=== PATIENT | female | born 1940 | race Caucasian/White ===

== ENCOUNTER → 2017-01-29 | Outpatient (CLI) | payer BC ==
[~2017-01-29] MED LIST: ASPI81TA28 PO; AZPOPS OPR; CALCTAB7 PO; CARV12.52 PO; CARV6.25 PO; CLON0.5T3 PO; ESCI5TAB PO; FAMO1TAB47 PO; HYZ/10015 PO; LEVO25TA5 PO; MULT-506 PO; PRAV20TA PO; TRVOPS OPB; WARF3TAB6 PO
--- NOTE | 2017-01-29 16:41 | MAMMOGRAPHY REPORT ---
BILATERAL DIGITAL SCREENING MAMMOGRAM WITH CAD: 01/29/2017 CLINICAL HISTORY: Routine screening. TECHNIQUE: Bilateral CC and MLO views were obtained. Current study was also evaluated with a Compute r Aided Detection (CAD) system. COMPARISON: Comparison is made to exams dated: 01/18/2016 mammogram, 01/14/2015 mammogram, 01/13/2014 m ammogram, 01/07/2013 mammogram, 01/07/2012 mammogram, and 01/03/2011 mammogram - [facility] enter. BREAST COMPOSITION: There are scattered areas of fibroglandular density in both breasts. FINDINGS: There is an incompletely visualized 3 mm nodular asymmetry in the far posterior, lateral l eft breast, only seen on the CC view. Although this could represent normal overlapping tissue, addit ional spot compression tomosynthesis, exaggerated lateral CC view and possibly ultrasound are recomme nded. There are stable grouped microcalcifications in the upper inner quadrant of the left breast. Minimal vascular calcification bilaterally. No other suspicious mass, architectural distortion or cluster o f microcalcifications is seen. IMPRESSION: ACR BI-RADS CATEGORY 0: INCOMPLETE EVALUATION: NEED ADDITIONAL IMAGING EVALUATION The 3 mm nodular asymmetry in the lateral and posterior left breast needs additional evaluation. The patient will be called to schedule an appointment. Approximately 10% of breast cancers are not detected with mammography. A negative mammographic report should not delay biopsy if a clinically suggestive mass is present. Carie Galvez M.D. ay/:01/29/2017 14:43:12 Leather Cleaner: April GRIMM(R)(M), [facility] letter sent: Addl Imaging 0 BI-RADS Code: ACR BI-RADS Category 0: Incomplete Evaluation: Need Additional Imaging Evaluation
== END | disposition home or self-care (01) ==
LOC: C.MAMM 13:29
PROVIDERS: ATTEND Family Medicine
DX: Z12.31 Encounter for screening mammogram for malignant neoplasm of breast (principal); R92.8 Other abnormal and inconclusive findings on diagnostic imaging of breast

== ENCOUNTER → 2017-02-04 | Outpatient (CLI) | payer BC ==
--- NOTE | 2017-02-04 15:52 | MAMMOGRAPHY REPORT ---
UNILATERAL LEFT DIGITAL DIAGNOSTIC MAMMOGRAM TOMOSYNTHESIS: 02/04/2017 CLINICAL HISTORY: 77 year old woman called back from screening mammography for a 3 mm nodular asymmet ry in the far posterior, lateral left breast, only seen on the CC view. TECHNIQUE: Spot compression 2-D and tomosynthesis left CC views were obtained COMPARISON: Comparison is made to exams dated: 01/29/2017 mammogram, 01/18/2016 mammogram, 01/14/2015 ma mmogram, 01/13/2014 mammogram, 01/07/2013 mammogram, and 01/07/2012 mammogram - [facility] nter. BREAST COMPOSITION: There are scattered areas of fibroglandular density in the left breast. FINDINGS: There is effacement of the 3 mm nodular asymmetry along the far posterior and lateral left breast on the CC projections. With more exaggerated lateral positioning on the second spot compressi on view, there is a tubular blood vessel coursing through this area, suggesting the asymmetry could o f represented the blood vessel seen en face. Currently, there is no evidence of a suspicious mass, a rchitectural distortion or cluster of microcalcifications is seen. Recommend return to annual screen ing mammography schedule. IMPRESSION: ACR BI-RADS CATEGORY 2: BENIGN There is effacement of the 3 mm nodular asymmetry in the far posterior, lateral left breast. There i s no mammographic evidence of malignancy. Return to annual mammogram screening schedule is recommende d. The patient has been verbally notified of the results. Approximately 10% of breast cancers are not detected with mammography. A negative mammographic report should not delay biopsy if a clinically suggestive mass is present. Carie Galvez M.D. ay/:02/04/2017 12:29:29 Motor Carrier Inspector: April GRIMM(Monty)(M), [facility] letter sent: Normal 1/2 BI-RADS Code: ACR BI-RADS Category 2: Benign
== END | disposition home or self-care (01) ==
LOC: C.MAMM 09:17
PROVIDERS: ATTEND Family Medicine
DX: N64.89 Other specified disorders of breast (principal)

== ENCOUNTER 2017-02-13 10:07 | Emergency (ER) | payer BC ==
[~2017-02-13] VITALS: Ht 160 cm; Wt 81.2 kg
[~2017-02-13 10:07] MED LIST changes: -CARV12.52 PO; -HYZ/10015 PO; -LEVO25TA5 PO
[2017-02-13 10:11] VITALS: TEMP 36.7; Ht 160 cm; Wt 81.2 kg
--- NOTE | 2017-02-13 10:53 | DIAGNOSTIC IMAGING REPORT ---
HEAD WITHOUT CONTRAST (CT) CT DOSE: 690.05 mGycm HISTORY: Mental status change. Trauma. eval for bleed TECHNIQUE: Multiaxial CT images of the head were performed without the use of intravenous contrast. A dose lowering technique was utilized adhering to the principles of ALARA. Comparison: 08/21/2013 Findings: The paranasal sinuses and mastoid air cells are clear. The calvarium and skull base are intact. The ventricles and sulci are within normal limits. There is no mass, hematoma, midline shift, or acute infarct. Moderate chronic small vessel change of aging. Extracranial left prefrontal soft tissue edema. Impression: No acute intracranial abnormality. Age-related change. Extracranial left prefrontal soft tissue edematous change The above report was generated using voice recognition software. It may contain grammatical, syntax or spelling errors. Electronically signed by: Efren Cuevas M.D. 02/13/2017 10:52 AM Dictated Date/Time: 02/13/2017 10:50 AM
--- NOTE | 2017-02-13 10:59 | DIAGNOSTIC IMAGING REPORT ---
CT SCAN OF THE FACIAL BONES WITHOUT IV CONTRAST CLINICAL HISTORY: Fall with left facial injury. COMPARISON STUDY: CT of the brain dated 02/13/2017. TECHNIQUE: High-resolution CT scan of the facial bones is performed. Images are reviewed in the axial, sagittal, and coronal planes. IV contrast was not administered for this examination. A dose lowering technique was utilized adhering to the principles of ALARA. CT DOSE: 551.90 mGycm FINDINGS: The skeletal structures are osteopenic. There is no evidence of facial bone fracture. The bony orbits are intact and the orbital contents are within normal limits noting bilateral ocular lens implants. The zygomatic arches, nasal bones, and pterygoid plates are preserved. The maxilla and mandible are intact. Arthritic change is seen at the temporomandibular joints. There are no layering blood products within the paranasal sinuses. The sinuses and mastoids are clear. The visualized calvarium and upper cervical spine are maintained. Mild cervical spondylosis is noted. Partially imaged brain parenchyma is within normal limits. There is a left frontal scalp hematoma. IMPRESSION: 1. There is no evidence of facial bone fracture. 2. Left frontal scalp hematoma. Electronically signed by: Rick Akhtar M.D. 02/13/2017 10:58 AM Dictated Date/Time: 02/13/2017 10:55 AM
[2017-02-13] MEDS ORDERED: LEVO25TA5 PO (11:04)
[2017-02-13] MEDS ORDERED: CARV12.52 PO (11:04)
[2017-02-13] MEDS ORDERED: HYZ/10015 PO (11:04)
[2017-02-13] MEDS ORDERED: WARF3TAB6 PO (11:07)
--- NOTE | 2017-02-13 11:07 | DIAGNOSTIC IMAGING REPORT ---
LEFT SHOULDER MIN 2 VIEWS ROUTINE CLINICAL HISTORY: eval for fx trauma COMPARISON: None. DISCUSSION: The bones and joint spaces appear intact. There is no evidence of fracture, dislocation or bony disease. There is no evidence for soft tissue swelling. IMPRESSION: Negative study. The above report was generated using voice recognition software. It may contain grammatical, syntax or spelling errors. Electronically signed by: Efren Cuevas M.D. 02/13/2017 11:05 AM Dictated Date/Time: 02/13/2017 11:05 AM
--- NOTE | 2017-02-13 11:08 | DIAGNOSTIC IMAGING REPORT ---
LEFT KNEE 1 OR 2 VIEWS ROUTINE CLINICAL HISTORY: eval for fx trauma. Pain. COMPARISON: None. DISCUSSION: The bones and joint spaces appear intact. There is no evidence of fracture, dislocation or bony disease. There is no evidence for soft tissue swelling. IMPRESSION: Negative study. The above report was generated using voice recognition software. It may contain grammatical, syntax or spelling errors. Electronically signed by: Efren Cuevas M.D. 02/13/2017 11:06 AM Dictated Date/Time: 02/13/2017 11:06 AM
[2017-02-13] MEDS ORDERED: ACETAMINOPHEN 500 MG TAB PO STA (11:12)
[2017-02-13] MEDS ORDERED: LABETALOL HCL IV 5 MG/ML 20ML IV STA (12:53)
[2017-02-13 13:25] LABS: BASO % 0.1 %; BASO ABS # 0.01 K/uL (0-0.2); COMPLETE YES; EOS % 0.4 %; HEMATOCRIT 38.3 % (37-47); IG% 0.1 %; LYMPH % 18.5 %; LYMPH ABS # 1.27 K/uL (1.2-3.4); MEAN CELL VOLUME 86.3 fL (80-100); MEAN CORPUSCULAR HEMOGLOBIN 27.9 pg (25-34); MEAN CORPUSCULAR HGB CONC 32.4 g/dl (32-36); MEAN PLATELET VOLUME 9.1 fL (7.4-10.4); NEUT % 73.9 %; PLATELET COUNT 299 K/uL (130-400); RED BLOOD COUNT 4.44 M/uL (4.2-5.4); WHITE BLOOD COUNT 6.85 K/uL (4.8-10.8)
[2017-02-13 13:56] LABS: BUN/CREATININE RATIO 17.9 (10-20); CALCIUM 8.8 mg/dl (8.5-10.1); CREATININE 0.7 mg/dl (0.60-1.20)
[2017-02-13 14:28] VITALS: BP 156/71; PULSE 58; O2SAT 95
--- NOTE | 2017-02-13 15:08 | EMERGENCY ROOM VISIT NOTE ---
History Report prepared by Raj: Karie Vargas Under the Supervision of: Dr. Odin Santoyo M.D. First contact with patient: 10:15 Chief Complaint: HEAD INJURY (MINOR) Stated Complaint: FALL History of Present Illness The patient is a 77 year old female who presents to the Emergency Room with complaints of a head injury from a fall occurring just prior to arrival. The patient states she was walking into a store when she fell on the concrete and hit her head. She denies any symptoms prior to falling. According to , the patient tripped on the curb. The patient notes that she did not lose consciousness when she hit her head. The patient notes a left sided headache. She also notes left knee and shoulder pain but she is able to ambulate without difficulty. The patient is on Coumadin for two PEs and her INR was a 3 today. The patient has a history of hypertension and took her medications. Source of History: patient Onset: just prior to arrival Position: head (left sided) Quality: ache Timing: constant Associated Symptoms: No LOC, No chest pain, No SOB, No weakness, No numbness Note: She notes left knee and shoulder pain. Review of Systems See HPI for pertinent positives & negatives. A total of 10 systems reviewed and were otherwise negative. Past Medical & Surgical Medical Problems: (1) Arthritis (2) Atrial fibrillation (3) Depression (4) Esophageal reflux (5) Glaucoma (6) Goiter (7) HTN (hypertension) (8) Hyperlipidemia (9) IBS (irritable bowel syndrome) (10) Migraine (11) Mitral valve regurgitation (12) Myalgia (13) Osteoporosis Surgical Problems: (1) H/O knee surgery (2) Previous back surgery Family History Diabetes mellitus FH: cancer FH: dementia FH: heart disease Social History Smoking Status: Never Smoker Alcohol Use: occasionally Marital Status: Housing Status: lives with significant other Occupation Status: retired Current/Historical Medications Scheduled Aspirin (Aspirin Ec), 81 MG PO QAM Calcium Carbonate-Vitamin D W/ (Caltrate 600 Plus), 1 TAB PO BID Carvedilol (Coreg), 1 TAB PO BID Hctz/Losartan (Hyzaar 25MG/100MG), 1 TAB PO DAILY Levothyroxine Sodium (Levothyroxine Sodium), 1 TAB PO DAILY Multivitamin (Multivitamin), 1 TAB PO QAM Pravastatin (Pravachol ), 20 MG PO QPM Warfarin Sod (Jantoven), 3 MG PO DAILY Scheduled PRN Clonazepam (Klonopin), 0.5 MG PO TID PRN for Anxiety/Insomnia Allergies Coded Allergies: Atorvastatin (Verified Allergy, Intermediate, "legs don't want to move.", 10/19/15) Physical Exam Vital Signs Date Time Temp Pulse Resp B/P (MAP) Pulse Ox O2 Delivery O2 Flow Rate FiO2 02/13/17 14:28 58 156/71 95 02/13/17 14:16 156/71 02/13/17 14:12 55 14 99 02/13/17 14:01 166/75 02/13/17 13:57 59 13 100 02/13/17 13:46 176/73 02/13/17 13:42 56 16 100 02/13/17 13:37 58 18 100 02/13/17 13:31 162/72 02/13/17 13:29 56 02/13/17 13:23 164/68 02/13/17 13:09 61 179/70 98 02/13/17 13:00 192/112 02/13/17 12:22 163/99 02/13/17 11:37 71 183/111 94 Room Air 02/13/17 11:09 76 20 214/116 93 Room Air 02/13/17 10:24 18 97 02/13/17 10:11 36.7 63 20 181/102 97 Room Air Physical Exam Constitutional: Vital signs reviewed. Eyes: Pupils are equal round reactive to light. Conjunctiva are noninjected. ENT: Pharynx is clear without erythema or exudate. Mucous membranes are moist. Neck supple without meningeal signs. Respiratory: Clear to auscultation bilaterally. Breath sounds are equal bilaterally. Cardiovascular: Regular rate and rhythm. No rubs or gallops. GI: Soft, nondistended and nontender. Bowel sounds are present. Musculoskeletal: No peripheral edema. No hip tenderness. There is tenderness. Left posterior shoulder and left knee with bruising. No deformity to either joint. Integumentary: No cyanosis. Neurologic: The patient is awake and alert. Cranial nerves II-XII are intact. Motor is 5 out of 5 all extremities. Sensation is intact to light touch all extremities. Normal speech. No pronator drift. Psychiatric: Normal affect. Medical Decision & Procedures ER Provider Diagnostic Interpretation: Radiology results as stated below per my review and the radiologist's interpretation: HEAD WITHOUT CONTRAST (CT) Findings: The paranasal sinuses and mastoid air cells are clear. The calvarium and skull base are intact. The ventricles and sulci are within normal limits. There is no mass, hematoma, midline shift, or acute infarct. Moderate chronic small vessel change of aging. Extracranial left prefrontal soft tissue edema. Impression: No acute intracranial abnormality. Age-related change. Extracranial left prefrontal soft tissue edematous change The above report was generated using voice recognition software. It may contain grammatical, syntax or spelling errors. Electronically signed by: Efren Cuevas M.D. LEFT KNEE 1 OR 2 VIEWS ROUTINE DISCUSSION: The bones and joint spaces appear intact. There is no evidence of fracture, dislocation or bony disease. There is no evidence for soft tissue swelling. IMPRESSION: Negative study. The above report was generated using voice recognition software. It may contain grammatical, syntax or spelling errors. Electronically signed by: Efren Cuevas M.D. CT SCAN OF THE FACIAL BONES WITHOUT IV CONTRAST FINDINGS: The skeletal structures are osteopenic. There is no evidence of facial bone fracture. The bony orbits are intact and the orbital contents are within normal limits noting bilateral ocular lens implants. The zygomatic arches, nasal bones, and pterygoid plates are preserved. The maxilla and mandible are intact. Arthritic change is seen at the temporomandibular joints. There are no layering blood products within the paranasal sinuses. The sinuses and mastoids are clear. The visualized calvarium and upper cervical spine are maintained. Mild cervical spondylosis is noted. Partially imaged brain parenchyma is within normal limits. There is a left frontal scalp hematoma. IMPRESSION: 1. There is no evidence of facial bone fracture. 2. Left frontal scalp hematoma. Electronically signed by: Rick Akhtar M.D. LEFT SHOULDER MIN 2 VIEWS ROUTINE DISCUSSION: The bones and joint spaces appear intact. There is no evidence of fracture, dislocation or bony disease. There is no evidence for soft tissue swelling. IMPRESSION: Negative study. The above report was generated using voice recognition software. It may contain grammatical, syntax or spelling errors. Electronically signed by: Efren Cuevas M.D. Laboratory Results 02/13/17 13:04 Red Blood Count 4.44, Mean Corpuscular Volume 86.3, Mean Corpuscular Hemoglobin 27.9, Mean Corpuscular Hemoglobin Concent 32.4, Mean Platelet Volume 9.1, Neutrophils (%) (Auto) 73.9, Lymphocytes (%) (Auto) 18.5, Monocytes (%) (Auto) 7.0, Eosinophils (%) (Auto) 0.4, Basophils (%) (Auto) 0.1, Neutrophils # (Auto) 5.05, Lymphocytes # (Auto) 1.27, Monocytes # (Auto) 0.48, Eosinophils # (Auto) 0.03, Basophils # (Auto) 0.01 02/13/17 13:04 Test 02/13/17 13:04 White Blood Count 6.85 K/uL (4.8-10.8) Red Blood Count 4.44 M/uL (4.2-5.4) Hemoglobin 12.4 g/dL (12.0-16.0) Hematocrit 38.3 % (37-47) Mean Corpuscular Volume 86.3 fL (80-100) Mean Corpuscular Hemoglobin 27.9 pg (25-34) Mean Corpuscular Hemoglobin Concent 32.4 g/dl (32-36) Platelet Count 299 K/uL (130-400) Mean Platelet Volume 9.1 fL (7.4-10.4) Neutrophils (%) (Auto) 73.9 % Lymphocytes (%) (Auto) 18.5 % Monocytes (%) (Auto) 7.0 % Eosinophils (%) (Auto) 0.4 % Basophils (%) (Auto) 0.1 % Neutrophils # (Auto) 5.05 K/uL (1.4-6.5) Lymphocytes # (Auto) 1.27 K/uL (1.2-3.4) Monocytes # (Auto) 0.48 K/uL (0.11-0.59) Eosinophils # (Auto) 0.03 K/uL (0-0.5) Basophils # (Auto) 0.01 K/uL (0-0.2) RDW Standard Deviation 44.6 fL (36.4-46.3) RDW Coefficient of Variation 14.1 % (11.5-14.5) Immature Granulocyte % (Auto) 0.1 % Immature Granulocyte # (Auto) 0.01 K/uL (0.00-0.02) Anion Gap 6.0 mmol/L (3-11) Est Creatinine Clear Calc Drug Dose 69.0 ml/min Estimated GFR () 97.5 Estimated GFR (Non- 84.2 BUN/Creatinine Ratio 17.9 (10-20) Calcium Level 8.8 mg/dl (8.5-10.1) Laboratory results as reviewed by me. Medications Administered Medications (Trade) Dose Ordered Sig/Sheri Route Start Time Stop Time Status Last Admin Dose Admin Acetaminophen (Tylenol Tab) 1,000 mg NOW STAT PO 02/13/17 11:12 02/13/17 11:13 DC 02/13/17 11:19 1,000 MG Labetalol HCl (Normodyne IV) 10 mg NOW STAT IV 02/13/17 12:53 02/13/17 12:55 DC 02/13/17 13:14 10 MG ECG Indication: other (high blood pressure) Rate (beats per minute): 70 Rhythm: normal sinus Findings: RBBB, no ectopy Comparison ECG Date: 05/04/16 Change: no significant change ED Course 1018: The patient was evaluated in room B12B. A complete history and physical exam was performed. 1109: The patient is still significantly hypertensive but she says the lump on her heard is hurting her. I discussed her test results with her. 1112: Tylenol Tab 1000 mg PO. 1201: The patient's headache is improving and her blood pressure has come down. I discussed her Coumadin dosing with her. 1220: Her blood pressure is now 163/99. The patient's says they have a hard time controlling her blood pressure at home. The patient notes that she tends to worry about her blood pressure which drives it higher. 1253: Normodyne IV 10 mg IV. 1255: The patient's blood pressure is now 204/100. She feels overall better and her headache is improving. 1412: The patient's blood pressure is now 166/75. She has a mild headache but denies any nausea. 1420: Upon reevaluation, the patient appeared to have improvement of her symptoms. I discussed tonight's findings with the patient. She verbalized agreement of the treatment plan. The patient was discharged home. Medical Decision This is a 77-year-old female who presents with injuries after a mechanical fall. Differential diagnosis includes contusion, concussion, intracranial hemorrhage, skull fracture, long bone fracture. I did perform a limited focused review of portions of the patient's old chart on the electronic medical record. The patient has had no recent pertinent visits to this hospital. I did evaluate the patient as noted above. The patient presents with injuries after a mechanical fall. She is hypertensive but states she took her medications. She is on Coumadin and states her INR was 3 today. I did order a CT of the head and facial bones. I did review the images myself as well as the radiology report as described above. There is no evidence of acute fracture or intracranial process. I did order and personally review the patient's x-rays as described above. There is no evidence of acute fracture dislocation to the knee or shoulder. I did reassess the patient. She complains of a headache and was given Tylenol. Her blood pressure remained elevated. We did observe her for some time and her blood pressure remained elevated despite her headache improving. IV access was established. The patient was placed on a continuous threat monitoring analyst. I did order and review the patient's blood work as noted in the electronic medical record. 12-lead EKG was obtained and per my interpretation no acute ischemic changes are noted. I did treat the patient with labetalol 10 mg IV. On reassessment the patient's blood pressure is improved. She has a mild headache but otherwise denies any other symptoms. I did review her Coumadin dosing with her. She was given head injury precautions and discharged home in good condition. Head Trauma GCS Score: 15 Medication Reconcilliation Current Medication List: was personally reviewed by me Blood Pressure Screening Patient's blood pressure: Elevated blood pressure Impression Primary Impression: Acute head injury Additional Impressions: Anticoagulated Contusion of left shoulder Contusion of left knee Poorly-controlled hypertension Scribe Attestation The scribe's documentation has been prepared under my direct and personally reviewed by me in its entirety. I confirm that the note above accurately reflects all work, treatment, procedures, and medical decision making performed by me. Departure Information Dispostion Home / Self-Care Referrals Marcell Landry D.O. (PCP) Forms HOME CARE DOCUMENTATION FORM, IMPORTANT VISIT INFORMATION Patient Instructions ED Head Injury Closed, ED Hypertension Conf Out Of Control, My [facility] Additional Instructions You have been examined and treated today on an emergency basis only. This is not a substitute for, or an effort to provide, complete comprehensive medical care. It is impossible to recognize and treat all injuries or illnesses in a single emergency department visit. It is therefore important that you follow up closely with your physician. Call as soon as possible for an appointment. Return for worsening symptoms or if you develop fever, vomiting, numbness or weakness on one side of your body, confusion, chest pain, difficulty walking or talking, or any other concerning symptoms. Problem Qualifiers Primary Impression: Acute head injury Encounter type: initial encounter Qualified Codes: S09.90XA - Unspecified injury of head, initial encounter Additional Impressions: Contusion of left shoulder Encounter type: initial encounter Qualified Codes: S40.012A - Contusion of left shoulder, initial encounter Contusion of left knee Encounter type: initial encounter Qualified Codes: S80.02XA - Contusion of left knee, initial encounter
== END 2017-02-13 14:31 | disposition home or self-care (01) ==
LOC: C.EDB 10:08
DX: S09.90XA Unspecified injury of head, initial encounter (principal); S40.012A Contusion of left shoulder, initial encounter; S80.02XA Contusion of left knee, initial encounter; W22.8XXA Striking against or struck by other objects, initial encounter; I48.91 Unspecified atrial fibrillation; I10 Essential (primary) hypertension; E78.5 Hyperlipidemia, unspecified; F32.9 Major depressive disorder, single episode, unspecified; I34.0 Nonrheumatic mitral (valve) insufficiency; M81.0 Age-related osteoporosis without current pathological fracture; K58.9 Irritable bowel syndrome, unspecified; M19.90 Unspecified osteoarthritis, unspecified site; E04.9 Nontoxic goiter, unspecified; Z98.890 Other specified postprocedural states; Z79.82 Long term (current) use of aspirin; Z79.01 Long term (current) use of anticoagulants; Z79.899 Other long term (current) drug therapy; Z88.8 Allergy status to other drugs, medicaments and biological substances; Z83.3 Family history of diabetes mellitus; Z80.9 Family history of malignant neoplasm, unspecified; Z82.49 Family history of ischemic heart disease and other diseases of the circulatory system

== ENCOUNTER → 2017-08-13 | Outpatient (CLI) | payer BC ==
[~2017-08-13] MED LIST changes: -AZPOPS OPR; +CARV12.52 PO; -CARV6.25 PO; -ESCI5TAB PO; -FAMO1TAB47 PO; +HYZ/10015 PO; +LEVO25TA5 PO; -TRVOPS OPB
--- NOTE | 2017-08-13 08:45 | DIAGNOSTIC IMAGING REPORT ---
HEAD WITHOUT CONTRAST (CT) CLINICAL HISTORY: 77 years-old Female with POST CONCUSSION SYNDROME. TECHNIQUE: Multiple axial CT images of the head were obtained without contrast. A dose lowering technique was utilized adhering to the principles of ALARA. CT DOSE: 638.56 mGycm COMPARISON: CT head 02/13/2017. FINDINGS: No acute intracranial hemorrhage, midline shift, intracranial mass, hydrocephalus, territorial ischemia or abnormal extra-axial collection. Mild atrophy. Moderate patchy multifocal areas of decreased attenuation throughout the periventricular and subcortical white matter suggest chronic microvascular ischemic changes. Vascular calcifications are seen at the level of the skull base. Senescent calcifications of the lentiform nuclei. The calvarium is intact. The mastoid air cells, and middle ear cavities are clear. Mild mucosal thickening of the ethmoid air cells. Soft tissues and orbits are unremarkable. IMPRESSION: No acute intracranial abnormality. The above report was generated using voice recognition software. It may contain grammatical, syntax or spelling errors. Electronically signed by: Robert Lowery M.D. 08/13/2017 8:44 AM Dictated Date/Time: 08/13/2017 8:40 AM
== END | disposition home or self-care (01) ==
LOC: C.CTS 08:18
PROVIDERS: ATTEND Nurse Practitioner Adult Health
DX: F07.81 Postconcussional syndrome (principal); R51 Headache

== ENCOUNTER 2017-08-16 09:49 | Emergency (ER) | payer BC ==
[~2017-08-16] VITALS: Ht 157.5 cm; Wt 80.5 kg
[2017-08-16 09:59] VITALS: TEMP 36.7; Ht 157.5 cm; Wt 80.5 kg
[2017-08-16] MEDS ORDERED: SODIUM CHLORIDE 0.9% 1000ML 1,000 ML IV STA (10:13)
[2017-08-16 10:42] VITALS: O2SAT 95
--- NOTE | 2017-08-16 10:44 | EMERGENCY ROOM VISIT NOTE ---
History Report prepared by Raj: Zayda Vargas Under the Supervision of: Dr. Odin Santoyo M.D. First contact with patient: 10:10 Chief Complaint: DIZZY Stated Complaint: DIZZY Nursing Triage Summary: On 08/14 pt was started on HCTZ, has been intermittently dizzy since. Had a presyncopal event on the , and keeps feeling presyncopal. Has not had LOC. History of Present Illness The patient is a 77 year old female who presents to the Emergency Room with complaints of a near syncopal episode beginning just prior to arrival. She reports she was sitting when the episode took place. She denies any LOC. The patient states she has been feeling weak and dizzy for the past couple weeks. The patient had a fall in January where she hit her head. She reports she has been having intermittent headaches since her fall. She denies being admitted to the hospital after her fall. Per , the patient did not have any bleeding in her brain on the CT from her fall in January. The patient notes she has a repeat head CT on 08/13 which was unremarkable for her ongoing headaches. The patient saw her silverware etcher on Saturday and had her Losartan was doubled. She was also started HCTZ on 08/14. 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 She reports she had a scope on her knee which she believes was the cause of her blood clots. She denies CP, SOB, palpitations, urinary symptoms. Source of History: patient Onset: just prior to arrival Position: other (generalized) Quality: other (near syncopal) Timing: other (episode) Associated Symptoms: + fatigue, + weakness, No LOC, No urinary symptoms Review of Systems See HPI for pertinent positives and negatives. A total of ten systems were reviewed and were otherwise negative. Past Medical & Surgical Medical Problems: (1) Arthritis (2) Atrial fibrillation (3) Depression (4) Esophageal reflux (5) Glaucoma (6) Goiter (7) HTN (hypertension) (8) Hyperlipidemia (9) IBS (irritable bowel syndrome) (10) Migraine (11) Mitral valve regurgitation (12) Myalgia (13) Osteoporosis Surgical Problems: (1) H/O knee surgery (2) Previous back surgery Family History Diabetes mellitus FH: cancer FH: dementia FH: heart disease Social History Smoking Status: Never Smoker Alcohol Use: occasionally Marital Status: Housing Status: lives with significant other Occupation Status: retired Current/Historical Medications Scheduled Aspirin (Aspirin Ec), 81 MG PO QAM Calcium Carbonate-Vitamin D W/ (Caltrate 600 Plus), 1 TAB PO BID Carvedilol (Coreg), 1 TAB PO BID Hctz/Losartan (Hyzaar 25MG/100MG), 1 TAB PO DAILY Multivitamin (Multivitamin), 1 TAB PO QAM Pravastatin (Pravachol ), 20 MG PO QPM Warfarin Sod (Jantoven), 3 MG PO DAILY Scheduled PRN Clonazepam (Klonopin), 0.5 MG PO TID PRN for Anxiety/Insomnia Allergies Coded Allergies: Atorvastatin (Verified Allergy, Intermediate, "legs don't want to move.", 08/16/17) Physical Exam Vital Signs Date Time Temp Pulse Resp B/P (MAP) Pulse Ox O2 Delivery O2 Flow Rate FiO2 08/16/17 13:18 67 18 172/98 95 08/16/17 12:37 69 18 170/82 94 Room Air 08/16/17 11:25 75 18 181/98 92 Room Air 08/16/17 11:02 63 08/16/17 10:42 95 Room Air 08/16/17 10:42 72 18 161/92 94 Room Air 68 170/91 70 162/90 08/16/17 09:59 36.7 59 18 147/83 95 Room Air Physical Exam GENERAL: Awake, fatigued-appearing, in no distress HENT: Normocephalic, atraumatic. Oropharynx unremarkable. Dry mucus membrane. EYES: Normal conjunctiva. Sclera non-icteric. NECK: Supple. No nuchal rigidity. FROM. No JVD. RESPIRATORY: Clear to auscultation. CARDIAC: Regular rate, normal rhythm. Extremities warm and well perfused. Pulses equal. ABDOMEN: Soft, non-distended. No tenderness to palpation. No rebound or guarding. No masses. RECTAL: Deferred. MUSCULOSKELETAL: Chest examination reveals no tenderness. The back is symmetrical on inspection without obvious abnormality. There is no CVA tenderness to palpation. No joint edema. LOWER EXTREMITIES: Calves are equal size bilaterally and non-tender. No edema. No discoloration. NEURO: Normal sensorium. No sensory or motor deficits noted. normal cerebellar function with [id number]. SKIN: No rash or jaundice noted. Medical Decision & Procedures ER Provider Diagnostic Interpretation: Radiology results as stated below per my review and radiologist interpretation: CHEST ONE VIEW PORTABLE FINDINGS: Cardiac silhouette is mildly enlarged, unchanged. Atherosclerosis of the aorta. Mild right hemidiaphragmatic elevation. Subsegmental left basilar opacities. No pneumothorax or pleural effusion. Degenerative changes are seen within the shoulders and spine. Calcification of the left neck suggest carotid calcifications. IMPRESSION: 1. Cardiomegaly without overt pulmonary edema. 2. Subsegmental left basilar opacities favor atelectasis. 3. Unchanged mild right hemidiaphragmatic elevation. The above report was generated using voice recognition software. It may contain grammatical, syntax or spelling errors. Electronically signed by: Robert Lowery M.D. Laboratory Results 08/16/17 10:30 Red Blood Count 4.74, Mean Corpuscular Volume 84.6, Mean Corpuscular Hemoglobin 27.2, Mean Corpuscular Hemoglobin Concent 32.2, Mean Platelet Volume 8.8, Neutrophils (%) (Auto) 66.7, Lymphocytes (%) (Auto) 22.1, Monocytes (%) (Auto) 10.2, Eosinophils (%) (Auto) 0.6, Basophils (%) (Auto) 0.1, Neutrophils # (Auto ) 5.28, Lymphocytes # (Auto) 1.75, Monocytes # (Auto) 0.81, Eosinophils # (Auto ) 0.05, Basophils # (Auto) 0.01 08/16/17 10:30 Test 08/16/17 10:30 08/16/17 10:48 White Blood Count 7.92 K/uL (4.8-10.8) Red Blood Count 4.74 M/uL (4.2-5.4) Hemoglobin 12.9 g/dL (12.0-16.0) Hematocrit 40.1 % (37-47) Mean Corpuscular Volume 84.6 fL (80-100) Mean Corpuscular Hemoglobin 27.2 pg (25-34) Mean Corpuscular Hemoglobin Concent 32.2 g/dl (32-36) Platelet Count 328 K/uL (130-400) Mean Platelet Volume 8.8 fL (7.4-10.4) Neutrophils (%) (Auto) 66.7 % Lymphocytes (%) (Auto) 22.1 % Monocytes (%) (Auto) 10.2 % Eosinophils (%) (Auto) 0.6 % Basophils (%) (Auto) 0.1 % Neutrophils # (Auto) 5.28 K/uL (1.4-6.5) Lymphocytes # (Auto) 1.75 K/uL (1.2-3.4) Monocytes # (Auto) 0.81 K/uL (0.11-0.59) Eosinophils # (Auto) 0.05 K/uL (0-0.5) Basophils # (Auto) 0.01 K/uL (0-0.2) RDW Standard Deviation 43.5 fL (36.4-46.3) RDW Coefficient of Variation 14.0 % (11.5-14.5) Immature Granulocyte % (Auto) 0.3 % Immature Granulocyte # (Auto) 0.02 K/uL (0.00-0.02) Prothrombin Time 22.4 SECONDS (9.0-12.0) Prothromb Time International Ratio 2.2 (0.9-1.1) Anion Gap 4.0 mmol/L (3-11) Est Creatinine Clear Calc Drug Dose 48.0 ml/min Estimated GFR () 64.9 Estimated GFR (Non- 56.0 BUN/Creatinine Ratio 15.2 (10-20) Calcium Level 9.0 mg/dl (8.5-10.1) Magnesium Level 1.9 mg/dl (1.8-2.4) Total Bilirubin 0.4 mg/dl (0.2-1) Direct Bilirubin < 0.1 mg/dl (0-0.2) Aspartate Amino Transf (AST/SGOT) 21 U/L (15-37) Alanine Aminotransferase (ALT/SGPT) 21 U/L (12-78) Alkaline Phosphatase 72 U/L (45-117) Total Protein 7.3 gm/dl (6.4-8.2) Albumin 3.5 gm/dl (3.4-5.0) Lipase 201 U/L (73-393) Urine Color YELLOW Urine Appearance CLOUDY (CLEAR) Urine pH 5.5 (4.5-7.5) Urine Specific [place] 1.013 (1.000-1.030) Urine Protein NEG (NEG) Urine Glucose (UA) NEG (NEG) Urine Ketones NEG (NEG) Urine Occult Blood NEG (NEG) Urine Nitrite NEG (NEG) Urine Bilirubin NEG (NEG) Urine Urobilinogen NEG (NEG) Urine Leukocyte Esterase TRACE (NEG) Urine WBC (Auto) 1-5 /hpf (0-5) Urine RBC (Auto) 0-4 /hpf (0-4) Urine Hyaline Casts (Auto) 1-5 /lpf (0-5) Urine Epithelial Cells (Auto) >30 /lpf (0-5) Urine Bacteria (Auto) NEG (NEG) Laboratory results reviewed by me Medications Administered Medications (Trade) Dose Ordered Sig/Sheri Route Start Time Stop Time Status Last Admin Dose Admin Sodium Chloride 1,000 ml @ 999 mls/hr Q1H1M STAT IV 08/16/17 10:13 08/16/17 11:13 DC 08/16/17 10:50 999 MLS/HR ECG Per My Interpretation Indication: weakness Rate (beats per minute): 65 Rhythm: sinus rhythm Findings: PVC (occasional), RBBB, no acute ischemic change, other (normal axis) Comparison ECG Date: 02/13/17 Change: no significant change ED Course 1023: The patient was evaluated in room A2. A complete history and physical exam was performed. 1312: I reevaluated the patient. Discussed results and discharge instructions: She verbalized understanding and agreement. The patient is ready for discharge. Medical Decision I reviewed the patient's past medical history, medications, and the nursing notes as described above. Differential diagnosis: Etiologies such as metabolic, infection, hypo/hyperglycemia, electrolyte abnormalities, cardiac sources, intracerebral event, toxicologic, neurologic, as well as others were entertained. 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 Symptoms occur in the setting of having her hydrochlorothiazide increased although the patient reports having intermittent lightheadedness even before this change. The patient did have a negative head CT which was done for headaches, outpatient on 08/13 that was negative. On exam the patient is fatigued appearing but in no acute distress, afebrile stable vital signs. She is neuro intact including finger to nose. EKG demonstrates right bundle branch block similar to prior without evidence of acute ischemia. Labs otherwise unremarkable including wbc wnl. Patient feels improved after IV fluid hydration. She will follow-up with her primary doctor and silverware etcher as scheduled. Instructed to return for any worsening symptoms. Findings and plan for follow-up reviewed with patient. Patient agreeable and d/c'd per discharge instructions. Medication Reconcilliation Current Medication List: was personally reviewed by me Blood Pressure Screening Patient's blood pressure: Elevated blood pressure Blood pressure disposition: Elevated BP felt to be situational Impression Primary Impression: Near syncope Additional Impression: Dehydration Scribe Attestation The scribe's documentation has been prepared under my direction and personally reviewed by me in its entirety. I confirm that the note above accurately reflects all work, treatment, procedures, and medical decision making performed by me. Departure Information Dispostion Home / Self-Care Referrals Marcell Landry D.O. (PCP) Forms HOME CARE DOCUMENTATION FORM, IMPORTANT VISIT INFORMATION Patient Instructions ED Dehydration, ED Near Syncope Unkn, My [facility] Additional Instructions Please follow up with your primary care physician and silverware etcher next week as scheduled for re-evaluation. The cause of your symptoms is likely due to mild dehydration. Otherwise, your exam, EKG, chest xray, and lab results did not show signs of an emergent condition at this time. Continue your current medications as prescribed. Drink plenty of fluids to ensure hydration. Return to the emergency department for worsening symptoms as described in the accompanying instructions. Problem Qualifiers
[2017-08-16 10:48] LABS: BASO % 0.1 %; BASO ABS # 0.01 K/uL (0-0.2); EOS % 0.6 %; EOS ABS # 0.05 K/uL (0-0.5); HEMATOCRIT 40.1 % (37-47); HEMOGLOBIN 12.9 g/dL (12.0-16.0); IG# 0.02 K/uL (0.00-0.02); LYMPH % 22.1 %; LYMPH ABS # 1.75 K/uL (1.2-3.4); MEAN CELL VOLUME 84.6 fL (80-100); MEAN CORPUSCULAR HEMOGLOBIN 27.2 pg (25-34); MEAN CORPUSCULAR HGB CONC 32.2 g/dl (32-36); MEAN PLATELET VOLUME 8.8 fL (7.4-10.4); MONO % 10.2 %; MONO ABS # 0.81 K/uL (0.11-0.59); NEUT % 66.7 %; NEUT ABS # 5.28 K/uL (1.4-6.5); PLATELET COUNT 328 K/uL (130-400); RED CELL DISTRIBUTION WIDTH SD 43.5 fL (36.4-46.3); WHITE BLOOD COUNT 7.92 K/uL (4.8-10.8)
--- NOTE | 2017-08-16 10:50 | DIAGNOSTIC IMAGING REPORT ---
CHEST ONE VIEW PORTABLE HISTORY: 77 years-old Female CHEST PAIN acute atypical chest pain COMPARISON: Chest radiograph 09/02/2014 TECHNIQUE: Portable AP view of the chest FINDINGS: Cardiac silhouette is mildly enlarged, unchanged. Atherosclerosis of the aorta. Mild right hemidiaphragmatic elevation. Subsegmental left basilar opacities. No pneumothorax or pleural effusion. Degenerative changes are seen within the shoulders and spine. Calcification of the left neck suggest carotid calcifications. IMPRESSION: 1. Cardiomegaly without overt pulmonary edema. 2. Subsegmental left basilar opacities favor atelectasis. 3. Unchanged mild right hemidiaphragmatic elevation. The above report was generated using voice recognition software. It may contain grammatical, syntax or spelling errors. Electronically signed by: Robert Lowery M.D. 08/16/2017 10:49 AM Dictated Date/Time: 08/16/2017 10:48 AM
[2017-08-16 10:55] LABS: INR 2.2 (0.9-1.1)
[2017-08-16 10:58] LABS: ALBUMIN 3.5 gm/dl (3.4-5.0); ALT/SGPT 21 U/L (12-78); BLOOD UREA NITROGEN 15 mg/dl (7-18); CARBON DIOXIDE 30 mmol/L (21-32); CREATININE 0.98 mg/dl (0.60-1.20); GLUCOSE 89 mg/dl (70-99); LIPASE 201 U/L (73-393); POTASSIUM 3.6 mmol/L (3.5-5.1); SODIUM 133 mmol/L (136-145)
[2017-08-16 11:01] LABS: ALKALINE PHOSPHATASE 72 U/L (45-117); AST/SGOT 21 U/L (15-37); TOTAL PROTEIN 7.3 gm/dl (6.4-8.2)
[2017-08-16 13:18] VITALS: BP 172/98; PULSE 67; O2SAT 95
== END 2017-08-16 13:19 | disposition home or self-care (01) ==
LOC: C.EDB 09:50 → C.EDA 13:19
DX: R55 Syncope and collapse (principal); E86.0 Dehydration; R94.31 Abnormal electrocardiogram [ECG] [EKG]; I45.10 Unspecified right bundle-branch block; I48.91 Unspecified atrial fibrillation; I10 Essential (primary) hypertension; E78.5 Hyperlipidemia, unspecified; Z79.01 Long term (current) use of anticoagulants; Z79.82 Long term (current) use of aspirin; Z86.711 Personal history of pulmonary embolism; Z88.8 Allergy status to other drugs, medicaments and biological substances; Z83.3 Family history of diabetes mellitus; Z82.49 Family history of ischemic heart disease and other diseases of the circulatory system; Z81.8 Family history of other mental and behavioral disorders

== ENCOUNTER 2017-08-31 17:42 | Inpatient (IN) | payer BC, OTHER ==
[~2017-08-31] VITALS: Ht 157.5 cm; Wt 79.7 kg
[~2017-08-31 17:42] MED LIST changes: -LEVO25TA5 PO
[2017-08-31] MEDS ORDERED: DILTIAZEM HCL 5 MG/ML 5 ML VIAL IV STA (18:12)
--- NOTE | 2017-08-31 18:14 | EMERGENCY ROOM VISIT NOTE ---
History Report prepared by Raj: Bennie Saavedra Under the Supervision of: Dr. Iraj Galicia M.D. First contact with patient: 18:05 Chief Complaint: HYPERTENSION Stated Complaint: HIGH BLOOD PRESSURE History of Present Illness The patient is a 77 year old female with a history of hypertension who presents to the Emergency Room with complaints of worsening hypertension over the past few days. She states that she has had problems with a high blood pressure in the past, and had been on a water pill, Losartan, and Carvedilol. The patient had her Losartan raised from 50 to [address] Ames and was put on HCTZ, but was then taken off of her water pill and HCTZ 4 days ago because she was having problems with dizziness. She adds that she is on Coumadin for blood clots, and she notes that when she was in here for the clots, she was thought to be in atrial fibrillation. The patient denies any chest pain or abdominal pain. Source of History: patient, spouse/significant other Onset: Past few days Position: other (global) Symptom Intensity: 156 initially here systolic Quality: other (hypertension) Timing: worsening Associated Symptoms: No chest pain, No abdominal pain Review of Systems See HPI for pertinent positives & negatives. A total of 10 systems reviewed and were otherwise negative. Past Medical & Surgical Medical Problems: (1) Arthritis (2) Atrial fibrillation (3) Atrial fibrillation with rapid ventricular response (4) Depression (5) Esophageal reflux (6) Glaucoma (7) Goiter (8) HTN (hypertension) (9) HTN (hypertension) (10) Hyperlipidemia (11) IBS (irritable bowel syndrome) (12) Migraine (13) Mitral valve regurgitation (14) Myalgia (15) Osteoporosis Surgical Problems: (1) H/O knee surgery (2) Previous back surgery Family History Diabetes mellitus FH: cancer FH: dementia FH: heart disease Social History Smoking Status: Never Smoker Alcohol Use: occasionally Marital Status: Housing Status: lives with significant other Occupation Status: retired Current/Historical Medications Scheduled Aspirin (Aspirin Ec), 81 MG PO QAM Brinzolamide Oph (Azopt Oph), 1 DROPS OPR BID Carvedilol (Coreg), 12.5 MG PO BID Famotidine (Pepcid), 20 MG PO BID Hydrochlorothiazide (Hctz), 25 MG PO DAILY Levothyroxine Sodium (Levothyroxine Sodium), 25 MCG PO DAILY Multivitamin (Multivitamin), 1 TAB PO QAM Pravastatin (Pravachol ), 20 MG PO QPM Travoprost (Travatan Z), 1 DROPS OPR HS Warfarin Sodium (Coumadin), 6 MG PO WK Warfarin Sodium (Coumadin), 4.5 MG PO [id number] Scheduled PRN Acetaminophen (Tylenol), 325 MG PO Q6H PRN for Pain Clonazepam (Klonopin), 0.5 MG PO TID PRN for Anxiety Allergies Coded Allergies: Atorvastatin (Verified Allergy, Intermediate, "legs don't want to move.", 08/16/17) Physical Exam Vital Signs Date Time Temp Pulse Resp B/P (MAP) Pulse Ox O2 Delivery O2 Flow Rate FiO2 08/31/17 22:20 89 08/31/17 21:41 95 18 153/100 96 08/31/17 21:31 94 18 176/90 96 08/31/17 21:15 106 18 192/65 96 08/31/17 19:59 82 18 153/86 93 08/31/17 19:21 76 19 115/65 94 Room Air 08/31/17 19:15 86 19 109/62 95 Room Air 08/31/17 19:09 117 18 142/109 96 Room Air 08/31/17 18:32 95 Room Air 08/31/17 18:32 95 Room Air 08/31/17 18:09 138 08/31/17 18:07 138 22 169/111 97 Room Air 08/31/17 17:51 36.5 112 16 156/94 97 Room Air Physical Exam GENERAL: Awake, alert, well-appearing, in no acute distress HENT: Normocephalic, atraumatic. Oropharynx unremarkable. EYES: Normal conjunctiva. Sclera non-icteric. NECK: Supple. No nuchal rigidity. FROM. No JVD. RESPIRATORY: Clear to auscultation. CARDIAC: Regular rate, normal rhythm. Extremities warm and well perfused. Pulses equal. ABDOMEN: Soft, non-distended. No tenderness to palpation. No rebound or guarding. No masses. RECTAL: Deferred. MUSCULOSKELETAL: Chest examination reveals no tenderness. The back is symmetrical on inspection without obvious abnormality. There is no CVA tenderness to palpation. No joint edema. LOWER EXTREMITIES: Calves are equal size bilaterally and non-tender. No edema. No discoloration. NEURO: Normal sensorium. No sensory or motor deficits noted. SKIN: No rash or jaundice noted. Medical Decision & Procedures ER Provider Diagnostic Interpretation: X-ray results as stated below per interpretation by me and the radiologist: CHEST ONE VIEW PORTABLE CLINICAL HISTORY: 77 years-old Female presenting with CHEST PAIN. TECHNIQUE: Portable upright AP view of the chest was obtained. COMPARISON: 08/16/2017. FINDINGS: Atherosclerosis of aortic arch. Cardiac silhouette enlarged. Mild pulmonary vascular prominence. No focal opacity. No large effusion or pneumothorax. Osseous structures normal. Upper abdomen normal. IMPRESSION: 1. Cardiomegaly with possible mild volume overload. No other convincing evidence of acute cardiopulmonary disease. Electronically signed by: Isidro Duarte M.D. 08/31/2017 6:56 PM Dictated Date/Time: 08/31/2017 6:55 PM Laboratory Results 08/31/17 18:20 Red Blood Count 4.41, Mean Corpuscular Volume 83.2, Mean Corpuscular Hemoglobin 28.3, Mean Corpuscular Hemoglobin Concent 34.1, Mean Platelet Volume 8.6, Neutrophils (%) (Auto) 55.4, Lymphocytes (%) (Auto) 34.6, Monocytes (%) (Auto) 8.2, Eosinophils (%) (Auto) 1.2, Basophils (%) (Auto) 0.3, Neutrophils # (Auto) 4.24, Lymphocytes # (Auto) 2.64, Monocytes # (Auto) 0.63, Eosinophils # (Auto) 0.09, Basophils # (Auto) 0.02 08/31/17 18:20 Test 08/31/17 18:20 08/31/17 22:28 White Blood Count 7.64 K/uL (4.8-10.8) Red Blood Count 4.41 M/uL (4.2-5.4) Hemoglobin 12.5 g/dL (12.0-16.0) Hematocrit 36.7 % (37-47) Mean Corpuscular Volume 83.2 fL (80-100) Mean Corpuscular Hemoglobin 28.3 pg (25-34) Mean Corpuscular Hemoglobin Concent 34.1 g/dl (32-36) Platelet Count 336 K/uL (130-400) Mean Platelet Volume 8.6 fL (7.4-10.4) Neutrophils (%) (Auto) 55.4 % Lymphocytes (%) (Auto) 34.6 % Monocytes (%) (Auto) 8.2 % Eosinophils (%) (Auto) 1.2 % Basophils (%) (Auto) 0.3 % Neutrophils # (Auto) 4.24 K/uL (1.4-6.5) Lymphocytes # (Auto) 2.64 K/uL (1.2-3.4) Monocytes # (Auto) 0.63 K/uL (0.11-0.59) Eosinophils # (Auto) 0.09 K/uL (0-0.5) Basophils # (Auto) 0.02 K/uL (0-0.2) RDW Standard Deviation 41.4 fL (36.4-46.3) RDW Coefficient of Variation 13.6 % (11.5-14.5) Immature Granulocyte % (Auto) 0.3 % Immature Granulocyte # (Auto) 0.02 K/uL (0.00-0.02) Prothrombin Time 30.8 SECONDS (9.0-12.0) Prothromb Time International Ratio 3.0 (0.9-1.1) Anion Gap 5.0 mmol/L (3-11) Est Creatinine Clear Calc Drug Dose 49.5 ml/min Estimated GFR () 66.6 Estimated GFR (Non- 57.4 BUN/Creatinine Ratio 12.0 (10-20) Calcium Level 8.7 mg/dl (8.5-10.1) Total Bilirubin 0.3 mg/dl (0.2-1) Direct Bilirubin < 0.1 mg/dl (0-0.2) Aspartate Amino Transf (AST/SGOT) 18 U/L (15-37) Alanine Aminotransferase (ALT/SGPT) 21 U/L (12-78) Alkaline Phosphatase 68 U/L (45-117) Total Creatine Kinase 93 U/L (26-192) Creatine Kinase MB 1.7 ng/ml (0.5-3.6) Creatine Kinase MB Ratio 1.8 (0-3.0) Total Protein 7.0 gm/dl (6.4-8.2) Albumin 3.2 gm/dl (3.4-5.0) Lipase 541 U/L (73-393) Labs reviewed by ED physician. Medications Administered Medications (Trade) Dose Ordered Sig/Sheri Route Start Time Stop Time Status Last Admin Dose Admin Diltiazem HCl (Cardizem Inj) 20 mg NOW STAT IV 08/31/17 18:12 08/31/17 18:16 DC 08/31/17 19:08 20 MG Potassium Chloride (Sachi Ciel Elix) 40 meq NOW STAT PO 08/31/17 19:12 08/31/17 19:13 DC 08/31/17 19:44 40 MEQ Diltiazem HCl 125 mg/Dextrose 125 ml @ 0 mls/hr Q0M PRN IV 08/31/17 20:45 08/31/17 23:59 08/31/17 21:14 5 MLS/HR ECG Per My Interpretation Indication: other (hypertension) Rate (beats per minute): 129 Rhythm: atrial fibrillation (with RVR) Findings: PVC, RBBB, no acute ischemic change, no ectopy Comparison ECG Date: new onset afib compared to normal sinus rhythm 08/16/17 ED Course 1805: Past medical records reviewed. The patient was evaluated in room C2B. A complete history and physical examination was performed. 1811: Cardizem Inj 20 mg IV. 1911: Sachi Ciel Elix 40 meq PO. 1955: Upon reexamination the patient is resting comfortably. I discussed results and treatment plan with the patient. She verbalizes agreement and understanding. The patient is ready for discharge. 2029: Upon reexamination the patient is resting. I discussed results and treatment plan with the patient. She verbalizes agreement and understanding. The patient will now be evaluated for further management. 2031: I discussed the patient's case with Dr. Corado, John paper pattern folder, he has agreed to evaluate the patient for further management and care. 2037: I discussed the patient with Dr. Nani Lopez cardiology - he said to just put her a Cardizem drip, and he will see her in the morning. Medical Decision Differential diagnosis: Etiologies such as benign hypertension, hypertensive emergency, cardiovascular pathology, pheochromocytoma, electrolyte abnormality, renal disease, endorgan damage, as well as others were entertained. This is a 77-year-old female who presents emergency department complaining of A. fib with RVR. The patient recently had 2 of her blood pressure medications stopped and I believe this contributed to her current symptoms. She was given Cardizem in the emergency department with improvement in her symptoms. The patient is already on Coumadin for DVT. The rest of her laboratory work is noncontributory. At this point I felt that the patient could be safely discharged home if we restarted her blood pressure medication however that both the patient and her are insisting on being admitted. For this reason I did discuss the case with both cardiology as well as the hospitalist. We will start the patient on a Cardizem drip. Medication Reconcilliation Current Medication List: was personally reviewed by me Blood Pressure Screening Patient's blood pressure: Elevated blood pressure Referred to hospitalist. Consults Time Called: 2029 Consulting Physician: John Villa paper pattern folder Returned Call: 2031 I discussed the patient's case with John Villa paper pattern folder, he has agreed to evaluate the patient for further management and care. Additional Consults: Time Called: 2034 Consulted Physician: Dr. Nani Lopez cardiology Returned Call: 2037 Additional Comments: I discussed the patient with Dr. Nani Lopez cardiology - he said to just put her a Cardizem drip, and he will see her in the morning. Impression Primary Impression: Atrial fibrillation Scribe Attestation The scribe's documentation has been prepared under my direction and personally reviewed by me in its entirety. I confirm that the note above accurately reflects all work, treatment, procedures, and medical decision making performed by me. Departure Information Dispostion Being Evaluated By Hospitalist Prescriptions Hydrochlorothiazide (HCTZ) 25 Mg Tab 25 MG PO DAILY for 7 Days, #7 TAB Prov: Iraj Galicia MD 08/31/17 Referrals Marcell Landry, D.Byron (PCP) Patient Instructions Atrial Fibrillation Dc Additional Instructions Follow up with Dr Ames's office this week Restart HCTZ 25 mg daily You have been examined and treated today on an emergency basis only. This is not a substitute for, or an effort to provide, complete comprehensive medical care. It is impossible to recognize and treat all injuries or illnesses in a single emergency department visit. It is therefore important that you follow up closely with Dr Landry. Call as soon as possible for an appointment. Thank you for your time and consideration. I look forward to speaking with you again soon. Please don't hesitate to call us if you have any questions. Problem Qualifiers Primary Impression: Atrial fibrillation Atrial fibrillation type: chronic Qualified Codes: I48.2 - Chronic atrial fibrillation
[2017-08-31 18:40] LABS: BASO % 0.3 %; BASO ABS # 0.02 K/uL (0-0.2); EOS % 1.2 %; EOS ABS # 0.09 K/uL (0-0.5); HEMATOCRIT 36.7 % (37-47); HEMOGLOBIN 12.5 g/dL (12.0-16.0); IG# 0.02 K/uL (0.00-0.02); LYMPH % 34.6 %; LYMPH ABS # 2.64 K/uL (1.2-3.4); MEAN CELL VOLUME 83.2 fL (80-100); MEAN CORPUSCULAR HEMOGLOBIN 28.3 pg (25-34); MEAN CORPUSCULAR HGB CONC 34.1 g/dl (32-36); MEAN PLATELET VOLUME 8.6 fL (7.4-10.4); MONO % 8.2 %; MONO ABS # 0.63 K/uL (0.11-0.59); NEUT % 55.4 %; NEUT ABS # 4.24 K/uL (1.4-6.5); PLATELET COUNT 336 K/uL (130-400); RED CELL DISTRIBUTION WIDTH CV 13.6 % (11.5-14.5); RED CELL DISTRIBUTION WIDTH SD 41.4 fL (36.4-46.3); WHITE BLOOD COUNT 7.64 K/uL (4.8-10.8)
[2017-08-31] MEDS ORDERED: BRIN1SUS OPR (18:52)
[2017-08-31] MEDS ORDERED: BRIN1SUS OP (18:52)
[2017-08-31] MEDS ORDERED: CARV12.52 PO (18:53)
[2017-08-31] MEDS ORDERED: CLON0.5T3 PO (18:54)
[2017-08-31] MEDS ORDERED: FAMO20TA11 PO (18:56)
--- NOTE | 2017-08-31 18:57 | DIAGNOSTIC IMAGING REPORT ---
CHEST ONE VIEW PORTABLE CLINICAL HISTORY: 77 years-old Female presenting with CHEST PAIN. TECHNIQUE: Portable upright AP view of the chest was obtained. COMPARISON: 08/16/2017. FINDINGS: Atherosclerosis of aortic arch. Cardiac silhouette enlarged. Mild pulmonary vascular prominence. No focal opacity. No large effusion or pneumothorax. Osseous structures normal. Upper abdomen normal. IMPRESSION: 1. Cardiomegaly with possible mild volume overload. No other convincing evidence of acute cardiopulmonary disease. Electronically signed by: Isidro Duarte M.D. 08/31/2017 6:56 PM Dictated Date/Time: 08/31/2017 6:55 PM
[2017-08-31] MEDS ORDERED: LEVO25TA5 PO (18:58)
[2017-08-31] MEDS ORDERED: TRAV0.00 OPR (19:00)
[2017-08-31 19:01] LABS: ALBUMIN 3.2 gm/dl (3.4-5.0); ALT/SGPT 21 U/L (12-78); AST/SGOT 18 U/L (15-37); BLOOD UREA NITROGEN 12 mg/dl (7-18); CALCIUM 8.7 mg/dl (8.5-10.1); CARBON DIOXIDE 28 mmol/L (21-32); CREATININE 0.96 mg/dl (0.60-1.20); GLUCOSE 84 mg/dl (70-99); LIPASE 541 U/L (73-393); POTASSIUM 3.5 mmol/L (3.5-5.1); SODIUM 130 mmol/L (136-145)
[2017-08-31] MEDS ORDERED: WARF3TAB PO ×2 (19:03→19:05)
[2017-08-31 19:06] LABS: ALKALINE PHOSPHATASE 68 U/L (45-117); CKMB 1.7 ng/ml (0.5-3.6)
[2017-08-31] MEDS ORDERED: ACET-1311 PO (19:09)
[2017-08-31] MEDS ORDERED: POTASSIUM CHLORIDE 20 MEQ/15 ML UDC PO STA (19:12)
[2017-08-31] MEDS ORDERED: HYDR25TA4 PO (19:54)
[2017-08-31] MEDS ORDERED: DILTIAZEM BOLUS / DRIP IV STA (20:42)
[2017-08-31] MEDS ORDERED: DILTIAZEM HCL INJ 125 MG in DEXTROSE 5% 100ML IV PRN (20:45)
[2017-08-31] MEDS ORDERED: ONDANSETRON INJ 2 MG/ML 2 ML VIAL IV PRN (22:00)
[2017-08-31] MEDS ORDERED: CARVEDILOL 12.5 MG TAB PO STA (22:14)
[2017-08-31] MEDS ORDERED: WARFARIN SOD 3 MG TAB PO SCH (22:15)
[2017-08-31] MEDS ORDERED: ACETAMINOPHEN 325 MG TAB PO PRN (22:15)
--- NOTE | 2017-08-31 23:45 | HISTORY & PHYSICAL EXAMINATION ---
DATE OF ADMISSION: 08/31/2017 PRIMARY CARE PHYSICIAN: Dr. Landry. CHIEF COMPLAINT: Dizziness and lightheadedness for the last 2 days. HISTORY OF PRESENT COMPLAINT: She is a 77-year-old female with significant past medical history of difficult to control blood pressure, hypothyroidism, depression, history of Graves' disease, hyperlipidemia, GERD and history of paroxysmal supraventricular tachycardia. Apparently had been on 3 different medications for blood pressure control. Her blood pressure is running low and last week she was seen by Dr. Ames, the gas appliance servicer, who took off hydrochlorothiazide and losartan. For the last 2 or 3 days, she has been complaining of increasing blood pressure and also today she has been feeling dizzy and lightheadedness. From that point, she came to the Emergency Room for further evaluation. In the ER, she was noted to have a heart rate of 138 that was irregularly irregular and she had shortness of breath. From that point, she was started on intravenous Cardizem drip and advised for admission. She denies to any chest pain, any palpitation, any shortness of breath. She does not have any abdominal pain, nausea or vomiting. She denies to any problem with urine and/or bowel habit. She does not have any swelling of the legs. Denies to any headache, any blurred vision, numbness or tingling in the extremities and no weakness involving any side. PAST MEDICAL HISTORY: Significant for hypertension, difficult to control, irritable bowel syndrome, history of Graves' disease, now hypothyroidism, mitral valve disease, hyperlipidemia, GERD, PSVT and also history of migraine. PAST SURGICAL HISTORY: Significant for hysterectomy, lumbar spine surgery, cataract surgery. FAMILY HISTORY: Sister has hypothyroidism and thyroid cancer. Her son has thyroid cancer at the age of 46. SOCIAL HISTORY: She is . She lives with her . She uses alcohol occasionally. She does not smoke. She does not use any drugs. She has been ambulant. ALLERGIES: TO ATORVASTATIN. MEDICATIONS: She has been on Tylenol 325 mg q. 6 hourly p.r.n., aspirin 81 mg daily, Azopt ophthalmic solution 1 drop b.i.d., Coreg 12.5 mg b.i.d., Klonopin 0.5 mg t.i.d., famotidine 20 mg daily, levothyroxine sodium 25 mcg daily, multivitamin 1 tablet daily, pravastatin 20 mg daily, Travatan 0.004% one drop OPR at bedtime, warfarin as directed 4.5 and 6 mg. PHYSICAL EXAMINATION: GENERAL: On examination in the Emergency Room, she was not in any acute distress. VITAL SIGNS: Temperature 36.5, pulse is 117 and irregularly irregular, blood pressure 142/109, saturation 96% on room air. HEENT: Unremarkable. NECK: Supple, no JVD, no bruit. CHEST: Clear to auscultate bilaterally. HEART: S1, S2 irregular with a 2/6 systolic murmur over precordium. ABDOMEN: Soft, benign, nontender, no organomegaly. Bowel sounds present. EXTREMITIES: Negative for any edema. MUSCULOSKELETAL: No acute arthritis in any joint. CENTRAL NERVOUS SYSTEM: She is alert, awake, oriented x3, no focal sensory and/or motor deficit appreciated. LABORATORY DATA: Noted today white count was 7.64, H&H 12.5/36.7, platelet was 336. Sodium 130, potassium 3.5, chloride 97, CO2 of 28, BUN 12, creatinine 0.96. LFTs unremarkable. Troponin less than 0.015. Lipase was 541. INR was 3.0. Chest x-ray, cardiomegaly with possible mild volume overload. No other convincing evidence of acute cardiopulmonary process. EKG not in the chart but was also told that she has rapid AFib. IMPRESSION AND PLAN: 1. Atrial fibrillation with rapid ventricular response. The patient complained of dizziness and lightheadedness. No chest pain or palpitation. Admitted to telemetry unit. She was started on intravenous Cardizem. Cardiology was consulted. We will continue Cardizem for now. Continue with Coreg. Echocardiogram and serial cardiac enzymes to rule out any possibility of myocardial infarction. 2. Hypertension. Blood pressure seems to be controlled at this time. Further medications as per gas appliance servicer. 3. Hypothyroidism with history of Graves' disease. Continue replacement. 4. Hyperlipidemia. Continue with pravastatin. 5. Paroxysmal supraventricular tachycardia, now in atrial fibrillation. Continue with Cardizem drip and further medication as per gas appliance servicer. 6. Gastrointestinal prophylaxis with proton pump inhibitor and/or famotidine. 7. Deep venous thrombosis prophylaxis, has been on Coumadin. 8. Code status: She will be full code. In my clinical assessment, the beneficiary meets criteria as per CMS for 2-midnight stay in the hospital. BRANDI
[2017-08-31 23:50] VITALS: BP 130/86; PULSE 97; TEMP 36.5; O2SAT 95; Ht 157.5 cm; Wt 79.7 kg
[2017-09-01] VITALS (8 sets, daily range): BP systolic 90–145; BP diastolic 61–95; PULSE 65–101; TEMP 36.6–37; O2SAT 94–97
[2017-09-01] MEDS ORDERED: DILTIAZEM BOLUS / DRIP IV STA (00:56)
[2017-09-01] MEDS ORDERED: DILTIAZEM HCL INJ 125 MG in DEXTROSE 5% 100ML IV PRN (01:15)
[2017-09-01] MEDS: CLONAZEPAM 0.5 MG TAB PO PRN ×2 (01:40→20:56)
[2017-09-01 04:14] LABS: HEMATOCRIT 38.5 % (37-47); MEAN CORPUSCULAR HGB CONC 33.8 g/dl (32-36); MEAN PLATELET VOLUME 8.6 fL (7.4-10.4); PLATELET COUNT 319 K/uL (130-400); RED CELL DISTRIBUTION WIDTH CV 13.8 % (11.5-14.5); RED CELL DISTRIBUTION WIDTH SD 41.4 fL (36.4-46.3); WHITE BLOOD COUNT 8.22 K/uL (4.8-10.8)
[2017-09-01 04:37] LABS: BLOOD UREA NITROGEN 12 mg/dl (7-18); CALCIUM 8.8 mg/dl (8.5-10.1); CARBON DIOXIDE 25 mmol/L (21-32); GLUCOSE 102 mg/dl (70-99); POTASSIUM 4.2 mmol/L (3.5-5.1); SODIUM 136 mmol/L (136-145)
[2017-09-01] MEDS: LEVOTHYROXINE 25 MCG TAB PO SCH (06:05)
[2017-09-01] MEDS: MULTIVITAMIN TAB PO SCH (08:00)
[2017-09-01] MEDS: ASPIRIN 81 MG ECTAB PO SCH (08:00)
[2017-09-01] MEDS: FAMOTIDINE 20 MG TAB PO SCH ×2 (08:01→20:56)
[2017-09-01] MEDS: BRINZOLAMIDE (AZOPT) OPS 10 ML BTL OPR SCH ×2 (08:02→20:59)
--- NOTE | 2017-09-01 08:55 | ECHOCARDIOGRAM REPORT ---
*NOTICE TO RECEIVING [employer] This information is strictly Confidential and protected under [place] law. [place] law prohibits you from making any further disclosure of this information unless further disclosure is expressly permitted by the written consent of the person to whom it pertains or is authorized by law. A general authorization for the release of medical or other information is not sufficient for this purpose. Hospital accepts no responsibility if the information is made available to any other person, INCLUDING THE PATIENT. Interpretation Summary * Name: SHARIF QUACH Study Date: 09/01/2017 07:10 AM BP: 121/76 mmHg * Patient Location: C.2T\S\S230\S\1 HR: 97 * : 1940 (M/d/yyyy) Gender: Female Height: 62 in * Age: 77 yrs Ethnicity: [place] Weight: 180 lb * Ordering Physician: Edie Corado * Referring Physician: Self, Referred * Performed By: Phan Kenny RDCS * * Reason For Study: A-fib * BSA: 1.8 m2 * -- Conclusions -- * The left ventricle is normal in size. * Left ventricular systolic function is normal. * Ejection Fraction = 55-60%. * The right ventricular systolic function is normal. * The left atrium is moderately dilated. * The right atrium is moderately dilated. * There is moderate mitral regurgitation. * There is mild to moderate tricuspid regurgitation. * Mild pulmonary hypertension with the estimated pulmonary artery pressure of 40 mmHg. Procedure Details * A complete two-dimensional transthoracic echocardiogram was performed (2D, M-mode, Doppler and color flow Doppler). * The study was technically adequate. Left Ventricle * The left ventricle is normal in size. * There is normal left ventricular wall thickness. * Left ventricular systolic function is normal. * Ejection Fraction = 55-60%. Right Ventricle * The right ventricle is normal size. * The right ventricular systolic function is normal. Atria * The left atrium is moderately dilated. * The right atrium is moderately dilated. * The interatrial septum is intact with no evidence for an atrial septal defect. Mitral Valve * There is mild to moderate mitral annular calcification. * There is moderate mitral regurgitation. Tricuspid Valve * The tricuspid valve anatomy is normal. * There is mild to moderate tricuspid regurgitation. Aortic Valve * The aortic valve is tricuspid. The leaflet thickness if normal. There is no aortic stenosis, and no significant insufficiency. * The aortic valve opens well. * There is no significant aortic regurgitation. Pulmonic Valve * The pulmonic valve is not well seen, but is grossly normal. * There is no significant pulmonary regurgitation. Great Vessels * The aortic root and proximal ascending aorta are normal sized. * Mild pulmonary hypertension with the estimated pulmonary artery pressure of 40 mmHg. MMode 2D Measurements and Calculations IVSd 0.97 cm IVSs 1.6 cm LVIDd 5.3 cm LVIDs 3.0 cm LVPWd 0.93 cm LVPWs 1.6 cm IVS/LVPW 1.0 FS 43.2 % EDV(Teich) 133.6 ml ESV(Teich) 34.9 ml EF(Teich) 73.9 % EDV(cubed) 146.3 ml ESV(cubed) 26.9 ml EF(cubed) 81.6 % % IVS thick 66.2 % % LVPW thick 69.9 % LV mass(C)d 185.3 grams LV mass(C)dI 101.4 grams/m\S\2 LV mass(C)s 175.1 grams LV mass(C)sI 95.8 grams/m\S\2 SV(Teich) 98.7 ml SI(Teich) 54.0 ml/m\S\2 SV(cubed) 119.5 ml SI(cubed) 65.4 ml/m\S\2 EPSS 0.88 cm Ao root diam 2.8 cm Ao root area 6.1 cm\S\2 ACS 1.7 cm LA dimension 4.8 cm asc Aorta Diam 3.0 cm LA/Ao 1.7 LVOT diam 1.9 cm LVOT area 2.7 cm\S\2 LVAd ap4 15.9 cm\S\2 LVLd ap4 5.7 cm EDV(MOD-sp4) 36.8 ml EDV(sp4-el) 38.1 ml LVAs ap4 10.5 cm\S\2 LVLs ap4 5.4 cm ESV(MOD-sp4) 17.9 ml ESV(sp4-el) 17.5 ml EF(MOD-sp4) 51.3 % EF(sp4-el) 54.0 % LVAd ap2 19.2 cm\S\2 LVLd ap2 6.2 cm EDV(MOD-sp2) 49.1 ml EDV(sp2-el) 50.8 ml LVAs ap2 11.7 cm\S\2 LVLs ap2 5.3 cm ESV(MOD-sp2) 21.9 ml ESV(sp2-el) 22.1 ml EF(MOD-sp2) 55.4 % EF(sp2-el) 56.5 % LVLd %diff 4.5 % EDV(MOD-bp) 45.0 ml LVLs %diff -2.01 % ESV(MOD-bp) 19.5 ml EF(MOD-bp) 56.6 % SV(MOD-sp4) 18.9 ml SI(MOD-sp4) 10.3 ml/m\S\2 SV(MOD-sp2) 27.2 ml SI(MOD-sp2) 14.9 ml/m\S\2 SV(MOD-bp) 25.5 ml SI(MOD-bp) 13.9 ml/m\S\2 SV(sp4-el) 20.6 ml SI(sp4-el) 11.3 ml/m\S\2 SV(sp2-el) 28.7 ml SI(sp2-el) 15.7 ml/m\S\2 Doppler Measurements and Calculations MV E max dimitrios 116.5 cm/sec MV dec time 0.13 sec Ao V2 max 128.3 cm/sec Ao max PG 6.6 mmHg Ao max PG (full) 3.9 mmHg DANDRE(V,A) 1.7 cm\S\2 DANDRE(V,D) 1.7 cm\S\2 LV V1 max PG 2.7 mmHg LV V1 max 82.5 cm/sec PA V2 max 89.3 cm/sec PA max PG 3.2 mmHg TR max dimitrios 288.9 cm/sec
[2017-09-01] MEDS ORDERED: CARVEDILOL 12.5 MG TAB PO SCH (09:00)
--- NOTE | 2017-09-01 12:04 | Cardiology Consultation ---
Cardiology Consultation Date of Service Sep 01, 2017. Cardiology Consultation Indication: Consultation for hypertension and atrial fibrillation History: This is a 77-year-old female who is usually followed by Dr. Ames with a history of hypertension and previous pulmonary emboli for which she is on chronic long-term anticoagulation. Recently she has been having labile blood pressures. There have been adjustments made to her medications as an outpatient and most recently she had a losartan and hydrochlorothiazide stopped by Dr. Ames due to dizziness and low blood pressures. The patient was admitted with lightheadedness and dizziness. After admission she was noted to be in atrial fibrillation with RVR. Diltiazem drip was started to control her heart rates. She currently is in atrial fibrillation with a controlled heart rate. She denies chest pain or shortness of breath. Recently she has had some dizziness as an outpatient. That prompted changes in her blood pressure medications. She has no history of prior atrial arrhythmias. Allergies: Atorvastatin Current Inpatient Medications Medications (Trade) Dose Ordered Sig/Sheri Route Start Time Stop Time Status Last Admin Dose Admin Ondansetron HCl (Zofran Inj) 4 mg Q6H PRN IV 08/31/17 22:00 09/30/17 21:59 Acetaminophen (Tylenol Tab) 325 mg Q6H PRN PO 08/31/17 22:15 09/30/17 22:14 09/01/17 04:22 325 MG Aspirin (Ecotrin Tab) 81 mg QAM PO 09/01/17 09:00 10/01/17 08:59 09/01/17 08:00 81 MG Brinzolamide (Azopt) 1 drops BID OPR 09/01/17 09:00 10/01/17 08:59 09/01/17 08:02 1 DROPS Carvedilol (Coreg Tab) 12.5 mg BID PO 09/01/17 09:00 10/01/17 08:59 09/01/17 08:01 12.5 MG Clonazepam (Klonopin Tab) 0.5 mg TID PRN PO 08/31/17 22:15 09/30/17 22:14 09/01/17 01:40 0.5 MG Famotidine (Pepcid Tab) 20 mg BID PO 09/01/17 09:00 10/01/17 08:59 09/01/17 08:01 20 MG Levothyroxine Sodium (Synthroid Tab) 25 mcg DAILYBB PO 09/01/17 06:00 10/01/17 06:59 09/01/17 06:05 25 MCG Multivitamins (Multivitamin Tab) 1 tab QAM PO 09/01/17 09:00 10/01/17 08:59 09/01/17 08:00 1 TAB Pravastatin Sodium (Pravachol Tab) 20 mg QPM PO 09/01/17 21:00 10/01/17 20:59 Travoprost (Travatan Z) 1 drops HS OPR 09/01/17 21:00 10/01/17 20:59 Warfarin Sodium (Coumadin Tab) 6 mg Mo@1600 PO 09/02/17 16:00 10/02/17 15:59 Warfarin Sodium (Coumadin Tab) 4.5 mg SuTuWeThFrSa@1600 PO 09/01/17 16:00 10/01/17 15:59 Sotalol HCl (Betapace Tab) 80 mg NOW ONCE PO 09/01/17 12:15 09/01/17 12:16 UNV Sotalol HCl (Betapace Tab) 80 mg BID PO 09/01/17 21:00 10/01/17 20:59 UNV Past medical history: As outlined above the patient has a history of hypertension. She has no prior history of coronary artery disease or atrial arrhythmias. No prior history of diabetes, kidney disease or strokes. Social history: Patient is a non-smoker. She lives with her . Family medical history: Noncontributory General: The patient denies weight change, night sweats, fever, chills. Head: The patient denies headache and prior head trauma. Cardiovascular: The patient denies chest pain or chest discomfort, dyspnea on exertion, palpitations, PND, orthopnea, edema, spontaneous shortness of breath, syncope and near syncope. Pulmonary: The patient denies cough, wheeze, pleurisy, hemoptysis, sputum, and excessive snoring. Gastrointestinal: The patient denies nausea, vomiting, diarrhea, constipation, bloating, hematemesis, hematochezia, and abdominal pain. Skin: The patient denies diaphoresis and rash. Musculoskeletal: The patient denies joint pain, joint swelling, myalgia, back pain, neck pain and prior injuries. Neurological: The patient denies prior stroke and seizures Vital Signs Past 12 Hours Date Time Temp Pulse Resp B/P (MAP) Pulse Ox O2 Delivery O2 Flow Rate FiO2 09/01/17 09:45 90/61 (71) 09/01/17 08:10 36.6 86 18 115/74 (88) 94 Room Air 09/01/17 08:10 Room Air 09/01/17 04:00 Room Air 09/01/17 04:00 36.6 69 18 121/76 (91) 95 Room Air 09/01/17 01:44 88 111/62 (78) 08/31/17 23:59 Room Air General Appearance: Alert and Oriented x3. NAD. Head: Normocephalic Atraumatic. Eyes: PERRLA, EOMI, conjunctiva and sclera clear Neck: Supple. No carotid bruits noted. No JVD. No HJD. Respiratory: Breath sounds clear to auscultation bilaterally. No w/r/r. Cardiovascular: irreg rate and rhythm. S1 and S2 noted. No murmurs, rubs, gallops. PMI non displace. Abdomen: Normal bowel sounds, soft nontender. no abdominal bruits. Extremities: No edema, no clubbing or cyanosis. distal pulses 2/4 bilaterally. Neuro: No focal deficits. Psychiatric: Normal affect. Last 24 Hours Test 08/31/17 18:20 08/31/17 22:28 09/01/17 03:58 09/01/17 10:09 White Blood Count 7.64 K/uL 8.22 K/uL Red Blood Count 4.41 M/uL 4.64 M/uL Hemoglobin 12.5 g/dL 13.0 g/dL Hematocrit 36.7 % 38.5 % Mean Corpuscular Volume 83.2 fL 83.0 fL Mean Corpuscular Hemoglobin 28.3 pg 28.0 pg Mean Corpuscular Hemoglobin Concent 34.1 g/dl 33.8 g/dl Platelet Count 336 K/uL 319 K/uL Mean Platelet Volume 8.6 fL 8.6 fL Neutrophils (%) (Auto) 55.4 % Lymphocytes (%) (Auto) 34.6 % Monocytes (%) (Auto) 8.2 % Eosinophils (%) (Auto) 1.2 % Basophils (%) (Auto) 0.3 % Neutrophils # (Auto) 4.24 K/uL Lymphocytes # (Auto) 2.64 K/uL Monocytes # (Auto) 0.63 K/uL Eosinophils # (Auto) 0.09 K/uL Basophils # (Auto) 0.02 K/uL RDW Standard Deviation 41.4 fL 41.4 fL RDW Coefficient of Variation 13.6 % 13.8 % Immature Granulocyte % (Auto) 0.3 % Immature Granulocyte # (Auto) 0.02 K/uL Prothrombin Time 30.8 SECONDS Prothromb Time International Ratio 3.0 Sodium Level 130 mmol/L 136 mmol/L Potassium Level 3.5 mmol/L 4.2 mmol/L Chloride Level 97 mmol/L 106 mmol/L Carbon Dioxide Level 28 mmol/L 25 mmol/L Anion Gap 5.0 mmol/L 5.0 mmol/L Blood Urea Nitrogen 12 mg/dl 12 mg/dl Creatinine 0.96 mg/dl 0.80 mg/dl Est Creatinine Clear Calc Drug Dose 49.5 ml/min 58.7 ml/min Estimated GFR () 66.6 83.0 Estimated GFR (Non- 57.4 71.6 BUN/Creatinine Ratio 12.0 14.8 Random Glucose 84 mg/dl 102 mg/dl Calcium Level 8.7 mg/dl 8.8 mg/dl Total Bilirubin 0.3 mg/dl Direct Bilirubin < 0.1 mg/dl Aspartate Amino Transf (AST/SGOT) 18 U/L Alanine Aminotransferase (ALT/SGPT) 21 U/L Alkaline Phosphatase 68 U/L Total Creatine Kinase 93 U/L Creatine Kinase MB 1.7 ng/ml Creatine Kinase MB Ratio 1.8 Troponin I < 0.015 ng/ml < 0.015 ng/ml < 0.015 ng/ml < 0.015 ng/ml Total Protein 7.0 gm/dl Albumin 3.2 gm/dl Lipase 541 U/L Magnesium Level 2.1 mg/dl Thyroid Stimulating Hormone (TSH) 2.090 uIu/ml Impression: 1. Atrial fibrillation with RVR 2. Hypertension 3. History of pulmonary emboli on long-term anticoagulation Recommendations: The patient is therapeutic on her Coumadin. I believe we can start her on antiarrhythmic medication. I will start sotalol 80 mg twice daily and hopefully she will convert spontaneously on her own. If not then we may have to proceed with cardioversion. I will lower her Coreg dose with the start of the sotalol while watching her blood pressure. She should have an echocardiogram during this admission.
[2017-09-01] MEDS ORDERED: SOTALOL HCL 80 MG TAB PO ONE (12:15)
[2017-09-01 16:32] LABS: INR 2.8 (0.9-1.1)
[2017-09-01] MEDS: WARFARIN TAB 2 MG, WARFARIN TAB 2.5 MG PO SCH ×2 (16:41)
[2017-09-01] MEDS ORDERED: NURSING VERBAL MED ORDER ONE ×2 (19:45→23:00)
[2017-09-01] MEDS ORDERED: ALUMINUM/MAGNESIUM SUSP 30 ML UDC PO PRN (19:45)
[2017-09-01] MEDS: SOTALOL HCL 80 MG TAB PO SCH (20:57)
[2017-09-01] MEDS: CARVEDILOL 6.25 MG TAB PO SCH (20:57)
[2017-09-01] MEDS: PRAVASTATIN SOD 20 MG TAB PO SCH (20:59)
--- NOTE | 2017-09-01 21:53 | Progress Note ---
Medicine Progress Note Date & Time of Visit: Sep 01, 2017 at 08:01. Subjective Presents with dizziness 2 days, found to be in A. fib with RVR. Presented to the ER because she noticed her blood pressure was off and that her pulse was in the 130s. She felt that she was perspiring which was abnormal for her as she is normally cold but otherwise denied any chest pain trouble breathing or other issues. Objective Last 8 Hrs Date Time Temp Pulse Resp B/P (MAP) Pulse Ox O2 Delivery O2 Flow Rate FiO2 09/01/17 04:00 Room Air 09/01/17 04:00 36.6 69 18 121/76 (91) 95 Room Air 09/01/17 01:44 88 111/62 (78) Physical Exam: GEN: WNWD, in no acute distress, alert and appropriate HEENT: NC/AT, PERRL, normal sclerae, no carotid bruits. CARDIO: irrreg rate, S1/2 heard without m/g/r LUNGS: CTA bilaterally, no crackles, rales or wheezes, good diaphragmatic excursion ABD: soft, non-tender, non-distended, no rebound or guarding EXTREMITY: RP and DP palpable 2+ bilat, no LE swelling or edema, extremities are warm and well-perfused NEURO: CN 2-12 grossly intact, no gross focal deficits. MUSC: 5/5 strength throughout, no focal deficits SKIN: warm and dry Laboratory Results: 09/01/17 03:58 09/01/17 03:58 Test 08/31/17 18:20 09/01/17 03:58 09/01/17 10:09 09/02/17 05:27 Immature Granulocyte % (Auto) 0.3 % White Blood Count 7.64 K/uL (4.8-10.8) Red Blood Count 4.41 M/uL (4.2-5.4) 4.64 M/uL (4.2-5.4) Hemoglobin 12.5 g/dL (12.0-16.0) Hematocrit 36.7 % (37-47) Mean Corpuscular Volume 83.2 fL (80-100) 83.0 fL (80-100) Mean Corpuscular Hemoglobin 28.3 pg (25-34) 28.0 pg (25-34) Mean Corpuscular Hemoglobin Concent 34.1 g/dl (32-36) 33.8 g/dl (32-36) Platelet Count 336 K/uL (130-400) Mean Platelet Volume 8.6 fL (7.4-10.4) 8.6 fL (7.4-10.4) Neutrophils (%) (Auto) 55.4 % Lymphocytes (%) (Auto) 34.6 % Monocytes (%) (Auto) 8.2 % Eosinophils (%) (Auto) 1.2 % Basophils (%) (Auto) 0.3 % Neutrophils # (Auto) 4.24 K/uL (1.4-6.5) Lymphocytes # (Auto) 2.64 K/uL (1.2-3.4) Monocytes # (Auto) 0.63 K/uL (0.11-0.59) Eosinophils # (Auto) 0.09 K/uL (0-0.5) Basophils # (Auto) 0.02 K/uL (0-0.2) Immature Granulocyte # (Auto) 0.02 K/uL (0.00-0.02) Total Bilirubin 0.3 mg/dl (0.2-1) Direct Bilirubin < 0.1 mg/dl (0-0.2) Aspartate Amino Transf (AST/SGOT) 18 U/L (15-37) Alanine Aminotransferase (ALT/SGPT) 21 U/L (12-78) Alkaline Phosphatase 68 U/L (45-117) Total Creatine Kinase 93 U/L (26-192) Creatine Kinase MB 1.7 ng/ml (0.5-3.6) Creatine Kinase MB Ratio 1.8 (0-3.0) Total Protein 7.0 gm/dl (6.4-8.2) Albumin 3.2 gm/dl (3.4-5.0) Lipase 541 U/L (73-393) RDW Standard Deviation 41.4 fL (36.4-46.3) RDW Coefficient of Variation 13.8 % (11.5-14.5) Anion Gap 5.0 mmol/L (3-11) Est Creatinine Clear Calc Drug Dose 58.7 ml/min Estimated GFR () 83.0 Estimated GFR (Non- 71.6 BUN/Creatinine Ratio 14.8 (10-20) Calcium Level 8.8 mg/dl (8.5-10.1) Magnesium Level 2.1 mg/dl (1.8-2.4) Thyroid Stimulating Hormone (TSH) 2.090 uIu/ml (0.300-4.500) Troponin I < 0.015 ng/ml (0-0.045) Prothrombin Time 30.1 SECONDS (9.0-12.0) Prothromb Time International Ratio 2.9 (0.9-1.1) Last 24 Hours Test 08/31/17 18:20 08/31/17 22:28 09/01/17 03:58 White Blood Count 7.64 K/uL 8.22 K/uL Red Blood Count 4.41 M/uL 4.64 M/uL Hemoglobin 12.5 g/dL 13.0 g/dL Hematocrit 36.7 % 38.5 % Mean Corpuscular Volume 83.2 fL 83.0 fL Mean Corpuscular Hemoglobin 28.3 pg 28.0 pg Mean Corpuscular Hemoglobin Concent 34.1 g/dl 33.8 g/dl Platelet Count 336 K/uL 319 K/uL Mean Platelet Volume 8.6 fL 8.6 fL Neutrophils (%) (Auto) 55.4 % Lymphocytes (%) (Auto) 34.6 % Monocytes (%) (Auto) 8.2 % Eosinophils (%) (Auto) 1.2 % Basophils (%) (Auto) 0.3 % Neutrophils # (Auto) 4.24 K/uL Lymphocytes # (Auto) 2.64 K/uL Monocytes # (Auto) 0.63 K/uL Eosinophils # (Auto) 0.09 K/uL Basophils # (Auto) 0.02 K/uL RDW Standard Deviation 41.4 fL 41.4 fL RDW Coefficient of Variation 13.6 % 13.8 % Immature Granulocyte % (Auto) 0.3 % Immature Granulocyte # (Auto) 0.02 K/uL Prothrombin Time 30.8 SECONDS Prothromb Time International Ratio 3.0 Sodium Level 130 mmol/L 136 mmol/L Potassium Level 3.5 mmol/L 4.2 mmol/L Chloride Level 97 mmol/L 106 mmol/L Carbon Dioxide Level 28 mmol/L 25 mmol/L Anion Gap 5.0 mmol/L 5.0 mmol/L Blood Urea Nitrogen 12 mg/dl 12 mg/dl Creatinine 0.96 mg/dl 0.80 mg/dl Est Creatinine Clear Calc Drug Dose 49.5 ml/min 58.7 ml/min Estimated GFR () 66.6 83.0 Estimated GFR (Non- 57.4 71.6 BUN/Creatinine Ratio 12.0 14.8 Random Glucose 84 mg/dl 102 mg/dl Calcium Level 8.7 mg/dl 8.8 mg/dl Total Bilirubin 0.3 mg/dl Direct Bilirubin < 0.1 mg/dl Aspartate Amino Transf (AST/SGOT) 18 U/L Alanine Aminotransferase (ALT/SGPT) 21 U/L Alkaline Phosphatase 68 U/L Total Creatine Kinase 93 U/L Creatine Kinase MB 1.7 ng/ml Creatine Kinase MB Ratio 1.8 Troponin I < 0.015 ng/ml < 0.015 ng/ml < 0.015 ng/ml Total Protein 7.0 gm/dl Albumin 3.2 gm/dl Lipase 541 U/L Magnesium Level 2.1 mg/dl Assessment & Plan Presents with dizziness 2 days, found to be in A. fib with RVR. Presented to the ER because she noticed her blood pressure was off and that her pulse was in the 130s. She felt that she was perspiring which was abnormal for her as she is normally cold but otherwise denied any chest pain trouble breathing or other issues. 1. Atrial fibrillation with RVR-cardiology was consulted and recommend sotalol loading. Diltiazem drip overnight. Echo pending, serial cardiac enzymes have been negative. Coreg is being decreased appropriately for heart rate response. Will follow cardiology recommendations of note patient is re: anticoagulated on Coumadin. 2. Hypertension blood pressure appears to be controlled at this time- medication changes per cardiology 3. Hypothyroidism-TSH pending, continue Synthroid DVT prophylaxis-Coumadin Full code Disposition-continue telemetry monitoring Karen West DO [facility] Hospitalist Consultants: Emilie Current Inpatient Medications: Current Inpatient Medications Medications (Trade) Dose Ordered Sig/Sheri Route Start Time Stop Time Status Last Admin Dose Admin Ondansetron HCl (Zofran Inj) 4 mg Q6H PRN IV 08/31/17 22:00 09/30/17 21:59 Acetaminophen (Tylenol Tab) 325 mg Q6H PRN PO 08/31/17 22:15 09/30/17 22:14 09/01/17 04:22 325 MG Aspirin (Ecotrin Tab) 81 mg QAM PO 09/01/17 09:00 10/01/17 08:59 Brinzolamide (Azopt) 1 drops BID OPR 09/01/17 09:00 10/01/17 08:59 Carvedilol (Coreg Tab) 12.5 mg BID PO 09/01/17 09:00 10/01/17 08:59 Clonazepam (Klonopin Tab) 0.5 mg TID PRN PO 08/31/17 22:15 09/30/17 22:14 09/01/17 01:40 0.5 MG Famotidine (Pepcid Tab) 20 mg BID PO 09/01/17 09:00 10/01/17 08:59 Levothyroxine Sodium (Synthroid Tab) 25 mcg DAILYBB PO 09/01/17 06:00 10/01/17 06:59 09/01/17 06:05 25 MCG Multivitamins (Multivitamin Tab) 1 tab QAM PO 09/01/17 09:00 10/01/17 08:59 Pravastatin Sodium (Pravachol Tab) 20 mg QPM PO 09/01/17 21:00 10/01/17 20:59 Travoprost (Travatan Z) 1 drops HS OPR 09/01/17 21:00 10/01/17 20:59 Warfarin Sodium (Coumadin Tab) 6 mg Mo@1600 PO 09/02/17 16:00 10/02/17 15:59 Warfarin Sodium (Coumadin Tab) 4.5 mg SuTuWeThFrSa@1600 PO 09/01/17 16:00 10/01/17 15:59 Diltiazem HCl 125 mg/Dextrose 125 ml @ 0 mls/hr Q0M PRN IV 09/01/17 01:15 10/01/17 01:14
[2017-09-01] MEDS: TRAVOPROST Z 0.004% OPH SOLN 2.5 ML BTL OPR SCH (23:33)
[2017-09-02] VITALS (8 sets, daily range): BP systolic 110–152; BP diastolic 64–97; PULSE 67–112; TEMP 36.5–37.3; O2SAT 94–97
[2017-09-02] MEDS: LEVOTHYROXINE 25 MCG TAB PO SCH (05:32)
[2017-09-02 06:13] LABS: INR 2.9 (0.9-1.1)
[2017-09-02] MEDS: MULTIVITAMIN TAB PO SCH (07:53)
[2017-09-02] MEDS: FAMOTIDINE 20 MG TAB PO SCH ×2 (07:53→19:40)
[2017-09-02] MEDS: SOTALOL HCL 80 MG TAB PO SCH ×2 (07:53→19:40)
[2017-09-02] MEDS: CARVEDILOL 6.25 MG TAB PO SCH ×2 (07:54→19:42)
[2017-09-02] MEDS: ASPIRIN 81 MG ECTAB PO SCH (07:54)
[2017-09-02] MEDS: BRINZOLAMIDE (AZOPT) OPS 10 ML BTL OPR SCH ×2 (07:54→16:54)
--- NOTE | 2017-09-02 13:21 | Cardiology Follow-Up ---
Subjective Subjective Date of Service: Sep 02, 2017. Pt evaluation today including: conversation w/ patient, conversation w/ family , physical exam, chart review, lab review, review of studies, review of inpatient medication list Additional Details: The patient had an uneventful night. She is tolerating the sotalol. I have reviewed her telemetry and she remains in atrial fibrillation with heart rates in the low 100s range. She is asymptomatic in regard to the arrhythmia. She has no new complaints today. Problem List Medical Problems: (1) Acute head injury Status: Acute (2) Anticoagulated Status: Acute (3) Contusion of left knee Status: Acute (4) Contusion of left shoulder Status: Acute (5) Dehydration Status: Acute (6) Near syncope Status: Acute (7) Poorly-controlled hypertension Status: Acute Objective Vital Signs Last Vital Signs Documentation Date Time Temp Pulse Resp B/P (MAP) Pulse Ox O2 Delivery O2 Flow Rate FiO2 09/02/17 12:00 Room Air 09/02/17 11:00 37.0 67 18 120/76 (91) 94 Physical Exam: General Appearance: WD/WN, no apparent distress ENT: normal ENT inspection, hearing grossly normal, pharynx normal Respiratory/Chest: chest non-tender, lungs clear, normal breath sounds, no respiratory distress, no accessory muscle use Cardiovascular: regular rate, rhythm, no edema, no JVD, no murmur, + gallop/S4 Abdomen: normal bowel sounds, non tender, soft, no organomegaly, no pulsatile mass Extremities: normal inspection, no pedal edema, no calf tenderness Neurologic/Psychiatric: service consultant II-XII nml as tested, no motor/sensory deficits, alert, normal mood/affect, oriented x 3 Skin: normal color, warm/dry, no rash Lymphatic: no adenopathy Assessment and Plan Impression: 1. Persistent atrial fibrillation 2. Essential hypertension 3. 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 I have explained the risk benefit and intent to the procedure to the patient and she is willing to proceed. We will continue with the sotalol at its current dosage. Her blood pressure is controlled despite decreasing the dosage of carvedilol.
[2017-09-02] MEDS ORDERED: WARFARIN SOD 6 MG TAB PO SCH (16:00)
[2017-09-02] MEDS: PRAVASTATIN SOD 20 MG TAB PO SCH (19:41)
[2017-09-02] MEDS: TRAVOPROST Z 0.004% OPH SOLN 2.5 ML BTL OPR SCH (21:22)
[2017-09-02] MEDS: CLONAZEPAM 0.5 MG TAB PO PRN (21:22)
--- NOTE | 2017-09-02 21:41 | Progress Note ---
Medicine Progress Note Date & Time of Visit: Sep 02, 2017 at 15:35. Subjective Overnight she denies any dizziness. She remains in A. fib on telemetry with no acute events and heart rate around 100. She was started on sotalol and is doing. Per cardiology plan for DC cardioversion in a.m. Objective Last 8 Hrs Date Time Temp Pulse Resp B/P (MAP) Pulse Ox O2 Delivery O2 Flow Rate FiO2 09/02/17 15:01 36.6 96 18 152/97 (115) 95 Room Air 09/02/17 12:00 Room Air 09/02/17 11:00 37.0 67 18 120/76 (91) 94 Room Air 09/02/17 08:00 Room Air 09/02/17 08:00 36.8 111 18 139/73 (95) 97 Room Air Physical Exam: GEN: WNWD, in no acute distress, alert and appropriate HEENT: NC/AT, normal sclerae CARDIO: irrreg rate, S1/2 heard without m/g/r LUNGS: CTA bilaterally, no crackles, rales or wheezes, good diaphragmatic excursion ABD: soft, non-tender, non-distended, no rebound or guarding EXTREMITY: RP and DP palpable 2+ bilat, no LE swelling or edema, extremities are warm and well-perfused NEURO: CN 2-12 grossly intact, no gross focal deficits. MUSC: 5/5 strength throughout, no focal deficits SKIN: warm and dry Laboratory Results: 09/01/17 03:58 09/01/17 03:58 Test 08/31/17 18:20 09/01/17 03:58 09/01/17 10:09 09/02/17 05:27 Immature Granulocyte % (Auto) 0.3 % White Blood Count 7.64 K/uL (4.8-10.8) Red Blood Count 4.41 M/uL (4.2-5.4) 4.64 M/uL (4.2-5.4) Hemoglobin 12.5 g/dL (12.0-16.0) Hematocrit 36.7 % (37-47) Mean Corpuscular Volume 83.2 fL (80-100) 83.0 fL (80-100) Mean Corpuscular Hemoglobin 28.3 pg (25-34) 28.0 pg (25-34) Mean Corpuscular Hemoglobin Concent 34.1 g/dl (32-36) 33.8 g/dl (32-36) Platelet Count 336 K/uL (130-400) Mean Platelet Volume 8.6 fL (7.4-10.4) 8.6 fL (7.4-10.4) Neutrophils (%) (Auto) 55.4 % Lymphocytes (%) (Auto) 34.6 % Monocytes (%) (Auto) 8.2 % Eosinophils (%) (Auto) 1.2 % Basophils (%) (Auto) 0.3 % Neutrophils # (Auto) 4.24 K/uL (1.4-6.5) Lymphocytes # (Auto) 2.64 K/uL (1.2-3.4) Monocytes # (Auto) 0.63 K/uL (0.11-0.59) Eosinophils # (Auto) 0.09 K/uL (0-0.5) Basophils # (Auto) 0.02 K/uL (0-0.2) Immature Granulocyte # (Auto) 0.02 K/uL (0.00-0.02) Total Bilirubin 0.3 mg/dl (0.2-1) Direct Bilirubin < 0.1 mg/dl (0-0.2) Aspartate Amino Transf (AST/SGOT) 18 U/L (15-37) Alanine Aminotransferase (ALT/SGPT) 21 U/L (12-78) Alkaline Phosphatase 68 U/L (45-117) Total Creatine Kinase 93 U/L (26-192) Creatine Kinase MB 1.7 ng/ml (0.5-3.6) Creatine Kinase MB Ratio 1.8 (0-3.0) Total Protein 7.0 gm/dl (6.4-8.2) Albumin 3.2 gm/dl (3.4-5.0) Lipase 541 U/L (73-393) RDW Standard Deviation 41.4 fL (36.4-46.3) RDW Coefficient of Variation 13.8 % (11.5-14.5) Anion Gap 5.0 mmol/L (3-11) Est Creatinine Clear Calc Drug Dose 58.7 ml/min Estimated GFR () 83.0 Estimated GFR (Non- 71.6 BUN/Creatinine Ratio 14.8 (10-20) Calcium Level 8.8 mg/dl (8.5-10.1) Magnesium Level 2.1 mg/dl (1.8-2.4) Thyroid Stimulating Hormone (TSH) 2.090 uIu/ml (0.300-4.500) Troponin I < 0.015 ng/ml (0-0.045) Prothrombin Time 30.1 SECONDS (9.0-12.0) Prothromb Time International Ratio 2.9 (0.9-1.1) Last 24 Hours Test 09/01/17 16:02 09/02/17 05:27 Prothrombin Time 28.8 SECONDS 30.1 SECONDS Prothromb Time International Ratio 2.8 2.9 Assessment & Plan Presents with dizziness 2 days, found to be in A. fib with RVR. Presented to the ER because she noticed her blood pressure was off and that her pulse was in the 130s. She felt that she was perspiring which was abnormal for her as she is normally cold but otherwise denied any chest pain trouble breathing or other issues. Overnight she denies any dizziness. She remains in A. fib on telemetry with no acute events and heart rate around 100. She was started on sotalol and is doing. Per cardiology plan for DC cardioversion in a.m. 1. Atrial fibrillation with RVR-cardiology was consulted and recommend sotalol loading with DC cardioversion attempt in the morning. Serial cardiac enzymes were negative . Echo revealed EF 55%. Coreg is being decreased appropriately for heart rate response. Will follow cardiology recommendations. Of note patient is anticoagulated on Coumadin for history of blood clots. 2. Hypertension blood pressure appears to be controlled at this time 3. Hypothyroidism-TSH within normal limits, continue Synthroid DVT prophylaxis-Coumadin Full code Disposition-continue telemetry monitoring. DC cardioversion in a.m. with possible discharge in the afternoon pending cardiology recommendations. DO Yg [facility] Hospital[facility] Consultants: Emilie Current Inpatient Medications: Current Inpatient Medications Medications (Trade) Dose Ordered Sig/Sheri Route Start Time Stop Time Status Last Admin Dose Admin Ondansetron HCl (Zofran Inj) 4 mg Q6H PRN IV 08/31/17 22:00 09/30/17 21:59 Acetaminophen (Tylenol Tab) 325 mg Q6H PRN PO 08/31/17 22:15 09/30/17 22:14 09/01/17 04:22 325 MG Aspirin (Ecotrin Tab) 81 mg QAM PO 09/01/17 09:00 10/01/17 08:59 09/02/17 07:54 81 MG Clonazepam (Klonopin Tab) 0.5 mg TID PRN PO 08/31/17 22:15 09/30/17 22:14 09/01/17 20:56 0.5 MG Famotidine (Pepcid Tab) 20 mg BID PO 09/01/17 09:00 10/01/17 08:59 09/02/17 07:53 20 MG Levothyroxine Sodium (Synthroid Tab) 25 mcg DAILYBB PO 09/01/17 06:00 10/01/17 06:59 09/02/17 05:32 25 MCG Multivitamins (Multivitamin Tab) 1 tab QAM PO 09/01/17 09:00 10/01/17 08:59 09/02/17 07:53 1 TAB Pravastatin Sodium (Pravachol Tab) 20 mg QPM PO 09/01/17 21:00 10/01/17 20:59 09/01/17 20:59 20 MG Travoprost (Travatan Z) 1 drops HS OPR 09/01/17 21:00 10/01/17 20:59 09/01/17 23:33 1 DROPS Warfarin Sodium (Coumadin Tab) 6 mg Mo@1600 PO 09/02/17 16:00 10/02/17 15:59 Warfarin Sodium (Coumadin Tab) 4.5 mg SuTuWeThFrSa@1600 PO 09/01/17 16:00 10/01/17 15:59 09/01/17 16:41 4.5 MG Sotalol HCl (Betapace Tab) 80 mg BID PO 09/01/17 21:00 10/01/17 20:59 09/02/17 07:53 80 MG Carvedilol (Coreg Tab) 6.25 mg BID PO 09/01/17 21:00 10/01/17 08:59 09/02/17 07:54 6.25 MG Al Hydroxide/Mg Hydroxide (Maalox Susp) 30 ml Q6H PRN PO 09/01/17 19:45 10/01/17 19:44 09/01/17 20:15 30 ML Brinzolamide (Azopt) 1 drops BID@0900,1700 OPR 09/02/17 09:00 10/02/17 08:59 09/02/17 07:54 1 DROPS Sodium Chloride 1,000 ml @ 75 mls/hr [id number] IV 09/02/17 23:55 09/03/17 23:59
[2017-09-02] MEDS ORDERED: SODIUM CHLORIDE 0.9% 1000ML 1,000 ML IV SCH (23:55)
[2017-09-03] VITALS (11 sets, daily range): BP systolic 108–164; BP diastolic 44–110; PULSE 44–111; TEMP 36.4–36.8; O2SAT 94–99
[2017-09-03] MEDS: LEVOTHYROXINE 25 MCG TAB PO SCH (05:25)
[2017-09-03 06:20] LABS: INR 3.3 (0.9-1.1)
[2017-09-03 06:31] LABS: CALCIUM 8.7 mg/dl (8.5-10.1); CREATININE 0.8 mg/dl (0.60-1.20); POTASSIUM 3.9 mmol/L (3.5-5.1)
[2017-09-03] MEDS ORDERED: LIDOCAINE HCL 2% 2 ML VIAL (20MG/ML) ONE (07:22)
[2017-09-03] MEDS ORDERED: PROPOFOL IV EMULSION 10 MG/ML 20 ML VIAL IV ONE (07:22)
--- NOTE | 2017-09-03 07:55 | Anesthesiology Progress Note ---
Anesthesia Post Op Note Date & Time Sep 03, 2017 at 07:55 Vital Signs Pain Intensity: 0 Vital Signs Past 12 Hours Date Time Temp Pulse Resp B/P (MAP) Pulse Ox O2 Delivery O2 Flow Rate FiO2 09/03/17 07:42 70 16 104/53 (70) 95 Room Air 09/03/17 07:40 72 16 110/57 99 Nasal Cannula 6 09/03/17 07:36 71 16 133/44 99 Nasal Cannula 6 09/03/17 07:33 44 16 164/83 99 Nasal Cannula 6 09/03/17 07:00 36.8 77 18 124/84 (97) 94 Room Air 09/03/17 04:00 Room Air 09/03/17 03:32 36.7 111 17 145/106 (119) 96 Room Air 159/110 (126) 09/02/17 23:59 Room Air 09/02/17 22:50 36.5 104 18 131/88 (102) 96 Room Air 09/02/17 20:00 Room Air Notes Mental Status: alert / awake / arousable, participated in evaluation Pt Amnestic to Procedure: Yes Nausea / Vomiting: adequately controlled Pain: adequately controlled Airway Patency, RR, SpO2: stable & adequate BP & HR: stable & adequate Hydration State: stable & adequate Anesthetic Complications: no major complications apparent
--- NOTE | 2017-09-03 08:01 | CARDIOVERSION ---
DATE OF OPERATION: 09/03/2017 PROCEDURE SUMMARY: Patient was brought to the holding area of the labor relations supervisor. After informed consent was obtained, the patient received sedation given by anesthesia. She received 200 joules of synchronized energy converting her to a normal sinus rhythm. Patient then was returned to her room in stable condition. I attest to the content of the Intraoperative Record and any orders documented therein. Any exceptions are noted below. BRANDI
[2017-09-03] MEDS: FAMOTIDINE 20 MG TAB PO SCH ×2 (09:05→20:12)
[2017-09-03] MEDS: CARVEDILOL 6.25 MG TAB PO SCH ×2 (09:05→20:12)
[2017-09-03] MEDS: ASPIRIN 81 MG ECTAB PO SCH (09:05)
[2017-09-03] MEDS: MULTIVITAMIN TAB PO SCH (09:05)
[2017-09-03] MEDS: SOTALOL HCL 80 MG TAB PO SCH ×2 (09:05→20:12)
[2017-09-03] MEDS: BRINZOLAMIDE (AZOPT) OPS 10 ML BTL OPR SCH ×2 (09:07→15:47)
[2017-09-03] MEDS: WARFARIN TAB 2 MG, WARFARIN TAB 2.5 MG PO SCH ×2 (15:45)
--- NOTE | 2017-09-03 17:59 | Progress Note ---
Internal Med Progress Note Date of Service: Sep 03, 2017. Provider Documentation: SUBJECTIVE: s/p cardioversion today afebrile feeling better after cardioversion denies chest pain or sob no nausea resting comfortably says ambulating ok in room OBJECTIVE: Vital Signs-as noted below Exam: General-alert and oriented. Not in distress ENT-normal hearing. Neck-No neck masses Lungs-CTA b/l no wheezing or crackles Heart-S1 and S2 heard regular rate and rhythm no murmurs Abdomen-soft Bowels sounds present non tender no distension Extremities-no edema no erythema Neuro-alert and oriented moves extremities Lab data as noted below. ASSESSMENT & PLAN: Presents with dizziness 2 days, found to be in A. fib with RVR. 1. Atrial fibrillation with RVR-Loaded with sotalol. on coreg. s/p successful cardioversion today.On Coumadin. Inr 3.3 today. 2. Hypertension on coreg 6.25mg bid. will monitor. 3. Hypothyroidism-On Synthroid DVT prophylaxis-Coumadin Full code Disposition-possible d/c in am Vital Signs: Date Time Temp Pulse Resp B/P (MAP) Pulse Ox O2 Delivery O2 Flow Rate FiO2 09/03/17 16:00 Room Air 09/03/17 15:15 36.8 54 20 130/74 (92) 94 Room Air 09/03/17 12:00 Room Air 09/03/17 11:30 36.4 61 18 118/63 (81) 96 Room Air 09/03/17 08:00 Room Air 09/03/17 08:00 67 16 110/64 (79) 95 Room Air 09/03/17 07:55 68 16 100/52 (68) 95 Room Air 09/03/17 07:50 72 16 106/50 (68) 95 Room Air 09/03/17 07:45 71 16 100/58 (72) 95 Room Air 09/03/17 07:42 70 16 104/53 (70) 95 Room Air 09/03/17 07:40 72 16 110/57 99 Nasal Cannula 6 09/03/17 07:36 71 16 133/44 99 Nasal Cannula 6 09/03/17 07:33 44 16 164/83 99 Nasal Cannula 6 09/03/17 07:00 36.8 77 18 124/84 (97) 94 Room Air 09/03/17 04:00 Room Air 09/03/17 03:32 36.7 111 17 145/106 (119) 96 Room Air 159/110 (126) 09/02/17 23:59 Room Air 09/02/17 22:50 36.5 104 18 131/88 (102) 96 Room Air 09/02/17 20:00 Room Air 09/02/17 19:32 36.7 107 18 142/64 (90) 94 Room Air Lab Results: Results Past 24 Hours Test 09/03/17 05:32 Range/Units Prothrombin Time 33.5 9.0-12.0 SECONDS Prothromb Time International Ratio 3.3 0.9-1.1 Sodium Level 139 136-145 mmol/L Potassium Level 3.9 3.5-5.1 mmol/L Chloride Level 108 98-107 mmol/L Carbon Dioxide Level 25 21-32 mmol/L Anion Gap 6.0 3-11 mmol/L Blood Urea Nitrogen 12 7-18 mg/dl Creatinine 0.80 0.60-1.20 mg/dl Est Creatinine Clear Calc Drug Dose 58.6 ml/min Estimated GFR () 83.0 Estimated GFR (Non- 71.6 BUN/Creatinine Ratio 15.4 10-20 Random Glucose 102 70-99 mg/dl Calcium Level 8.7 8.5-10.1 mg/dl
[2017-09-03] MEDS: TRAVOPROST Z 0.004% OPH SOLN 2.5 ML BTL OPR SCH (20:11)
[2017-09-03] MEDS: PRAVASTATIN SOD 20 MG TAB PO SCH (20:12)
[2017-09-03] MEDS: CLONAZEPAM 0.5 MG TAB PO PRN (21:14)
[2017-09-04 04:19] VITALS: BP 105/58; PULSE 60; TEMP 36.4; O2SAT 96
[2017-09-04] MEDS: LEVOTHYROXINE 25 MCG TAB PO SCH (05:42)
[2017-09-04 06:12] LABS: INR 4.5 (0.9-1.1)
[2017-09-04 07:27] VITALS: BP 142/72; PULSE 65; TEMP 36.7; O2SAT 94
[2017-09-04] MEDS: SOTALOL HCL 80 MG TAB PO SCH (08:45)
[2017-09-04] MEDS: MULTIVITAMIN TAB PO SCH (08:45)
[2017-09-04] MEDS: BRINZOLAMIDE (AZOPT) OPS 10 ML BTL OPR SCH (08:45)
[2017-09-04] MEDS: ASPIRIN 81 MG ECTAB PO SCH (08:46)
[2017-09-04] MEDS: CARVEDILOL 6.25 MG TAB PO SCH (08:46)
[2017-09-04] MEDS: FAMOTIDINE 20 MG TAB PO SCH (08:46)
--- NOTE | 2017-09-04 11:03 | Cardiology Follow-Up ---
Subjective Subjective Date of Service: Sep 04, 2017. Pt evaluation today including: conversation w/ patient, conversation w/ family , physical exam, chart review, lab review, review of studies, conversation w/ beauty sales consultant, review of inpatient medication list Additional Details: The patient had an uneventful night. She is maintaining sinus rhythm. She is anxious to return home. Problem List Medical Problems: (1) Acute head injury Status: Acute (2) Anticoagulated Status: Acute (3) Contusion of left knee Status: Acute (4) Contusion of left shoulder Status: Acute (5) Dehydration Status: Acute (6) Near syncope Status: Acute (7) Poorly-controlled hypertension Status: Acute Objective Vital Signs Last Vital Signs Documentation Date Time Temp Pulse Resp B/P (MAP) Pulse Ox O2 Delivery O2 Flow Rate FiO2 09/04/17 08:00 Room Air 09/04/17 07:27 36.7 65 18 142/72 (95) 94 09/03/17 07:40 6 Physical Exam: General Appearance: WD/WN, no apparent distress ENT: normal ENT inspection, hearing grossly normal, pharynx normal Respiratory/Chest: chest non-tender, lungs clear, normal breath sounds, no respiratory distress, no accessory muscle use Cardiovascular: regular rate, rhythm, no edema, no JVD, no murmur, + gallop/S4 Abdomen: normal bowel sounds, non tender, soft, no organomegaly, no pulsatile mass Extremities: normal inspection, no pedal edema, no calf tenderness Neurologic/Psychiatric: cutter inspector II-XII nml as tested, no motor/sensory deficits, alert, normal mood/affect, oriented x 3 Skin: normal color, warm/dry, no rash Lymphatic: no adenopathy Assessment and Plan Impression: 1. Paroxysmal atrial fibrillation 2. Essential hypertension 3. History of pulmonary emboli on long-term anticoagulation Recommendations: The patient is anxious to return home. She can be discharged home on her current medications. I do note that her INR is 4.5 today and she should hold her Coumadin 2 days and notify the coag clinic. I will arrange for follow-up through our office in 2-3 weeks. Medications: Current Inpatient Medications Medications (Trade) Dose Ordered Sig/Sheri Route Start Time Stop Time Status Last Admin Dose Admin Ondansetron HCl (Zofran Inj) 4 mg Q6H PRN IV 08/31/17 22:00 09/30/17 21:59 Acetaminophen (Tylenol Tab) 325 mg Q6H PRN PO 08/31/17 22:15 09/30/17 22:14 09/01/17 04:22 325 MG Aspirin (Ecotrin Tab) 81 mg QAM PO 09/01/17 09:00 10/01/17 08:59 09/04/17 08:46 81 MG Clonazepam (Klonopin Tab) 0.5 mg TID PRN PO 08/31/17 22:15 09/30/17 22:14 09/03/17 21:14 0.5 MG Famotidine (Pepcid Tab) 20 mg BID PO 09/01/17 09:00 10/01/17 08:59 09/04/17 08:46 20 MG Levothyroxine Sodium (Synthroid Tab) 25 mcg DAILYBB PO 09/01/17 06:00 10/01/17 06:59 09/04/17 05:42 25 MCG Multivitamins (Multivitamin Tab) 1 tab QAM PO 09/01/17 09:00 10/01/17 08:59 09/04/17 08:45 1 TAB Pravastatin Sodium (Pravachol Tab) 20 mg QPM PO 09/01/17 21:00 10/01/17 20:59 09/03/17 20:12 20 MG Travoprost (Travatan Z) 1 drops HS OPR 09/01/17 21:00 10/01/17 20:59 09/03/17 20:11 1 DROPS Warfarin Sodium (Coumadin Tab) 6 mg Mo@1600 PO 09/02/17 16:00 10/02/17 15:59 Future Hold 09/02/17 16:54 6 MG Warfarin Sodium (Coumadin Tab) 4.5 mg SuTuWeThFrSa@1600 PO 09/01/17 16:00 10/01/17 15:59 Future Hold 09/03/17 15:45 4.5 MG Sotalol HCl (Betapace Tab) 80 mg BID PO 09/01/17 21:00 10/01/17 20:59 09/04/17 08:45 80 MG Carvedilol (Coreg Tab) 6.25 mg BID PO 09/01/17 21:00 10/01/17 08:59 09/04/17 08:46 6.25 MG Al Hydroxide/Mg Hydroxide (Maalox Susp) 30 ml Q6H PRN PO 09/01/17 19:45 10/01/17 19:44 09/01/17 20:15 30 ML Brinzolamide (Azopt) 1 drops BID@0900,1700 OPR 09/02/17 09:00 10/02/17 08:59 09/04/17 08:45 1 DROPS Lab Results: Last 24 Hours Test 09/04/17 05:31 Prothrombin Time 46.2 SECONDS Prothromb Time International Ratio 4.5
--- NOTE | 2017-09-04 11:03 | Anesthesiology Progress Note ---
Anesthesia Post Op Note Date & Time Sep 04, 2017 at 11:02 Vital Signs Pain Intensity: 0.0 Vital Signs Past 12 Hours Date Time Temp Pulse Resp B/P (MAP) Pulse Ox O2 Delivery O2 Flow Rate FiO2 09/04/17 08:00 Room Air 09/04/17 07:27 36.7 65 18 142/72 (95) 94 Room Air 09/04/17 04:19 36.4 60 17 105/58 (74) 96 Room Air 09/04/17 04:00 Room Air 09/03/17 23:59 Room Air 09/03/17 23:11 36.7 59 18 108/67 (81) 96 Room Air Notes Mental Status: alert / awake / arousable, participated in evaluation Pt Amnestic to Procedure: Yes Nausea / Vomiting: adequately controlled Pain: adequately controlled Airway Patency, RR, SpO2: stable & adequate BP & HR: stable & adequate Hydration State: stable & adequate Anesthetic Complications: no major complications apparent
[2017-09-04 11:04] VITALS: BP 125/73; PULSE 55; TEMP 36.3; O2SAT 95
[2017-09-04] MEDS ORDERED: BTP80 PO ×3 (12:48→13:05)
[2017-09-04] MEDS ORDERED: CRG625 PO ×3 (12:48→13:05)
--- NOTE | 2017-09-04 12:51 | Discharge Instructions ---
Discharge Instructions Date of Service Sep 04, 2017. Admission Reason for Admission: A-Fib W/ Rvr, Htn Discharge Discharge Diagnosis / Problem: rapid afib Discharge Goals Goal(s): Decrease discomfort, Improve function Activity Recommendations Activity Limitations: resume your previous activity . Instructions / Follow-Up Instructions / Follow-Up FOLLOWUP WITH FAMILY DOCTOR Marcell Corral ON August AT 1PM. FOLLOWUP WITH CARDIOLOGY SCHEDULED. TO HOLD COUMADIN TODAY AND TOMORROW AND CHECK LAB: PT/INR ON SaturdayAugust AND FOLLOW RESULTS WITH COUMADIN CLINIC. RESTARTING OF COUMADIN AND DOSE OF COUMADIN PER COUMADIN CLINIC.WILL NOTIFY COUMADIN CLINIC. Current Hospital Diet Patient's current hospital diet: AHA Diet (Heart Healthy) Discharge Diet Recommended Diet: AHA Diet (Heart Healthy) Pending Studies Studies pending at discharge: no Medical Emergencies . Who to Call and When: Medical Emergencies: If at any time you feel your situation is an emergency, please call 911 immediately. . Non-Emergent Contact Non-Emergency issues call your: Primary Care Provider, Local Area Network Administrator . . "Provider Documentation" section prepared by Tony Reyes. .
[2017-09-04 13:28] VITALS: BP 125/73; PULSE 55; TEMP 36.3; O2SAT 95
--- NOTE | 2017-09-04 18:25 | Progress Note ---
Internal Med Progress Note Date of Service: Sep 04, 2017. Provider Documentation: SUBJECTIVE: s/p cardioversion yesterday afebrile ambulating ok no chest pain or sob no nausea ok for discharge OBJECTIVE: Vital Signs-as noted below Exam: General-alert and oriented. Not in distress ENT-normal hearing. Neck-No neck masses Lungs-CTA b/l no wheezing or crackles Heart-S1 and S2 heard regular rate and rhythm no murmurs Abdomen-soft Bowels sounds present non tender no distension Extremities-no edema no erythema Neuro-alert and oriented moves extremities Lab data as noted below. ASSESSMENT & PLAN: Presents with dizziness 2 days, found to be in A. fib with RVR. 1. Atrial fibrillation with RVR-Loaded with sotalol. on coreg. s/p successful cardioversion today.On Coumadin. Inr 4.5.today.advice to hold Coumadin today and tomorrow and resume as per Coumadin clinic. Coumadin clinic notified d/amtilda on sotalol 80mg bid and Coreg 6.25mg bid. followup with cardiology 2. Hypertension on coreg 6.25mg bid. will monitor. 3. Hypothyroidism-On Synthroid discharged home Vital Signs: Date Time Temp Pulse Resp B/P (MAP) Pulse Ox O2 Delivery O2 Flow Rate FiO2 09/04/17 13:28 36.3 55 18 95 Room Air 09/04/17 12:00 Room Air 09/04/17 11:04 36.3 55 18 125/73 (90) 95 Room Air 09/04/17 08:00 Room Air 09/04/17 07:27 36.7 65 18 142/72 (95) 94 Room Air 09/04/17 04:19 36.4 60 17 105/58 (74) 96 Room Air 09/04/17 04:00 Room Air 09/03/17 23:59 Room Air 09/03/17 23:11 36.7 59 18 108/67 (81) 96 Room Air 09/03/17 20:11 63 09/03/17 19:52 Room Air 09/03/17 19:45 36.7 59 18 117/73 (88) 94 Room Air Lab Results: Results Past 24 Hours Test 09/04/17 05:31 Range/Units Prothrombin Time 46.2 9.0-12.0 SECONDS Prothromb Time International Ratio 4.5 0.9-1.1
--- NOTE | 2017-09-04 18:33 | Discharge Summary ---
Discharge Summary Date of Service Sep 04, 2017. Discharge Summary Admission Date: Aug 31, 2017 at 22:06 Discharge Date: Sep 04, 2017 Discharge Disposition: Home Principal Diagnosis: RAPID A FIB S/P CARDIOVERSION Secondary Diagnoses/Problems: blood pressure, hypothyroidism, depression, history of Graves' disease, hyperlipidemia, GERD and history of paroxysmal supraventricular tachycardia. Procedures: CXR: 1. Cardiomegaly with possible mild volume overload. No other convincing evidence of acute cardiopulmonary disease. ECHO: The left ventricle is normal in size. * Left ventricular systolic function is normal. * Ejection Fraction = 55-60%. * The right ventricular systolic function is normal. * The left atrium is moderately dilated. * The right atrium is moderately dilated. * There is moderate mitral regurgitation. * There is mild to moderate tricuspid regurgitation. * Mild pulmonary hypertension with the estimated pulmonary artery pressure of 40 mmHg. S/P CARDIOVERSION Consultations: BradyNani Medication Reconciliation New Medications: Carvedilol (Carvedilol) 6.25 Mg Tab 6.25 MG PO BID, #60 TAB 1 Refill Sotalol HCl (Sotalol HCl) 80 Mg Tab 80 MG PO BID, #60 TAB 1 Refill Continued Medications: Acetaminophen (Tylenol) 325 Mg Tab 325 MG PO Q6H PRN for Pain, TAB Aspirin (Aspirin Ec) 81 Mg Tab 81 MG PO QAM Brinzolamide Oph (Azopt Oph) 1 % Judy 1 DROPS OPR BID Clonazepam (Klonopin) 0.5 Mg Tab 0.5 MG PO TID PRN for Anxiety Famotidine (Pepcid) 20 Mg Tab 20 MG PO BID, TAB Hydrochlorothiazide (Hctz) 25 Mg Tab 25 MG PO DAILY for 7 Days, #7 TAB Levothyroxine Sodium (Levothyroxine Sodium) 25 Mcg Tab 25 MCG PO DAILY, TAB Multivitamin (Multivitamin) Tab 1 TAB PO QAM Pravastatin (Pravachol ) 20 Mg Tab 20 MG PO QPM, TAB Travoprost (Travatan Z) 0.004 % Reid 1 DROPS OPR HS Discontinued Medications: Carvedilol (Coreg) 12.5 Mg Tab 12.5 MG PO BID Warfarin Sodium (Coumadin) 3 Mg Tab 6 MG PO WK TAKE 2 THREE MG TABS EVERY SATURDAY. Warfarin Sodium (Coumadin) 3 Mg Tab 4.5 MG PO 6XWK, TAB TAKE 1 & 1/2 THREE MG TABS EVERY SATURDAY/SATURDAY/SATURDAY/SATURDAY/SATURDAY/SATURDAY. Admission Information HPI (per Admitting provider): : She is a 77-year-old female with significant past medical history of difficult to control blood pressure, hypothyroidism, depression, history of Graves' disease, hyperlipidemia, GERD and history of paroxysmal supraventricular tachycardia. Apparently had been on 3 different medications for blood pressure control. Her blood pressure is running low and last week she was seen by Dr. Ames, the roller turner, who took off hydrochlorothiazide and losartan. For the last 2 or 3 days, she has been complaining of increasing blood pressure and also today she has been feeling dizzy and lightheadedness. From that point, she came to the Emergency Room for further evaluation. In the ER, she was noted to have a heart rate of 138 that was irregularly irregular and she had shortness of breath. From that point, she was started on intravenous Cardizem drip and advised for admission. She denies to any chest pain, any palpitation, any shortness of breath. She does not have any abdominal pain, nausea or vomiting. She denies to any problem with urine and/or bowel habit. She does not have any swelling of the legs. Denies to any headache, any blurred vision, numbness or tingling in the extremities and no weakness involving any side Physical Exam (per Admitting): GENERAL: On examination in the Emergency Room, she was not in any acute distress. VITAL SIGNS: Temperature 36.5, pulse is 117 and irregularly irregular, blood pressure 142/109, saturation 96% on room air. HEENT: Unremarkable. NECK: Supple, no JVD, no bruit. CHEST: Clear to auscultate bilaterally. HEART: S1, S2 irregular with a 2/6 systolic murmur over precordium. ABDOMEN: Soft, benign, nontender, no organomegaly. Bowel sounds present. EXTREMITIES: Negative for any edema. MUSCULOSKELETAL: No acute arthritis in any joint. CENTRAL NERVOUS SYSTEM: She is alert, awake, oriented x3, no focal sensory and/or motor deficit appreciated. Hospital Course Presents with dizziness 2 days, found to be in A. fib with RVR. 1. Atrial fibrillation with RVR-Loaded with sotalol. on coreg. s/p successful cardioversion today.On Coumadin. Inr 4.5.today.advice to hold Coumadin today and tomorrow and resume as per Coumadin clinic. Coumadin clinic notified d/matilda on sotalol 80mg bid and Coreg 6.25mg bid. followup with cardiology 2. Hypertension on coreg 6.25mg bid. will monitor. 3. Hypothyroidism-On Synthroid discharged home Total time spent on discharge = 35MINUTES This includes examination of the patient, discharge planning, medication reconciliation, and communication with other providers. Discharge Instructions Discharge Instructions Date of Service Sep 04, 2017. Admission Reason for Admission: A-Fib W/ Rvr, Htn Discharge Discharge Diagnosis / Problem: rapid afib Discharge Goals Goal(s): Decrease discomfort, Improve function Activity Recommendations Activity Limitations: resume your previous activity . Instructions / Follow-Up Instructions / Follow-Up FOLLOWUP WITH FAMILY DOCTOR Marcell Corral ON August AT 1PM. FOLLOWUP WITH CARDIOLOGY SCHEDULED. TO HOLD COUMADIN TODAY AND TOMORROW AND CHECK LAB: PT/INR ON SaturdayAugust AND FOLLOW RESULTS WITH COUMADIN CLINIC. RESTARTING OF COUMADIN AND DOSE OF COUMADIN PER COUMADIN CLINIC.WILL NOTIFY COUMADIN CLINIC. Current Hospital Diet Patient's current hospital diet: AHA Diet (Heart Healthy) Discharge Diet Recommended Diet: AHA Diet (Heart Healthy) Pending Studies Studies pending at discharge: no Medical Emergencies . Who to Call and When: Medical Emergencies: If at any time you feel your situation is an emergency, please call 911 immediately. . Non-Emergent Contact Non-Emergency issues call your: Primary Care Provider, Surgical Services Assistant . .
== END 2017-09-04 15:20 | disposition home or self-care (01) | DRG 310 ==
LOC: C.EDB 17:44 → C.2T 22:06 → ENRESERV 22:16
PROVIDERS: ADMIT Internal Medicine; ATTEND Internal Medicine
DX: I48.91 Unspecified atrial fibrillation (principal); F32.9 Major depressive disorder, single episode, unspecified; K21.9 Gastro-esophageal reflux disease without esophagitis; H40.9 Unspecified glaucoma; I10 Essential (primary) hypertension; E78.5 Hyperlipidemia, unspecified; K58.9 Irritable bowel syndrome, unspecified; I34.0 Nonrheumatic mitral (valve) insufficiency; E03.9 Hypothyroidism, unspecified; M81.0 Age-related osteoporosis without current pathological fracture; I47.1 Supraventricular tachycardia; E05.00 Thyrotoxicosis with diffuse goiter without thyrotoxic crisis or storm; Z86.711 Personal history of pulmonary embolism; Z79.82 Long term (current) use of aspirin; Z79.01 Long term (current) use of anticoagulants; Z91.09 Other allergy status, other than to drugs and biological substances; Z80.8 Family history of malignant neoplasm of other organs or systems; Z83.3 Family history of diabetes mellitus

== ENCOUNTER 2017-09-14 08:46 | Inpatient (IN) | payer BC, OTHER ==
[~2017-09-14] VITALS: Ht 157.5 cm; Wt 80.1 kg
[~2017-09-14 08:46] MED LIST changes: +ACET-1311 PO; +BRIN1SUS OPR; +BTP80 PO; -CALCTAB7 PO; -CARV12.52 PO; +CRG625 PO; +FAMO20TA11 PO; -HYZ/10015 PO; +LEVO25TA5 PO; +TRAV0.00 OPR; -WARF3TAB6 PO
[2017-09-14] MEDS ORDERED: ONDANSETRON INJ 2 MG/ML 2 ML VIAL IV STA (09:21)
[2017-09-14] MEDS ORDERED: ALUMINUM/MAGNESIUM SUSP 30 ML UDC PO STA (09:21)
[2017-09-14] MEDS ORDERED: LIDOCAINE HCL 2% VISC SOLN 20 ML UDC PO STA (09:21)
[2017-09-14] MEDS ORDERED: SODIUM CHLORIDE 0.9% 1000ML 1,000 ML IV STA ×2 (09:21→10:50)
[2017-09-14] MEDS ORDERED: PANTOprazole INJ 40 MG in SYRINGE 0 ML IV ONE (09:30)
[2017-09-14 09:55] LABS: BASO % 0.1 %; BASO ABS # 0.01 K/uL (0-0.2); HEMOGLOBIN 13.3 g/dL (12.0-16.0); IG# 0.02 K/uL (0.00-0.02); LYMPH % 8.2 %; LYMPH ABS # 0.72 K/uL (1.2-3.4); MEAN CELL VOLUME 79.7 fL (80-100); MEAN CORPUSCULAR HEMOGLOBIN 27.9 pg (25-34); MEAN PLATELET VOLUME 8.4 fL (7.4-10.4); MONO % 5.7 %; NEUT % 85.8 %; NEUT ABS # 7.53 K/uL (1.4-6.5); PLATELET COUNT 298 K/uL (130-400); RED CELL DISTRIBUTION WIDTH CV 12.8 % (11.5-14.5); RED CELL DISTRIBUTION WIDTH SD 37.1 fL (36.4-46.3); WHITE BLOOD COUNT 8.78 K/uL (4.8-10.8)
[2017-09-14 10:14] LABS: INR 2.8 (0.9-1.1)
[2017-09-14 10:16] LABS: ALBUMIN 3.7 gm/dl (3.4-5.0); ALT/SGPT 20 U/L (12-78); AST/SGOT 18 U/L (15-37); BLOOD UREA NITROGEN 9 mg/dl (7-18); CALCIUM 8.9 mg/dl (8.5-10.1); CARBON DIOXIDE 29 mmol/L (21-32); CREATININE 0.77 mg/dl (0.60-1.20); GLUCOSE 121 mg/dl (70-99); LIPASE 165 U/L (73-393); POTASSIUM 2.7 mmol/L (3.5-5.1); SODIUM 122 mmol/L (136-145)
[2017-09-14 10:19] LABS: ALKALINE PHOSPHATASE 66 U/L (45-117); TOTAL PROTEIN 7.3 gm/dl (6.4-8.2)
[2017-09-14] MEDS ORDERED: BTP80 PO (10:23)
[2017-09-14] MEDS ORDERED: POTASSIUM CHLORIDE 10 MEQ TABCR PO STA ×3 (10:35→18:00)
[2017-09-14] MEDS ORDERED: MECLIZINE HCL 25 MG TAB PO STA (10:50)
[2017-09-14 10:54] LABS: PTT PATIENT 51.8 SECONDS (21.0-31.0)
[2017-09-14] MEDS ORDERED: MAGNESIUM HYDROXIDE SUSP 30 ML UDC PO PRN (11:30)
[2017-09-14] MEDS ORDERED: POLYETHYLENE (MIRALAX) 17 GM PACK PO PRN (11:30)
[2017-09-14] MEDS ORDERED: ALUMINUM/MAGNESIUM/SIMETH (MAALOX MAX) 30 ML UDC PO PRN (11:30)
[2017-09-14] MEDS ORDERED: ONDANSETRON INJ 2 MG/ML 2 ML VIAL IV PRN (11:30)
[2017-09-14] MEDS ORDERED: NITROGLYCERIN 0.4 MG SL PER TAB CHARGE SL PRN (11:30)
[2017-09-14 11:42] VITALS: O2SAT 96; Ht 157.5 cm; Wt 80.1 kg
[2017-09-14] MEDS ORDERED: CLONAZEPAM 0.5 MG TAB PO PRN (11:45)
[2017-09-14] MEDS ORDERED: ACETAMINOPHEN 325 MG TAB PO PRN (11:45)
--- NOTE | 2017-09-14 11:58 | EMERGENCY ROOM VISIT NOTE ---
History First contact with patient: :07 Chief Complaint: VOMITING Stated Complaint: THROWING UP Nursing Triage Summary: patient states she was discharged from the hospital on the with newly dx afib. states, "since her discharge she hasn't been right since, weak, nausea and vomiting since last week." patient woke up in the middle of the night vomiting. states crawled back to the bedroom. Patient remembers vomiting but does not remember how she got to the floor. patient c/o occipital pain. History of Present Illness The patient is a 77 year old female who presents to the Emergency Room via EMS with complaints of nausea and vomiting since being discharged from the hospital on September 04. The patient states that this has been getting progressively worse since the time of discharge. She is trying to stay hydrated with small sips of water she denies any associated abdominal pain.. The patient denies any fever. The patient states that she has always had issues with her stomach but this is more persistent and severe. Patient denies any change in bowel habits. The patient tried some [id number] antinausea medicine without any relief. The patient saw her PCP Dr. Le on Saturday the for hospital follow- up. She told him of her symptoms at that time but he thought it might be due to the fact that she was not taking her Lexapro when she was in the hospital. She has restarted the Lexapro. The only thing new is that she was started on sotalol for her recently diagnosed A. fib. She also was diagnosed with a UTI on Saturday and was placed on Macrobid. She states UTI symptoms are getting better. The patient also saw her still cleaner, Dr. Cardoza on Saturday and he cut the dose of the sotalol in half. She states it has not changed her symptoms. The patient states that today that she was sitting in the bathroom dry heaving this morning when her walked in. The patient later in the ER visit stated that she was dizzy. Review of Systems 10 system review was performed and was negative unless stated otherwise history of present illness. Past Medical/Surgical History Medical Problems: (1) Arthritis (2) Atrial fibrillation (3) Atrial fibrillation with rapid ventricular response (4) Depression (5) Esophageal reflux (6) Glaucoma (7) Goiter (8) HTN (hypertension) (9) HTN (hypertension) (10) Hyperlipidemia (11) IBS (irritable bowel syndrome) (12) Migraine (13) Mitral valve regurgitation (14) Myalgia (15) Nausea & vomiting (16) Osteoporosis Surgical Problems: (1) H/O knee surgery (2) Previous back surgery Family History Diabetes mellitus FH: cancer FH: dementia FH: heart disease Social History Smoking Status: Never Smoker Alcohol Use: occasionally Marital Status: Housing Status: lives with significant other Occupation Status: retired Current/Historical Medications Scheduled Aspirin (Aspirin Ec), 81 MG PO QAM Brinzolamide Oph (Azopt Oph), 1 DROPS OPR BID Carvedilol (Carvedilol), 6.25 MG PO BID Famotidine (Pepcid), 20 MG PO BID Levothyroxine Sodium (Levothyroxine Sodium), 25 MCG PO DAILY Multivitamin (Multivitamin), 1 TAB PO QAM Pravastatin (Pravachol ), 20 MG PO QPM Sotalol HCl (Sotalol HCl), 40 MG PO BID Travoprost (Travatan Z), 1 DROPS OPR HS Scheduled PRN Acetaminophen (Tylenol), 325 MG PO Q6H PRN for Pain Clonazepam (Klonopin), 0.5 MG PO TID PRN for Anxiety Physical Exam Vital Signs Date Time Temp Pulse Resp B/P (MAP) Pulse Ox O2 Delivery O2 Flow Rate FiO2 09/14/17 10:50 77 18 156/78 96 Room Air 09/14/17 09:11 70 09/14/17 08:53 36.8 55 18 131/75 94 Room Air Physical Exam GENERAL: 77-year-old female appears in no acute distress. MENTAL Status: Alert and oriented 3. MOUTH: Mucosa is slightly dry. NECK: Supple, no lymphadenopathy noted. No carotid bruits noted. LUNGS: Clear auscultation without wheezes rales or rhonchi. CARDIAC: Irregular irregular rhythm without murmur. Pulses is full and equal throughout. BACK: No CVA tenderness noted. ABDOMEN: Positive bowel sounds all 4 quadrants. Soft, nontender to palpation without organomegaly or masses. EXTREMITIES: No cyanosis or edema noted. Medical Decision & Procedures Laboratory Results 09/14/17 09:35 Red Blood Count 4.77, Mean Corpuscular Volume 79.7, Mean Corpuscular Hemoglobin 27.9, Mean Corpuscular Hemoglobin Concent 35.0, Mean Platelet Volume 8.4, Neutrophils (%) (Auto) 85.8, Lymphocytes (%) (Auto) 8.2, Monocytes (%) (Auto) 5.7, Eosinophils (%) (Auto) 0.0, Basophils (%) (Auto) 0.1, Neutrophils # (Auto) 7.53, Lymphocytes # (Auto) 0.72, Monocytes # (Auto) 0.50, Eosinophils # (Auto) 0.00, Basophils # (Auto) 0.01 09/14/17 09:35 Test 09/14/17 09:35 09/14/17 09:45 White Blood Count 8.78 K/uL (4.8-10.8) Red Blood Count 4.77 M/uL (4.2-5.4) Hemoglobin 13.3 g/dL (12.0-16.0) Hematocrit 38.0 % (37-47) Mean Corpuscular Volume 79.7 fL (80-100) Mean Corpuscular Hemoglobin 27.9 pg (25-34) Mean Corpuscular Hemoglobin Concent 35.0 g/dl (32-36) Platelet Count 298 K/uL (130-400) Mean Platelet Volume 8.4 fL (7.4-10.4) Neutrophils (%) (Auto) 85.8 % Lymphocytes (%) (Auto) 8.2 % Monocytes (%) (Auto) 5.7 % Eosinophils (%) (Auto) 0.0 % Basophils (%) (Auto) 0.1 % Neutrophils # (Auto) 7.53 K/uL (1.4-6.5) Lymphocytes # (Auto) 0.72 K/uL (1.2-3.4) Monocytes # (Auto) 0.50 K/uL (0.11-0.59) Eosinophils # (Auto) 0.00 K/uL (0-0.5) Basophils # (Auto) 0.01 K/uL (0-0.2) RDW Standard Deviation 37.1 fL (36.4-46.3) RDW Coefficient of Variation 12.8 % (11.5-14.5) Immature Granulocyte % (Auto) 0.2 % Immature Granulocyte # (Auto) 0.02 K/uL (0.00-0.02) Prothrombin Time 29.1 SECONDS (9.0-12.0) Prothromb Time International Ratio 2.8 (0.9-1.1) Activated Partial Thromboplast Time 51.8 SECONDS (21.0-31.0) Partial Thromboplastin Ratio 2.0 Anion Gap 9.0 mmol/L (3-11) Estimated GFR () 86.9 Estimated GFR (Non- 75.0 BUN/Creatinine Ratio 11.7 (10-20) Calcium Level 8.9 mg/dl (8.5-10.1) Total Bilirubin 0.7 mg/dl (0.2-1) Direct Bilirubin 0.2 mg/dl (0-0.2) Aspartate Amino Transf (AST/SGOT) 18 U/L (15-37) Alanine Aminotransferase (ALT/SGPT) 20 U/L (12-78) Alkaline Phosphatase 66 U/L (45-117) Total Protein 7.3 gm/dl (6.4-8.2) Albumin 3.7 gm/dl (3.4-5.0) Lipase 165 U/L (73-393) Urine Color YELLOW Urine Appearance TURBID (CLEAR) Urine pH 8.5 (4.5-7.5) Urine Specific [place] 1.013 (1.000-1.030) Urine Protein NEG (NEG) Urine Glucose (UA) NEG (NEG) Urine Ketones NEG (NEG) Urine Occult Blood TRACE (NEG) Urine Nitrite NEG (NEG) Urine Bilirubin NEG (NEG) Urine Urobilinogen NEG (NEG) Urine Leukocyte Esterase NEG (NEG) Urine WBC (Auto) 1-5 /hpf (0-5) Urine RBC (Auto) 5-10 /hpf (0-4) Urine Hyaline Casts (Auto) 1-5 /lpf (0-5) Urine Epithelial Cells (Auto) 20-30 /lpf (0-5) Urine Bacteria (Auto) NEG (NEG) Medications Administered Medications (Trade) Dose Ordered Sig/Sheri Route Start Time Stop Time Status Last Admin Dose Admin Sodium Chloride 1,000 ml @ 999 mls/hr Q1H1M STAT IV 09/14/17 09:21 09/14/17 10:21 DC 09/14/17 09:45 999 MLS/HR Pantoprazole Sodium 40 mg/ Syringe 10 ml @ 5 mls/min NOW ONCE IV 09/14/17 09:30 09/14/17 09:31 DC 09/14/17 09:50 5 MLS/MIN Ondansetron HCl (Zofran Inj) 4 mg NOW STAT IV 09/14/17 09:21 09/14/17 09:24 DC 09/14/17 09:44 4 MG Lidocaine HCl (Viscous Lidocaine 2% Soln) 10 ml NOW STAT PO 09/14/17 09:21 09/14/17 09:24 DC 09/14/17 09:45 10 ML Al Hydroxide/Mg Hydroxide (Maalox Susp) 30 ml NOW STAT PO 09/14/17 09:21 09/14/17 09:24 DC 09/14/17 09:45 30 ML Potassium Chloride (Klor-Con M10) 20 meq NOW STAT PO 09/14/17 10:35 09/14/17 10:37 DC 09/14/17 10:41 20 MEQ Meclizine HCl (Antivert Tab) 25 mg NOW STAT PO 09/14/17 10:50 09/14/17 10:51 DC 09/14/17 10:50 25 MG Sodium Chloride 1,000 ml @ 999 mls/hr Q1H1M STAT IV 09/14/17 10:50 09/14/17 11:50 DC 09/14/17 10:50 999 MLS/HR ED Course The patient was evaluated. IV access was obtained. The patient was given 1 L normal saline wide open. She was given Protonix 40 mg IV push, Zofran 4 mg IV and a GI cocktail orally. CBC and differential, renal profile, LFTs and lipase levels, urinalysis was ordered. Labs are reviewed. Her white count was normal. The patient's potassium was 2.7. She was given 20 mEq of K-Dur p.o. . The patient's urinalysis revealed trace of blood but no bacteria. Culture is pending. The patient this time stated that she was feeling dizzy. The patient was given Antivert 25 mg p.o.. The patient's EMR was reviewed. The patient when she was hospitalized last week her potassium and sodium were normal. I discussed the case with Dr. Mendoza who agreed with treatment plan. The hospitalist was consulted for admission. The patient was informed of all findings and with treatment plan and was in agreement. Medical Decision The decision was made to admit the patient since her potassium and sodium dropped significantly since September 04 when she was discharged from the hospital. The patient has been dry heaving since being discharged from the hospital. The patient did not have any abdominal pain therefore I do not feel imaging was necessary. She was hydrated with fluids and given oral potassium. [place] Drug Monitoring Program Search Results: patient reviewed within database Medication Reconcilliation Current Medication List: was personally reviewed by me Blood Pressure Screening Patient's blood pressure: Elevated blood pressure Impression Primary Impression: Hypokalemia Additional Impressions: Vomiting Dizziness Departure Information Dispostion Being Evaluated By Hospitalist Condition GOOD Referrals Marcell Landry, D.O. (PCP) Patient Instructions My [facility] Problem Qualifiers
[2017-09-14 12:24] VITALS: O2SAT 94
[2017-09-14] MEDS ORDERED: LORAZEPAM 0.5 MG TAB PO PRN (12:30)
[2017-09-14] MEDS ORDERED: PROMETHAZINE HCL INJ 12.5 MG in SODIUM CHLORIDE 0.9% 50ML 50 ML IV PRN (12:30)
--- NOTE | 2017-09-14 12:33 | History and Physical ---
History & Physical Date & Time of Service: Sep 14, 2017 at 12:33 Chief Complaint: Throwing Up Primary Care Physician: Marcell Landry D.OJohn History of Present Illness Source: patient, family () This is a 77-year-old female with medical history of paroxysmal A. fib, hypertension, depression Was recently discharged from [facility] past meant for paroxysmal A. fib Patient was started on sotalol, status post cardioversion on Coumadin INR therapeutic After discharge from hospital, patient mentioned she never felt better She started to have nausea, dizziness spell poor appetite occasional vomiting Symptoms were not present during her hospital stay No report of diarrhea/no fever/no abdominal pain Patient was seen by her family physician Dr. Le-on post hospital visit Patient was on low-dose Lexapro 5 mg daily for depression Which was kept on hold during her admission to [facility] for arrhythmia Was not resumed after discharge Patient mentions of having poor energy, poor appetite withdrawn, nausea Possible secondary to SSRI withdrawal symptoms(although on low-dose Lexapro symptoms are less prominent) She was asked to resume Lexapro Had visit with cardiology Dr. Cardoza Found to be stable from cardiac standpoint Due to her GI issues sotalol was reduced to 40 mg twice daily Patient mentions she did not had any improvement of her GI symptoms of nausea, poor appetite, This morning as she went to bathroom felt dizzy and lightheaded and syncopized Her was present Patient was brought to [facility] ER Found to be hyponatremic, hypokalemic INR therapeutic, EKG rate controlled A. fib with multiple PVCs During my interview patient denies of any palpitation, mention of feeling dizzy when standing up no symptoms while lying down No nausea, no vomiting no abdominal pain Appetite remains poor Past Medical/Surgical History Medical Problems: (1) Acute head injury (2) Anticoagulated (3) Arthritis (4) Atrial fibrillation (5) Atrial fibrillation with rapid ventricular response (6) Calf pain (7) Contusion of left knee (8) Contusion of left shoulder (9) Dehydration (10) Depression (11) Esophageal reflux (12) Glaucoma (13) Goiter (14) Headache (15) HTN (hypertension) (16) HTN (hypertension) (17) Hyperlipidemia (18) IBS (irritable bowel syndrome) (19) Migraine (20) Mitral valve regurgitation (21) Myalgia (22) Nausea & vomiting (23) Near syncope (24) Osteoporosis (25) Poorly-controlled hypertension (26) Pulmonary embolism (27) Pulmonary embolism, bilateral Surgical Problems: (1) H/O knee surgery (2) Previous back surgery Family History Diabetes mellitus FH: cancer FH: dementia FH: heart disease Social History Smoking Status: Never Smoker Marital Status: Occupational Status: retired Multi-Drug Resistant Organisms History of MDRO: No Allergies Coded Allergies: Atorvastatin (Verified Allergy, Intermediate, "legs don't want to move.", 09/14/17) Home Medications Scheduled Aspirin (Aspirin Ec), 81 MG PO QAM Brinzolamide Oph (Azopt Oph), 1 DROPS OPR BID Carvedilol (Carvedilol), 6.25 MG PO BID Famotidine (Pepcid), 20 MG PO BID Levothyroxine Sodium (Levothyroxine Sodium), 25 MCG PO DAILY Multivitamin (Multivitamin), 1 TAB PO QAM Pravastatin (Pravachol ), 20 MG PO QPM Sotalol HCl (Sotalol HCl), 40 MG PO BID Travoprost (Travatan Z), 1 DROPS OPR HS Scheduled PRN Acetaminophen (Tylenol), 325 MG PO Q6H PRN for Pain Clonazepam (Klonopin), 0.5 MG PO TID PRN for Anxiety Review of Systems Constitutional: + weakness, + fatigue Respiratory: No cough, No sputum, No wheezing, No shortness of breath, No dyspnea on exertion, No dyspnea at rest, No hemoptysis, No problem reported Cardiovascular: No chest pain, No orthopnea, No PND, No edema, No claudication , No palpitations, No problem reported Abdomen: + nausea, + vomiting, + problem reported (Poor appetite) Genitourinary - Female: + urinary frequency, + urinary urgency Neurologic: + weakness, + balance problems Psychiatric: + depression symptoms Physical Exam Vital Signs Date Time Temp Pulse Resp B/P (MAP) Pulse Ox O2 Delivery O2 Flow Rate FiO2 09/14/17 12:24 36.8 74 15 160/76 94 09/14/17 12:08 160/76 09/14/17 12:01 160/76 09/14/17 11:46 74 15 94 09/14/17 11:42 96 Room Air 09/14/17 11:31 151/78 09/14/17 11:16 68 20 93 09/14/17 11:03 156/78 09/14/17 10:50 77 18 156/78 96 Room Air 09/14/17 10:46 65 18 09/14/17 10:16 76 15 09/14/17 09:46 63 19 09/14/17 09:16 65 15 09/14/17 09:11 70 09/14/17 09:08 180/98 09/14/17 08:53 36.8 55 18 131/75 94 Room Air General Appearance: WD/WN Head: normocephalic, atraumatic Eyes: normal inspection, PERRL, EOMI, sclerae normal ENT: normal ENT inspection Neck: supple, no adenopathy, thyroid normal, no JVD Respiratory/Chest: chest non-tender, lungs clear, normal breath sounds, no respiratory distress, no accessory muscle use Cardiovascular: regular rate, rhythm, no JVD, no murmur Abdomen/GI: normal bowel sounds, non tender, soft Extremities/Musculoskelatal: normal inspection, no calf tenderness, normal capillary refill, no pedal edema Neurologic/Psych: no motor/sensory deficits, alert, oriented x 3, + pertinent finding (Flat affect) Diagnostics Laboratory Results Results Past 24 Hours Test 09/14/17 09:35 09/14/17 09:45 Range/Units White Blood Count 8.78 4.8-10.8 K/uL Red Blood Count 4.77 4.2-5.4 M/uL Hemoglobin 13.3 12.0-16.0 g/dL Hematocrit 38.0 37-47 % Mean Corpuscular Volume 79.7 80-100 fL Mean Corpuscular Hemoglobin 27.9 25-34 pg Mean Corpuscular Hemoglobin Concent 35.0 32-36 g/dl Platelet Count 298 130-400 K/uL Mean Platelet Volume 8.4 7.4-10.4 fL Neutrophils (%) (Auto) 85.8 % Lymphocytes (%) (Auto) 8.2 % Monocytes (%) (Auto) 5.7 % Eosinophils (%) (Auto) 0.0 % Basophils (%) (Auto) 0.1 % Neutrophils # (Auto) 7.53 1.4-6.5 K/uL Lymphocytes # (Auto) 0.72 1.2-3.4 K/uL Monocytes # (Auto) 0.50 0.11-0.59 K/uL Eosinophils # (Auto) 0.00 0-0.5 K/uL Basophils # (Auto) 0.01 0-0.2 K/uL RDW Standard Deviation 37.1 36.4-46.3 fL RDW Coefficient of Variation 12.8 11.5-14.5 % Immature Granulocyte % (Auto) 0.2 % Immature Granulocyte # (Auto) 0.02 0.00-0.02 K/uL Prothrombin Time 29.1 9.0-12.0 SECONDS Prothromb Time International Ratio 2.8 0.9-1.1 Activated Partial Thromboplast Time 51.8 21.0-31.0 SECONDS Partial Thromboplastin Ratio 2.0 Sodium Level 122 136-145 mmol/L Potassium Level 2.7 3.5-5.1 mmol/L Chloride Level 84 98-107 mmol/L Carbon Dioxide Level 29 21-32 mmol/L Anion Gap 9.0 3-11 mmol/L Blood Urea Nitrogen 9 7-18 mg/dl Creatinine 0.77 0.60-1.20 mg/dl Estimated GFR () 86.9 Estimated GFR (Non- 75.0 BUN/Creatinine Ratio 11.7 10-20 Random Glucose 121 70-99 mg/dl Calcium Level 8.9 8.5-10.1 mg/dl Total Bilirubin 0.7 0.2-1 mg/dl Direct Bilirubin 0.2 0-0.2 mg/dl Aspartate Amino Transf (AST/SGOT) 18 15-37 U/L Alanine Aminotransferase (ALT/SGPT) 20 12-78 U/L Alkaline Phosphatase 66 45-117 U/L Total Protein 7.3 6.4-8.2 gm/dl Albumin 3.7 3.4-5.0 gm/dl Lipase 165 73-393 U/L Urine Color YELLOW Urine Appearance TURBID CLEAR Urine pH 8.5 4.5-7.5 Urine Specific [place] 1.013 1.000-1.030 Urine Protein NEG NEG Urine Glucose (UA) NEG NEG Urine Ketones NEG NEG Urine Occult Blood TRACE NEG Urine Nitrite NEG NEG Urine Bilirubin NEG NEG Urine Urobilinogen NEG NEG Urine Leukocyte Esterase NEG NEG Urine WBC (Auto) 1-5 0-5 /hpf Urine RBC (Auto) 5-10 0-4 /hpf Urine Hyaline Casts (Auto) 1-5 0-5 /lpf Urine Epithelial Cells (Auto) 20-30 0-5 /lpf Urine Bacteria (Auto) NEG NEG Impression Assessment and Plan GI SYMPTOMS NAUSEA VOMITING Not sure of the cause Abdomen exam benign No evidence of any infection Possible secondary to/depression?/SSRI withdrawal?/Recent urinary tract infection Lexapro 5 mg p.o. resumed Order for IV fluids Empiric IV Rocephin Check urine culture DEHYDRATION/HYPOTENSION Due to poor p.o. intake Ordered for IV fluids Check orthostatic vital HYPONATREMIA HYPOKALEMIA Due to GI loss IV fluids with normal saline plus potassium supplement Ordered p.o. potassium Monitor electrolytes HISTORY OF PAROXYSMAL A. FIB Rate controlled Shows multiple PVCs, PACs in monitor Possible secondary to electrolytes abnormality Continue to correct potassium and magnesium Repeat labs in the a.m. Continue on sotalol/beta-cullen On Coumadin for chronic anticoagulation Recent UTI Started on Macrobid by family physician started on 09/09/17 Only could take 1 day of antibiotic secondary to nausea vomiting Ordered for IV Rocephin Repeat urine culture DEPRESSION Patient reports of poor appetite, poor sleep, poor energy, anhedonia Lexapro 5 mg p.o. daily resumed No suicidal ideation/no delusion / If continued to have depressive symptoms will consider psychiatry eval Full code DVT prophylaxis: On Coumadin INR therapeutic Disposition: Expected to be discharged home when medically stable Medicine follow-up with Dr. Marcell Le Cardiology follow-up with Dr. Cardoza Level of Care Telemetry Advanced Directives Existing Living Will: Yes Existing Power of Auto Electrical Technician: No Resuscitation Status FULL NO CARDIOVERSION VTE Prophylaxis Risk Level: Moderate Given or contraindicated: Warfarin (Coumadin)
[2017-09-14 12:51] VITALS: BP_SYST 161; BP_SYST 165; BP_DIAS 77; PULSE 74; TEMP 36.9; O2SAT 91
[2017-09-14] MEDS: NSS + 20MEQ KCL 1000ML 1,000 ML IV SCH (13:05)
[2017-09-14 14:58] VITALS: BP 131/72; PULSE 58; TEMP 36.7; O2SAT 92
[2017-09-14] MEDS ORDERED: CARVEDILOL 6.25 MG TAB PO ONE (15:30)
[2017-09-14] MEDS ORDERED: SOTALOL HCL 80 MG TAB PO ONE (15:30)
[2017-09-14] MEDS ORDERED: FAMOTIDINE 20 MG TAB PO ONE (15:30)
[2017-09-14] MEDS ORDERED: ASPIRIN 81 MG ECTAB PO ONE (15:30)
--- NOTE | 2017-09-14 15:40 | EMERGENCY ROOM VISIT NOTE ---
ED Visit Note First contact with patient: 09:07 I have personally seen and evaluated the patient with the PA. I agree with the diagnosis and management decisions and have been personally involved in the case. Please see Prachi Cuevas PA-C's notes for further details of the history, physical and visit.
[2017-09-14] MEDS ORDERED: MAGNESIUM OXIDE 400 MG TAB PO ONE (15:45)
[2017-09-14 15:55] LABS: CALCIUM 8.1 mg/dl (8.5-10.1); CREATININE 0.78 mg/dl (0.60-1.20)
[2017-09-14 15:56] LABS: POTASSIUM 3.3 mmol/L (3.5-5.1)
[2017-09-14] MEDS ORDERED: WARFARIN SOD 2.5 MG TAB PO SCH ×2 (16:00→18:30)
[2017-09-14] MEDS ORDERED: CEFTRIAXONE SOD INJ 1 GM in DEXTROSE 5% ADD-VANTAGE 50ML 50 ML IV SCH (16:00)
[2017-09-14] MEDS: ACETAMINOPHEN 325 MG TAB PO PRN (16:27)
[2017-09-14] MEDS ORDERED: NURSING VERBAL MED ORDER ONE ×2 (16:45→18:00)
[2017-09-14] MEDS: BRINZOLAMIDE (AZOPT) OPS 10 ML BTL OPR SCH (17:00)
[2017-09-14 18:20] VITALS: BP 90/54; PULSE 66; TEMP 36.5; O2SAT 94
--- NOTE | 2017-09-14 19:57 | DIAGNOSTIC IMAGING REPORT ---
CT SCAN OF THE BRAIN WITHOUT IV CONTRAST CLINICAL HISTORY: Fall. Anticoagulated patient. COMPARISON STUDY: CT of the brain dated 08/13/2017. TECHNIQUE: Unenhanced axial CT scan of the brain is performed from the vertex to the skull base. A dose lowering technique was utilized adhering to the principles of ALARA. CT DOSE: 623.48 mGy.cm FINDINGS: Brain parenchyma: There are age-related involutional changes noting moderate patchy subcortical and periventricular microangiopathic change. There is no hemorrhage, mass effect, or evidence of acute territorial ischemia by CT criteria. Carvalho-white matter is preserved. No extra-axial fluid collection is seen. Ventricles, sulci, cisterns: Prominent secondary to involutional change. Intracranial vasculature: There is atherosclerotic calcification of the cavernous carotid arteries. Calvarium: The skeletal structures are osteopenic. No depressed calvarial fracture is seen. Sinuses and mastoids: The visualized paranasal sinuses are clear. The mastoid air cells are well pneumatized. Orbits: The bony orbits are grossly intact. IMPRESSION: There is no hemorrhage, mass effect, or evidence of acute territorial ischemia by CT criteria. Electronically signed by: Rick Akhtar M.D. 09/14/2017 7:56 PM Dictated Date/Time: 09/14/2017 7:54 PM
[2017-09-14] MEDS: SOTALOL HCL 80 MG TAB PO SCH (21:00)
[2017-09-14] MEDS: CARVEDILOL 6.25 MG TAB PO SCH (21:00)
[2017-09-14] MEDS ORDERED: BRINZOLAMIDE (AZOPT) OPS 10 ML BTL OPR SCH (21:00)
[2017-09-14] MEDS: TRAVOPROST Z 0.004% OPH SOLN 2.5 ML BTL OPR SCH (21:34)
[2017-09-14] MEDS: MAGNESIUM OXIDE 400 MG TAB PO SCH (21:35)
[2017-09-14] MEDS: ESCITALOPRAM OXALATE 10 MG TAB PO SCH (21:35)
[2017-09-14] MEDS: FAMOTIDINE 20 MG TAB PO SCH (21:36)
[2017-09-14] MEDS: PRAVASTATIN SOD 20 MG TAB PO SCH (21:36)
[2017-09-14 23:33] VITALS: BP 115/66; PULSE 47; TEMP 36.9; O2SAT 92
[2017-09-15] MEDS: NSS + 20MEQ KCL 1000ML 1,000 ML IV SCH ×2 (02:30→15:12)
[2017-09-15 04:46] VITALS: BP 113/72; PULSE 70; TEMP 36.4; O2SAT 93
[2017-09-15] MEDS: LEVOTHYROXINE 25 MCG TAB PO SCH (06:22)
[2017-09-15 07:13] VITALS: BP 139/74; PULSE 85; TEMP 36.9; O2SAT 92
[2017-09-15 07:28] LABS: INR 3.4 (0.9-1.1)
[2017-09-15] MEDS: BRINZOLAMIDE (AZOPT) OPS 10 ML BTL OPR SCH ×2 (07:54→16:46)
[2017-09-15] MEDS: SOTALOL HCL 80 MG TAB PO SCH ×2 (07:54→20:34)
[2017-09-15] MEDS: CARVEDILOL 6.25 MG TAB PO SCH ×2 (07:54→20:35)
[2017-09-15] MEDS: ASPIRIN 81 MG ECTAB PO SCH (07:55)
[2017-09-15] MEDS: MAGNESIUM OXIDE 400 MG TAB PO SCH ×2 (07:55→20:36)
[2017-09-15] MEDS: MULTIVITAMIN TAB PO SCH (07:55)
[2017-09-15] MEDS: POTASSIUM CHLORIDE 10 MEQ TABCR PO SCH (07:55)
[2017-09-15] MEDS: PANTOprazole SOD 40 MG TAB PO SCH (07:55)
[2017-09-15] MEDS: FAMOTIDINE 20 MG TAB PO SCH ×2 (07:55→20:37)
[2017-09-15 08:03] LABS: CALCIUM 8.1 mg/dl (8.5-10.1); CREATININE 0.7 mg/dl (0.60-1.20)
[2017-09-15 15:36] VITALS: BP 159/85; PULSE 56; TEMP 36.5; O2SAT 93
[2017-09-15] MEDS: MECLIZINE HCL 25 MG TAB PO PRN (16:46)
[2017-09-15 19:05] VITALS: BP 151/67; PULSE 48; TEMP 36.8; O2SAT 94
[2017-09-15 20:30] VITALS: PULSE 61
[2017-09-15] MEDS: TRAVOPROST Z 0.004% OPH SOLN 2.5 ML BTL OPR SCH (20:32)
[2017-09-15] MEDS: ESCITALOPRAM OXALATE 10 MG TAB PO SCH (20:33)
[2017-09-15] MEDS: PRAVASTATIN SOD 20 MG TAB PO SCH (20:38)
[2017-09-15 22:07] VITALS: BP 129/74; PULSE 64; TEMP 37; O2SAT 92
[2017-09-16] VITALS (7 sets, daily range): BP systolic 137–165; BP diastolic 72–84; PULSE 54–81; TEMP 36.9–37.1; O2SAT 93–96
[2017-09-16] MEDS: LEVOTHYROXINE 25 MCG TAB PO SCH (06:16)
[2017-09-16 06:39] LABS: INR 2.6 (0.9-1.1)
[2017-09-16 06:58] LABS: CREATININE 0.66 mg/dl (0.60-1.20); POTASSIUM 4.5 mmol/L (3.5-5.1)
[2017-09-16] MEDS: ASPIRIN 81 MG ECTAB PO SCH (07:42)
[2017-09-16] MEDS: BRINZOLAMIDE (AZOPT) OPS 10 ML BTL OPR SCH ×2 (07:42→17:31)
[2017-09-16] MEDS: FAMOTIDINE 20 MG TAB PO SCH ×2 (07:42→20:49)
[2017-09-16] MEDS: POTASSIUM CHLORIDE 10 MEQ TABCR PO SCH (07:42)
[2017-09-16] MEDS: MAGNESIUM OXIDE 400 MG TAB PO SCH ×2 (07:42→20:50)
[2017-09-16] MEDS: SOTALOL HCL 80 MG TAB PO SCH ×2 (07:42→20:47)
[2017-09-16] MEDS: CARVEDILOL 6.25 MG TAB PO SCH ×2 (07:42→20:47)
[2017-09-16] MEDS: PANTOprazole SOD 40 MG TAB PO SCH (07:42)
[2017-09-16] MEDS: MULTIVITAMIN TAB PO SCH (07:42)
[2017-09-16] MEDS: MECLIZINE HCL 25 MG TAB PO PRN (07:42)
--- NOTE | 2017-09-16 12:26 | Progress Note ---
Internal Med Progress Note Date of Service: Sep 16, 2017. Provider Documentation: LATE ENTRY : PT SEEN ON 09/15/17 AT 12 PM SUBJECTIVE: no complain of nausea /vomiting tolerating diet well no SOB or chest heaviness, no palpitation monitor shows sinus with rate controlled HR in 60-70's continues to have dizzy spell while standing up and change of position no syncope OBJECTIVE: Vital Signs-as noted below Exam: General-no sign of distress, Eyes-sclera non icteric ENT-dry oral mucosa Neck-no JVD , neck suppler, no thyromegaly Lungs-clear to auscultate , no wheeze or rales Heart-regular S1/S2 Abdomen-soft, non tender , active bowel sound Extremities-no rash or deformity , no lower ext edema Neuro-AAOx 3 no focal neurological deficit /Flat affect Lab data as noted below. ASSESSMENT & PLAN: GI SYMPTOMS NAUSEA VOMITING symptom has resolved No evidence of any infection Possible secondary to/depression?/SSRI withdrawal?/Recent urinary tract infection-treated with ABx Lexapro 5 mg p.o. resumed urine culture no growth , normal white count IV Rocephin D/matilda DIZZY SPELL ; has been ongoing for past several weak worse with change of position CT head negative for acute change symptom persists after IV hydration possible BPPV ? PRN meclizine ordered for Julieta test DEHYDRATION/HYPOTENSION resolved with IV hydration HYPONATREMIA HYPOKALEMIA Due to GI loss corrected HISTORY OF PAROXYSMAL A. FIB Rate controlled multiple PVCs, PACs in monitor-resolves after K/Mg level normalized Possible secondary to electrolytes abnormality Continue on sotalol/beta-cullen On Coumadin for chronic anticoagulation-on hold today for elevated INR Recent UTI Started on Macrobid by family physician started on 09/09/17 Ordered for IV Rocephin Repeat urine culture-no growth IV Abx D.matilda DEPRESSION mentions has been dealing with grief for last 5 yrs after loss of her only grandchild in a car accident - was started on Lexapro 5 mg daily by cardiology was in inadvertently discontinued in her recent hospital admission with Afib Patient reports of poor appetite, poor sleep, poor energy, anhedonia some of the symptoms can be explained with underlying depression was Lexapro 5 mg p.o. daily( inadequate for therapeutic effect ) /dose increased to 10 mg daily No suicidal ideation/no delusion / Pt reports that some days she will just sit on chair , does not have the motivation to move or do her house hold chores again there are good days when she is capable of doing her normal activities never had Psychiatry followup Psych eval requested to adjust antidepressive meds Full code DVT prophylaxis: INR elevated Coumadin on hold Disposition: Expected to be discharged home when medically stable Medicine follow-up with Dr. Marcell Le Cardiology follow-up with Dr. Cardoza Vital Signs: Date Time Temp Pulse Resp B/P (MAP) Pulse Ox O2 Delivery O2 Flow Rate FiO2 09/16/17 12:15 Room Air 09/16/17 11:10 36.9 66 18 165/79 (107) 93 Room Air 09/16/17 07:45 Room Air 09/16/17 07:38 81 09/16/17 06:55 37.0 54 18 161/72 (101) 94 Room Air 09/16/17 04:31 36.9 70 18 137/79 (98) 95 Room Air 09/16/17 04:00 Room Air 09/16/17 00:00 Room Air 09/16/17 00:00 Room Air 09/15/17 22:07 37.0 64 18 129/74 (92) 92 Room Air 09/15/17 20:30 61 09/15/17 20:00 Room Air 09/15/17 19:05 36.8 48 18 151/67 (95) 94 Room Air 09/15/17 16:00 Room Air 09/15/17 15:36 36.5 56 17 159/85 (109) 93 Room Air Lab Results: Results Past 24 Hours Test 09/16/17 06:02 Range/Units Prothrombin Time 27.1 9.0-12.0 SECONDS Prothromb Time International Ratio 2.6 0.9-1.1 Sodium Level 139 136-145 mmol/L Potassium Level 4.5 3.5-5.1 mmol/L Chloride Level 109 98-107 mmol/L Carbon Dioxide Level 25 21-32 mmol/L Anion Gap 5.0 3-11 mmol/L Blood Urea Nitrogen 7 7-18 mg/dl Creatinine 0.66 0.60-1.20 mg/dl Est Creatinine Clear Calc Drug Dose 70.3 ml/min Estimated GFR () 99.5 Estimated GFR (Non- 85.8 BUN/Creatinine Ratio 10.0 10-20 Random Glucose 92 70-99 mg/dl Calcium Level 8.0 8.5-10.1 mg/dl Magnesium Level 1.9 1.8-2.4 mg/dl
--- NOTE | 2017-09-16 12:28 | Psychiatric Consultation ---
Consultation Date of Consultation Sep 16, 2017. Identifying Data 77-year-old female with a history of depression and hypertension with a recent hospitalization for A. fib, during which she was cardioverted and started on sotalol, who is now admitted with nausea, vomiting, and dizziness. Psychiatry is consulted for recommendations regarding her antidepressant. Chief Complaint "I'm fine ". History of Present Illness According to records, the patient was admitted to the hospitalist service 2017 -09/04/2017 for A. fib. Although she was prescribed escitalopram 5 mg as an outpatient, it was not listed in her admission medication list and was apparently not continued during her hospitalization, and was not on her discharge medication list. While she was here, she was seen by cardiology, had cardioversion, and was started on sotalol. She was continued on her home dose of warfarin for history of PE, and total medications for hypothyroidism and hypertension. She followed up with her PCP, Dr. Landry, and reported nausea , occasional vomiting, dizziness, decreased appetite and energy. There was a question of whether this was due to discontinuation syndrome from cessation of escitalopram. She was also diagnosed with a UTI, and started on Macrobid on . She was instructed to resume the 5 mg daily dose, but symptoms continued and she presented to the emergency room and was admitted. Per the admission note, she also followed up with cardiology, and sotalol dose was decreased due to GI symptoms, but she continued to have nausea. On the day of admission, 09/14/2017, she went to the bathroom, felt dizzy, and had a syncopal episode. In the ER, she was hyponatremic and hypokalemic, and QTC was 517. Her S-Citalopram dose was increased to 10 mg daily, if there was concern that her poor appetite and decreased energy could be due to depression. On my assessment, the patient states that she has had 1 episode of depression, approximately 5 years ago after the of her granddaughter in a car accident. She was started on escitalopram at that time, and has been on it until her hospitalization earlier this month, when it was apparently discontinued erroneously. For a time she was taking 5 mg twice daily, but decreased the dose to 5 mg once daily about 6 months ago on her own as she felt she was taking too many medications. She denies ever being in psychiatric treatment, and believes that her rn hospital, Dr. Ames, prescribes her escitalopram. She states that mood has been "fine," and although her thought she was a little more down after her last hospitalization, she thinks that she was experiencing low energy due to her ongoing physical symptoms. She denies problems with sleep, concentration, anhedonia, suicidal thoughts, and irritability. She does endorse decreased appetite and energy, which she attributes to ongoing nausea, vomiting, and dizziness. She admits to feeling sad when she thinks about her granddaughter's , but denies any persistent periods of low mood. She denies significant anxiety, psychosis and bryan. Past Psychiatric History Current OP Treatment: no current treatment Prior OP Treatment: therapist (Did not feel it was helpful, so quit and started going to monthly grief support groups) Prior Psych Hospitalizations: none Suicide Attempts: No Past Medication Trials None. Additional Notes The patient denies any mental health history prior to developing depressive symptoms in the context of her granddaughter's approximately 5 years ago. Past Medical/Surgical History (1) Pulmonary embolism, bilateral (2) HTN (hypertension) (3) Atrial fibrillation with rapid ventricular response (4) Hyperlipidemia (5) Glaucoma (6) Migraine (7) IBS (irritable bowel syndrome) (8) Osteoporosis (9) Mitral valve regurgitation (10) Esophageal reflux (11) Headache PCP is Dr. Marcell Landry Client Technical Specialist is Dr. Ames Allergies Allergies: Coded Allergies: Atorvastatin (Verified Allergy, Intermediate, "legs don't want to move.", 09/14/17) Home Medications Scheduled Aspirin (Aspirin Ec), 81 MG PO QAM Brinzolamide Oph (Azopt Oph), 1 DROPS OPR BID Carvedilol (Carvedilol), 6.25 MG PO BID Famotidine (Pepcid), 20 MG PO BID Levothyroxine Sodium (Levothyroxine Sodium), 25 MCG PO DAILY Multivitamin (Multivitamin), 1 TAB PO QAM Pravastatin (Pravachol ), 20 MG PO QPM Sotalol HCl (Sotalol HCl), 40 MG PO BID Travoprost (Travatan Z), 1 DROPS OPR HS Scheduled PRN Acetaminophen (Tylenol), 325 MG PO Q6H PRN for Pain Clonazepam (Klonopin), 0.5 MG PO TID PRN for Anxiety Family History Diabetes mellitus FH: cancer FH: dementia FH: heart disease History of Suicide: No History of Substance Abuse: No Psychiatric History: No Alcohol Use Alcohol Use In Past 12 Months: No Smoking Use Smoking Status: Never Smoker Substance History Denies. Personal History Lives in: [place] ([place]) Childhood: Born in [place]. She has 7 siblings; all are still living. Moved to [place] with her in 1959. 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 Relationship History: Children: 3 sons Spiritual Affiliation: Attends [employer] Psychological Trauma History: Denies Hx Traumatic Event Review of Systems 10 systems reviewed; positive for nausea, dizziness, weakness, lethargy, urinary frequency and urgency, and decreased appetite. Examination Vital Signs Vital Signs Past 12 Hours Date Time Temp Pulse Resp B/P (MAP) Pulse Ox O2 Delivery O2 Flow Rate FiO2 09/16/17 11:10 36.9 66 18 165/79 (107) 93 Room Air 09/16/17 07:45 Room Air 09/16/17 07:38 81 09/16/17 06:55 37.0 54 18 161/72 (101) 94 Room Air 09/16/17 04:31 36.9 70 18 137/79 (98) 95 Room Air 09/16/17 04:00 Room Air Laboratory Results Last 24 Hours Test 09/16/17 06:02 Prothrombin Time 27.1 SECONDS Prothromb Time International Ratio 2.6 Sodium Level 139 mmol/L Potassium Level 4.5 mmol/L Chloride Level 109 mmol/L Carbon Dioxide Level 25 mmol/L Anion Gap 5.0 mmol/L Blood Urea Nitrogen 7 mg/dl Creatinine 0.66 mg/dl Est Creatinine Clear Calc Drug Dose 70.3 ml/min Estimated GFR () 99.5 Estimated GFR (Non- 85.8 BUN/Creatinine Ratio 10.0 Random Glucose 92 mg/dl Calcium Level 8.0 mg/dl Magnesium Level 1.9 mg/dl Mental Examination During interview pt is: alert and oriented, cooperative Appearance: appropriately dressed, appropriately groomed Eye contact is: good Motor behavior is: no abnormal motor movements Speech: normal in rate, rhythm & volume Affect: mood congruent, euthymic Mood is: other ("Fine") Thought process: goal directed, linear, logical Thought content: reality based without delusions Suicidal thought are: denied Homicidal thoughts are: denied Hallucinations: denies auditory, denies visual Cognition: attention grossly intact, language grossly intact Intelligence estimated to be: average Insight: fair Judgement: fair Impression / Recommendations Impression 77-year-old female with a history of multiple medical problems and depression who is admitted with nausea, vomiting, and dizziness after a medical admission earlier this month for atrial fibrillation. Psychiatry is consulted regarding her antidepressant medication. Risk Factors Assessment : Yes /single/: No Higher / Fall in social status: No Health problems: Yes Mental Health Diagnoses: Yes Substance use disorders: No Previous attempt: No Family history of suicide: No Previous psychiatric stay: No Hopelessness: No Smoker: No Protective Factors Assessment Denominational beliefs: Yes : Yes Responsible for young children: No Employed: No Stable relationships: Yes Supportive family: Yes Good rapport with provider: Yes Absence of risk factors above: Yes (No depressive or anxiety symptoms, no SI or HI.) Recommendations (1) Depression -The patient states that there was an error and her escitalopram was not addressed during her hospitalization earlier this month, and upon follow-up with her PCP she was instructed to resume it. The dose was then increased on admission to the hospital. I am concerned about use of this medication given the risk of prolonged QTC and arrhythmia, given her multiple risk factors including heart disease, advanced age, and electrolyte abnormalities. Additionally, her report is that she has had only one episode of depression about 5 years ago, and she denies current depressive symptoms, so an SSRI is not necessarily indicated at this time. She would like to minimize the number of medication she is on, and due to the risks of this antidepressant, recommend tapering her off of it. I think it is unlikely that her GI symptoms are due to a discontinuation syndrome, as the time course does not fit, but we can do a rapid taper to try to mitigate and the discontinuation. I have decreased her dose to 5 mg daily for the next 2 days, and it will then be discontinued. She is agreeable to proceeding without an antidepressant, and to contact her PCP if mood is worsening. -Patient reports taking clonazepam 0.5 mg most nights, but denies significant anxiety symptoms. Would recommend this medication be tapered off, due to her age and increased risk of confusion, cognitive impairment, falls, and drug drug interactions -I will ask the liaison nurse to return and get a release for her PCP, Dr. Clark, so that her records can be shared for coordination of care. -Thank you for the consult, please call with any additional questions.
--- NOTE | 2017-09-16 19:15 | Progress Note ---
Internal Med Progress Note Date of Service: Sep 16, 2017. Provider Documentation: SUBJECTIVE: Dizzy spell was improved after Julieta maneuver now feels symptom is coming back , feels dizzy with sitting up and turning head no nausea tolerating diet well , appetite has improved OBJECTIVE: Vital Signs-as noted below Exam: General-no sign of distress, Eyes-sclera non icteric ENT-dry oral mucosa Neck-no JVD , neck suppler, no thyromegaly Lungs-clear to auscultate , no wheeze or rales Heart-regular S1/S2 Abdomen-soft, non tender , active bowel sound Extremities-no rash or deformity , no lower ext edema Neuro-AAOx 3 no focal neurological deficit /Flat affect Lab data as noted below. ASSESSMENT & PLAN: GI SYMPTOMS NAUSEA VOMITING symptom has resolved No evidence of any infection Possible secondary to/depression?/SSRI withdrawal?/Recent urinary tract infection-treated with ABx DIZZY SPELL/DUE TO BPPV has been ongoing for past several weak worse with change of position CT head negative for acute change had Physical therapy today with per PT had vertical nystagmus with Monik Torres pike , symptom transiently improved after Julieta repeat Julieta tomorrow ordered for PRN Meclizine will benefit with home vs out pt PT for Julieta DEHYDRATION/HYPOTENSION resolved with IV hydration tolerating diet well HYPONATREMIA HYPOKALEMIA Due to GI loss corrected HISTORY OF PAROXYSMAL A. FIB Rate controlled multiple PVCs, PACs in monitor-resolves after K/Mg level normalized Possible secondary to electrolytes abnormality Continue on sotalol/beta-cullen On Coumadin for chronic anticoagulation- Recent UTI Started on Macrobid by family physician started on 09/09/17 Ordered for IV Rocephin Repeat urine culture-no growth IV Abx D.matilda DEPRESSION mentions has been dealing with grief for last 5 yrs after loss of her only grandchild in a car accident - was started on Lexapro 5 mg daily by cardiology Psych eval requested to adjust antidepressive meds -appreciate input GI symptom unlikely due to discontinuation of SSRI pt does not want to be a lot of medication /already frustrated with no of meds she has to take for her cardiac issues Given pt's underlying Arrhythmia SSRI /Lexapro is best to avoid for risk for Qtc prolongation Psych recommends to weak of Lexapro -decreased dose to 5 mg daily x 2 days and then D/c recommend to D/c PRN Klonopin for high fall risk ( pt mentions she has not been requiring that recently ) out pt follow up with Psychiatry Full code DVT prophylaxis: on Coumadin Disposition: Expected to be discharged home tomorrow Medicine follow-up with Dr. Marcell Le Cardiology follow-up with Dr. Cardoza Vital Signs: Date Time Temp Pulse Resp B/P (MAP) Pulse Ox O2 Delivery O2 Flow Rate FiO2 09/16/17 16:00 Room Air 09/16/17 15:37 37.1 60 18 157/84 (108) 95 Room Air 09/16/17 12:15 Room Air 09/16/17 11:10 36.9 66 18 165/79 (107) 93 Room Air 09/16/17 07:45 Room Air 09/16/17 07:38 81 09/16/17 06:55 37.0 54 18 161/72 (101) 94 Room Air 09/16/17 04:31 36.9 70 18 137/79 (98) 95 Room Air 09/16/17 04:00 Room Air 09/16/17 00:00 Room Air 09/16/17 00:00 Room Air 09/15/17 22:07 37.0 64 18 129/74 (92) 92 Room Air 09/15/17 20:30 61 09/15/17 20:00 Room Air Lab Results: Results Past 24 Hours Test 09/16/17 06:02 Range/Units Prothrombin Time 27.1 9.0-12.0 SECONDS Prothromb Time International Ratio 2.6 0.9-1.1 Sodium Level 139 136-145 mmol/L Potassium Level 4.5 3.5-5.1 mmol/L Chloride Level 109 98-107 mmol/L Carbon Dioxide Level 25 21-32 mmol/L Anion Gap 5.0 3-11 mmol/L Blood Urea Nitrogen 7 7-18 mg/dl Creatinine 0.66 0.60-1.20 mg/dl Est Creatinine Clear Calc Drug Dose 70.3 ml/min Estimated GFR () 99.5 Estimated GFR (Non- 85.8 BUN/Creatinine Ratio 10.0 10-20 Random Glucose 92 70-99 mg/dl Calcium Level 8.0 8.5-10.1 mg/dl Magnesium Level 1.9 1.8-2.4 mg/dl
[2017-09-16] MEDS ORDERED: WARFARIN SOD 2.5 MG TAB PO ONE (19:30)
[2017-09-16] MEDS ORDERED: ANT25 PO (19:44)
[2017-09-16] MEDS ORDERED: MGNO400 PO (19:44)
[2017-09-16] MEDS ORDERED: POTA10CA28 PO (19:44)
[2017-09-16] MEDS ORDERED: CMD25 PO (19:45)
--- NOTE | 2017-09-16 19:47 | Discharge Instructions ---
Discharge Instructions Date of Service Sep 16, 2017. Admission Reason for Admission: Atrial Fibrillation, Nausea And Vomiting Discharge Discharge Diagnosis / Problem: DIZZY SPELL /BENIGN POSITIONAL VERTIGO /NASUEA/ VOMITING -RESOLVED/AFIB Discharge Goals Goal(s): Increase independence, Improve disease control, Diagnostic testing, Therapeutic intervention Activity Recommendations Activity Limitations: as noted below ( TOLERATED ) . Instructions / Follow-Up Instructions / Follow-Up HOSPITAL FOLLOW UP : 09/19/2017 3:10 PM Marcell Flynn, [facility] YOU ARE DISCHARGED WITH POTASSIUM AND MAGNESIUM TABLET LAB WORK : BASIC METABOLIC PANEL AND MAGNESIUM LEVEL ON 09/19/17 NEED TO HAVE FOLLOW UP WITH ENT ( EAR NOSE THROAT ) SPECIALIST FOR ONGOING DIZZY SPELL PLEASE HAVE REFERRAL FROM DR FLYNN DO NOT TAKE LEXAPRO FOLLOW UP WITH PSYCHIATRY OUT PATIENT , OFFICE WILL CALL WITH APPOINTMENT DO NOT TAKE KLONOPIN ANY MORE -PLEASE DISCARD THE REMAINING MEDICATION /DO NOT MIX WITH ATIVAN ATIVAN/LORAZEPAM 0.5 MG NEEDED FOR SLEEP AT NIGHT USE MINIMUM POSSIBLE -RISK OF DEVELOPING DEPENDENCY PLEASE TRY TO UTILIZE ./TRANSITION TO OVER THE COUNTER SLEEP AIDS-MELANOTAN/ TYLENOL PM etc - DO NOT DRIVE AFTER TAKING ATIVAN + DO NOT TAKE ALCOHOL BEVERAGE OR OTHER NARCOTIC PAIN MEDICATIONS WITH ATIVAN OUT PATIENT PHYSICAL THERAPY FOR -BENIGN POSITIONAL VERTIGO /JOSE RAMON MANEUVER PLEASE GET REFERRAL FROM DR FLYNN OFFICE Current Hospital Diet Patient's current hospital diet: AHA Diet (Heart Healthy) Discharge Diet Recommended Diet: AHA Diet (Heart Healthy) Pending Studies Studies pending at discharge: no Medical Emergencies . Who to Call and When: Medical Emergencies: If at any time you feel your situation is an emergency, please call 911 immediately. . Non-Emergent Contact Non-Emergency issues call your: Primary Care Provider . . "Provider Documentation" section prepared by Margaret Lui. .
[2017-09-16] MEDS: TRAVOPROST Z 0.004% OPH SOLN 2.5 ML BTL OPR SCH ×2 (20:47→21:27)
[2017-09-16] MEDS: PRAVASTATIN SOD 20 MG TAB PO SCH (20:48)
[2017-09-16] MEDS ORDERED: ESCITALOPRAM OXALATE 10 MG TAB PO SCH (21:00)
[2017-09-16] MEDS: ACETAMINOPHEN 325 MG TAB PO PRN (21:31)
[2017-09-17] MEDS: LEVOTHYROXINE 25 MCG TAB PO SCH (06:21)
[2017-09-17 06:55] LABS: INR 1.9 (0.9-1.1)
[2017-09-17 07:19] LABS: CALCIUM 8.4 mg/dl (8.5-10.1); CREATININE 0.74 mg/dl (0.60-1.20); POTASSIUM 4.1 mmol/L (3.5-5.1)
[2017-09-17 07:23] VITALS: BP 161/69; PULSE 58; TEMP 36.6; O2SAT 96
[2017-09-17] MEDS: PANTOprazole SOD 40 MG TAB PO SCH (07:43)
[2017-09-17] MEDS: FAMOTIDINE 20 MG TAB PO SCH (07:43)
[2017-09-17] MEDS: MULTIVITAMIN TAB PO SCH (07:44)
[2017-09-17] MEDS: SOTALOL HCL 80 MG TAB PO SCH (07:44)
[2017-09-17] MEDS: MAGNESIUM OXIDE 400 MG TAB PO SCH (07:44)
[2017-09-17] MEDS: POTASSIUM CHLORIDE 10 MEQ TABCR PO SCH (07:45)
[2017-09-17] MEDS: ASPIRIN 81 MG ECTAB PO SCH (07:45)
[2017-09-17] MEDS: MECLIZINE HCL 25 MG TAB PO PRN (07:47)
[2017-09-17] MEDS: CARVEDILOL 6.25 MG TAB PO SCH (07:47)
[2017-09-17] MEDS: BRINZOLAMIDE (AZOPT) OPS 10 ML BTL OPR SCH (07:48)
[2017-09-17] MEDS ORDERED: LORA-741 PO (13:43)
[2017-09-17 14:30] VITALS: BP 161/69; PULSE 58; TEMP 36.6; O2SAT 96
--- NOTE | 2017-09-17 14:36 | Discharge Summary ---
Discharge Summary Date of Service Sep 17, 2017. Discharge Summary Admission Date: Sep 14, 2017 at 11:34 Discharge Date: Sep 17, 2017 Discharge Disposition: Home Admission Information HPI (per Admitting provider): This is a 77-year-old female with medical history of paroxysmal A. fib, hypertension, depression Was recently discharged from [facility] past meant for paroxysmal A. fib Patient was started on sotalol, status post cardioversion on Coumadin INR therapeutic After discharge from hospital, patient mentioned she never felt better She started to have nausea, dizziness spell poor appetite occasional vomiting Symptoms were not present during her hospital stay No report of diarrhea/no fever/no abdominal pain Patient was seen by her family physician Dr. Le-on post hospital visit Patient was on low-dose Lexapro 5 mg daily for depression Which was kept on hold during her admission to [facility] for arrhythmia Was not resumed after discharge Patient mentions of having poor energy, poor appetite withdrawn, nausea Possible secondary to SSRI withdrawal symptoms(although on low-dose Lexapro symptoms are less prominent) She was asked to resume Lexapro Had visit with cardiology Dr. Cardoza Found to be stable from cardiac standpoint Due to her GI issues sotalol was reduced to 40 mg twice daily Patient mentions she did not had any improvement of her GI symptoms of nausea, poor appetite, This morning as she went to bathroom felt dizzy and lightheaded and syncopized Her was present Patient was brought to [facility] ER Found to be hyponatremic, hypokalemic INR therapeutic, EKG rate controlled A. fib with multiple PVCs During my interview patient denies of any palpitation, mention of feeling dizzy when standing up no symptoms while lying down No nausea, no vomiting no abdominal pain Appetite remains poor Physical Exam (per Admitting): General Appearance: WD/WN Head: normocephalic, atraumatic Eyes: normal inspection, PERRL, EOMI, sclerae normal ENT: normal ENT inspection Neck: supple, no adenopathy, thyroid normal, no JVD Respiratory/Chest: chest non-tender, lungs clear, normal breath sounds, no respiratory distress, no accessory muscle use Cardiovascular: regular rate, rhythm, no JVD, no murmur Abdomen/GI: normal bowel sounds, non tender, soft Extremities/Musculoskelatal: normal inspection, no calf tenderness, normal capillary refill, no pedal edema Neurologic/Psych: no motor/sensory deficits, alert, oriented x 3, + pertinent finding (Flat affect) Hospital Course GI SYMPTOMS NAUSEA VOMITING symptom has resolved No evidence of any infection Possible secondary to/depression?/SSRI withdrawal?/Recent urinary tract infection-treated with ABx DIZZY SPELL/DUE TO BPPV has been ongoing for past several weak worse with change of position CT head negative for acute change had Physical therapy today with per PT had vertical nystagmus with Magnolia Torres pike , symptom transiently improved after Julieta repeat Julieta tomorrow ordered for PRN Meclizine will benefit with home vs out pt PT for Julieta DEHYDRATION/HYPOTENSION resolved with IV hydration tolerating diet well HYPONATREMIA HYPOKALEMIA Due to GI loss corrected HISTORY OF PAROXYSMAL A. FIB Rate controlled multiple PVCs, PACs in monitor-resolves after K/Mg level normalized Possible secondary to electrolytes abnormality Continue on sotalol/beta-cullen On Coumadin for chronic anticoagulation- Recent UTI Started on Macrobid by family physician started on 09/09/17 Ordered for IV Rocephin Repeat urine culture-no growth IV Abx D.matilda DEPRESSION mentions has been dealing with grief for last 5 yrs after loss of her only grandchild in a car accident - was started on Lexapro 5 mg daily by cardiology Psych eval requested to adjust antidepressive meds -appreciate input GI symptom unlikely due to discontinuation of SSRI pt does not want to be a lot of medication /already frustrated with no of meds she has to take for her cardiac issues Given pt's underlying Arrhythmia SSRI /Lexapro is best to avoid for risk for Qtc prolongation Psych recommends to weak of Lexapro -decreased dose to 5 mg daily x 2 days and then D/c recommend to D/c PRN Klonopin for high fall risk ( pt mentions she has not been requiring that recently ) out pt follow up with Psychiatry Full code DVT prophylaxis: on Coumadin Disposition: Expected to be discharged home tomorrow Medicine follow-up with Dr. Marcell Le Cardiology follow-up with Dr. Cardoza Total time spent on discharge = 40 MINS This includes examination of the patient, discharge planning, medication reconciliation, and communication with other providers.
== END 2017-09-17 15:05 | disposition home or self-care (01) | DRG 392 ==
LOC: C.EDB 08:48 → C.MED 11:34 → ENRESERV 12:03 → C.MS4W 09-16 21:18
PROVIDERS: ADMIT Hospitalist; ATTEND Internal Medicine
DX: R11.2 Nausea with vomiting, unspecified (principal); E87.1 Hypo-osmolality and hyponatremia; F32.9 Major depressive disorder, single episode, unspecified; T43.205A Adverse effect of unspecified antidepressants, initial encounter; K21.9 Gastro-esophageal reflux disease without esophagitis; I10 Essential (primary) hypertension; M81.0 Age-related osteoporosis without current pathological fracture; E87.6 Hypokalemia; I48.0 Paroxysmal atrial fibrillation; E86.0 Dehydration; I95.9 Hypotension, unspecified; H81.10 Benign paroxysmal vertigo, unspecified ear; Z79.82 Long term (current) use of aspirin; Z86.711 Personal history of pulmonary embolism; Z83.3 Family history of diabetes mellitus; Z80.9 Family history of malignant neoplasm, unspecified; Z82.49 Family history of ischemic heart disease and other diseases of the circulatory system

== ENCOUNTER 2019-05-12 09:22 | Inpatient (IN) ==
--- NOTE | 2019-05-12 09:49 | XRay Report ---
SINGLE VIEW CHEST CLINICAL HISTORY: Atypical chest pain. FINDINGS: An AP, portable, upright chest radiograph is compared to study dated 08/31/2017. The examinat ion is degraded by portable technique and patient rotation. The heart is enlarged noting atherosclero tic calcification of the thoracic aorta. The pulmonary vasculature is noncongested. There is elevatio n of the right hemidiaphragm and bibasilar atelectasis. The lungs and pleural spaces are otherwise cl ear. No pneumothorax is seen. The skeletal structures are osteopenic. The bony thorax is grossly inta ct. IMPRESSION: Cardiomegaly with no active disease in the chest. Electronically signed by: Rick Akhtar M.D. 05/12/2019 9:47 AM
[2019-05-12 09:51] LABS: Basophils # (auto) 0.02 K/uL (0-0.2); Basophils % (auto) 0.2 %; Eosinophils # (auto) 0.06 K/uL (0-0.5); Eosinophils % (auto) 0.7 %; Hematocrit (blood only) 38.1 % (37-47); Hemoglobin 12.2 g/dL (12.0-16.0); Immature Granulocytes # (auto) 0.02 K/uL (0.00-0.02); Immature Granulocytes % (auto) 0.2 %; Lymphocytes # (auto) 1.61 K/uL (1.2-3.4); Lymphocytes % (auto) 17.6 %; Mean Corpuscular Hemoglobin 28.4 pg (25-34); Mean Corpuscular Volume 88.8 fL (80-100); Mean Platelet Volume 8.6 fL (7.4-10.4); Monocytes # (auto) 0.55 K/uL (0.11-0.59); Neutrophils # (auto) 6.91 K/uL (1.4-6.5); Neutrophils % (auto) 75.3 %; Platelet Count 376 K/uL (130-400); RDW Coefficient of Variation 14.3 % (11.5-14.5); RDW Standard Deviation 46.4 fL (36.4-46.3); Red Blood Count 4.29 M/uL (4.2-5.4); White Blood Count 9.17 K/uL (4.8-10.8)
[2019-05-12 10:06] LABS: Alanine Aminotransferase 21 U/L (12-78); Albumin Level 3.7 gm/dl (3.4-5.0); Aspartate Aminotransferase 14 U/L (15-37); BUN Creatinine Ratio 13.6 (10-20); Blood Urea Nitrogen 18 mg/dl (7-18); Calcium 9.3 mg/dl (8.5-10.1); Carbon Dioxide 25 mmol/L (21-32); Chloride 109 mmol/L (98-107); Creatinine Clr Calc Pharmacy 34.4 ml/min; Est GFR (African American) 43.5; Est GFR (Non-African American) 37.5; Glucose 105 mg/dl (70-99); Lipase 182 U/L (73-393); Potassium 4.1 mmol/L (3.5-5.1); Sodium 141 mmol/L (136-145)
[2019-05-12 10:11] LABS: Albumin Globulin Ratio 0.9 (0.9-2); Alkaline Phosphatase 75 U/L (45-117); Bilirubin,Total 0.5 mg/dl (0.2-1); Globulin 4.2 gm/dl (2.5-4.0); Partial Thromboplastin Ratio 1.9; Prothrombin Time 36.3 Seconds (9.0-12.0); Total Protein 7.9 gm/dl (6.4-8.2); Troponin I < 0.015 ng/ml (0-0.045)
[2019-05-12 10:17] LABS: INR 3.9 (0.9-1.1)
[2019-05-12 10:18] LABS: Partial Thromboplastin Time 51.6 Seconds (21.0-31.0)
--- NOTE | 2019-05-12 10:52 | Cardiology Consultation ---
Date of Consultation May 12, 2019 Assessment & Plan (1) Paroxysmal atrial fibrillation: (2) Symptomatic bradycardia: (3) HTN (hypertension): I had a long discussion with Sachi today, as well as her son, Joe. Complicating issues today is that her , Jonathan, is currently undergoing elective cataract surgery at the [facility]. At this time, I think the most prudent course would be to proceed with ongoing management in the hospital. We are going to plan to admit her with [facility], optimize anticoagulation, and will tentatively plan to have permanent pacemaker placed and then will likely keep her in the hospital for adjustment of sotalol. I anticipate pacemaker implantation tomorrow to allow for optimization of her INR today. Her cardioversion which had previously been scheduled for tomorrow is going to be canceled. I have notified the cardiology scheduling department at [facility]. I spoke to the ED physician Dr Wilson. Case discussed with Dr Moss of EP who will assess pt at [facility]. I discussed case with Dr Luna who is also product inspection supervisor for our group at [facility]. History of Present Illness History of Present Illness Chief Complaint: Fatigue, lightheadedness, dizziness History of Present Illness: Sachi Hua is a 79 year old year old female who initially presented to the cardiology clinic at [facility] in close cardiology follow-up having recently been seen by the undersigned a week ago on 05/05/2019. At that time she had presented as an acute visit for complaints of recent exertional shortness of breath, dizziness, and generalized weakness and was found to have reverted to atrial fibrillation with slow ventricular response in the range of 48 beats per minute on EKG. Blood pressure was stable. Her carvedilol dose was decreased from 6.25 milligrams twice daily to 3.125 milligrams twice daily. She notes today that in the last week she has felt "awful" with ongoing dizziness, and lightheadedness with minimal activity. She states that when she is sitting still she feels well, but her symptoms return with any of that activity. EKG performed on arrival to the clinic today reveals ongoing atrial fibrillation with slow ventricular response, 41 beats per minute, with inferior repolarization changes, not significantly different compared to her previous baseline. She has a long-standing history of labile hypertension. In Sep, 2018 she underwent a Omazeo air sampling and monitoring that revealed a predominant rhythm of sinus rhythm in the mid 60 beat per minute range. No recurrence of atrial fibrillation or atrial flutter was noted at that time. A transthoracic echocardiogram performed at around that time revealed moderate mitral regurgitation, moderate tricuspid regurgitation, and moderate pulmonary hypertension. This was felt to be related to diastolic dysfunction. 20 milligram of furosemide was added and her symptoms had partially improved at th at time in terms of exertional shortness of breath and generalized weakness. She had also had a nuclear stress test performed on 11/11/2018 with no evidence of inducible ischemia, and normal LV EF. Allergies Allergy/AdvReac Type Severity Reaction Status Date / Time atorvastatin Allergy Intermediate "legs Verified 05/12/19 10:24 don't want to move." Home Medications Home Medications Medication Instructions Recorded Confirmed Type aspirin 81 mg PO QAM 05/11/19 05/12/19 History brinzolamide [Azopt] 1 drp OPHTHALMIC (EYE) BID 05/11/19 05/12/19 History calcium carbonate-vitamin D3 1 tab PO UD 05/11/19 05/12/19 History [Calcium 500 + D] carvedilol 3.125 mg PO BID 05/11/19 05/12/19 History escitalopram oxalate 5 mg PO DAILY 05/11/19 05/12/19 History furosemide 20 mg PO QAM 05/11/19 05/12/19 History levothyroxine 50 mcg PO QAM 05/11/19 05/12/19 History losartan 50 mg PO BID 05/11/19 05/12/19 History multivitamin 1 cap PO QAM 05/11/19 05/12/19 History pravastatin 20 mg PO QPM 05/11/19 05/12/19 History sotalol 40 mg PO BID 05/11/19 05/12/19 History spironolactone 25 mg PO QAM 05/11/19 05/12/19 History travoprost [Travatan Z] 1 drp OPHTHALMIC (EYE) PM 05/11/19 05/12/19 History warfarin 3 mg PO UD 05/11/19 05/12/19 History Patient History Medical History Arthritis (Chronic) Atrial fibrillation with rapid ventricular response FOLLOW WITH DR ARMIJO Depression (Chronic) OCAS Esophageal reflux (Chronic) Glaucoma (Chronic) Goiter (Chronic) THYROID GOITER AND WATCING History of cardioversion HTN (hypertension) (Chronic) Hyperlipidemia (Chronic) Hypothyroidism IBS (irritable bowel syndrome) (Chronic) Migraine (Chronic) OCAS MIGRAINES Mitral valve regurgitation (Chronic) FOLLOW WITH DR. ARMIJO Osteoporosis (Chronic) Pulmonary embolism (Acute) DX 2015 TAKES WARFARIN Surgical History Hx of arthroscopic knee surgery RIGHT Hx of laminectomy LUMBAR Family History Other Family history non-contributory Social History Preferred Language: Swedish Communication Ability: Effective Distiller Required: No Beliefs That Will Affect Care: None Current Living Situation: Spouse Feels Safe at Home: Yes Smoking Status: Never smoker Second Hand Exposure: No ; Hx Alcohol Use: No Hx Substance Use: No Review of Systems Review of Systems: All systems reviewed & are unremarkable except as noted in HPI & below Cardiovascular: + dyspnea on exertion and + lightheadedness; no chest pain, no chest pain at rest, no radiating jaw, neck or arm pain, no dyspnea at rest, no syncope, no edema and no calf pain Physical Exam Physical Exam: Temp Pulse Resp BP Pulse Ox 36.6 C 49 L 19 167/63 H 95 05/12/19 09:25 05/12/19 10:00 05/12/19 10:00 05/12/19 10:00 05/12/19 10:00 General: no acute distress and stated age Eyes: conjunctiva are pink and non-injected, sclera clear Neck: normal jugular venous pulse, no hepatojugular reflux Chest: normal shape and normal respiratory effort Lungs: clear to auscultation and percussion Cardiac Exam: - irregular rhythm, bradycardic, 1/6 systolic murmur Abdomen: abdomen soft, non-tender, no abnormal masses and no hepatosplenomegaly Musculoskeletal: no gait disturbance, no weakness Extremities: no edema and no cyanosis Neuro: grossly normal exam Psych: appropriate affect and insight. Results & Data Vital Signs (Past 12 Hours) Vital Signs Temp Pulse Resp BP Pulse Ox 05/12/19 10:00 49 L 19 167/63 H 95 05/12/19 09:58 43 L 16 157/68 H 96 05/12/19 09:37 95 05/12/19 09:35 40 L 18 174/63 H 96 05/12/19 09:25 36.6 C 40 L 20 193/77 H 97 Laboratory Results Cardiac Enzymes 05/12/19 Range/Units 09:40 AST 14 L (15-37) U/L Troponin I < 0.015 (0-0.045) ng/ml Coagulation INR 3.9 05/12/19 Range/Units 09:40 PT 36.3 H (9.0-12.0) Seconds APTT 51.6 H* (21.0-31.0) Seconds CBC 05/12/19 Range/Units 09:40 WBC 9.17 (4.8-10.8) K/uL RBC 4.29 (4.2-5.4) M/uL Hgb 12.2 (12.0-16.0) g/dL Hct 38.1 (37-47) % Plt Count 376 (130-400) K/uL Neut # (Auto) 6.91 H (1.4-6.5) K/uL Lymph # (Auto) 1.61 (1.2-3.4) K/uL [place] # (Auto) 0.55 (0.11-0.59) K/uL Eos # (Auto) 0.06 (0-0.5) K/uL Baso # (Auto) 0.02 (0-0.2) K/uL Comprehensive Metabolic Panel 05/12/19 Range/Units 09:40 Sodium 141 (136-145) mmol/L Potassium 4.1 (3.5-5.1) mmol/L Chloride 109 H (98-107) mmol/L Carbon Dioxide 25 (21-32) mmol/L BUN 18 (7-18) mg/dl Creatinine 1.35 H (0.6-1.2) mg/dl Glucose 105 H (70-99) mg/dl Calcium 9.3 (8.5-10.1) mg/dl AST 14 L (15-37) U/L ALT 21 (12-78) U/L Alkaline Phosphatase 75 (45-117) U/L Total Protein 7.9 (6.4-8.2) gm/dl Albumin 3.7 (3.4-5.0) gm/dl Intake and Output 05/11/19 05/12/19 05/12/19 22:59 06:59 14:59 Other: Weight 83.3 kg Patient Weight 05/13/19 06:59 Weight 83.3 kg Diagnostic Findings Summary of nuclear stress performed 11/11/18: Gated SPECT imaging reveals normal myocardial thickening and wall motion. The left ventricular ejection fraction was calculated to be >65%. Lexiscan nuclear cardiac stress test negative for ischemia. Summary of ttecho performed 11/11/18: Study was performed with the patient in sinus rhythm with frequent ventricular ectopy and occasional supraventricular ectopy. The left ventricular cavity size is normal. The LV wall thickness is normal. The left ventricular wall motion is normal. Calculated LV ejection Fraction = 57% (bi-plane method of discs). The left atrium is severely enlarged (>48 ml/m^2,). Moderate mitral regurgitation is present. Moderate tricuspid regurgitation is present. Normal IVC size and collapsability with inspiration indicates a normal right atrial pressure of 3 mmHg. The estimated pulmonary artery systolic pressure is 50-55mm Hg. EKG performed today 05/12/2019 at [facility] reveals atrial fibrillation with slow ventricular response at 41 beats per minute, right bundle branch block, T-wave abnormality.
[2019-05-12] MEDS ORDERED: PHYTONADIONE 2.5 MG in SODIUM CHLORIDE 0.9% 50 ML IV ONE (12:15)
--- NOTE | 2019-05-12 12:27 | Cardiology Consultation ---
Date of Consultation May 12, 2019 Assessment & Plan (1) Paroxysmal atrial fibrillation: (2) Symptomatic bradycardia: (3) HTN (hypertension): ok to continue ARB and spironolactone History of Present Illness Reason for Consultation: Tachybrady syndrome Requesting Physician: Dr. [facility] History of Present Illness Pt has been having increased fatigue and SOB due to AF with slow ventricular response. She has been seen in our office today and was recommended to go to ED due to the symptomatic AF bradycardia The increased fatigue is associated with AGUIRRE, duration progressively worsening over the past month, nothing makes it better exertion makes it worse Pt denies any chest pains. Allergies Allergy/AdvReac Type Severity Reaction Status Date / Time atorvastatin Allergy Intermediate "legs Verified 05/12/19 10:24 don't want to move." Home Medications Home Medications Medication Instructions Recorded Confirmed Type aspirin 81 mg PO QAM 05/11/19 05/12/19 History brinzolamide [Azopt] 1 drp OPHTHALMIC (EYE) BID 05/11/19 05/12/19 History calcium carbonate-vitamin D3 1 tab PO UD 05/11/19 05/12/19 History [Calcium 500 + D] carvedilol 3.125 mg PO BID 05/11/19 05/12/19 History escitalopram oxalate 5 mg PO DAILY 05/11/19 05/12/19 History furosemide 20 mg PO QAM 05/11/19 05/12/19 History levothyroxine 50 mcg PO QAM 05/11/19 05/12/19 History losartan 50 mg PO BID 05/11/19 05/12/19 History multivitamin 1 cap PO QAM 05/11/19 05/12/19 History pravastatin 20 mg PO QPM 05/11/19 05/12/19 History sotalol 40 mg PO BID 05/11/19 05/12/19 History spironolactone 25 mg PO QAM 05/11/19 05/12/19 History travoprost [Travatan Z] 1 drp OPHTHALMIC (EYE) PM 05/11/19 05/12/19 History warfarin 3 mg PO UD 05/11/19 05/12/19 History Patient History Medical History Arthritis (Chronic) Atrial fibrillation with rapid ventricular response FOLLOW WITH DR ARMIJO Depression (Chronic) OCAS Esophageal reflux (Chronic) Glaucoma (Chronic) Goiter (Chronic) THYROID GOITER AND WATCING History of cardioversion HTN (hypertension) (Chronic) Hyperlipidemia (Chronic) Hypothyroidism IBS (irritable bowel syndrome) (Chronic) Migraine (Chronic) OCAS MIGRAINES Mitral valve regurgitation (Chronic) FOLLOW WITH DR. ARMIJO Osteoporosis (Chronic) Pulmonary embolism (Acute) DX 2015 TAKES WARFARIN Surgical History Hx of arthroscopic knee surgery RIGHT Hx of laminectomy LUMBAR Family History Other Family history non-contributory Social History Preferred Language: Jordanian Communication Ability: Effective Gasoline Finisher Required: No Beliefs That Will Affect Care: None Current Living Situation: Spouse Feels Safe at Home: Yes Smoking Status: Never smoker Second Hand Exposure: No ; Hx Alcohol Use: No Hx Substance Use: No Review of Systems Review of Systems: All systems reviewed & are unremarkable except as noted in HPI & below also has intermittent diarrhea and constipation Cardiovascular: + dyspnea on exertion and + lightheadedness; no chest pain, no chest pain at rest, no radiating jaw, neck or arm pain, no dyspnea at rest, no syncope, no edema and no calf pain Physical Exam Physical Exam: Vital signs reviewed Gen: aaox3, NAD Head: NC/AT Eyes: EOMI Neck: Supple No JVD Card: Irregular irregular S1/S2, bradycardic, No murmur Pulm: CTA b/l no w/r/r Abd: soft nt/nd Skin: no LE edema b/l, skin intact Neuro: no focal deficits Psych: normal thought content Results & Data Vital Signs (Past 12 Hours) Vital Signs ECG: AF with slow ventricular response Telemetry AF 40s Temp Pulse Resp BP Pulse Ox 05/12/19 11:00 42 L 13 168/73 H 97 05/12/19 10:30 37 L 16 161/66 H 96 05/12/19 10:00 49 L 19 167/63 H 95 05/12/19 09:58 43 L 16 157/68 H 96 05/12/19 09:37 95 05/12/19 09:35 40 L 18 174/63 H 96 05/12/19 09:25 36.6 C 40 L 20 193/77 H 97 Abnormal Lab Results 05/12/19 05/12/19 05/12/19 09:40 09:40 09:40 WBC 9.17 RBC 4.29 Hgb 12.2 Hct 38.1 MCV 88.8 MCH 28.4 MCHC 32.0 RDW Std Deviation 46.4 H RDW Coeff of Yadira 14.3 Plt Count 376 MPV 8.6 Immature Gran % (Auto) 0.2 Neut % (Auto) 75.3 Lymph % (Auto) 17.6 [place] % (Auto) 6.0 Eos % (Auto) 0.7 Baso % (Auto) 0.2 Immature Gran # (Auto) 0.02 Neut # (Auto) 6.91 H Lymph # (Auto) 1.61 [place] # (Auto) 0.55 Eos # (Auto) 0.06 Baso # (Auto) 0.02 PT 36.3 H INR 3.9 H APTT 51.6 H* PTT Ratio 1.9 Sodium 141 Potassium 4.1 Chloride 109 H Carbon Dioxide 25 Anion Gap 6.0 BUN 18 Creatinine 1.35 H Est Cr Clr Drug Dosing 34.4 Est GFR ( Amer) 43.5 Est GFR (Non-Af Amer) 37.5 BUN/Creatinine Ratio 13.6 Glucose 105 H Calcium 9.3 Total Bilirubin 0.5 AST 14 L ALT 21 Alkaline Phosphatase 75 Troponin I < 0.015 Total Protein 7.9 Albumin 3.7 Globulin 4.2 H Albumin/Globulin Ratio 0.9 Lipase 182 TSH 05/12/19 09:40 WBC RBC Hgb Hct MCV MCH MCHC RDW Std Deviation RDW Coeff of Yadira Plt Count MPV Immature Gran % (Auto) Neut % (Auto) Lymph % (Auto) [place] % (Auto) Eos % (Auto) Baso % (Auto) Immature Gran # (Auto) Neut # (Auto) Lymph # (Auto) [place] # (Auto) Eos # (Auto) Baso # (Auto) PT INR APTT PTT Ratio Sodium Potassium Chloride Carbon Dioxide Anion Gap BUN Creatinine Est Cr Clr Drug Dosing Est GFR ( Amer) Est GFR (Non-Af Amer) BUN/Creatinine Ratio Glucose Calcium Total Bilirubin AST ALT Alkaline Phosphatase Troponin I Total Protein Albumin Globulin Albumin/Globulin Ratio Lipase TSH 2.290
--- NOTE | 2019-05-12 12:33 | Emergency Department Note ---
Entered by Benito Stuart acting as a scribe for History of Present Illness General Chief complaint: Shortness of Breath/Dyspnea Stated complaint: SOB, DIZZY, WEAK Time Seen by Provider: 05/12/19 09:30 Source: patient History of Present Illness Provider complaint: Cardiac assessment Onset (ago): hour(s) (Today ) Location: chest Severity: similar to prior episodes Pain Consistency: + intermittent Maximum Pain Intensity: 0 Associated symptoms: + nausea/vomiting (No vomiting), + shortness of breath and + other (Dizzy) The patient is a 79 year old female who presents to the Emergency Room after being sent by Dr. Ames for a cardiac assessment. The patient states she has been intermittently in Afib for the past week and is supposed to have a pacemaker placed. The patient has a history of Afib and states this feels similar. The patient is complaining of dizziness and shortness of breath that is worse when she is up moving around. The patient also endorses some nausea but denies any vomiting. The patient denies any chest pain as well as any other pains at this time. Home Medications Home Medications Medication Instructions Recorded Confirmed Type aspirin 81 mg PO QAM 05/11/19 05/12/19 History brinzolamide [Azopt] 1 drp OPHTHALMIC (EYE) BID 05/11/19 05/12/19 History calcium carbonate-vitamin D3 1 tab PO UD 05/11/19 05/12/19 History [Calcium 500 + D] carvedilol 3.125 mg PO BID 05/11/19 05/12/19 History escitalopram oxalate 5 mg PO DAILY 05/11/19 05/12/19 History furosemide 20 mg PO QAM 05/11/19 05/12/19 History losartan 50 mg PO BID 05/11/19 05/12/19 History multivitamin 1 cap PO QAM 05/11/19 05/12/19 History pravastatin 20 mg PO QPM 05/11/19 05/12/19 History sotalol 40 mg PO BID 05/11/19 05/12/19 History spironolactone 25 mg PO QAM 05/11/19 05/12/19 History travoprost [Travatan Z] 1 drp OPHTHALMIC (EYE) PM 05/11/19 05/12/19 History warfarin 3 mg PO UD 05/11/19 05/12/19 History famotidine 20 mg PO BID 05/12/19 05/12/19 History levothyroxine 25 mcg PO DAILY 05/12/19 05/12/19 History lorazepam 0.5 mg PO HS PRN 05/12/19 05/12/19 History Allergies Allergy/AdvReac Type Severity Reaction Status Date / Time atorvastatin Allergy Intermediate "legs Verified 05/12/19 10:24 don't want to move." Past Med/Surg History Medical History Arthritis (Chronic) Atrial fibrillation with rapid ventricular response FOLLOW WITH DR ARMIJO Depression (Chronic) OCAS Esophageal reflux (Chronic) Glaucoma (Chronic) Goiter (Chronic) THYROID GOITER AND WATCING History of cardioversion HTN (hypertension) (Chronic) Hyperlipidemia (Chronic) Hypothyroidism IBS (irritable bowel syndrome) (Chronic) Migraine (Chronic) OCAS MIGRAINES Mitral valve regurgitation (Chronic) FOLLOW WITH DR. ARMIJO Osteoporosis (Chronic) Pulmonary embolism (Acute) DX 2015 TAKES WARFARIN Surgical History Hx of arthroscopic knee surgery RIGHT Hx of laminectomy LUMBAR Family History Other Family history non-contributory Social History Preferred Language: Chilean Communication Ability: Effective Spray Worker Required: No Beliefs That Will Affect Care: None Current Living Situation: Spouse Other Information That Helps Us Care for You: No Feels Safe at Home: Yes Safety Concerns: Feels Safe At This Time Smoking Status: Never smoker Second Hand Exposure: No ; Hx Alcohol Use: No Hx Substance Use: No Review of Systems See HPI for pertinent positives & negatives. and A total of 10 systems reviewed and were otherwise negative Physical Exam Vital Signs Vital Signs - 24 hr 05/12/19 09:25 05/12/19 09:35 05/12/19 09:37 Temperature 36.6 C Temperature Source Oral Pulse Rate 40 L 40 L Pulse Rate from SpO2 Sensor 40 L Respiratory Rate 20 18 Blood Pressure 193/77 H 174/63 H Blood Pressure Mean 115 100 Pulse Oximetry 97 96 95 Oxygen Delivery Method Room Air Room Air Room Air Oxygen Flow Rate Sepsis Recent Fever Within 48 Hours No Sepsis Action Taken by Nursing No Action Required 05/12/19 09:38 05/12/19 09:58 05/12/19 10:00 Temperature Temperature Source Pulse Rate 43 L 49 L Pulse Rate from SpO2 Sensor 41 L 41 L Respiratory Rate 16 19 Blood Pressure 157/68 H 167/63 H Blood Pressure Mean 99 89 Pulse Oximetry 96 95 Oxygen Delivery Method Room Air Room Air Room Air Oxygen Flow Rate 95 Sepsis Recent Fever Within 48 Hours Sepsis Action Taken by Nursing 05/12/19 10:30 05/12/19 11:00 05/12/19 11:31 Temperature Temperature Source Pulse Rate 37 L 42 L 40 L Pulse Rate from SpO2 Sensor 38 L 40 L 40 L Respiratory Rate 16 13 16 Blood Pressure 161/66 H 168/73 H 167/60 H Blood Pressure Mean 77 112 88 Pulse Oximetry 96 97 95 Oxygen Delivery Method Oxygen Flow Rate Sepsis Recent Fever Within 48 Hours Sepsis Action Taken by Nursing 05/12/19 12:00 Temperature Temperature Source Pulse Rate 40 L Pulse Rate from SpO2 Sensor 42 L Respiratory Rate 16 Blood Pressure 168/73 H Blood Pressure Mean 114 Pulse Oximetry 94 Oxygen Delivery Method Oxygen Flow Rate Sepsis Recent Fever Within 48 Hours Sepsis Action Taken by Nursing CONSTITUTIONAL/VITAL SIGNS: Reviewed / noted above. GENERAL: Non-toxic in appearance. INTEGUMENTARY: Warm, dry, and [place]. HEAD: Normocephalic. EYES: without scleral icterus or trauma. ENT/OROPHARYNX: clear and moist. LYMPHADENOPATHY/NECK: Is supple without lymphadenopathy or meningismus. RESPIRATORY: Lungs clear and equal. CARDIOVASCULAR: Bradycardic rate and regular rhythm. GI/ABDOMEN: Soft and nontender. No organomegaly or pulsatile mass. No rebound or guarding. Normal bowel sounds. EXTREMITIES: Warm and well perfused. BACK: No CVA tenderness. NEUROLOGICAL: Intact without focal deficits. PSYCHIATRIC: normal affect. MUSCULOSKELETAL: Normally developed with good muscle tone. Course Course 954: Past medical records reviewed. The patient was evaluated in room B10, and a complete history and physical examination were performed. 1138: I discussed the patient's case with Ophelia [facility]ANCY who is working under Dr. Brett Lopez Hospitalist. They agreed to accept the patient for further evaluation. Consultations Consultation #1: I discussed the patient's case with Ophelia Kendra Macias PAC who is working under Dr. Brett Lopez Hospitalist. They agreed to accept the patient for further evaluation. Time: 11:38 Administered Medications Phytonadione 2.5 mg/ Sodium (Chloride) 50.25 mls @ 100.5 mls/hr IV ONE ONE Stop: 05/12/19 12:44 Last Admin: 05/12/19 12:23 Dose: 100.5 mls/hr Documented by: [id number] Medical Decision Making Differential Diagnosis Differential diagnoses includes but is not limited to pneumonia, bronchitis, CO PD/Asthma exacerbation, pneumothorax, pulmonary embolism, congestive heart failure, acute coronary syndrome, amongst others. Medical Records Attestation: I reviewed the patient's medical records. Home Medications Current Medication List: was personally reviewed by me Laboratory Data Attestation: I reviewed the patient's lab results. Result diagrams: 05/12/19 09:40 05/12/19 09:40 Lab Results 05/12/19 05/12/19 05/12/19 Range/Units 09:40 09:40 09:40 WBC 9.17 (4.8-10.8) K/uL RBC 4.29 (4.2-5.4) M/uL Hgb 12.2 (12.0-16.0) g/dL Hct 38.1 (37-47) % MCV 88.8 (80-100) fL MCH 28.4 (25-34) pg MCHC 32.0 (32-36) g/dL RDW Std Deviation 46.4 H (36.4-46.3) fL RDW Coeff of Yadira 14.3 (11.5-14.5) % Plt Count 376 (130-400) K/uL MPV 8.6 (7.4-10.4) fL Immature Gran % (Auto) 0.2 % Neut % (Auto) 75.3 % Lymph % (Auto) 17.6 % Beadle % (Auto) 6.0 % Eos % (Auto) 0.7 % Baso % (Auto) 0.2 % Immature Gran # (Auto) 0.02 (0.00-0.02) K/uL Neut # (Auto) 6.91 H (1.4-6.5) K/uL Lymph # (Auto) 1.61 (1.2-3.4) K/uL Beadle # (Auto) 0.55 (0.11-0.59) K/uL Eos # (Auto) 0.06 (0-0.5) K/uL Baso # (Auto) 0.02 (0-0.2) K/uL PT 36.3 H (9.0-12.0) Seconds INR 3.9 H (0.9-1.1) APTT 51.6 H* (21.0-31.0) Seconds PTT Ratio 1.9 Sodium 141 (136-145) mmol/L Potassium 4.1 (3.5-5.1) mmol/L Chloride 109 H (98-107) mmol/L Carbon Dioxide 25 (21-32) mmol/L Anion Gap 6.0 (3-11) BUN 18 (7-18) mg/dl Creatinine 1.35 H (0.6-1.2) mg/dl Est Cr Clr Drug Dosing 34.4 ml/min Est GFR ( Amer) 43.5 Est GFR (Non-Af Amer) 37.5 BUN/Creatinine Ratio 13.6 (10-20) Glucose 105 H (70-99) mg/dl Calcium 9.3 (8.5-10.1) mg/dl Total Bilirubin 0.5 (0.2-1) mg/dl AST 14 L (15-37) U/L ALT 21 (12-78) U/L Alkaline Phosphatase 75 (45-117) U/L Troponin I < 0.015 (0-0.045) ng/ml Total Protein 7.9 (6.4-8.2) gm/dl Albumin 3.7 (3.4-5.0) gm/dl Globulin 4.2 H (2.5-4.0) gm/dl Albumin/Globulin Ratio 0.9 (0.9-2) Lipase 182 (73-393) U/L TSH (0.300-4.500) uIu/ml 05/12/19 Range/Units 09:40 WBC (4.8-10.8) K/uL RBC (4.2-5.4) M/uL Hgb (12.0-16.0) g/dL Hct (37-47) % MCV (80-100) fL MCH (25-34) pg MCHC (32-36) g/dL RDW Std Deviation (36.4-46.3) fL RDW Coeff of Yadira (11.5-14.5) % Plt Count (130-400) K/uL MPV (7.4-10.4) fL Immature Gran % (Auto) % Neut % (Auto) % Lymph % (Auto) % Beadle % (Auto) % Eos % (Auto) % Baso % (Auto) % Immature Gran # (Auto) (0.00-0.02) K/uL Neut # (Auto) (1.4-6.5) K/uL Lymph # (Auto) (1.2-3.4) K/uL Beadle # (Auto) (0.11-0.59) K/uL Eos # (Auto) (0-0.5) K/uL Baso # (Auto) (0-0.2) K/uL PT (9.0-12.0) Seconds INR (0.9-1.1) APTT (21.0-31.0) Seconds PTT Ratio Sodium (136-145) mmol/L Potassium (3.5-5.1) mmol/L Chloride (98-107) mmol/L Carbon Dioxide (21-32) mmol/L Anion Gap (3-11) BUN (7-18) mg/dl Creatinine (0.6-1.2) mg/dl Est Cr Clr Drug Dosing ml/min Est GFR ( Amer) Est GFR (Non-Af Amer) BUN/Creatinine Ratio (10-20) Glucose (70-99) mg/dl Calcium (8.5-10.1) mg/dl Total Bilirubin (0.2-1) mg/dl AST (15-37) U/L ALT (12-78) U/L Alkaline Phosphatase (45-117) U/L Troponin I (0-0.045) ng/ml Total Protein (6.4-8.2) gm/dl Albumin (3.4-5.0) gm/dl Globulin (2.5-4.0) gm/dl Albumin/Globulin Ratio (0.9-2) Lipase (73-393) U/L TSH 2.290 (0.300-4.500) uIu/ml Imaging Data Radiologist's Impression: Radiology results as stated below per my review and the radiologist's interpretation: SINGLE VIEW CHEST CLINICAL HISTORY: Atypical chest pain. FINDINGS: An AP, portable, upright chest radiograph is compared to study dated 08/31/2017. The examination is degraded by portable technique and patient rotation. The heart is enlarged noting atherosclerotic calcification of the thoracic aorta. The pulmonary vasculature is noncongested. There is elevation of the right hemidiaphragm and bibasilar atelectasis. The lungs and pleural spaces are otherwise clear. No pneumothorax is seen. The skeletal structures are osteopenic. The bony thorax is grossly intact. IMPRESSION: Cardiomegaly with no active disease in the chest. Electronically signed by: Rick Akhtar M.D. 05/12/2019 9:47 AM ECG Data Attestation: I personally reviewed and interpreted this ECG as follows: Indication: + SOB/dyspnea Rate (beats per minute): 38 Rhythm: + atrial flutter ECG Intervals/blocks: + Normal QT-c ECG ST segments: no ST elevation ECG Findings: no PACs and no PVCs Blood Pressure Blood Pressure Findings: Elevated blood pressure Blood Pressure Disposition: further management by hospitalist MDM Narrative This is a 79-year-old female who presents the ED with a chief complaint of sick sinus syndrome/tachybradycardia syndrome. The patient was sent by Dr. Barrett. He states that he has been seeing the patient in the office and saw her today. She was bradycardic today in the office and he feels that he requires the patient to have a pacemaker. She is anticoagulated. Her INR is 3.9 today. CBC and chemistry panel was unremarkable. Troponin was negative. TSH was normal. Chest x-ray was negative for acute disease. The patient was seen by the hospitalist service for further inpatient evaluation and preparation for pacemaker. Impression & Plan Sick sinus syndrome, Hari-tachy syndrome Discharge Plan Visit Data Chief Complaint: Shortness of Breath/Dyspnea Stated Complaint: SOB, DIZZY, WEAK ED Provider: Iraj Wilson Discharge Problem: Sick sinus syndrome, Hari-tachy syndrome Patient Disposition: Being Evaluated by Hospitalist Forms Stand Alone Forms: My [facility] [employer] Prescriptions Prescriptions: No Action levothyroxine 25 mcg tablet 25 mcg PO DAILY RF: 0 famotidine 20 mg Tablet 20 mg PO BID RF: 0 lorazepam 0.5 mg Tablet 0.5 mg PO HS PRN (Reason: Insomnia) RF: 0 losartan 50 mg Tablet 50 mg PO BID RF: 0 sotalol 80 mg Tablet 40 mg PO BID RF: 0 Azopt 1 % Drops,Suspension 1 drp OPHTHALMIC (EYE) BID RF: 0 Travatan Z 0.004 % Drops 1 drp OPHTHALMIC (EYE) PM RF: 0 aspirin 81 mg Tablet,Delayed Release (Dr/Ec) 81 mg PO QAM RF: 0 spironolactone 25 mg Tablet 25 mg PO QAM RF: 0 carvedilol 3.125 mg Tablet 3.125 mg PO BID RF: 0 warfarin 3 mg Tablet 3 mg PO UD RF: 0 pravastatin 20 mg Tablet 20 mg PO QPM RF: 0 furosemide 20 mg Tablet 20 mg PO QAM RF: 0 multivitamin Capsule 1 cap PO QAM RF: 0 escitalopram oxalate 5 mg Tablet 5 mg PO DAILY RF: 0 calcium carbonate-vitamin D3 [Calcium 500 + D] 500 mg(1,250mg) -200 unit Tablet 1 tab PO DAILY RF: 0 Referrals Referrals: Marcell Landry, DO [Primary Care Provider] - The scribe's documentation has been prepared under my direction and personally reviewed by me in its entirety. I confirm that the note above accurately reflects all work, treatment, procedures, and medical decision making performed by me.
--- NOTE | 2019-05-12 12:39 | History & Physical Report ---
Date of Service May 12, 2019 Assessment & Plan (1) Paroxysmal atrial fibrillation: (2) Symptomatic bradycardia: (3) Hari-tachy syndrome: Pt is 79 y/o F with PMH labile HTN, paroxysmal atrial fibrillation on Coumadin, H/O DVT, PE in 2014, PSVT, borderline tachybrady syndrome, diastolic dysfunction, moderate mitral regurgitation, RBBB, CKD III, GERD, dyslipidemia, depression, H/O Graves disease and postablative hypothyroidism presented to ER from cardiology office for dizziness and bradycardia. 05/05/2019 seen in cardiology clinic by Dr. Ames for dizziness, exertional shortness of breath, weakness. She was found to be back in A. fib with a rate of 48. Carvedilol was decreased from 6.25 mg BID to 3.125 mg BID and sotalol was continued. F/U today with continued dizziness with minimal activity. Was found to be still in atrial fibrillation with heart rate of 41. Previously had planned cardioversion however now with bradycardia decision was made to hold on cardioversion. HR high 30's-40s in ER. No C/O CP. No dizziness/SOB at rest. INR: 3.9 -Hold Coumadin -Hold carvedilol -Continue sotalol -NPO midnight -Consult cardiology -Dr Ames had recommended holding carvedilol -Consult cardiology electrophysiology. Dr Moss saw pt and tentative plan pacemaker placement tomorrow if INR acceptable range. Recommended Vitamin K 2.5mg IV now (4) HTN (hypertension): BP 193/77, 159/86 in ER. Did not have morning medications -Dose today's medications -Continue losartan -Hold tomorrow lasix, spironolactone as probable procedure (5) Diastolic dysfunction: Appears euvolemic -Hold tomorrow lasix, spironolactone as probable procedure (6) Graves disease: (7) Post-surgical hypothyroidism: post ablative hypothyroidism TSH: 2.2 -Continue levothyroxine (8) CKD (chronic kidney disease), stage III: Cr: 1.3. Baseline ~1.2 -Monitor renal functions -Avoid nephrotoxic agents (9) Hyperlipidemia: -Continue pravastatin (10) Depression: -Continue escitalopram (11) Esophageal reflux: -Continue H2 cullen DVT Prophylaxis -Currently supratherapeutic INR at 3.9. SCD's when INR below 2 Full Code as per discussion with pt Follows with Dr Marcell Landry for routine care Pt was seen and care coordinated with Dr West. See addendum History of Present Illness Chief Complaint: Bradycardia, exertional dizziness Primary Care Provider: Marcell Landry, Pt is 79 y/o F with PMH labile HTN, paroxysmal atrial fibrillation on Coumadin, H/O DVT, PE in 2015, PSVT, borderline tachybrady syndrome, diastolic dysfunction, moderate mitral regurgitation, RBBB, CKD III, GERD, dyslipidemia, depression, H/O Graves disease and postablative hypothyroidism presented to ER from cardiology office for dizziness and bradycardia. 05/05/2019 seen in cardiology clinic by Dr. Ames for dizziness, exertional shortness of breath, weakness. She was found to be back in A. fib with a rate of 48. Her carvedilol was decreased from 6.25 mg twice daily to 3.125 mg twice daily and sotalol was continued. Patient had follow-up today with continued dizziness with minimal activity. Was found to be still in atrial fibrillation with heart rate of 41. Previously had planned cardioversion however now with bradycardia decision was made to hold on cardioversion. Tentative plan pacemaker placement tomorrow. Currently at rest pt denies any symptoms. Reports dizziness with walking and exertional SOB and fatigue. Denies CP. States one week ago at symptom onset she had some palpitation sensation but denies any palpitations since. Denies fever/chills, diaphoresis, N/V/D/C, MORLEY, syncope, vision changes, neck pain, orthopnea, cough, sore throat, choking, otalgia, rhinorrhea, abdominal pain, paresthesias, extremity edema, rashes, urinary symptoms. History echo 10/2018: EF: 57%, moderate mitral regurgitation, moderate tricuspid regurgitation, abnormal diastolic function Allergies Allergy/AdvReac Type Severity Reaction Status Date / Time atorvastatin Allergy Intermediate "legs Verified 05/12/19 10:24 don't want to move." Home Medications Home Medications Medication Instructions Recorded Confirmed Type aspirin 81 mg PO QAM 05/11/19 05/12/19 History brinzolamide [Azopt] 1 drp OPHTHALMIC (EYE) BID 05/11/19 05/12/19 History calcium carbonate-vitamin D3 1 tab PO DAILY 05/11/19 05/12/19 History [Calcium 500 + D] carvedilol 3.125 mg PO BID 05/11/19 05/12/19 History escitalopram oxalate 5 mg PO DAILY 05/11/19 05/12/19 History furosemide 20 mg PO QAM 05/11/19 05/12/19 History losartan 50 mg PO BID 05/11/19 05/12/19 History multivitamin 1 cap PO QAM 05/11/19 05/12/19 History pravastatin 20 mg PO QPM 05/11/19 05/12/19 History sotalol 40 mg PO BID 05/11/19 05/12/19 History spironolactone 25 mg PO QAM 05/11/19 05/12/19 History travoprost [Travatan Z] 1 drp OPHTHALMIC (EYE) PM 05/11/19 05/12/19 History warfarin 3 mg PO UD 05/11/19 05/12/19 History famotidine 20 mg PO BID 05/12/19 05/12/19 History levothyroxine 25 mcg PO DAILY 05/12/19 05/12/19 History lorazepam 0.5 mg PO HS PRN 05/12/19 05/12/19 History Past Med/Surg History Medical History (Updated 05/12/19 @ 12:42 by Ophelia Gardner PA-C) Arthritis (Chronic) Atrial fibrillation with rapid ventricular response FOLLOW WITH DR ARMIJO CKD (chronic kidney disease), stage III Depression (Chronic) OCAS Diastolic dysfunction Esophageal reflux (Chronic) Glaucoma (Chronic) Goiter (Chronic) THYROID GOITER AND WATCING Graves disease History of cardioversion HTN (hypertension) (Chronic) Hyperlipidemia (Chronic) Hypothyroidism IBS (irritable bowel syndrome) (Chronic) Migraine (Chronic) OCAS MIGRAINES Mitral valve regurgitation (Chronic) FOLLOW WITH DR. ARMIJO Osteoporosis (Chronic) Post-surgical hypothyroidism Pulmonary embolism (Acute) DX 2015 TAKES WARFARIN Surgical History Hx of arthroscopic knee surgery RIGHT Hx of laminectomy LUMBAR Family History (Updated 05/12/19 @ 12:43 by Ophelia Gardner PA-C) Father Coronary heart disease Brother Diabetes Sister Thyroid cancer Social History Preferred Language: Libyan Communication Ability: Effective Preload Supervisor Required: No Beliefs That Will Affect Care: None Current Living Situation: Spouse Other Information That Helps Us Care for You: No Feels Safe at Home: Yes Safety Concerns: Feels Safe At This Time Smoking Status: Never smoker Second Hand Exposure: No ; Hx Alcohol Use: No Hx Substance Use: No Review of Systems Review of Systems: All systems reviewed & are unremarkable except as noted in HPI & below Physical Exam Physical Exam: General: no distress, WDWN Head: normocephalic, atraumatic Eyes: PERRL, EOM's intact, conjunctiva non-injected, anicteric ENT: normal inspection external ears, nose, mucous membranes moist Neck: supple, trachea midline Lungs: clear, no respiratory distress, no wheezing/rhonchi/rales CV: bradycardia, rate 40, systolic murmur, no pretibial edema Abd: normal BS, soft, non-tender Ext: no cyanosis, no calf tenderness Neuro: A&O x 3, no focal deficits noted, normal affect Skin: warm, dry Results & Data Vital Signs (Past 12 Hours) Vital Signs Temp Pulse Resp BP Pulse Ox 05/12/19 12:30 49 L 19 176/64 H 96 05/12/19 12:00 40 L 16 168/73 H 94 05/12/19 11:31 40 L 16 167/60 H 95 05/12/19 11:00 42 L 13 168/73 H 97 05/12/19 10:30 37 L 16 161/66 H 96 05/12/19 10:00 49 L 19 167/63 H 95 05/12/19 09:58 43 L 16 157/68 H 96 05/12/19 09:37 95 05/12/19 09:35 40 L 18 174/63 H 96 05/12/19 09:25 36.6 C 40 L 20 193/77 H 97 Laboratory Results Short CBC 05/12/19 Range/Units 09:40 WBC 9.17 (4.8-10.8) K/uL Hgb 12.2 (12.0-16.0) g/dL Hct 38.1 (37-47) % Plt Count 376 (130-400) K/uL BMP 05/12/19 09:40 Sodium 141 Potassium 4.1 Chloride 109 H Carbon Dioxide 25 BUN 18 Creatinine 1.35 H Glucose 105 H Calcium 9.3 Cardiac Enzymes 05/12/19 Range/Units 09:40 Troponin I < 0.015 (0-0.045) ng/ml Liver Function 05/12/19 Range/Units 09:40 Total Bilirubin 0.5 (0.2-1) mg/dl AST 14 L (15-37) U/L ALT 21 (12-78) U/L Alkaline Phosphatase 75 (45-117) U/L Albumin 3.7 (3.4-5.0) gm/dl Diagnostic Findings CXR: IMPRESSION: Cardiomegaly with no active disease in the chest. ECG Rate (beats per minute): 38 Rhythm: atrial fibrillation Code Status & VTE Plan VTE Prophylaxis Plan VTE Prophylaxis will be ordered: Yes Supervising Physician Co-Signing Physician Notes I have seen and examined the patient and have discussed the case with the provider above. I agree with the assessment and plan as stated with the following exceptions. 79 yo F with a history of paroxysmal atrial fibrillation presents with shortness of breath x 2 weeks. She was found to be bradycardic despite recent attempts to lower her beta cullen as an outpatient. As a result her care plan was shifted from a planned DCCV to consideration of a pacemaker, and she was therefore admitted to the hospital. Cardiology and EP have been involved in her case, and she received 2.5mg vitamin K for her elevated INR with the planned procedure tomorrow. Physical reveals a WNWD woman in no acute distress who was mentating normally. Lungs were clear to auscultation bilaterally, heart exam revealed a bradycardic sinus rhythm with S1 and 2 heard and no evidence of murmurs. She appears euvolemic. Ther is no evidence of peripheral edema, skin is warm and dry and abdomen is benign. Appreciate Cardiology's close involvement in her case and support continuation of the care plan as stated above and in the cardiology notes. DO Brett
[2019-05-12] MEDS ORDERED: SPIRONOLACTONE 25 MG TAB PO ONE (12:57)
[2019-05-12] MEDS ORDERED: FUROSEMIDE 20 MG TAB PO ONE (12:59)
[2019-05-12] MEDS: LOSARTAN POTASSIUM 50 MG TAB PO SCH (13:17)
[2019-05-12] MEDS ORDERED: ACETAMINOPHEN 325 MG TAB PO PRN (15:00)
[2019-05-12] MEDS: ESCITALOPRAM OXALATE 10 MG TAB PO SCH (16:46)
[2019-05-12] MEDS ORDERED: LOPERAMIDE HCL 2 MG CAP PO PRN (17:33)
--- NOTE | 2019-05-12 19:38 | Communication Note ---
Date of Service: May 12, 2019 Made aware by RN of uncontrolled blood pressure. SBP 140-190s since admission this a.m. Patient asymptomatic as per RN. Cardiac rate 40 to 50s AP Hypertensive urgency ARF Add Norvasc to her regimen. Hold ARB for now until kidney function at baseline. Will relay to AM provider.
[2019-05-12] MEDS ORDERED: AMLODIPINE BESYLATE 5 MG TAB PO SCH (19:40)
[2019-05-12] MEDS: PROMETHAZINE HCL 12.5 MG in SODIUM CHLORIDE 0.9% 50 ML IV PRN (20:00)
[2019-05-12] MEDS: BRINZOLAMIDE (AZOPT) OPS 10 ML BTL OP SCH (21:19)
[2019-05-12] MEDS: FAMOTIDINE 20 MG TAB PO SCH (21:22)
[2019-05-12] MEDS: PRAVASTATIN SOD 20 MG TAB PO SCH (21:24)
[2019-05-12] MEDS: TRAVOPROST Z 0.004% OPH SOLN 2.5 ML BTL OP SCH (21:26)
[2019-05-12] MEDS: SOTALOL HCL 80 MG TAB PO SCH (22:07)
[2019-05-13] MEDS: LEVOTHYROXINE SODIUM 25 MCG TABLET PO SCH (05:34)
[2019-05-13 06:18] LABS: Hematocrit (blood only) 36.6 % (37-47); Hemoglobin 12.1 g/dL (12.0-16.0); Mean Corpuscular Hemoglobin 28.3 pg (25-34); Mean Corpuscular Hgb Conc 33.1 g/dL (32-36); Mean Corpuscular Volume 85.7 fL (80-100); Mean Platelet Volume 8.9 fL (7.4-10.4); Platelet Count 325 K/uL (130-400); RDW Coefficient of Variation 14.1 % (11.5-14.5); RDW Standard Deviation 43.7 fL (36.4-46.3); Red Blood Count 4.27 M/uL (4.2-5.4); White Blood Count 7.96 K/uL (4.8-10.8)
[2019-05-13 06:28] LABS: INR 1.3 (0.9-1.1); Prothrombin Time 13.5 Seconds (9.0-12.0)
[2019-05-13 06:51] LABS: BUN Creatinine Ratio 15.2 (10-20); Calcium 8.9 mg/dl (8.5-10.1); Creatinine Clr Calc Pharmacy 45.1 ml/min; Est GFR (Non-African American) 52.6; Potassium 3.9 mmol/L (3.5-5.1)
[2019-05-13] MEDS: SOTALOL HCL 80 MG TAB PO SCH ×2 (09:00→21:26)
[2019-05-13] MEDS: BRINZOLAMIDE (AZOPT) OPS 10 ML BTL OP SCH ×2 (09:12→19:35)
[2019-05-13] MEDS: PROMETHAZINE HCL 12.5 MG in SODIUM CHLORIDE 0.9% 50 ML IV PRN (09:37)
--- NOTE | 2019-05-13 10:21 | History & Physical Bridge Note ---
Date of Service May 13, 2019 History & Physical Bridge Note I have examined the patient, reviewed the History & Physical and in the interval since the performance of the History & Physical I have noted the following changes of clinical significance: no changes noted; Pt's INR good at 1.3 ok to proceed with ppm today
--- NOTE | 2019-05-13 10:22 | Pre Anesthesia Assessment ---
Date of Service May 13, 2019 Pre Sedation Assessment Vital Signs Temp Pulse Pulse Pulse Resp BP BP 05/13/19 10:15 41 L 17 168/63 H 05/13/19 08:00 36.6 C 44 L 20 163/66 H 05/13/19 03:33 36.8 C 42 L 18 152/82 H 05/12/19 23:51 36.8 C 45 L 18 130/55 L 05/12/19 19:38 36.8 C 41 L 18 167/76 H 05/12/19 16:08 37.1 C 50 L 18 171/65 H 05/12/19 15:00 56 L 05/12/19 14:00 48 L 14 160/69 H 05/12/19 13:30 43 L 16 143/69 H 05/12/19 13:18 46 L 19 165/62 H 05/12/19 12:30 49 L 19 176/64 H 05/12/19 12:00 40 L 16 168/73 H 05/12/19 11:31 40 L 16 167/60 H 05/12/19 11:00 42 L 13 168/73 H 05/12/19 10:30 37 L 16 161/66 H Pulse Ox Pulse Ox 05/13/19 10:15 95 05/13/19 08:00 93 05/13/19 03:33 95 05/12/19 23:51 92 05/12/19 19:38 95 05/12/19 16:08 93 05/12/19 15:00 96 05/12/19 14:00 96 05/12/19 13:30 95 05/12/19 13:18 95 05/12/19 12:30 96 05/12/19 12:00 94 05/12/19 11:31 95 05/12/19 11:00 97 05/12/19 10:30 96 Cardiovascular + bradycardic and + irregularly irregular Respiratory normal respiratory effort, lungs clear to auscultation Pre-Sedation Airway Assessment Smoking Status: Never smoker Hx Sleep Apnea: No Hx Difficult Intubation: No Short, Thick Neck: No Thyromental Distance: < 3.5 Finger Breadths Oral Cavity: + WNL Mallampati Class: III ASA: ASA3 NPO Status Date of Last Intake of Fluids: 05/12/19 Date of Last Intake of Solid Food: 05/12/19 Procedure Planning Contraindications for Sedation: none Current Medications Reviewed: Yes Notes The planned sedation has been discussed with the patient. Informed Consent was obtained. I have identified the patient, determined the appropriateness of sedation and have assessed the patient immediately prior to the procedure. All medicine(s) and interventions are by my order.
--- NOTE | 2019-05-13 12:35 | Post Anesthesia Assessment ---
Date of Service May 13, 2019 Post Sedation Assessment Vital Signs Temp Pulse Pulse Pulse Resp BP BP 05/13/19 10:15 41 L 17 168/63 H 05/13/19 08:00 36.6 C 44 L 20 163/66 H 05/13/19 03:33 36.8 C 42 L 18 152/82 H 05/12/19 23:51 36.8 C 45 L 18 130/55 L 05/12/19 19:38 36.8 C 41 L 18 167/76 H 05/12/19 16:08 37.1 C 50 L 18 171/65 H 05/12/19 15:00 56 L 05/12/19 14:00 48 L 14 160/69 H 05/12/19 13:30 43 L 16 143/69 H 05/12/19 13:18 46 L 19 165/62 H Pulse Ox Pulse Ox 05/13/19 10:15 95 05/13/19 08:00 93 05/13/19 03:33 95 05/12/19 23:51 92 05/12/19 19:38 95 05/12/19 16:08 93 05/12/19 15:00 96 05/12/19 14:00 96 05/12/19 13:30 95 05/12/19 13:18 95 Recovery Score Activity: Moves 4 extremities Respiration: Deep Breath/Cough Circulation: +/-20% PreAnes Value Consciousness: Fully Awake Oxygen Saturation: > 92% On Room Air Discharge Sedation Level of Care: Fast Track Phase II Post Sedation Plan On clinical assessment, the patient appears to have tolerated the sedation without complications. Patient is recovering as anticipated. Patient will continue to be monitored by nursing and may be discharged when sedation discharge criteria are met per below protocol. Upon Completions of procedure up to 15 minutes continue every 5 minute vital signs and the P.A.R. score; then discharge to a Phase I or Fast Track to Phase II per the following guidelines: * Discharge Patient to appropriate Phase II area if PAR is 8 or greater or return to pre- procedure baseline. The post - procedure orders will be as directed. * If PAR score is less than 8 or not return to pre-procedure baseline then patient will follow Phase I monitoring till PAR is reached for Phase II. The Phase I may be done in procedure room or may call to secure a Phase I area. * If naloxone or flumazenil are used for reversal, hold in Phase I for continued monitoring from when last reversal dose was given for a minimum of 60 minutes or longer pending the nurse and/or physician discretion of patient condition before discharge to Phase II. Please call the Sedation Physician to re-evaluate and complete post-note for discharge to Phase II area. Do NOT discharge from procedure sedation or Phase 1 until post- sedation evaluation note is complete by procedure /sedation MD Sedation Discharge Instructions to be given to the patient at discharge to home.
--- NOTE | 2019-05-13 12:36 | Operative Report ---
Post Operative Report Pre & Post Diagnosis TBS Operation Date: 05/13/19 06:42 <No data on this case meets the specified criteria> I identified the patient and participated in the time-out.: Yes Procedure Operation Date: 05/13/19 06:42 Actual Procedures p Pacer with A/V Leads (Dual) - DO jak Damon Cineradiography w/Routine Exam - DO jak Damon Venogram Extremity Unilateral - Maye Moss DO Surgeon Maye Moss, Oleomargarine Maker none Estimated Blood Loss 20 Findings Consistent with Post-Op Diagnosis Specimens none Description of Procedure see official report I attest to the content of the Intraoperative Record and any orders documented therein. Any exceptions are noted below.
[2019-05-13] MEDS ORDERED: ACETAMINOPHEN 325 MG TAB PO PRN (12:48)
[2019-05-13] MEDS ORDERED: LORazepam 0.5 MG TAB PO PRN (12:49)
[2019-05-13] MEDS: MULTIVITAMIN TAB PO SCH (13:18)
[2019-05-13] MEDS: FAMOTIDINE 20 MG TAB PO SCH ×2 (13:18→21:27)
[2019-05-13] MEDS: ESCITALOPRAM OXALATE 10 MG TAB PO SCH (13:18)
[2019-05-13] MEDS: SPIRONOLACTONE 25 MG TAB PO SCH (13:19)
[2019-05-13] MEDS: ASPIRIN 81 MG ECTAB PO SCH (13:19)
[2019-05-13] MEDS: CALCIUM 600MG + VIT D 400 IU TAB PO SCH (13:20)
--- NOTE | 2019-05-13 13:31 | Operative Report ---
DATE OF OPERATION: 05/13/2019 PREOPERATIVE DIAGNOSIS: Tachybrady syndrome. POSTOPERATIVE DIAGNOSIS: Tachybrady syndrome. PROCEDURE: Dual chamber rate responsive permanent pacemaker under fluoroscopic guidance along with peripheral venogram. SURGEON: Maye Moss DO ASSISTANTS: None. ANESTHESIA: Monitored conscious sedation administered under my supervision by aLyla Bhat. Start time 10:55, end time 12:24. Total of 4 mg Versed, 125 mcg fentanyl. INTRAVENOUS FLUIDS: 50 mL. ANTIBIOTICS: Two grams of Ancef. CONTRAST: 10 mL. BLOOD LOSS: 20 mL. URINE OUTPUT: Not applicable. SPECIMENS: None. FINDINGS: See below. DRAINS: None. INDICATIONS: This is a 79-year-old female with past medical history of paroxysmal atrial fibrillation on a low dose sotalol limited due to her bradycardia, CHADS2-VASc score of 4, hypertension, hyperlipidemia, hypothyroidism, irritable bowel syndrome, mitral regurgitation, history of a PE on Coumadin, depression, GERD, glaucoma and osteoarthritis. She has been having worsening evidence of tachybrady syndrome and was recommended a pacemaker. CONSENT: Consent was obtained prior to the patient going into the electrophysiology lab. The patient was informed of the risks, benefits and alternative procedure. Risks include but not limited to sudden cardiac , cardiac arrhythmia, cerebrovascular accident, myocardial infarction, injury to the blood vessels, chamber of the heart, lung, bleeding, and infection. The patient understood these risks and agreed to the procedure as planned. Informed consent was obtained. DESCRIPTION OF THE PROCEDURE: The patient was brought into electrophysiology lab in a fasting state. She was connected to continuous taker off drying kiln. A timeout was performed to ensure patient identity and procedure correctly. The patient received prophylactic antibiotics prior to incision. She was prepped and draped over the left infraclavicular space in normal surgical standard fashion. Monitored conscious sedation was given throughout the procedure for patient's comfort level. [place] precautions were maintained throughout the procedure. A 20 mL 1% lidocaine and bupivacaine mixture were given in the left deltopectoral groove. Incision was made in left deltopectoral groove. Blunt dissection performed down to identify the cephalic vein. Cephalic vein was identified and isolated using 0 silk ties. It was nicked with an 11 blade and a guidewire was inserted without any resistance. An 8-Italian sheath was inserted over the guidewire without any resistance. Dilator was removed and a second guidewire was inserted over the 8-Italian sheath to allow for retained venous access. Then, an 8-Italian sheath was inserted over the guidewire without any resistance. Guidewire and dilator were removed. Then, the right ventricular lead was advanced into right ventricle and positioned in the low right ventricular mid septum. There is adequate pacing and sensing thresholds and no diaphragmatic stimulation with high output pacing. The sheath was peeled away and lead was fixated to pectoralis muscle using 0 silk suture. A second 8-Italian sheath was inserted over the retained guidewire; however, it was not going with nice resistance, so ended up using a hydrophilic sheath and that was inserted over the retained guidewire through the cephalic access without any problems. The dilator and guidewire were removed. The right atrial lead was then advanced into right atrium and positioned interatrial appendage. I did need to reposition it a few times as it was kept dislodging and ultimately got it using a preformed J curve. There was adequate sensing of the fib waves and no diaphragmatic stimulation with high output pacing when we ruptured a few beats as patient was in AFib, so we could not accurately test, but I did notice that the right ventricular lead was pushed in more and I did not like how it looked, so I slit the 8-Italian sheath over the right atrial lead and sutured down the right atrial lead to the pectoralis muscle. Then, I removed the suture sleeves from the right ventricular lead. I was unable to backtrack the screw and this was able to pull it back, but I was unable to reposition it. So then we set up to do a peripheral venogram using 10 mL of IV contrast diluted in 10 mL of saline followed by 20 mL flush to identify the axillary vein. Venous axillary access was obtained with a needle stick without any problems. A guidewire was inserted. I ended up needing a long hydrophilic sheath, though because of the way her clavicle pushed on the vein. The lead kept getting stuck. Then, the right ventricular lead was removed from the cephalic site and placed through the axillary site and positioned into the mid right ventricular septum when there was adequate pacing and sensing thresholds and no diaphragmatic stimulation with high output pacing. The sheath was split away and the lead was fixated to pectoralis muscle using 0 silk suture. I did put a pursestring around the cephalic site using a 2-[address] needle to stop some backbleeding. I then made a pacemaker pocket over the pectoralis muscle within the pectoralis fascia using blunt dissection. Pocket was flushed with copious amounts of bacitracin saline wash and inspected for hemostasis. The pulse generator was then attached to leads, making sure that the pins were in appropriate position, passed set screw and set screws were all tightened. Pulse generator was then placed in the pocket, making sure that the leads were lying flat beneath the device. A stay stitch using 0 silk suture was used to secure the device to pectoralis muscle. The incision was closed in 4 layered fashion using 2-0 Vicryl interrupted suture followed by a second layer of 2-0 Vicryl interrupted suture followed by a 3-0 Vicryl interrupted suture followed by a 4-0 Monocryl running stitch Dermabond and Gray and micropore dressing. EQUIPMENT: 1. Pulse generator is a [employer] Alejandrina XT DR KAYLI Colby [id number], serial number [id number]. 2. Right atrial lead Medtronic 5076-52 cm, serial number [id number]. 3. Right ventricular lead, Medtronic 5076-58 cm, serial number [id number]. INTRAOPERATIVE TESTIN. Right atrial lead: Fib waves 1 millivolt, impedance 475 ohms. 2. Right ventricular lead: R-wave 5.4 millivolts, impedance 836 ohms, threshold 0.4 volts at 0.4 milliseconds. FINAL MEASUREMENTS THROUGH THE DEVICE: 1. Right atrial lead fib waves 1.1 millivolts, impedance 532 ohms, no threshold testing as patient is in AFib. 2. Right ventricular lead: R-wave 2.8 millivolts, impedance 779 ohms, threshold 0.5 volts at 0.4 milliseconds. FINAL PARAMETERS: MVP-R 60/130, right atrial amplitude 3.5 volts, pulse width 0.4 milliseconds, sensitivity 0.15 millivolts. Right ventricular amplitude 3.5 volts, pulse width 0.4 milliseconds, sensitivity 1.2 millivolts. IMPRESSION: Successful implantation of a dual chamber rate responsive permanent pacemaker secondary to tachybrady syndrome along with peripheral venogram under fluoroscopic guidance. PLAN: Monitor patient, 12-lead ECG and chest x-ray. She is not allowed to lift left elbow or left shoulder for 1 month. She cannot lift more than 10 pounds with the left arm for 2 weeks. She can shower in 1 week. She is to leave the dressing on and keep that dry until May 20 and she can remove the dressing and shower, let water run over the incision, do not scrub it. She will have a device and wound check next week in our [facility]. We will increase her sotalol to 80 mg b.i.d., restarted back on her Coumadin and restarted back on her carvedilol as well. EKG also in the morning and most likely will need to be here for another day or 2 because of the increase in sotalol to monitor the QTC. I attest to the content of the Intraoperative Record and any orders documented therein. Any exceptions are noted below. MTDD
--- NOTE | 2019-05-13 13:36 | Hospitalist Progress Note ---
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 Coreg and coumadin restarted by cardiology. Pt doing well, sling in place. Pt not in pain. Defer to cardiology to titrate rate and rhythm agents according to their plan. (2) Paroxysmal atrial fibrillation: Restarted Coreg and coumadin s/p pacer placement today. Cont sotalol. (3) Symptomatic bradycardia: resolved with pacer placement. HR in the 60s. (4) HTN (hypertension): At goal, cont current medications but will stop the norvasc as she is more at goal now and to avoid polypharmacy. (5) Diastolic dysfunction: euvolemic, chronic, stable. Cont daily Lasix (6) Post-surgical hypothyroidism: at goal, cont home Synthroid. (7) CKD (chronic kidney disease), stage III: At baseline, cont to monitor. Avoid nephrotoxic substances as able. (8) Hyperlipidemia: statin per home regimen. (9) Depression: -Continue escitalopram per home regimen. (10) DVT prophylaxis: Coumadin-INR 1.3 this am. Cont SCDs post procedure. warfarin has been restarted. Trend daily INR Full Code Dispo-plan for home when medically stable. PT/OT to assess. Karen West DO [facility] Hospitalist Subjective feeling well post PM placement no nausea-tolerating PO denies pain Review of Systems Review of Systems: All systems reviewed & are unremarkable except as noted in HPI & below Physical Exam Physical Exam: CONSTITUTIONAL: WNWD, vitals as above, generally well- appearing EYES: normal conjunctivae, no scleral icterus ENT: MMM RESPIRATORY: clear to auscultation bilaterally, no crackles, rales or wheezes, normal respiratory effort CARDIOVASCULAR: regular rate and rhythm, S1 and 2 heard without murmurs, gallops or rubs, no JVD, no peripheral edema GASTROINTESTINAL: soft, nontender, ondistended MUSCULOSKELETAL: strength 5/5 throughout, head is normocephalic and atraumatic SKIN: warm and dry NEUROLOGIC: CN 2-12 grossly intact, no sensory deficit, normal cognition, normal speech, no tremor, no gross focal deficits. PSYCHIATRIC: alert cooperative and oriented to person, place and time. Results & Data Vital Signs (Past 12 Hours) Vital Signs Temp Pulse Pulse Resp BP BP Pulse Ox 05/13/19 13:31 36.7 C 59 L 18 151/76 H 94 05/13/19 13:16 36.8 C 59 L 18 159/74 H 94 05/13/19 12:53 58 L 17 160/74 H 94 05/13/19 12:40 64 16 180/79 H 95 05/13/19 10:15 41 L 17 168/63 H 95 05/13/19 08:00 36.6 C 44 L 20 163/66 H 93 05/13/19 03:33 36.8 C 42 L 18 152/82 H 95 Laboratory Results Short CBC 05/13/19 Range/Units 05:52 WBC 7.96 (4.8-10.8) K/uL Hgb 12.1 (12.0-16.0) g/dL Hct 36.6 L (37-47) % Plt Count 325 (130-400) K/uL BMP 05/13/19 05:52 Sodium 140 Potassium 3.9 Chloride 111 H Carbon Dioxide 22 BUN 15 Creatinine 1.02 Glucose 91 Calcium 8.9 Medications Administered Current Inpatient Medications Acetaminophen (Tylenol) 650 mg PO Q4H PRN PRN Reason: Pain or Fever Stop: 06/11/19 14:59 Acetaminophen (Tylenol) 650 mg PO Q4H PRN PRN Reason: Pain Stop: 06/12/19 12:47 Amlodipine Besylate (Norvasc) 2.5 mg PO HS [facility] Stop: 06/11/19 19:39 Last Admin: 05/12/19 21:19 Dose: 2.5 mg Documented by: Aspirin (Ecotrin Ectab) 81 mg PO QAM ANGELA Stop: 06/12/19 08:59 Last Admin: 05/13/19 13:19 Dose: 81 mg Documented by: Brinzolamide (Azopt) 1 drops OP BID [facility] Stop: 06/11/19 20:59 Last Admin: 05/13/19 09:12 Dose: 1 drops Documented by: Carvedilol (Coreg) 3.125 mg PO BID [facility] Stop: 06/12/19 20:59 Escitalopram Oxalate (Lexapro Tab) 5 mg PO DAILY [facility] Stop: 06/11/19 14:59 Last Admin: 05/13/19 13:18 Dose: 5 mg Documented by: Famotidine (Pepcid) 20 mg PO BID [facility] Stop: 06/11/19 20:59 Last Admin: 05/13/19 13:18 Dose: 20 mg Documented by: Furosemide (Lasix) 20 mg PO QAM [facility] Stop: 06/13/19 08:59 Promethazine HCl 12.5 mg/ (Sodium Chloride) 50.5 mls @ 202 mls/hr IV Q6H PRN PRN Reason: Nausea And Vomiting Stop: 06/11/19 19:33 Last Infusion: 05/13/19 13:27 Dose: Infused Documented by: Levothyroxine Sodium (Synthroid) 25 mcg PO DAILYBB [facility] Stop: 06/12/19 06:29 Last Admin: 05/13/19 05:34 Dose: 25 mcg Documented by: Loperamide HCl (Imodium) 2 mg PO Q8H PRN PRN Reason: Diarrhea Last Admin: 05/12/19 18:36 Dose: 2 mg Documented by: Lorazepam (Ativan) 0.5 mg PO HS PRN PRN Reason: Insomnia Stop: 06/12/19 12:48 Losartan Potassium (Cozaar) 50 mg PO BID [facility] Stop: 06/11/19 12:44 Last Admin: 05/12/19 13:17 Dose: 50 mg Documented by: [facility]ivitamins ([facility]itamin Tab) [facility] [place] Stop: 06/12/19 08:59 Last Admin: 05/13/19 13:18 Dose: 1 tab Documented by: Multivitamins/Minerals (Caltrate Plus) 1 tab PO DAILY [facility] Stop: 06/12/19 08:59 Last Admin: 05/13/19 13:20 Dose: 1 tab Documented by: Pravastatin Sodium (Pravachol) 20 mg PO QPM [facility] Stop: 06/11/19 20:59 Last Admin: 05/12/19 21:24 Dose: 20 mg Documented by: Sotalol HCl (Betapace) 80 mg PO BID [facility] Stop: 06/12/19 20:59 Spironolactone (Aldactone) 25 mg PO QAM [facility] Stop: 06/12/19 08:59 Last Admin: 05/13/19 13:19 Dose: 25 mg Documented by: Warfarin Sodium (Coumadin) 3 mg PO DAILY@1600 [facility] Stop: 06/12/19 15:59 Warfarin Sodium (Coumadin) 1 mg PO MoWeFr@1600 [facility] Stop: 06/12/19 15:59 Warfarin Sodium (Coumadin) 0.5 mg PO MoWeFr@1600 [facility] Stop: 06/12/19 15:59
[2019-05-13] MEDS: LOSARTAN POTASSIUM 50 MG TAB PO SCH ×2 (14:01→21:28)
[2019-05-13] MEDS: WARFARIN SOD 3 MG TAB PO SCH (15:37)
[2019-05-13] MEDS ORDERED: WARFARIN SOD 1 MG TAB PO SCH (16:00)
[2019-05-13] MEDS ORDERED: WARFARIN SOD 0.5 MG TAB PO SCH (16:00)
[2019-05-13] MEDS: TRAVOPROST Z 0.004% OPH SOLN 2.5 ML BTL OP SCH (21:25)
[2019-05-13] MEDS: carvediloL 3.125 MG TAB PO SCH (21:27)
[2019-05-13] MEDS: PRAVASTATIN SOD 20 MG TAB PO SCH (21:27)
[2019-05-14] MEDS: LEVOTHYROXINE SODIUM 25 MCG TABLET PO SCH (05:50)
[2019-05-14 06:40] LABS: Hemoglobin 12.2 g/dL (12.0-16.0); Mean Corpuscular Hemoglobin 28.4 pg (25-34); Mean Corpuscular Volume 86.2 fL (80-100); Mean Platelet Volume 8.9 fL (7.4-10.4); Platelet Count 285 K/uL (130-400); RDW Standard Deviation 43.4 fL (36.4-46.3); Red Blood Count 4.29 M/uL (4.2-5.4); White Blood Count 12.44 K/uL (4.8-10.8)
--- NOTE | 2019-05-14 06:42 | XRay Report ---
XR chest 2V PA/lateral HISTORY: 79 years-old Female post implant status post placement of a left subclavian pacer COMPARISON: Chest radiograph 05/12/2019 TECHNIQUE: PA and lateral views of the chest FINDINGS: Cardiac silhouette is mildly enlarged, unchanged. Calcified plaque of the thoracic aortic arch. Limit ed lateral view secondary to left upper extremity positioning. Blunting of the left costophrenic angl e suggests trace left pleural effusion. Linear left basilar opacities suggest probable atelectasis. M ild right hemidiaphragmatic elevation is unchanged. No pneumothorax or overt pulmonary edema. Left buckner bclavian pacer is noted. Leads overlie the expected locations of the right atrium and right ventricle . Degenerative changes of the shoulders and spine. IMPRESSION: Status post placement of a left subclavian pacer/AICD. No postprocedural pneumothorax. ACT 112: Negative or not required by law. The above report was generated using voice recognition software. It may contain grammatical, syntax o r spelling errors. Electronically signed by: Robert Lowery M.D. 05/14/2019 6:40 AM
[2019-05-14 06:49] LABS: INR 1.3 (0.9-1.1)
[2019-05-14 07:20] LABS: BUN Creatinine Ratio 17.5 (10-20); Calcium 8.6 mg/dl (8.5-10.1); Creatinine Clr Calc Pharmacy 44.1 ml/min; Est GFR (Non-African American) 55.3; Potassium 3.9 mmol/L (3.5-5.1)
[2019-05-14] MEDS: MULTIVITAMIN TAB PO SCH (07:48)
[2019-05-14] MEDS: LOSARTAN POTASSIUM 50 MG TAB PO SCH (07:48)
[2019-05-14] MEDS: SOTALOL HCL 80 MG TAB PO SCH ×2 (07:49→19:50)
[2019-05-14] MEDS: CALCIUM 600MG + VIT D 400 IU TAB PO SCH (07:49)
[2019-05-14] MEDS: ESCITALOPRAM OXALATE 10 MG TAB PO SCH (07:49)
[2019-05-14] MEDS: SPIRONOLACTONE 25 MG TAB PO SCH (07:50)
[2019-05-14] MEDS: BRINZOLAMIDE (AZOPT) OPS 10 ML BTL OP SCH ×2 (07:50→19:49)
[2019-05-14] MEDS: carvediloL 3.125 MG TAB PO SCH (07:50)
[2019-05-14] MEDS: ASPIRIN 81 MG ECTAB PO SCH (07:50)
--- NOTE | 2019-05-14 08:09 | Cardiology Progress Note ---
Date of Service May 14, 2019 Assessment & Plan (1) Paroxysmal atrial fibrillation: continue sotalol 80mg BID to get her second dose today; if QTc remains stable could potential discharge after 4 doses-of note the computer is miss calculating the QTc due to the fib/flutter waves-I calculated the QTc to be 440ms continue coumadin plan on DCCV as an outpatient in 1 month Present on Admission?: Yes (2) Symptomatic bradycardia: s/p ppm POD 1 Present on Admission?: Yes (3) HTN (hypertension): ok to continue ARB and spironolactone Present on Admission?: Yes (4) Tachy-ray syndrome: s/p ppm POD 1 Present on Admission?: Yes Subjective pt feeling better after ppm Some discomfort at the incision site tolerating the higher dose of sotalol Review of Systems Review of Systems: All systems reviewed & are unremarkable except as noted in HPI & below Physical Exam Physical Exam: aaox3, NAD NC/AT, EOMI Supple No JVD irregular/irregular S1/S2, No murmur CTA b/l no w/r/r soft nt/nd no LE edema b/l skin intact no focal deficits left pectoral incision intact, no hematoma mild ecchymosis, dressing in placee ENMT: Mallampati Class: III Respiratory: normal respiratory effort, lungs clear to auscultation Cardiovascular: Rate/Rhythm: + irregularly irregular Results & Data Vital Signs (Past 12 Hours) Vital Signs Temp Pulse Resp BP Pulse Ox 05/14/19 07:46 37.6 C H 60 18 131/75 94 05/14/19 04:00 37.2 C 60 18 130/61 93 05/13/19 23:55 37.4 C 60 18 135/75 94 Laboratory Results Abnormal Lab Results 05/14/19 05/14/19 05/14/19 05:55 05:55 05:55 WBC 12.44 H RBC 4.29 Hgb 12.2 Hct 37.0 MCV 86.2 MCH 28.4 MCHC 33.0 RDW Std Deviation 43.4 RDW Coeff of Yadira 14.0 Plt Count 285 MPV 8.9 PT 13.0 H INR 1.3 H Sodium 137 Potassium 3.9 Chloride 108 H Carbon Dioxide 24 Anion Gap 5.0 BUN 17 Creatinine 0.98 Est Cr Clr Drug Dosing 44.1 Est GFR ( Amer) 64.0 Est GFR (Non-Af Amer) 55.3 BUN/Creatinine Ratio 17.5 Glucose 100 H Calcium 8.6 Medications reviewed Diagnostic Findings CXR: No PTX, leads in place Pacemaker Interrogation Today: normal function; stable lead testing since implant EC05/14/2019:AF 60bpm v pacing with QTc 440ms (the computer is not accurately reading it due to the Atrial fib/flutter waves 05/13/2019:AF with [employer] 60bpm QTc 440ms (again the computer is miss calculating the QTc due to the AF/flutter waves) Medications Administered Current Inpatient Medications Acetaminophen (Tylenol) 650 mg PO Q4H PRN PRN Reason: Pain or Fever Stop: 06/11/19 14:59 Acetaminophen (Tylenol) 650 mg PO Q4H PRN PRN Reason: Pain Stop: 06/12/19 12:47 Aspirin (Ecotrin Ectab) 81 mg PO QAM [facility] Stop: 06/12/19 08:59 Last Admin: 05/14/19 07:50 Dose: 81 mg Documented by: Brinzolamide (Azopt) 1 drops OP BID [facility] Stop: 06/11/19 20:59 Last Admin: 05/14/19 07:50 Dose: 1 drops Documented by: Carvedilol (Coreg) 3.125 mg PO BID [facility] Stop: 06/12/19 20:59 Last Admin: 05/14/19 07:50 Dose: 3.125 mg Documented by: Escitalopram Oxalate (Lexapro Tab) 5 mg PO DAILY [facility] Stop: 06/11/19 14:59 Last Admin: 05/14/19 07:49 Dose: 5 mg Documented by: Famotidine (Pepcid) 20 mg PO BID [facility] Stop: 06/11/19 20:59 Last Admin: 05/13/19 21:27 Dose: 20 mg Documented by: Furosemide (Lasix) 20 mg PO QAM [facility] Stop: 06/13/19 08:59 Last Admin: 05/14/19 07:50 Dose: 20 mg Documented by: Promethazine HCl 12.5 mg/ (Sodium Chloride) 50.5 mls @ 202 mls/hr IV Q6H PRN PRN Reason: Nausea And Vomiting Stop: 06/11/19 19:33 Last Infusion: 05/13/19 13:27 Dose: Infused Documented by: Levothyroxine Sodium (Synthroid) 25 mcg PO DAILYBB [facility] Stop: 06/12/19 06:29 Last Admin: 05/14/19 05:50 Dose: 25 mcg Documented by: Loperamide HCl (Imodium) 2 mg PO Q8H PRN PRN Reason: Diarrhea Last Admin: 05/12/19 18:36 Dose: 2 mg Documented by: Lorazepam (Ativan) 0.5 mg PO HS PRN PRN Reason: Insomnia Stop: 06/12/19 12:48 Losartan Potassium (Cozaar) 50 mg PO BID [facility] Stop: 06/11/19 12:44 Last Admin: 05/14/19 07:48 Dose: 50 mg Documented by: Multivitamins (Multivitamin Tab) 1 tab [facility] Stop: 06/12/19 08:59 Last Admin: 05/14/19 07:48 Dose: 1 tab Documented by: Multivitamins/Minerals (Caltrate Plus) 1 tab PO DAILY [facility] Stop: 06/12/19 08:59 Last Admin: 05/14/19 07:49 Dose: 1 tab Documented by: Pravastatin Sodium (Pravachol) 20 mg PO QPM [facility] Stop: 06/11/19 20:59 Last Admin: 05/13/19 21:27 Dose: 20 mg Documented by: Sotalol HCl (Betapace) 80 mg PO BID [facility] Stop: 06/12/19 20:59 Last Admin: 05/14/19 07:49 Dose: 80 mg Documented by: Spironolactone (Aldactone) 25 mg PO QAM [facility] Stop: 06/12/19 08:59 Last Admin: 05/14/19 07:50 Dose: 25 mg Documented by: Warfarin Sodium (Coumadin) 3 mg PO DAILY@1600 [facility] Stop: 06/12/19 15:59 Last Admin: 05/13/19 15:37 Dose: 3 mg Documented by: Warfarin Sodium (Coumadin) 1 mg PO MoWeFr@1600 [facility] Stop: 06/12/19 15:59 Last Admin: 05/13/19 15:37 Dose: 1 mg Documented by: Warfarin Sodium (Coumadin) 0.5 mg PO MoWeFr@1600 [facility] Stop: 06/12/19 15:59 Last Admin: 05/13/19 15:36 Dose: 0.5 mg Documented by:
[2019-05-14] MEDS ORDERED: FUROSEMIDE 20 MG TAB PO SCH (09:00)
[2019-05-14] MEDS ORDERED: MECLIZINE HCL 25 MG TAB PO STA (09:01)
--- NOTE | 2019-05-14 09:26 | Hospitalist Progress Note ---
Date of Service May 14, 2019 Assessment & Plan (1) Dizziness: Meclizine PRN. PT/OT evaluation. 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 Coreg and coumadin restarted by cardiology yesterday. Pt doing well aside from some increased dizziness this morning, sling in place. Pt not in pain. Defer to cardiology to titrate rate and rhythm agents according to their plan. Meclizine given, will cont to monitor. (3) Paroxysmal atrial fibrillation: Restarted Coreg and coumadin s/p pacer placement 05/13. Cont sotalol. (4) HTN (hypertension): At goal, cont current medications. (5) Diastolic dysfunction: euvolemic, chronic, stable. Cont daily Lasix (6) Post-surgical hypothyroidism: at goal, cont home Synthroid. (7) CKD (chronic kidney disease), stage III: At baseline, cont to monitor. Avoid nephrotoxic substances as able. (8) Hyperlipidemia: statin per home regimen. (9) Depression: -Continue escitalopram per home regimen. (10) DVT prophylaxis: Coumadin-INR 1.3 this am. Cont SCDs post procedure. warfarin has been restarted. Trend daily INR Full Code Dispo-plan for home when medically stable. PT/OT to assess. Karen West DO [facility] Hospitalist Subjective dizzy with walking and changing position this morning. she was actually sitting up for breakfast and after just a few minutes, felt like she was going to be sick if she didn't lay down this is worse that her typical dizziness for which she takes meclizine at home. she wasn't able to eat much breakfast denies pain aflutter on tele review. HR 60s. Review of Systems Review of Systems: All systems reviewed & are unremarkable except as noted in HPI & below Physical Exam Physical Exam: CONSTITUTIONAL: WNWD, vitals as above, generally well- appearing EYES: normal conjunctivae, no scleral icterus ENT: MMM RESPIRATORY: clear to auscultation bilaterally, no crackles, rales or wheezes, normal respiratory effort CARDIOVASCULAR: regular rate and rhythm, S1 and 2 heard without murmurs, gallops or rubs, no JVD, no peripheral edema GASTROINTESTINAL: soft, nontender, nondistended MUSCULOSKELETAL: strength 5/5 throughout, head is normocephalic and atraumatic SKIN: warm and dry NEUROLOGIC: CN 2-12 grossly intact, no sensory deficit, normal cognition, normal speech, no tremor, no gross focal deficits. PSYCHIATRIC: alert cooperative and oriented to person, place and time. Results & Data Vital Signs (Past 12 Hours) Vital Signs Temp Pulse Resp BP Pulse Ox 05/14/19 07:46 37.6 C H 60 18 131/75 94 05/14/19 04:00 37.2 C 60 18 130/61 93 05/13/19 23:55 37.4 C 60 18 135/75 94 Laboratory Results Short CBC 05/14/19 Range/Units 05:55 WBC 12.44 H (4.8-10.8) K/uL Hgb 12.2 (12.0-16.0) g/dL Hct 37.0 (37-47) % Plt Count 285 (130-400) K/uL BMP 05/14/19 05:55 Sodium 137 Potassium 3.9 Chloride 108 H Carbon Dioxide 24 BUN 17 Creatinine 0.98 Glucose 100 H Calcium 8.6 Diagnostic Findings XR chest 2V PA/lateral FINDINGS: Cardiac silhouette is mildly enlarged, unchanged. Calcified plaque of the thoracic aortic arch. Limited lateral view secondary to left upper extremity positioning. Blunting of the left costophrenic angle suggests trace left pleural effusion. Linear left basilar opacities suggest probable atelectasis. Mild right hemidiaphragmatic elevation is unchanged. No pneumothorax or overt pulmonary edema. Left subclavian pacer is noted. Leads overlie the expected locations of the right atrium and right ventricle. Degenerative changes of the shoulders and spine. IMPRESSION: Status post placement of a left subclavian pacer/AICD. No postprocedural pneumothorax. Medications Administered Current Inpatient Medications Acetaminophen (Tylenol) 650 mg PO Q4H PRN PRN Reason: Pain or Fever Stop: 06/11/19 14:59 Acetaminophen (Tylenol) 650 mg PO Q4H PRN PRN Reason: Pain Stop: 06/12/19 12:47 Aspirin (Ecotrin Ectab) 81 mg PO QAM [facility] Stop: 06/12/19 08:59 Last Admin: 05/14/19 07:50 Dose: 81 mg Documented by: Brinzolamide (Azopt) 1 drops OP BID [facility] Stop: 06/11/19 20:59 Last Admin: 05/14/19 07:50 Dose: 1 drops Documented by: Carvedilol (Coreg) 3.125 mg PO BID [facility] Stop: 06/12/19 20:59 Last Admin: 05/14/19 07:50 Dose: 3.125 mg Documented by: Escitalopram Oxalate (Lexapro Tab) 5 mg PO DAILY [facility] Stop: 06/11/19 14:59 Last Admin: 05/14/19 07:49 Dose: 5 mg Documented by: Famotidine (Pepcid) 20 mg PO BID [facility] Stop: 06/11/19 20:59 Last Admin: 05/13/19 21:27 Dose: 20 mg Documented by: Furosemide (Lasix) 20 mg PO QAM [facility] Stop: 06/13/19 08:59 Last Admin: 05/14/19 07:50 Dose: 20 mg Documented by: Promethazine HCl 12.5 mg/ (Sodium Chloride) 50.5 mls @ 202 mls/hr IV Q6H PRN PRN Reason: Nausea And Vomiting Stop: 06/11/19 19:33 Last Infusion: 05/13/19 13:27 Dose: Infused Documented by: Levothyroxine Sodium (Synthroid) 25 mcg PO DAILYBB [facility] Stop: 06/12/19 06:29 Last Admin: 05/14/19 05:50 Dose: 25 mcg Documented by: Loperamide HCl (Imodium) 2 mg PO Q8H PRN PRN Reason: Diarrhea Last Admin: 05/12/19 18:36 Dose: 2 mg Documented by: Lorazepam (Ativan) 0.5 mg PO HS PRN PRN Reason: Insomnia Stop: 06/12/19 12:48 Losartan Potassium (Cozaar) 50 mg PO BID [facility] Stop: 06/11/19 12:44 Last Admin: 05/14/19 07:48 Dose: 50 mg Documented by: Multivitamins (Multivitamin Tab) 1 tab PO QAM [facility] Stop: 06/12/19 08:59 Last Admin: 05/14/19 07:48 Dose: 1 tab Documented by: Multivitamins/Minerals (Caltrate Plus) 1 tab PO DAILY [facility] Stop: 06/12/19 08:59 Last Admin: 05/14/19 07:49 Dose: 1 tab Documented by: Pravastatin Sodium (Pravachol) 20 mg PO QPM [facility] Stop: 06/11/19 20:59 Last Admin: 05/13/19 21:27 Dose: 20 mg Documented by: Sotalol HCl (Betapace) 80 mg PO BID [facility] Stop: 06/12/19 20:59 Last Admin: 05/14/19 07:49 Dose: 80 mg Documented by: Spironolactone (Aldactone) 25 mg PO QAM [facility] Stop: 06/12/19 08:59 Last Admin: 05/14/19 07:50 Dose: 25 mg Documented by: Warfarin Sodium (Coumadin) 3 mg PO DAILY@1600 [facility] Stop: 06/12/19 15:59 Last Admin: 05/13/19 15:37 Dose: 3 mg Documented by: Warfarin Sodium (Coumadin) 1 mg PO MoWeFr@1600 [facility] Stop: 06/12/19 15:59 Last Admin: 05/13/19 15:37 Dose: 1 mg Documented by: Warfarin Sodium (Coumadin) 0.5 mg PO MoWeFr@1600 [facility] Stop: 06/12/19 15:59 Last Admin: 05/13/19 15:36 Dose: 0.5 mg Documented by:
[2019-05-14] MEDS: FAMOTIDINE 20 MG TAB PO SCH ×2 (11:28→19:50)
[2019-05-14] MEDS: WARFARIN SOD 3 MG TAB PO SCH (15:41)
[2019-05-14] MEDS ORDERED: SODIUM CHLORIDE 0.9% 1000ML 500 ML IV ONE (17:06)
--- NOTE | 2019-05-14 17:14 | Communication Note ---
Date of Service: May 14, 2019 After reading the PT assessment, there was more concern than just her baseline dizziness as the patient stated that her vision was "going black" the longer she was ambulating. She also had an episode when I was evaluating her earlier where she was sitting up in the chair and reported needing to get into bed in a supine position because she felt so poorly. She reported persistent dizziness, which she has had chronically and for which she has used meclizine successfully in the past. However, meclizine didn't take her dizziness away. She is describing more lightheadedness rather that vertigo at this time. Orthostatics were checked and were positive. Will give fluid challenge now and repeat orthostatics to see if this improves her symptoms. It is noted that she has changes ongoing with her cardiac medications, and of course, just received a pacemaker. Will discuss this with Cardiology in am if she is not improved. Brett, DO
[2019-05-14] MEDS: SODIUM CHLORIDE 0.9% 1000ML 1,000 ML IV SCH (17:57)
[2019-05-14] MEDS: TRAVOPROST Z 0.004% OPH SOLN 2.5 ML BTL OP SCH (19:49)
[2019-05-14] MEDS: PRAVASTATIN SOD 20 MG TAB PO SCH (19:51)
[2019-05-15] MEDS: SODIUM CHLORIDE 0.9% 1000ML 1,000 ML IV SCH (01:47)
[2019-05-15] MEDS: LEVOTHYROXINE SODIUM 25 MCG TABLET PO SCH (05:54)
[2019-05-15 06:50] LABS: INR 1.5 (0.9-1.1); Prothrombin Time 15.3 Seconds (9.0-12.0)
[2019-05-15] MEDS: BRINZOLAMIDE (AZOPT) OPS 10 ML BTL OP SCH (07:41)
[2019-05-15] MEDS: MULTIVITAMIN TAB PO SCH (07:41)
[2019-05-15] MEDS: ESCITALOPRAM OXALATE 10 MG TAB PO SCH (07:41)
[2019-05-15] MEDS: CALCIUM 600MG + VIT D 400 IU TAB PO SCH (07:41)
[2019-05-15] MEDS: FAMOTIDINE 20 MG TAB PO SCH (07:41)
[2019-05-15] MEDS: SPIRONOLACTONE 25 MG TAB PO SCH (07:41)
[2019-05-15] MEDS: ASPIRIN 81 MG ECTAB PO SCH (07:41)
[2019-05-15] MEDS: SOTALOL HCL 80 MG TAB PO SCH (07:41)
[2019-05-15] MEDS ORDERED: ENOXAPARIN INJ 40 MG/0.4 ML SYR SQ SCH (11:00)
--- NOTE | 2019-05-15 13:11 | Discharge Summary ---
Date of Service May 15, 2019 Admission HPI Per Admitting Provider Pt is 79 y/o F with PMH labile HTN, paroxysmal atrial fibrillation on Coumadin, H/O DVT, PE in 2015, PSVT, borderline tachybrady syndrome, diastolic dysfunction, moderate mitral regurgitation, RBBB, CKD III, GERD, dyslipidemia, depression, H/O Graves disease and postablative hypothyroidism presented to ER from cardiology office for dizziness and bradycardia. 05/05/2019 seen in cardiology clinic by Dr. Ames for dizziness, exertional shortness of breath, weakness. She was found to be back in A. fib with a rate of 48. Her carvedilol was decreased from 6.25 mg twice daily to 3.125 mg twice daily and sotalol was continued. Patient had follow-up today with continued dizziness with minimal activity. Was found to be still in atrial fibrillation with heart rate of 41. Previously had planned cardioversion however now with bradycardia decision was made to hold on cardioversion. Tentative plan pacemaker placement tomorrow. Currently at rest pt denies any symptoms. Reports dizziness with walking and exertional SOB and fatigue. Denies CP. States one week ago at symptom onset she had some palpitation sensation but denies any palpitations since. Denies fever/chills, diaphoresis, N/V/D/C, MORLEY, syncope, vision changes, neck pain, orthopnea, cough, sore throat, choking, otalgia, rhinorrhea, abdominal pain, paresthesias, extremity edema, rashes, urinary symptoms. History echo 10/2018: EF: 57%, moderate mitral regurgitation, moderate tricuspid regurgitation, abnormal diastolic function Admission Exam (Per Admitting) Constitutional WD/WN, vitals as above no acute distress Eyes PERRL, conjunctivae normal, anicteric sclerae ENMT external ear and nose normal, oropharynx normal Neck trachea midline, no thyromegaly Respiratory normal respiratory effort, lungs clear to auscultation Cardiovascular Rate/Rhythm: + bradycardic and + irregularly irregular Heart Sounds: + murmur (Grade 1/6 systolic murmur) Vessels: no JVD Gastrointestinal (Abdomen) normal bowel sounds, soft, nontender, no hepatosplenomegaly Musculoskeletal no cyanosis or clubbing, extremities motor strength 5/5 Discharge Data Consultations 05/12/19 11:52 Consult Cardiac Electrophysiology Routine 05/12/19 12:33 ED Decision to Admit Stat 05/12/19 15:00 Consult Cardiology Routine Consult Case Management - Discharge Planning Routine Procedures Performed Operation Date: 05/13/19 06:42 Actual Procedures p Pacer with A/V Leads (Dual) - DO jak Damon Cineradiography w/Routine Exam - DO jak Damon Venogram Extremity Unilateral - Maye Moss DO Hospital Course (1) Paroxysmal atrial fibrillation: Patient was admitted and underwent dual-chamber pacemaker insertion. Sotalol increased to 80 mg twice per day, carvedilol discontinued (2) Symptomatic bradycardia: s/p ppm POD 1 (3) HTN (hypertension): Blood pressures transiently low, losartan reduced to 50 mg/day, furosemide reduced to 20 mg 3 days/week, spironolactone reduced to 12.5 mg daily (4) Tachy-ray syndrome: Dual-chamber pacemaker insertion performed
--- NOTE | 2019-05-18 00:21 | Discharge Summary ---
Date of Service May 18, 2019 Admission HPI Per Admitting Provider Pt is 79 y/o F with PMH labile HTN, paroxysmal atrial fibrillation on Coumadin, H/O DVT, PE in 2015, PSVT, borderline tachybrady syndrome, diastolic dysfunction, moderate mitral regurgitation, RBBB, CKD III, GERD, dyslipidemia, depression, H/O Graves disease and postablative hypothyroidism presented to ER from cardiology office for dizziness and bradycardia. 05/05/2019 seen in cardiology clinic by Dr. Ames for dizziness, exertional shortness of breath, weakness. She was found to be back in A. fib with a rate of 48. Her carvedilol was decreased from 6.25 mg twice daily to 3.125 mg twice daily and sotalol was continued. Patient had follow-up today with continued dizziness with minimal activity. Was found to be still in atrial fibrillation with heart rate of 41. Previously had planned cardioversion however now with bradycardia decision was made to hold on cardioversion. Tentative plan pacemaker placement tomorrow. Currently at rest pt denies any symptoms. Reports dizziness with walking and exertional SOB and fatigue. Denies CP. States one week ago at symptom onset she had some palpitation sensation but denies any palpitations since. Denies fever/chills, diaphoresis, N/V/D/C, MORLEY, syncope, vision changes, neck pain, orthopnea, cough, sore throat, choking, otalgia, rhinorrhea, abdominal pain, paresthesias, extremity edema, rashes, urinary symptoms. History echo 10/2018: EF: 57%, moderate mitral regurgitation, moderate tricuspid regurgitation, abnormal diastolic function Principal Diagnosis symptomatic bradycardia Discharge Data Allergies Allergy/AdvReac Type Severity Reaction Status Date / Time atorvastatin Allergy Intermediate "legs Verified 05/12/19 10:24 don't want to move." Consultations 05/12/19 11:52 Consult Cardiac Electrophysiology Routine 05/12/19 12:33 ED Decision to Admit Stat 05/12/19 15:00 Consult Cardiology Routine Consult Case Management - Discharge Planning Routine Procedures Performed Operation Date: 05/13/19 06:42 Actual Procedures p Pacer with A/V Leads (Dual) - DO jak Damon Cineradiography w/Routine Exam - DO jak Damon Venogram Extremity Unilateral - Maye Moss DO Ordered Studies 05/13/19 06:43 CL Cath Imgs for PACS use only Routine Hospital Course (1) Paroxysmal atrial fibrillation: (2) Hari-tachy syndrome: (3) HTN (hypertension): (4) Symptomatic bradycardia: (5) Diastolic dysfunction: 1) Paroxysmal atrial fibrillation: Patient was admitted and underwent dual-chamber pacemaker insertion. Sotalol increased to 80 mg twice per day, carvedilol discontinued (2) Symptomatic bradycardia: s/p ppm POD 1 (3) HTN (hypertension): Blood pressures transiently low, losartan reduced to 50 mg/day, furosemide reduced to 20 mg 3 days/week, spironolactone reduced to 12.5 mg daily (4) Tachy-hari syndrome: Dual-chamber pacemaker insertion performed Total Time Total Time Spent Total Time Spent (In Minutes): 60 Total Time Includes: Examination of the Patient, Discharge Planning, Medication Reconciliation and Communication With Other Providers Discharge Plan Discharge Items Patient Disposition: Home - Self-Care Reason For Visit: BRADYCARDIA, AFIB Discharge Diagnosis: Tachybradycardia syndrome Paroxysmal atrial fibrillation Dual chamber permanent pacemaker insertion Condition on Discharge: Good Goals: Improved arrhythmia control Activity: As commented below Activity Comment: do not lift the left elbow over the left shoulder for 1 month Lifting: No more than 10 pounds Lifting Comment: do not lift more than 10 pounds with the left arm for 2 weeks Bathing: Keep incision dry Bathing Comment: keep dressing on & dry until 05/20; then can shower shower Sexual Activity: After two weeks Driving/Machine Use: Resume 1 day after discharge Non-emergency contact: [employer] Supervisor Call non-emergency contact if: you have any medication questions Follow-up/Referrals: Marcell Landry DO [Primary Care Provider] - Diet: Heart Healthy Add Attending Provider Instructions: Device and wound check in [facility] Cardiology next week Tuesday 05/22 at 1pm. Keep dressing on & dry until 05/20; then can shower-just let water run over the incision do not scrub it If you have any concerns at the incision area call Dr. Moss's office immediately Pending Studies at Discharge: No Stand-Alone Forms: My [email or web address], Smoking Cessation Medications and DC Order Prescriptions: New sotalol 80 mg Tablet 80 mg PO BID 30 Days Qty: 60 RF: 3 Continued levothyroxine 25 mcg tablet 25 mcg PO DAILY RF: 0 famotidine 20 mg Tablet 20 mg PO BID RF: 0 lorazepam 0.5 mg Tablet 0.5 mg PO HS PRN (Reason: Insomnia) RF: 0 Azopt 1 % Drops,Suspension 1 drp OPHTHALMIC (EYE) BID RF: 0 Travatan Z 0.004 % Drops 1 drp OPHTHALMIC (EYE) PM RF: 0 aspirin 81 mg Tablet,Delayed Release (Dr/Ec) 81 mg PO QAM RF: 0 warfarin 3 mg Tablet 3 mg PO UD RF: 0 pravastatin 20 mg Tablet 20 mg PO QPM RF: 0 multivitamin Capsule 1 cap PO QAM RF: 0 escitalopram oxalate 5 mg Tablet 5 mg PO DAILY RF: 0 calcium carbonate-vitamin D3 [Calcium 500 + D] 500 mg(1,250mg) -200 unit Tablet 1 tab PO DAILY RF: 0 Changed spironolactone 25 mg Tablet 12.5 mg PO QAM Qty: 0 RF: 0 furosemide 20 mg Tablet See Rx Instructions .ROUTE .COMPLEX Qty: 0 RF: 0 losartan 50 mg Tablet 50 mg PO DAILY Qty: 0 RF: 0 Discontinued sotalol 80 mg Tablet 40 mg PO BID RF: 0 carvedilol 3.125 mg Tablet 3.125 mg PO BID RF: 0 Discharge Orders: Discharge Order (Routine); Ordered 05/15/19 Ordered By: Adam Luna Admission Data Admit Date/Time: 05/12/19 12:06 Attending Provider: Karen West Admit Provider: Karen West Primary Care Provider: Marcell Landry Other Providers: Maye Moss ; Karen West ; Adam Luna Other Interventions: Discharge Summary Assessment (RN) Last Done: 05/15/19 15:03 DC Date/Time DO NOT enter until pt leaves facility: 05/15/19 15:50
== END 2019-05-15 15:50 | disposition home or self-care (01) | DRG 243 ==
LOC: ED 09:22 → 2S 12:06

== ENCOUNTER 2021-12-26 19:54 | Inpatient (IN) ==
--- NOTE | 2021-12-26 20:38 | XRay Report ---
SINGLE VIEW CHEST CLINICAL HISTORY: Dyspnea. FINDINGS: 2 AP, portable, upright chest radiographs are compared to study dated 05/12/2019. A 2-lead cardiac pacemaker is unchanged in position. The heart is enlarged noting atherosclerotic calcificatio n of the thoracic and. There is pulmonary vascular congestion and mild pulmonary edema. Suspect small pleural effusions with dependent consolidation. No pneumothorax is seen. The skeletal structures are osteopenic. The bony thorax is grossly intact. IMPRESSION: 1. Cardiomegaly and cardiac pacemaker with evidence of congestive failure and mild pulmonary edema. 2. Suspect small pleural with dependent consolidation. ACT 112: Negative or not required by law. Electronically signed by: Rick Akhtar M.D. 12/26/2021 8:37 PM
[2021-12-26 21:14] LABS: Alanine Aminotransferase 15 U/L (7-52); Albumin Globulin Ratio 1.4 (0.9-2); Albumin Level 4.3 gm/dl (3.4-5.0); Alkaline Phosphatase 73 U/L (34-104); Anion Gap 13 (3-11); Aspartate Aminotransferase 28 U/L (13-39); BUN Creatinine Ratio 17.7 (10-20); Bilirubin,Total 0.8 mg/dl (0.2-1.0); Blood Urea Nitrogen 17 mg/dl (6-23); Calcium 9.6 mg/dl (8.5-10.1); Carbon Dioxide 21 mmol/L (21-32); Chloride 97 mmol/L (98-107); Est GFR (African American) 64.7 ml/min; Est GFR (Non-African American) 55.9 ml/min; Globulin 3.1 gm/dl (2.5-4.0); Glucose 139 mg/dl (70-99(Fasting)); Magnesium 1.8 mg/dl (1.7-2.4); Potassium 4.6 mmol/L (3.5-5.1); Sodium 131 mmol/L (136-145); Total Protein 7.4 gm/dl (6.0-8.3)
[2021-12-26 21:15] LABS: Basophils # (auto) 0.03 K/uL (0-0.2); Basophils % (auto) 0.3 %; Hematocrit (blood only) 42.1 % (34.1-44.9); Hemoglobin 13.6 g/dl (12.0-16.0); Immature Granulocytes # (auto) 0.05 K/uL (0.00-0.02); Immature Granulocytes % (auto) 0.4 %; Lymphocytes % (auto) 10.3 %; Mean Corpuscular Hemoglobin 27.5 pg (25.0-34.0); Mean Corpuscular Hgb Conc 32.3 g/dL (32.0-36.0); Mean Corpuscular Volume 85.1 fL (80.0-100.0); Mean Platelet Volume 8.7 fL (9.4-12.3); Monocytes # (auto) 0.43 K/uL (0.24-0.82); Monocytes % (auto) 3.7 %; Neutrophils # (auto) 9.94 K/uL (1.4-6.5); Neutrophils % (auto) 85.3 %; Platelet Count 336 K/uL (130-400); RDW Coefficient of Variation 14.5 % (11.5-14.5); RDW Standard Deviation 44.6 fL (36.4-46.3); Red Blood Count 4.95 M/uL (3.93-5.22); White Blood Count 11.65 K/ul (4.8-10.8)
[2021-12-26] MEDS ORDERED: OPTIRAY 320 100ml IV ONE (22:06)
[2021-12-26] MEDS ORDERED: ONDANSETRON INJ 2 MG/ML 2 ML VIAL IV STA (22:43)
[2021-12-26] MEDS ORDERED: ALBUT/IPRATROP 3MG/0.5MG NEB 3 ML VIAL NEB STA ×2 (22:43→23:44)
[2021-12-26] MEDS ORDERED: PIPERACILLIN/TAZOBACTAM 4.5 GM/120 ML BAG IV ONE (22:44)
--- NOTE | 2021-12-26 23:13 | Emergency Department Note ---
History of Present Illness General Chief complaint: Illness Stated complaint: vomit, fall, cough Time Seen by Provider: 12/26/21 21:37 History of Present Illness Maximum Pain Intensity: 7 This 81-year-old on Coumadin presents to the ER complaining of fall with left chest and abdominal pain Location: Chest and abdomen Quality:discomfort Severity: Moderate Duration: today Timing: today Context: Patient was concerned and came in Modifying factors: better with rest; worse with activity Patient states he is also been short of breath the past few days and coughing. Patient denies fevers, vomiting, diarrhea, flulike illness. INR was supratherapeutic yesterday and she held her Coumadin yesterday. Home Medications Medication Instructions Recorded Confirmed Type aspirin 81 mg tablet,delayed 81 mg PO QAM 05/11/19 12/26/21 History release calcium carbonate 500 mg-vitamin 1 tab PO QDL 05/11/19 12/26/21 History D3 5 mcg (200 unit) tablet (Calcium 500 + D) escitalopram oxalate 5 mg tablet 5 mg PO QDL 05/11/19 12/26/21 History multivitamin 1 cap PO QAM 05/11/19 12/26/21 History pravastatin 20 mg tablet 20 mg PO QPM 05/11/19 12/26/21 History travoprost 0.004 % eye drops 1 drp ophthalmic (eye) PM 05/11/19 12/26/21 History (Travatan Z) warfarin 3 mg tablet See Rx Instructions .Route .COMPLEX 05/11/19 12/26/21 History famotidine 20 mg tablet 20 mg PO BID 05/12/19 12/26/21 History levothyroxine 25 mcg tablet 25 mcg PO DAILY 05/12/19 12/26/21 History lorazepam 0.5 mg tablet 0.5 mg PO HS PRN Insomnia 05/12/19 12/26/21 History sotalol 80 mg tablet 80 mg PO BID 30 days #60 tabs 05/15/19 12/26/21 Rx spironolactone 25 mg tablet 12.5 mg PO QAM #0 tabs 05/15/19 12/26/21 Rx furosemide 20 mg tablet 20 mg PO 3XWK 12/26/21 12/26/21 History losartan 25 mg tablet 25 mg PO DAILY 12/26/21 12/26/21 History Allergies Allergy/AdvReac Type Severity Reaction Status Date / Time atorvastatin AdvReac Intermediate "legs Verified 12/26/21 22:38 don't want to move." Past Med/Surg History Medical History (Updated 12/26/21 @ 23:12 by Leeanne Urias PA-C) Arthritis Atrial fibrillation with rapid ventricular response FOLLOW WITH DR ARMIJO CKD (chronic kidney disease), stage III Depression OCAS Diastolic dysfunction Dizziness Esophageal reflux Glaucoma Goiter THYROID GOITER AND WATCING Graves disease History of cardioversion HTN (hypertension) Hyperlipidemia Hypothyroidism IBS (irritable bowel syndrome) Migraine OCAS MIGRAINES Mitral valve regurgitation FOLLOW WITH DR. ARMIJO Osteoporosis Post-surgical hypothyroidism Pulmonary embolism DX 2015 TAKES WARFARIN Surgical History Hx of arthroscopic knee surgery RIGHT Hx of laminectomy LUMBAR Family History Father Coronary heart disease Brother Diabetes Sister Thyroid cancer Social History Smoking Status: Never smoker Second Hand Exposure: No; Hx Alcohol Use: No Hx Substance Use: No Preferred Language: Niuean Communication Ability: Effective Visual Impairment: No Limitations Hearing Ability: Normal Organ Recovery Coordinator Required: No Beliefs That Will Affect Care: None marital status: Current Living Situation: Spouse current occupational status: retired Feels Safe at Home: Yes Assistive Devices: Glasses Review of Systems A total of 10 systems reviewed and were otherwise negative Physical Exam Vital Signs Vital Signs - 24 hr 12/26/21 19:59 12/26/21 20:08 12/26/21 21:43 Temperature 36.6 C Temperature Source Temporal Artery Scan Pulse Rate 71 Pulse Rate [Finger] 74 Respiratory Rate 18 20 Respiratory Effort / Characteristics Non-Labored Spontaneous Respiratory Depth Normal Respiratory Pattern Blood Pressure 156/99 H Blood Pressure [Left Arm] 158/100 H Blood Pressure Mean 118 Blood Pressure Mean [Left Arm] 119 Pulse Oximetry 89 L 93 92 Oxygen Delivery Method Room Air Nasal Cannula Room Air Oxygen Flow Rate 3 Fraction of Inspired Oxygen Sepsis Recent Fever Within 48 Hours No Sepsis New/Unexplained Change in Mental Status No Sepsis Action Taken by Nursing No Action Required 12/26/21 22:47 12/27/21 00:39 Temperature Temperature Source Pulse Rate 69 Pulse Rate [Finger] 70 Respiratory Rate 26 H 26 H Respiratory Effort / Characteristics Spontaneous Labored Short of Breath Respiratory Depth Respiratory Pattern Tachypnea Blood Pressure Blood Pressure [Left Arm] 156/94 H Blood Pressure Mean Blood Pressure Mean [Left Arm] 114 Pulse Oximetry 90 95 Oxygen Delivery Method Nasal Cannula Oxygen Flow Rate 4 Fraction of Inspired Oxygen 50 Sepsis Recent Fever Within 48 Hours Sepsis New/Unexplained Change in Mental Status Sepsis Action Taken by Nursing PHYSICAL EXAM: VITALS: Vitals are noted on the nurse's note and reviewed by myself. Vital signs hypoxic on room air. GENERAL: Pleasant elderly female hypoxic on room air that improved on nasal cannula, in no acute distress, nondiaphoretic, well-developed well-nourished. SKIN: The skin was without obvious lacerations or abrasions. Capillary reflex less than 2 seconds. HEAD: Normocephalic atraumatic. EARS: External auditory canals clear, tympanic membranes pearly casarez without erythema or effusion bilaterally. No hemotympanums. No liu sign. No mastoid tenderness. EYES: Pupils equal round and reactive to light and accommodation. Conjunctivae without injection, sclerae without icterus. Extraocular movements intact. NOSE: Patent, turbinates without inflammation or discharge. No sinus tendern ess. No septal hematoma or bleeding. MOUTH: Mucous membranes moist. Pharynx without erythema or exudate. Uvula midline. Airway patent. Tongue does not deviate. NECK: Supple without nuchal rigidity. Cervical spine is nontender. Full range of motion of the neck without tenderness. No JVD. HEART: Regular rate and rhythm LUNGS: Mild diffuse end expiratory wheezes, bibasilar rales. No retractions or accessory muscle use. Left lateral chest wall tenderness. ABDOMEN: Positive bowel sounds x 4. Normal tympanic percussion. Soft, nontender, without masses or organomegaly. No guarding or rebound tenderness. MUSCULOSKELETAL: No tenderness of the thoracic or lumbar spine. Full range of motion without tenderness to palpation in all extremities. Strength 5/5 throughout. NEURO: Patient was alert and oriented to person place and time. Normal sensation to light and sharp touch. No focal neurological deficits. Course Administered Medications Discontinued Medications Albuterol (Albut/Ipratrop 3mg/0.5mg Neb 3 Ml Vial) 3 ml NEB NOW STA; Protocol Stop: 12/26/21 22:44 Last Admin: 12/26/21 22:55 Dose: 3 ml Documented By: ISH Albuterol (Albut/Ipratrop 3mg/0.5mg Neb 3 Ml Vial) 3 ml NEB NOW STA; Protocol Stop: 12/26/21 23:45 Last Admin: 12/26/21 23:53 Dose: 3 ml Documented By: ISH Furosemide (Furosemide 40 Mg/4 Ml Vial) 40 mg IV ONE ONE Stop: 12/27/21 00:28 Last Admin: 12/27/21 00:44 Dose: 40 mg Documented By: ISH Furosemide (Furosemide 40 Mg/4 Ml Vial) Confirm Administered Dose 40 mg IV .STK- MED ONE Stop: 12/27/21 00:37 Last Admin: 12/27/21 00:44 Dose: Not Given Documented By: ISH Piperacillin Sod/Tazobactam Sod (Zosyn) 4.5 gm in 120 mls @ 240 mls/hr IV NOW ONE Stop: 12/26/21 23:13 Last Infusion: 12/26/21 23:34 Dose: 0 mls/hr Documented By: Admin: 12/26/21 22:55 Dose: 240 mls/hr Documented By: ISH Ioversol (Optiray 320 100ml) 92 ml IV ONCE ONE Stop: 12/26/21 22:07 Last Admin: 12/26/21 22:06 Dose: 92 ml Documented By: NATHALIE Methylprednisolone (Methylprednisolone 125 Mg/2 Ml Vial) 125 mg IV NOW STA Stop: 12/26/21 23:45 Last Admin: 12/26/21 23:53 Dose: 125 mg Documented By: ISH Ondansetron HCl (Ondansetron Inj 2 Mg/Ml 2 Ml Vial) 4 mg IV NOW STA Stop: 12/26/21 22:44 Last Admin: 12/26/21 22:55 Dose: 4 mg Documented By: ISH Medical Decision Making Medical Records Attestation: I reviewed the patient's medical records. Home Medications Current Medication List: was personally reviewed by me Laboratory Data Attestation: I reviewed the patient's lab results. Result diagrams: 12/26/21 20:41 12/26/21 20:41 Lab Results 12/26/21 12/26/21 12/26/21 Range/Units 20:41 20:41 20:41 WBC 11.65 H (4.8-10.8) K/ul RBC 4.95 (3.93-5.22) M/uL Hgb 13.6 (12.0-16.0) g/dl Hct 42.1 (34.1-44.9) % MCV 85.1 (80.0-100.0) fL MCH 27.5 (25.0-34.0) pg MCHC 32.3 (32.0-36.0) g/dL RDW Std Deviation 44.6 (36.4-46.3) fL RDW Coeff of Yadira 14.5 (11.5-14.5) % Plt Count 336 (130-400) K/uL MPV 8.7 L (9.4-12.3) fL Immature Gran % (Auto) 0.4 % Neut % (Auto) 85.3 % Lymph % (Auto) 10.3 % Grainger % (Auto) 3.7 % Eos % (Auto) 0.0 % Baso % (Auto) 0.3 % Neut # (Auto) 9.94 H (1.4-6.5) K/uL Lymph # (Auto) 1.20 (1.2-3.4) K/uL Grainger # (Auto) 0.43 (0.24-0.82) K/uL Eos # (Auto) 0.00 (0-0.50) K/uL Baso # (Auto) 0.03 (0-0.2) K/uL Immature Gran # (Auto) 0.05 H (0.00-0.02) K/uL PT Cancelled INR Cancelled APTT Cancelled PTT Ratio Cancelled Sodium 131 L (136-145) mmol/L Potassium 4.6 (3.5-5.1) mmol/L Chloride 97 L (98-107) mmol/L Carbon Dioxide 21 (21-32) mmol/L Anion Gap 13 H (3-11) BUN 17 (6-23) mg/dl Creatinine 0.96 (0.6-1.2) mg/dl Est Cr Clr Drug Dosing Not Reportable Est GFR ( Amer) 64.7 ml/min Est GFR (Non-Af Amer) 55.9 ml/min BUN/Creatinine Ratio 17.7 (10-20) Glucose 139 H (70-99(Fasting)) mg/dl Calcium 9.6 (8.5-10.1) mg/dl Magnesium 1.8 (1.7-2.4) mg/dl Total Bilirubin 0.8 (0.2-1.0) mg/dl AST 28 (13-39) U/L ALT 15 (7-52) U/L Alkaline Phosphatase 73 (34-104) U/L B-Natriuretic Peptide (0-100) pg/ml Total Protein 7.4 (6.0-8.3) gm/dl Albumin 4.3 (3.4-5.0) gm/dl Globulin 3.1 (2.5-4.0) gm/dl Albumin/Globulin Ratio 1.4 (0.9-2) SARS-CoV-2, RNA, NAAT (NEGATIVE) 12/26/21 12/26/21 12/26/21 Range/Units 22:35 22:35 22:35 WBC (4.8-10.8) K/ul RBC (3.93-5.22) M/uL Hgb (12.0-16.0) g/dl Hct (34.1-44.9) % MCV (80.0-100.0) fL MCH (25.0-34.0) pg MCHC (32.0-36.0) g/dL RDW Std Deviation (36.4-46.3) fL RDW Coeff of Yadira (11.5-14.5) % Plt Count (130-400) K/uL MPV (9.4-12.3) fL Immature Gran % (Auto) % Neut % (Auto) % Lymph % (Auto) % Grainger % (Auto) % Eos % (Auto) % Baso % (Auto) % Neut # (Auto) (1.4-6.5) K/uL Lymph # (Auto) (1.2-3.4) K/uL Grainger # (Auto) (0.24-0.82) K/uL Eos # (Auto) (0-0.50) K/uL Baso # (Auto) (0-0.2) K/uL Immature Gran # (Auto) (0.00-0.02) K/uL PT 23.5 H INR 2.3 H APTT 47.6 H* PTT Ratio 1.7 Sodium (136-145) mmol/L Potassium (3.5-5.1) mmol/L Chloride (98-107) mmol/L Carbon Dioxide (21-32) mmol/L Anion Gap (3-11) BUN (6-23) mg/dl Creatinine (0.6-1.2) mg/dl Est Cr Clr Drug Dosing Est GFR ( Amer) ml/min Est GFR (Non-Af Amer) ml/min BUN/Creatinine Ratio (10-20) Glucose (70-99(Fasting)) mg/dl Calcium (8.5-10.1) mg/dl Magnesium (1.7-2.4) mg/dl Total Bilirubin (0.2-1.0) mg/dl AST (13-39) U/L ALT (7-52) U/L Alkaline Phosphatase (34-104) U/L B-Natriuretic Peptide 1421 H (0-100) pg/ml Total Protein (6.0-8.3) gm/dl Albumin (3.4-5.0) gm/dl Globulin (2.5-4.0) gm/dl Albumin/Globulin Ratio (0.9-2) SARS-CoV-2, RNA, NAAT NEGATIVE (NEGATIVE) Imaging Data Attestation: I personally reviewed and interpreted this imaging study as follows: Radiologist's Impression: Chest X-Ray 12/26/21 20:04 SINGLE VIEW CHEST CLINICAL HISTORY: Dyspnea. FINDINGS: 2 AP, portable, upright chest radiographs are compared to study dated 05/12/2019. A 2-lead cardiac pacemaker is unchanged in position. The heart is enlarged noting atherosclerotic calcification of the thoracic and. There is pulmonary vascular congestion and mild pulmonary edema. Suspect small pleural effusions with dependent consolidation. No pneumothorax is seen. The skeletal structures are osteopenic. The bony thorax is grossly intact. IMPRESSION: 1. Cardiomegaly and cardiac pacemaker with evidence of congestive failure and mild pulmonary edema. 2. Suspect small pleural with dependent consolidation. ACT 112: Negative or not required by law. Electronically signed by: Rick Akhtar M.D. 12/26/2021 8:37 PM MDM Narrative Prior records/ancillary studies reviewed and summarized above. Nursing notes reviewed. Additional history obtained from family. The patient's history was concerning for all chest pain shortness of breath. Differential diagnosis: Etiologies such as metabolic, infection, hypo/hyperglycemia, electrolyte abnormalities, cardiac sources, intracerebral event, toxicologic, neurologic, as well as others were entertained. Physical examination: As above. ER treatment provided: IV Lock An order was placed for continuous cardiac monitoring. The monitor shows a rate of 60-100 with a sinus rhythm. Nasal cannula, Zosyn, DuoNeb, patient was placed on BiPAP On reassessment the patient felt better. Diagnostics interpretation by me: ECG: Ordered for chest EKG: Paced rhythm with no acute ST-T wave changes, rate of 71. Impression paced rhythm interpreted by myself The labs revealed therapeutic INR, elevated BNP Imaging studies: Preliminary Findings Only See Final Report For Complete Findings CT ABDOMEN & PELVIS With Contrast: No evidence of acute intra-abdominal pathology. Findings concerning for long- standing colitis of the transverse, descending and sigmoid colon with loss of the normal haustral fold pattern and extensive creeping fat. Hepatic steatosis. The gallbladder is unremarkable. The common bile duct is normal. No evidence of pancreatitis. No evidence of hydronephrosis or urinary calculi. No evidence of appendicitis. Status post hysterectomy. Moderate disc degeneration at L2-3 and L5-S1. No comparisons. Radiologist: Christi Montoya MD Preliminary Findings Only See Final Report For Complete Findings CT CHEST With Contrast: Bronchitis with pneumonitis in the lower lobes and tiny right and small left pleural effusion. Cardiomegaly with reflux of contrast into the IVC and hepatic veins concerning for diminished cardiac output. There is a Isthmus thyroid nodule measuring approximately 27 x 15 mm. There is a acute/subacute superior endplate fracture deformity of the T4 vertebral body with 31% loss of vertebral body height. No comparisons. Radiologist: Christi Montoya MD Preliminary Findings Only See Final Report For Complete Findings CT C SPINE: No evidence of acute cervical spine pathology. Moderate disc degeneration at C4-5, C5-6 and C6-7. Mild calcified atherosclerotic disease of the carotid bifurcations. There is a large isthmus thyroid nodule measuring 30 x 27 x 18 mm. No comparisons. Radiologist: Christi Montoya MD Preliminary Findings Only See Final Report For Complete Findings CT HEAD: No evidence of acute intracranial pathology. Moderate nonspecific white matter changes. Bilateral lens replacements. Comparison made to prior head CT from September 14, 2017. Radiologist: Christi Montoya MD Consultation: A consultation was placed with the hospitalist. The case was discussed and diagnostics were reviewed. The patient was evaluated in the ER for further treatment. Exam and history seem consistent with follow-up with CHF and pneumonitis. Patient was hypoxic. She was placed nasal cannula. She was given antibiotics and nebulizer. Patient is agreeable treatment plan of admission. Medicine was consulted. By the evaluation outlined above emergent etiologies such as electrolyte abnormalities, intracerebral event, toxologic, neurologic, abnormalities blood glucose, metabolic, as well as others were deemed relatively unlikely. The pt informed about the findings as listed above. All questions were answered and pleased with the treatment. The chart was completed utilizing [employer] Speech voice recognition software. Grammatical errors, random word insertions, pronoun errors, and incomplete sentences are an occassional consequence of this system due to software limitations, ambient noise, and hardware issues. Any formal questions or concerns about the content, text, or information contained within the body of this dictation should be directly addressed to the physician logging assistant for clarification. Impression & Plan Pneumonitis, CHF (congestive heart failure), Fall Discharge Plan Visit Data Chief Complaint: Illness Stated Complaint: vomit, fall, cough ED Provider: Wilberto Henderson ED Midlevel Provider: Leeanne Urias Discharge Problem: Pneumonitis, CHF (congestive heart failure), Fall Patient Disposition: Admitted As Inpatient Condition: Fair Forms Stand Alone Forms: [employer] Prescriptions Prescriptions: No Action levothyroxine 25 mcg tablet 25 mcg PO DAILY famotidine 20 mg Tablet 20 mg PO BID lorazepam 0.5 mg Tablet 0.5 mg PO HS PRN (Reason: Insomnia) sotalol 80 mg Tablet 80 mg PO BID 30 Days Qty: 60 3RF spironolactone 25 mg Tablet 12.5 mg PO QAM Qty: 0 0RF travoprost [Travatan Z] 0.004 % Drops 1 drp OPHTHALMIC (EYE) PM aspirin 81 mg Tablet,Delayed Release (Dr/Ec) 81 mg PO QAM warfarin 3 mg Tablet See Rx Instructions .ROUTE .COMPLEX Rx Instructions: 3 mg orally; TAKES 1.5 MG ON MONDAYS ONLY, THEN 3 MG ALL OTHER DAYS. pravastatin 20 mg Tablet 20 mg PO QPM multivitamin Capsule 1 cap PO QAM escitalopram oxalate 5 mg Tablet 5 mg PO QDL calcium carbonate-vitamin D3 [Calcium 500 + D] 500 mg(1,250mg) -200 unit Tablet 1 tab PO QDL furosemide 20 mg tablet 20 mg PO [id number] Rx Instructions: TAKES MON, WED, & FRI. losartan 25 mg tablet 25 mg PO DAILY Referrals Referrals: Marcell Landry DO [Primary Care Provider] -
[2021-12-26 23:23] LABS: INR 2.3 (0.9-1.1); Partial Thromboplastin Ratio 1.7; Prothrombin Time 23.5 Seconds (9.0-12.0)
[2021-12-26] MEDS ORDERED: methylPREDNISolone 125 MG/2 ML VIAL IV STA (23:44)
[2021-12-26 23:46] LABS: Partial Thromboplastin Time 47.6 Seconds (21.0-31.0)
--- NOTE | 2021-12-26 23:46 | Emergency Department Note ---
ED Visit Note I have personally evaluated this patient examined her and reviewed the pertinent labs and data. I have discussed the case with Codi Urias, the physician assistant broker and agree with the plan. Please refer to the PA note. She has had shortness of breath we did extensive work-up. CAT scan suggest bronchitis/pneumonitis. She is received nebs and antibiotics. Exam she does sound somewhat junky and she does tend to desaturate and she coughs was given some more nebs. She may have a fluid overload component as well. She will need to be admitted for further treatment and evaluation. .
[2021-12-27] MEDS ORDERED: FUROSEMIDE 40 MG/4 ML VIAL IV ONE ×2 (00:27→00:36)
[2021-12-27] MEDS ORDERED: NITROGLYCERIN SL 0.4 MG/TAB TAB SL PRN (02:16)
[2021-12-27] MEDS ORDERED: ACETAMINOPHEN 325 MG TAB PO PRN (02:16)
[2021-12-27] MEDS ORDERED: POLYETHYLENE (MIRALAX) 17 GM PACK PO PRN (02:16)
[2021-12-27] MEDS ORDERED: LORazepam 0.5 MG TAB PO PRN (02:16)
[2021-12-27] MEDS ORDERED: DOXYCYCLINE HYCLATE 100 MG CAP PO STA (02:46)
--- NOTE | 2021-12-27 07:23 | CT Scan Report ---
CT SCAN OF THE CERVICAL SPINE CLINICAL HISTORY: Trauma. Fall. COMPARISON STUDY: No priors. TECHNIQUE: CT scan of the cervical spine is performed from the skull base to the upper thoracic spine . Images are reviewed in the axial, sagittal, and coronal planes. IV contrast was not administered fo r this examination. A dose lowering technique was utilized adhering to the principles of ALARA. FINDINGS: Skeletal structures: The skeletal structures are osteopenic. There is no evidence of fracture or subl uxation involving the cervical spine. Vertebral body height and alignment are maintained. There is st raightening of the cervical lordosis. Anterior osteophytes are seen throughout. The odontoid process and lateral masses are intact. The atlantoaxial articulation is preserved noting productive degenerat rajiv change. The spinous processes appear intact. There is [id number] multilevel cervical spondy losis. Uncovertebral and facet arthropathy contribute to neural foraminal narrowing at several levels . Intervertebral discs: There is moderate to severe disc space narrowing at C5-C6 and C6-C7. Mild disc space narrowing is seen at the remaining cervical levels. Central canal: Posterior disc osteophyte complexes are seen at all cervical levels between C3-C4 and C6-C7. This likely contributes to multilevel acquired compromise of the central canal. Soft tissues: The prevertebral and paraspinous soft tissues are within normal limits. There is athero sclerotic calcification of the carotid bulbs. Pacemaker leads are noted at the left thoracic inlet. T he thyroid gland is heterogeneous. Goiter extends into the superior mediastinum. Calvarium: The visualized calvarium at the skull base appears intact. Brain parenchyma: Partially visualized brain parenchyma at the skull base is within normal limits. Sinuses and mastoids: The visualized paranasal sinuses are clear. The mastoid air cells are well pneu matized. Lung apices: Clear as visualized. IMPRESSION: 1. There is no evidence of fracture or subluxation involving the cervical spine. 2. Osteopenia and spondylotic change as above. ACT 112: Negative or not required by law. Electronically signed by: Rick Akhtar M.D. 12/27/2021 7:21 AM
--- NOTE | 2021-12-27 07:25 | CT Scan Report ---
CT SCAN OF THE BRAIN WITHOUT IV CONTRAST CLINICAL HISTORY: Fall COMPARISON STUDY: CT of the brain dated 09/14/2017. TECHNIQUE: Unenhanced axial CT scan of the brain is performed from the vertex to the skull base. A do se lowering technique was utilized adhering to the principles of ALARA. FINDINGS: Brain parenchyma: There is age-related involutional change noting moderate subcortical and periventri cular microangiopathic disease. There is no hemorrhage, mass effect, or evidence of acute territorial ischemia by CT criteria. Carvalho-white matter differentiation is preserved. No extra-axial fluid collec tion is seen. Ventricles, sulci, cisterns: Prominent secondary to involutional change. Intracranial vasculature: There is atherosclerotic calcification of the cavernous carotid and vertebr al arteries. Calvarium: The skeletal structures are osteopenic. No depressed calvarial fracture is identified. Sinuses and mastoids: The visualized paranasal sinuses are clear. The mastoid air cells are well pneu matized. Orbits: The bony orbits are grossly intact. There are bilateral ocular lens implants. IMPRESSION: There is no hemorrhage, mass effect, or evidence of acute territorial ischemia by CT trish solomon. ACT 112: Negative or not required by law. Electronically signed by: Rick Akhtar M.D. 12/27/2021 7:24 AM
--- NOTE | 2021-12-27 07:33 | History and Physical Report ---
DATE OF ADMISSION: 12/27/2021. CHIEF COMPLAINT: Shortness of breath, fall. HISTORY OF PRESENT ILLNESS: An 81-year-old female with past medical history significant for hyperlipidemia, hypothyroidism, estrogen deficiency, multinodular goiter, history of paroxysmal atrial fibrillation, history of tachybrady syndrome, status post pacemaker, hypertension, history of mitral valve regurgitation, right bundle-branch block, history of paroxysmal supraventricular tachycardia, history of pulmonary embolism, history of heart failure, history of irritable bowel syndrome, GERD, stage III chronic kidney disease, myalgias, glaucoma, trigeminal neurology, polyneuropathy, history of Graves' disease, history of DVT, generalized anxiety disorder, major depression, who lives at home with her and son, presents with fall and also complains of shortness of breath and weakness. The patient states today she was feeling short of breath and also has a cough. Was feeling hot and weak. She was standing on a bench at her home to adjust the curtains when the bench broke down and she fell slowly, backwards and fell on the back. She did not hit her head . There was no loss of consciousness. With ongoing illness and the fall, she came to the ER and found to have CHF and possible pneumonia. She was somewhat tachypneic, rhonchi on exam. The patient denies any headache. No blurred visions, no earache. Has chronic runny nose. Has some sore throat, has some cough, with whitish phlegm. Denies any chest pain,, having dry heaves. No abdominal pain. Appetite is okay. No difficulty swallowing. Normal bowel and bladder movements. ALLERGIES: ATORVASTATIN. PAST MEDICAL HISTORY: As mentioned above. PAST SURGICAL HISTORY: Colonoscopy with biopsy, right knee arthroscopy, Pap screen, cataract surgery, lumbar disk excision, total abdominal hysterectomy with removal of tubes. MEDICATIONS: The patient is on aspirin 81 mg p.o. daily, calcium carbonate 1 tablet p.o. daily, Lexapro 5 mg p.o. daily, famotidine 20 mg p.o. b.i.d., Lasix 20 mg p.o. 3 times a week, levothyroxine 25 mcg p.o. daily, lorazepam 0.5 mg p.o. at bedtime p.r.n., losartan 25 mg p.o. daily, multivitamin 1 capsule p.o. daily, pravastatin 20 mg p.o. q.p.m., metoprolol 50 mg p.o. t.i.d., spironolactone 12.5 mg p.o. daily, travoprost one drop in eye p.r.n., Coumadin as directed. FAMILY HISTORY: Significant for sister has thyroid cancer; brother has diabetes, son has alcoholic hepatitis, brother has heart disorder, father of CAD at the age of 58, mother had dementia and at the age of 85. SOCIAL HISTORY: , no smoking, alcohol rare, no drug use. REVIEW OF SYSTEMS: As per HPI. Rest of the review of systems is negative. PHYSICAL EXAMINATION: GENERAL: The patient is of moderate build, not in acute distress. VITAL SIGNS: Temperature 36.6, pulse 69, respiratory rate 26, blood pressure 156/94, oxygen 95% on 4 liters. HEENT: Pupils equal, round and reactive to light. Oral mucosa moist. NECK: No JVD, no neck masses. CARDIOVASCULAR: S1 and S2 heard. Regular rate and rhythm. No murmur, no gallop. RESPIRATORY SYSTEM: Normal AP diameter. Mild tachypnea. Mild bilateral rhonchi and bibasilar crackles heard. ABDOMEN: Soft, bowel sounds present, nontender, no distention. CENTRAL NERVOUS SYSTEM: Cranial nerves II through XII grossly intact, nonfocal. EXTREMITIES: Mild pedal edema, no erythema seen. LABORATORY DATA: WBC 11.6, hemoglobin 13.6, hematocrit 42.1, platelets 336. PT 23.5, INR 2.3, APTT 47.6. Sodium 131, potassium 4.6, chloride 97, bicarbonate 21, BUN 17, creatinine 0.9, serum glucose 139, calcium 9.6, magnesium 1.8, total bilirubin 0.8, AST 28, ALT 15, alkaline phosphatase 73. BNP 1421. SARS-CoV-2 rapid test negative. IMAGING DATA: Chest x-ray, cardiomegaly and cardiac pacemaker with evidence of congestive failure and mild pulmonary edema, suspect small pleural with dependent consolidation. CT, preliminary report of the CT abdomen and pelvis with contrast, no evidence of acute intra-abdominal pathology. Finding consistent with longstanding colitis of the transverse, descending, and sigmoid colon. CT chest with contrast, bronchitis with pneumonitis of the lower lobes and tiny right and small left pleural effusion. CT cervical spine, no acute findings. CT head, no acute findings. EKG: Ventricular paced rhythm, poor quality at a rate of 71. ASSESSMENT AND PLAN: This is an 81-year-old female who presents with fall and also shortness of breath and cough and found to be having acute congestive heart failure and possible pneumonitis. 1. Shortness of breath, respiratory distress, possible [id number] diastolic congestive heart failure, valvular heart dysfunction, possible right heart failure and also possible pneumonitis on the CAT scan. Will follow the final report of the imaging studies. ER empirically gave steroids, nebs, and IV Zosyn. Will continue with IV Rocephin and p.o. doxycycline, IV Lasix 40 b.i.d. Xopenex prn Follow cardiac enzymes, echocardiogram. Daily weights, I's and O's. Consult cardiology in the a.m. for further recommendation. Monitor in the tele floor. Will place on BiPAP for now as the patient is having increasing short of breath and also given a dose of Lasix now. 2. Hypothyroidism: Continue Synthroid. Follow thyroid profile. 3. History of atrial fibrillation, history of tachybrady syndrome, status post pacemaker: Rate controlled on metoprolol. On Coumadin, INR therapeutic. Will follow the PT/INR. 4. Depression and generalized anxiety disorder: On Lexapro. 5. Hyperlipidemia: On statin. 6. Hypertension: On losartan, spironolactone, and diuretics. Will monitor the blood pressure. 7. Anxiety: On Ativan p.r.n. 8. History of pulmonary embolism and deep venous thrombosis: On Coumadin. Follow INR. 9. History of chronic kidney disease stage III: Presently with a creatinine of 0.9. Will follow the labs while on IV Lasix. 10. History of irritable bowel syndrome: Possible colitis on the CAT scan. Will follow the final report. 11. Deep venous thrombosis prophylaxis: On Coumadin. INR therapeutic. DISPOSITION: Closely monitor in tele floor. Level 1 full code. Expect to discharge home and follow up with family doctor. PT, OT prior to discharge. Social service to help with discharge planning. Job ID: [id number] MTDD
[2021-12-27 07:39] LABS: Basophils # (auto) 0.01 K/uL (0-0.2); Basophils % (auto) 0.1 %; Hematocrit (blood only) 44.9 % (34.1-44.9); Hemoglobin 14.7 g/dl (12.0-16.0); Immature Granulocytes # (auto) 0.06 K/uL (0.00-0.02); Immature Granulocytes % (auto) 0.6 %; Lymphocytes # (auto) 0.91 K/uL (1.2-3.4); Lymphocytes % (auto) 9.4 %; Mean Corpuscular Hemoglobin 27.3 pg (25.0-34.0); Mean Corpuscular Hgb Conc 32.7 g/dL (32.0-36.0); Mean Corpuscular Volume 83.3 fL (80.0-100.0); Mean Platelet Volume 8.8 fL (9.4-12.3); Neutrophils # (auto) 8.59 K/uL (1.4-6.5); Neutrophils % (auto) 88.9 %; Platelet Count 342 K/uL (130-400); RDW Coefficient of Variation 14.6 % (11.5-14.5); RDW Standard Deviation 43.8 fL (36.4-46.3); Red Blood Count 5.39 M/uL (3.93-5.22); White Blood Count 9.67 K/ul (4.8-10.8)
[2021-12-27] MEDS: LEVOTHYROXINE SODIUM 25 MCG TABLET PO SCH (07:41)
[2021-12-27] MEDS: cefTRIAXone SODIUM 1,000 MG in DEXTROSE 5% 50 ML IV SCH (07:44)
[2021-12-27 07:51] LABS: INR 2.6 (0.9-1.1); Prothrombin Time 26.2 Seconds (9.0-12.0)
[2021-12-27 08:01] LABS: BUN Creatinine Ratio 17.4 (10-20); Calcium 9.4 mg/dl (8.5-10.1); Creatinine Clr Calc Pharmacy 35.5 ml/min; Est GFR (African American) 55.5 ml/min; Est GFR (Non-African American) 47.9 ml/min; Magnesium 1.7 mg/dl (1.7-2.4); Potassium 3.7 mmol/L (3.5-5.1)
--- NOTE | 2021-12-27 08:08 | CT Scan Report ---
CHEST CT WITH CONTRAST HISTORY: Acute chest trauma status post fall fall, pain on coumadin TECHNIQUE: Multiaxial CT images of the chest were performed following the IV administration of 92 cc of Optiray. A dose lowering technique was utilized adhering to the principles of ALARA. COMPARISON: CT abdomen and pelvis of same day, CTA chest 08/26/2014 FINDINGS: Heterogeneous nodule of the central thyroid demonstrates substernal extension measuring up to approximately 2.5 cm. Nonspecific borderline enlarged mediastinal lymph nodes measure up to approx imately 10 mm in short axis. Moderate cardiomegaly with left subclavian pacer. There is no pericardia l effusion. Moderate coronary artery calcifications. Atherosclerosis of the thoracic aorta without an eurysm or dissection. There is reflux of contrast into the IVC and hepatic veins. The main pulmonary artery measures up to 3 cm transversely which may represent pulmonary arterial hypertension. No pulmo nary emboli identified. Small bilateral pleural effusions. No pneumothorax. Bronchial wall thickening is noted along with int ralobular septal thickening and groundglass densities. Subsegmental linear consolidation with bibasil ar groundglass opacities suggest atelectasis. No suspicious pulmonary nodules or masses. The central airways appear patent. Mild nonspecific distal esophageal wall thickening with tiny hiatal hernia. 1.7 cm fundal diverticulu m of the stomach. Hypodense 11 mm left adrenal gland lesion is suggestive of a probable adenoma. Part ially imaged indeterminate 10 mm hypodense focus of the posterior right hepatic lobe. Unremarkable so ft tissues. Demineralized appearance of the bones with degenerative changes of the shoulders and spin e. Mild sclerosis with anterior angulation of the anterior left third rib is suggestive of a subacute or chronic nondisplaced fracture. No acute displaced rib fracture is identified. 30% superior endpla te compression deformity of the T4 vertebral body without retropulsion. Less than 20% superior endpla te compression of the T1 vertebral body. There is no significant paravertebral edema. IMPRESSION: 1. Cardiomegaly with pulmonary edema and small pleural effusions. 2. Subsegmental bibasilar opacities suggest atelectasis. 3. Mild nonspecific mediastinal lymphadenopathy. 4. Age-indeterminate 30% superior endplate compression deformity of the T4 vertebral body, likely acu te or subacute. 5. Age-indeterminate less than 20% superior endplate compression deformity of the T1 vertebral body, likely chronic. 6. Additional findings as above. ACT 112: Negative or not required by law. Electronically signed by: Cj Lowery M.D. 12/27/2021 8:06 AM
[2021-12-27] MEDS: FUROSEMIDE 40 MG/4 ML VIAL IV SCH ×2 (09:21→22:47)
--- NOTE | 2021-12-27 09:53 | CT Scan Report ---
CT SCAN OF THE ABDOMEN AND PELVIS WITH IV CONTRAST CLINICAL HISTORY: Fall. COMPARISON STUDY: Abdominal radiograph dated 08/26/2014. TECHNIQUE: Following the IV administration of 92 cc of Optiray 320, CT scan of the abdomen and pelvi s is performed from the lung bases to the proximal femora. Images are reviewed in the axial, sagittal , and coronal planes. IV contrast was administered without complication. A dose lowering technique wa s utilized adhering to the principles of ALARA. CT DOSE: 2568.64 mGy.cm FINDINGS: Lung bases: The heart is enlarged and without pericardial effusion. Pacemaker leads are noted. Intral obular septal thickening suggests congestive failure. There are small pleural effusions with dependen t atelectasis. A small hiatal hernia is noted. Liver: The contrast-enhanced liver is normal in size and contour. Attenuation is heterogeneous. There is no intrahepatic biliary ductal dilatation. The hepatic veins and portal veins are patent. Gallbladder: Unremarkable. Spleen: Normal in size and attenuation. Pancreas: Unremarkable. Adrenal glands: 2 left adrenal nodules measure up to 11 mm. These likely represent adenomas but canno t be definitively characterized due to the presence of IV contrast. The right adrenal gland is normal in appearance. Kidneys: The contrast enhanced kidneys demonstrate mild cortical atrophy and are without hydronephros is. The kidneys enhance symmetrically. Abdominal vasculature: The abdominal aorta is normal in course and caliber noting mild to moderate at herosclerotic calcification. There is moderate focal stenosis of the proximal superior mesenteric art kylah seen on image #128. Bowel: There is no bowel obstruction. The diminutive appendix is well-visualized and normal. Peritoneum: There is no intraperitoneal free air or abdominal ascites. There is a fat-containing umbi lical hernia. Lymphadenopathy: None. Pelvic viscera: The bladder is normal as visualized. The uterus is surgically absent. A 2.5 cm simple cystic focus is noted in the left ovary on image #[id number]. Skeletal structures: The skeletal structures are osteopenic. There is mild lumbosacral spondylosis. N o lytic or blastic lesions are seen. There are healed left pubic ring fractures. IMPRESSION: 1. Cardiomegaly and cardiac pacemaker with evidence of congestive failure and small pleural effusions . 2. There is no evidence of solid organ injury in the abdomen or pelvis. 3. A 2.5 cm simple cystic focus is noted in the left ovary. This is pathologically indeterminant but abnormal for age. This is of low suspicion; however, as no prior studies are available for comparison to assess for stability nonemergent gynecology follow-up and pelvic ultrasound are recommended for f urther evaluation. 4. Additional findings as above. ACT 112: Negative or not required by law. Electronically signed by: Rick Akhtar M.D. 12/27/2021 9:51 AM
--- NOTE | 2021-12-27 10:20 | Electrocardiogram Report ---
Test Reason : Blood Pressure : / mmHG Vent. Rate : 071 BPM Atrial Rate : 066 BPM P-R Int : 000 ms QRS Dur : 158 ms QT Int : 492 ms P-R-T Axes : 000 062 151 degrees QTc Int : 534 ms Poor data quality, interpretation may be adversely affected Ventricular-paced rhythm Abnormal ECG When compared with ECG of 15-MAY-2019 06:51, Premature ventricular complexes are no longer Present Vent. rate has decreased BY 4 BPM Confirmed by Chico Silverman ([id number]) on 12/27/2021 10:20:36 AM Referred By: REFERRED SELF Confirmed By:Rupert Silverman
[2021-12-27] MEDS: DOXYCYCLINE HYCLATE 100 MG CAP PO SCH ×2 (10:40→22:47)
[2021-12-27] MEDS: METOPROLOL TARTRATE 50 MG TAB PO SCH ×3 (10:41→22:47)
[2021-12-27] MEDS: ASPIRIN 81 MG ECTAB PO SCH (10:42)
[2021-12-27] MEDS: LOSARTAN POTASSIUM 25 MG TAB PO SCH (10:42)
[2021-12-27] MEDS: SPIRONOLACTONE 12.5 MG TAB PO SCH (10:43)
[2021-12-27] MEDS: FAMOTIDINE 20 MG TAB PO SCH ×2 (10:43→22:47)
[2021-12-27] MEDS: MULTIVITAMIN TAB PO SCH (10:43)
--- NOTE | 2021-12-27 10:55 | Cardiology Consultation ---
Date of Consultation December 27, 2021 Assessment & Plan (1) Acute HFrEF (heart failure with reduced ejection fraction): -Patient presents with subacute worsening of volume overload that has been insidious over the last few weeks to months per patient. Mild troponin elevation noted, but her symptoms are not suggestive of an acute coronary syndrome. Question if she has had interval decline in her ejection fraction in the setting of paroxysmal atrial fibrillation that has lapsed to permanent atrial fibrillation (with past unsuccessful attempts at antiarrhythmic therapy) and chronic RV pacing. Ejection fraction may be acutely worse due to her volume overload status, or perhaps because of the volume overload. Agree with current dose of furosemide 40 mg IV twice daily, a.m. dose was to be administered just after my assessment of the patient, at the time of completion of her echocardiogram. INR is therapeutic, 2.6, and her current dose of Coumadin will be continued. Agree with admission to telemetry when bed available. History of Present Illness Attending Physician: Mari Miranda MD History of Present Illness Sachi Hua is an 81-year-old female seen in cardiology consultation per the request of Dr Reyes for the evaluation of acute congestive heart failure decompensation. Patient is well-known to the undersigned as I have followed her on an outpatient basis for years. She describes several days of worsening shortness of breath, noted lower extremity edema, as well as recent dizziness. Yesterday she had a fall, and felt breathless with minimal exertion, and could hear a "gurgling" noise with breathing. Chest x-ray and CT of the chest are suggestive of interstitial edema with small bilateral pleural effusions, and possible superimposed pneumonia. Patient has noted a recent wet cough. She received 40 mg of furosemide overnight just after midnight, and required BiPAP support until early this morning. At the time of my assessment, she was lying supine in bed, and comfortable. BiPAP had been discontinued several hours prior. Echocardiogram was in process. Cardiac history notable for difficult to control hypertension, moderate mitral regurgitation, paroxysmal, and now persistent atrial fibrillation, symptomatic bradycardia. Allergies Allergy/AdvReac Type Severity Reaction Status Date / Time atorvastatin AdvReac Intermediate "legs Verified 12/26/21 22:38 don't want to move." Home Medications Medication Instructions Recorded Confirmed Type aspirin 81 mg tablet,delayed 81 mg PO QAM 05/11/19 12/26/21 History release calcium carbonate 500 mg-vitamin 1 tab PO QDL 05/11/19 12/26/21 History D3 5 mcg (200 unit) tablet (Calcium 500 + D) escitalopram oxalate 5 mg tablet 5 mg PO QDL 05/11/19 12/26/21 History multivitamin 1 cap PO QAM 05/11/19 12/26/21 History pravastatin 20 mg tablet 20 mg PO QPM 05/11/19 12/26/21 History travoprost 0.004 % eye drops 1 drp ophthalmic (eye) PM 05/11/19 12/26/21 History (Travatan Z) warfarin 3 mg tablet See Rx Instructions .Route .COMPLEX 05/11/19 12/26/21 History famotidine 20 mg tablet 20 mg PO BID 05/12/19 12/26/21 History levothyroxine 25 mcg tablet 25 mcg PO DAILY 05/12/19 12/26/21 History lorazepam 0.5 mg tablet 0.5 mg PO HS PRN Insomnia 05/12/19 12/26/21 History spironolactone 25 mg tablet 12.5 mg PO QAM #0 tabs 05/15/19 12/26/21 Rx furosemide 20 mg tablet 20 mg PO 3XWK 12/26/21 12/26/21 History losartan 25 mg tablet 25 mg PO DAILY 12/26/21 12/26/21 History metoprolol tartrate 50 mg tablet 50 mg PO TID 12/27/21 12/27/21 History Patient History Medical History (Updated 12/27/21 @ 10:51 by Harry Ames DO) Arthritis Atrial fibrillation with rapid ventricular response FOLLOW WITH DR ARMIJO CKD (chronic kidney disease), stage III Depression OCAS Diastolic dysfunction Dizziness Esophageal reflux Glaucoma Goiter THYROID GOITER AND WATCING Graves disease History of cardioversion HTN (hypertension) Hyperlipidemia Hypothyroidism IBS (irritable bowel syndrome) Migraine OCAS MIGRAINES Mitral valve regurgitation FOLLOW WITH DR. ARMIJO Osteoporosis Post-surgical hypothyroidism Pulmonary embolism DX 2015 TAKES WARFARIN Surgical History Hx of arthroscopic knee surgery RIGHT Hx of laminectomy LUMBAR Family History Father Coronary heart disease Brother Diabetes Sister Thyroid cancer Social History Smoking Status: Never smoker Second Hand Exposure: No; Hx Alcohol Use: No Hx Substance Use: No Preferred Language: Italian Communication Ability: Effective Visual Impairment: No Limitations Hearing Ability: Normal Ice Cream Vendor Required: No Beliefs That Will Affect Care: None marital status: Current Living Situation: Spouse and Family current occupational status: retired Other Information That Helps Us Care for You: No Feels Safe at Home: Yes Safety Concerns: Feels Safe At This Time Assistive Devices: None Review of Systems Review of Systems: All systems reviewed & are unremarkable except as noted in HPI & below Physical Exam Constitutional: no acute distress Respiratory: + cough; no respiratory distress Auscultation: + diminished lung sounds (Decreased breath sounds bilaterally at the bases); no crackles and no rales Cardiovascular: Rate/Rhythm: regular rhythm Heart Sounds: + murmur (1/6 systolic murmur) Extremities: + edema (1+ bilateral lower extremity, ankle, pedal edema) Chest (Breasts): Additional Comments: Left infraclavicular pacemaker pocket clean dry and intact Gastrointestinal (Abdomen): normal bowel sounds, soft, nontender, no hepatosplenomegaly Neurologic: PERRL, EOMI, accommodation nl, no face palsy, no dysarthria Results & Data ([facility]) Vital Signs (Past 12 Hours) Vital Signs Pulse Pulse Resp BP Pulse Ox Pulse Ox O2 Del Method 12/27/21 10:10 92 12/27/21 08:50 70 20 133/71 92 Nasal Cannula 12/27/21 07:27 12/27/21 07:00 98 H 20 153/96 H 95 BiPAP 12/27/21 07:16 72 22 100 12/27/21 04:00 70 20 115/64 93 BiPAP 12/27/21 02:48 70 17 95 12/27/21 02:00 68 20 126/75 95 BiPAP 12/27/21 00:39 69 26 H 95 12/26/21 22:47 70 26 H 156/94 H 90 Nasal Cannula O2 Del Method O2 Flow Rate FiO2 12/27/21 10:10 Nasal Cannula 12/27/21 08:50 6 12/27/21 07:27 6 12/27/21 07:00 12/27/21 07:16 40 12/27/21 04:00 50 12/27/21 02:48 50 08/03/22 02:00 50 12/27/21 00:39 50 12/26/21 22:47 4 Laboratory Results Cardiac Enzymes 12/26/21 12/26/21 12/27/21 Range/Units 20:41 22:35 00:55 AST 28 (13-39) U/L Troponin I High Sens 166.9 H* (0-14) pg/ml B-Natriuretic Peptide 1421 H (0-100) pg/ml 12/27/21 Range/Units 07:12 AST (13-39) U/L Troponin I High Sens 328.0 H* D (0-14) pg/ml B-Natriuretic Peptide (0-100) pg/ml Coagulation 12/26/21 12/26/21 12/26/21 Range/Units 20:41 22:35 22:35 PT Cancelled 23.5 H APTT Cancelled 47.6 H* B-Natriuretic Peptide 1421 H (0-100) pg/ml 12/27/21 Range/Units 07:12 PT 26.2 H APTT B-Natriuretic Peptide (0-100) pg/ml CBC 12/26/21 12/27/21 Range/Units 20:41 07:12 WBC 11.65 H 9.67 (4.8-10.8) K/ul RBC 4.95 5.39 H (3.93-5.22) M/uL Hgb 13.6 14.7 (12.0-16.0) g/dl Hct 42.1 44.9 (34.1-44.9) % Plt Count 336 342 (130-400) K/uL Neut # (Auto) 9.94 H 8.59 H (1.4-6.5) K/uL Lymph # (Auto) 1.20 0.91 L (1.2-3.4) K/uL [place] # (Auto) 0.43 0.10 L (0.24-0.82) K/uL Eos # (Auto) 0.00 0.00 (0-0.50) K/uL Baso # (Auto) 0.03 0.01 (0-0.2) K/uL Comprehensive Metabolic Panel 12/26/21 12/27/21 Range/Units 20:41 07:12 Sodium 131 L 132 L (136-145) mmol/L Potassium 4.6 3.7 (3.5-5.1) mmol/L Chloride 97 L 94 L (98-107) mmol/L Carbon Dioxide 21 23 (21-32) mmol/L BUN 17 19 (6-23) mg/dl Creatinine 0.96 1.09 (0.6-1.2) mg/dl Glucose 139 H 154 H (70-99(Fasting)) mg/dl Calcium 9.6 9.4 (8.5-10.1) mg/dl AST 28 (13-39) U/L ALT 15 (7-52) U/L Alkaline Phosphatase 73 (34-104) U/L Total Protein 7.4 (6.0-8.3) gm/dl Albumin 4.3 (3.4-5.0) gm/dl Intake and Output 12/26/21 12/27/21 12/27/21 22:59 06:59 14:59 Intake Total 120 / 120 60 / 60 Output Total 800 / 800 Balance 120 / 120 -740 / -740 Intake: IV 120 / 120 60 / 60 Piperacillin/Tazobactam 4.5 gm 120 / 120 In 120 ml @ 240 mls/hr IV NOW ONE Rx#:[id number] cefTRIAXone SODIUM 1,000 mg In 60 / 60 Dextrose 5% 50 ml @ 100 mls/hr IV Q24H [facility] Rx#:[id number] Output: Urine 800 / 800 Other: Weight 61.235 kg 61.235 kg Weight Measurement Method Built in [facility] Patient Weight 12/28/21 06:59 Weight 61.235 kg Diagnostic Findings EKG performed 12/26/2021, 20: 35, reviewed independently, underlying atrial fibrillation with ventricular paced QRS complexes. Summary transthoracic echocardiogram performed today 12/27/2021, reviewed independently: The study is technically adequate for the evaluation of the referral indication. There is mild concentric left ventricular hypertrophy. Abnormal septal motion present at time of echocardiogram consistent with right ventricular pacemaker activation. There is septal flattening consistent with RV pressure/volume overload. Otherwise, mild global left ventricular hypokinesis is present. Left ventricular systolic function is mildly reduced. The LV Ejection Fraction = 40-45%. The left atrium is severely dilated. The right atrium is mildly dilated. Mild to moderate mitral regurgitation is present. There is mild tricuspid regurgitation. Pulmonary artery systolic pressure is estimated to be 28 mmHg. Compared to the prior study performed 05/12/2019, the interventricular septal flattening is unchanged. The pulmonary artery systolic pressure was estimated to be 50-60 mmHg at that time. There is been interval decline in the overall left ventricular systolic function, LVEF 40-45 on the present study as compared to 60-65 on the previous study.
--- NOTE | 2021-12-27 13:34 | Communication Note ---
Date of Service: December 27, 2021 81-year-old woman with history of hypothyroidism, hyperlipidemia, paroxysmal A. fib, tachybradycardia syndrome status post pacemaker, hypertension, mitral valve regurgitation, RBBB, paroxysmal SVT, PE, heart failure, irritable bowel syndrome, GERD, CKD 3 and other medical problems who presented after a fall and having shortness of breath with increasing weakness. Being managed for acute heart failure with reduced ejection fraction. Patient seen and examined. Reports some nausea and vomiting this morning. Vomited coffee and toast she had for breakfast Reports productive cough and exertional dyspnea. Denied any chest pain Exam notable for nasal cannula, diminished breath sounds, +[address] chest noted cardiomegaly with pulmonary edema and small pleural effusion, basilar atelectasis, age-indeterminate T1 and T4 compression fracture Labs notable for troponin of 166->>348 Echo noted EF of 40-45%, severely dilated LA, mild dil RA, mild to mod MR, mild TR, mild glbal LV hypokinesis Card consult noted Continue IV diuresis Currently on empirical abx for possible pneumonia though my suspicion for this is low at this time. Will keep for now and follow infectious workup Agree with other plans as detailed in H&P by Dr Reyes this AM
[2021-12-27] MEDS: ESCITALOPRAM OXALATE 10 MG TAB PO SCH (13:54)
[2021-12-27] MEDS ORDERED: WARFARIN SOD 3 MG TAB PO SCH (16:00)
[2021-12-27] MEDS: ONDANSETRON INJ 2 MG/ML 2 ML VIAL IV PRN (16:14)
[2021-12-27] MEDS ORDERED: PROMETHAZINE HCL 12.5 MG in SODIUM CHLORIDE 0.9% 50 ML IV STA (19:09)
[2021-12-27] MEDS: TRAVOPROST Z 0.004% OPH SOLN 2.5 ML BTL OP SCH (22:47)
[2021-12-27] MEDS: PRAVASTATIN SOD 20 MG TAB PO SCH (22:47)
[2021-12-28] MEDS: LEVOTHYROXINE SODIUM 25 MCG TABLET PO SCH (05:30)
[2021-12-28] MEDS: ONDANSETRON INJ 2 MG/ML 2 ML VIAL IV PRN ×2 (05:34→20:56)
[2021-12-28 05:38] LABS: Hemoglobin 13.2 g/dl (12.0-16.0); Mean Corpuscular Hemoglobin 27.5 pg (25.0-34.0); Mean Corpuscular Volume 83.3 fL (80.0-100.0); Mean Platelet Volume 8.8 fL (9.4-12.3); Platelet Count 343 K/uL (130-400); RDW Standard Deviation 42.6 fL (36.4-46.3); White Blood Count 16.17 K/ul (4.8-10.8)
[2021-12-28 06:01] LABS: BUN Creatinine Ratio 29.6 (10-20); Creatinine Clr Calc Pharmacy 30.9 ml/min; Est GFR (Non-African American) 40.6 ml/min; Potassium 3.9 mmol/L (3.5-5.1)
[2021-12-28 06:11] LABS: Prothrombin Time 39.2 Seconds (9.0-12.0)
[2021-12-28] MEDS: cefTRIAXone SODIUM 1,000 MG in DEXTROSE 5% 50 ML IV SCH (08:32)
[2021-12-28] MEDS: METOPROLOL TARTRATE 50 MG TAB PO SCH ×3 (08:33→20:53)
[2021-12-28] MEDS: FUROSEMIDE 40 MG/4 ML VIAL IV SCH (08:33)
[2021-12-28] MEDS: DOXYCYCLINE HYCLATE 100 MG CAP PO SCH ×2 (08:34→20:47)
[2021-12-28] MEDS: MULTIVITAMIN TAB PO SCH (08:34)
[2021-12-28] MEDS: ASPIRIN 81 MG ECTAB PO SCH (08:34)
[2021-12-28] MEDS: LOSARTAN POTASSIUM 25 MG TAB PO SCH (08:34)
[2021-12-28] MEDS: SPIRONOLACTONE 12.5 MG TAB PO SCH (08:35)
[2021-12-28] MEDS: FAMOTIDINE 20 MG TAB PO SCH ×2 (08:35→20:47)
--- NOTE | 2021-12-28 09:59 | Cardiology Progress Note ---
Date of Service December 28, 2021 Assessment & Plan (1) Acute HFrEF (heart failure with reduced ejection fraction): Plan Patient feels subjectively improved. She is on 4 L nasal cannula oxygen supplementation, with pulse ox of 93%, but this is certainly improved compared to admission when she required BiPAP support. There is concern for superimposed pneumonia as well. She has some degree of chronic right ventricular dysfunction noted on previous echocardiogram as well as again there has been interval decline in her ejection fraction since her previous echo this hospital stay., With LVEF in the range of 40 to 45%. Mild troponin elevation noted, without symptoms of rowena angina, and her EKG is nondiagnostic for ischemia due to the chronic ventricular paced rhythm. WBC count is elevated, perhaps consistent with a pneumonia picture mild hyponatremia noted today and her BUN/creatinine ratio is rising. She has received 3 doses of IV furosemide. For now we will hold off, and will reassess volume status after chemistry panel performed tomorrow. Coumadin on hold for INR of 4. Admission and Anticipated Discharge Date Admission Date: December 27, 2021 Subjective Patient seen in cardiology follow-up of shortness of breath. Since her initial assessment yesterday, she has been transferred to the telemetry unit. Telemetry reveals ventricular pacing in the 70s with underlying atrial fibrillation as per her recent baseline. Physical Exam Physical Exam: Temp Pulse Resp BP Pulse Ox O2 Del Method O2 Flow Rate 36.6 C 70 20 100/67 93 4 12/28/21 08:18 12/28/21 08:18 12/28/21 08:18 12/28/21 08:18 12/28/21 08:18 12/28/21 09:57 12/28/21 09:57 FiO2 40 12/27/21 07:16 Respiratory: Mildly decreased breath sounds in the bases Cardiovascular: Rate/Rhythm: regular rate Heart Sounds: + murmur (1/6 systolic murmur) Extremities: + edema (1+ ankle/pedal edema) Gastrointestinal (Abdomen): normal bowel sounds, soft, nontender, no hepatosplenomegaly Neurologic: PERRL, EOMI, accommodation nl, no face palsy, no dysarthria Results & Data ([facility]) Vital Signs (Past 12 Hours) Vital Signs Temp Pulse Pulse Resp BP BP Pulse Ox 12/28/21 08:18 36.6 C 70 20 100/67 93 12/28/21 07:59 75 12/28/21 03:36 36.5 C 70 16 112/73 96 12/27/21 22:15 70 12/27/21 22:00 12/27/21 22:00 36.4 C L 70 16 136/77 95 O2 Del Method O2 Flow Rate 12/28/21 08:18 Nasal Cannula 4 12/28/21 07:59 12/28/21 03:36 Nasal Cannula 4.0 12/27/21 22:15 12/27/21 22:00 Nasal Cannula 4 12/27/21 22:00 Nasal Cannula 4
--- NOTE | 2021-12-28 10:56 | Hospitalist Progress Note ---
Date of Service December 28, 2021 Assessment & Plan (1) Acute HFrEF (heart failure with reduced ejection fraction): Plan: Presented with shortness of breath and fall Noted to have pulm edema and small pleural effusion, age indeterminate T1 and T4 compression # on CT chest Labs notable for troponin of 166->>348>462 EKG did not show ACS. Has ventricular paced rhythm Patient was started on IV lasix Echo noted EF of 40-45%, severely dilated LA, mild dil RA, mild to mod MR, mild TR, mild glbal LV hypokinesis Cardiology evaluation/recs noted Cr bumped today to 1.25 Lasix on hold for now. Follow up labs and vol status in AM Currently on home metoprolol tartarate. Will discuss with Card at time of dc about switching to XL (2) Acute respiratory failure with hypoxia: Plan: Due CHF Also possibility of pneumonia Has leukocytosis today Continue ceftriaxone and doxycycline Oxygen requirement has been improving from BIPAP on presentation to 4l NC this AM Continue to wean oxygen as tolerated Incentive spirometry and flutter (3) HTN (hypertension): Plan: Stable Continue home losartan History of PE On warfarin INR is supratherapeutic today at 4. Hold warfarin and monitor Continue home lexapro Admission and Anticipated Discharge Date Admission Date: December 27, 2021 Subjective Patient seen and examined Reports feeling better than yesterday Reports feeling weak Still has cough. Denied chest pain or shortness of breath Reports nausea. No vomiting today Denied abd pain, diarrhea, constipation Denied dysuria, freq, urgency Denied fevers, chills Physical Exam Constitutional: + well hydrated and + obese; no acute distress Eyes: PERRL, conjunctivae normal, anicteric sclerae ENMT: external ear and nose normal, oropharynx normal Respiratory: normal respiratory effort; no respiratory distress On nasal cannula at 4l/min, reduced breath sounds lung bases Cardiovascular: Rate/Rhythm: regular rate and regular rhythm S1 S2 Gastrointestinal (Abdomen): normal bowel sounds, soft, nontender, no hepatosplenomegaly Musculoskeletal: +pedal edema Neurologic: PERRL, EOMI, accommodation nl, no face palsy, no dysarthria Psychiatric: A+Ox3, euthymic affect Results & Data Results & Data ([facility]) Vital Signs (Past 12 Hours) Vital Signs Temp Pulse Pulse Resp BP BP Pulse Ox 12/28/21 09:57 12/28/21 08:18 36.6 C 70 20 100/67 93 12/28/21 07:59 75 12/28/21 03:36 36.5 C 70 16 112/73 96 O2 Del Method O2 Flow Rate 12/28/21 09:57 Nasal Cannula 4 12/28/21 08:18 Nasal Cannula 4 12/28/21 07:59 12/28/21 03:36 Nasal Cannula 4.0 Laboratory Results Abnormal lab results 12/27/21 12/28/21 12/28/21 Range/Units 16:51 05:28 05:28 WBC (4.8-10.8) K/ul MPV (9.4-12.3) fL PT 39.2 H (9.0-12.0) Seconds INR 4.0 H (0.9-1.1) Sodium 132 L (136-145) mmol/L Chloride 95 L (98-107) mmol/L BUN 37 H (6-23) mg/dl Creatinine 1.25 H (0.6-1.2) mg/dl BUN/Creatinine Ratio 29.6 H (10-20) Glucose 125 H (70-99(Fasting)) mg/dl Troponin I High Sens 462.2 H* D (0-14) pg/ml 12/28/21 Range/Units 05:28 WBC 16.17 H (4.8-10.8) K/ul MPV 8.8 L (9.4-12.3) fL PT (9.0-12.0) Seconds INR (0.9-1.1) Sodium (136-145) mmol/L Chloride (98-107) mmol/L BUN (6-23) mg/dl Creatinine (0.6-1.2) mg/dl BUN/Creatinine Ratio (10-20) Glucose (70-99(Fasting)) mg/dl Troponin I High Sens (0-14) pg/ml
[2021-12-28] MEDS: ESCITALOPRAM OXALATE 10 MG TAB PO SCH (11:39)
[2021-12-28] MEDS: PRAVASTATIN SOD 20 MG TAB PO SCH (20:48)
[2021-12-28] MEDS: TRAVOPROST Z 0.004% OPH SOLN 2.5 ML BTL OP SCH (20:53)
[2021-12-29] MEDS: LEVOTHYROXINE SODIUM 25 MCG TABLET PO SCH (05:39)
[2021-12-29 06:16] LABS: Hematocrit (blood only) 40.3 % (34.1-44.9); Hemoglobin 13.1 g/dl (12.0-16.0); Mean Corpuscular Hemoglobin 27.1 pg (25.0-34.0); Mean Corpuscular Hgb Conc 32.5 g/dL (32.0-36.0); Mean Corpuscular Volume 83.4 fL (80.0-100.0); Mean Platelet Volume 8.8 fL (9.4-12.3); Platelet Count 307 K/uL (130-400); RDW Coefficient of Variation 13.9 % (11.5-14.5); RDW Standard Deviation 42.5 fL (36.4-46.3); Red Blood Count 4.83 M/uL (3.93-5.22)
[2021-12-29 06:23] LABS: INR 3.5 (0.9-1.1); Prothrombin Time 34.9 Seconds (9.0-12.0)
[2021-12-29 06:42] LABS: BUN Creatinine Ratio 33.9 (10-20); Calcium 8.8 mg/dl (8.5-10.1); Creatinine Clr Calc Pharmacy 37.3 ml/min; Est GFR (African American) 48.9 ml/min; Est GFR (Non-African American) 42.2 ml/min; Potassium 3.6 mmol/L (3.5-5.1)
[2021-12-29] MEDS: ONDANSETRON INJ 2 MG/ML 2 ML VIAL IV PRN (06:48)
[2021-12-29] MEDS ORDERED: FUROSEMIDE INJ 20 MG/2 ML VIAL IV ONE (08:37)
--- NOTE | 2021-12-29 09:22 | Cardiology Progress Note ---
Date of Service December 29, 2021 Assessment & Plan (1) Acute HFrEF (heart failure with reduced ejection fraction): Plan Patient with underlying atrial fibrillation. Continue to hold Coumadin for INR 3.5 today. Trending down from 4. Diuretics were held 12/28/2021 as her creatinine had trended up. Creatinine of 1.21 remains slightly above baseline. We will proceed with low- dose furosemide 20 mg x 1 this morning. Continue to monitor renal function. Patient is currently on ceftriaxone and doxycycline for presumed community- acquired pneumonia. Procalcitonin was normal. She does have mild ongoing leukocytosis. At present, I think it is most prudent to discontinue doxycycline which can cause nauseousness. Continue Rocephin for now. Depend upon how she feels, future considerations include adding azithromycin 500 mg daily. Although the patient's QT on most recent EKG is prolonged at 532 ms, this must be interpreted with the fact that she is ventricular paced with resultant wide QRS complex and deep T wave inversions, therefore I do not think this represents a prohibitive contraindication to macrolide antibiotic if indicated, but would need to be utilized with caution, and perhaps we have an explanation for her presenting symptoms to begin with, CHF. Repeat troponin has been requested for trending purposes. Admission and Anticipated Discharge Date Admission Date: December 27, 2021 Subjective Patient seen in cardiology follow-up of shortness of breath. She notes persistent nauseousness since arriving to the hospital that had not been present prior to arrival. She denies any epigastric discomfort. Denies chest discomfort or chest tightness. Denies resting shortness of breath orthopnea. Telemetry reveals underlying atrial fibrillation with demand ventricular pacing, occasional PVCs and occasional ventricular triplets. Physical Exam Constitutional: no acute distress Respiratory: + cough; no respiratory distress Auscultation: + diminished lung sounds (Decreased breath sounds bilaterally at the bases); no crackles and no rales Cardiovascular: Rate/Rhythm: regular rate and regular rhythm Heart Sounds: + murmur (1/6 systolic murmur) Extremities: + edema (1+ ankle/pedal edema) Gastrointestinal (Abdomen): normal bowel sounds, soft, nontender, no hepat osplenomegaly Neurologic: PERRL, EOMI, accommodation nl, no face palsy, no dysarthria Results & Data ([facility]) Vital Signs (Past 12 Hours) Vital Signs Temp Pulse Pulse Resp BP BP Pulse Ox 12/29/21 08:04 75 12/29/21 08:01 12/29/21 08:01 12/29/21 07:37 36.8 C 69 17 127/78 92 12/29/21 03:09 36.8 C 65 18 119/79 96 12/28/21 22:17 70 12/28/21 22:57 36.8 C 72 16 124/79 93 Pulse Ox O2 Del Method O2 Del Method O2 Flow Rate O2 Flow Rate 12/29/21 08:04 12/29/21 08:01 Nasal Cannula 2 12/29/21 08:01 92 Nasal Cannula 2 12/29/21 07:37 Room Air 12/29/21 03:09 Nasal Cannula 2 12/28/21 22:17 12/28/21 22:57 Nasal Cannula 3
[2021-12-29] MEDS ORDERED: POTASSIUM CHLORIDE CRTAB 20 MEQ TABCR PO STA (09:24)
--- NOTE | 2021-12-29 10:08 | Communication Note ---
Date of Service: December 29, 2021 Repeat troponin has trended down to 88.3 PG per mL. This is reassuring. Cardiac Enzymes 12/29/21 Range/Units 05:31 Troponin I High Sens 88.3 H* D (0-14) pg/ml
[2021-12-29] MEDS: SPIRONOLACTONE 12.5 MG TAB PO SCH (10:10)
[2021-12-29] MEDS: ASPIRIN 81 MG ECTAB PO SCH (10:10)
[2021-12-29] MEDS: FAMOTIDINE 20 MG TAB PO SCH ×2 (10:11→21:03)
[2021-12-29] MEDS: METOPROLOL TARTRATE 50 MG TAB PO SCH ×3 (10:11→21:03)
[2021-12-29] MEDS: MULTIVITAMIN TAB PO SCH (10:12)
[2021-12-29] MEDS: LOSARTAN POTASSIUM 25 MG TAB PO SCH (10:53)
[2021-12-29] MEDS: cefTRIAXone SODIUM 1,000 MG in DEXTROSE 5% 50 ML IV SCH (11:24)
--- NOTE | 2021-12-29 11:33 | Hospitalist Progress Note ---
Date of Service December 29, 2021 Assessment & Plan (1) Acute HFrEF (heart failure with reduced ejection fraction): Plan: Presented with shortness of breath and fall Noted to have pulm edema and small pleural effusion, age indeterminate T1 and T4 compression # on CT chest Labs notable for troponin of 166->>348>462>88.3. Elevated trop may have been due to demand ischemia EKG did not show ACS. Has ventricular paced rhythm Patient was started on IV lasix Echo noted EF of 40-45%, severely dilated LA, mild dil RA, mild to mod MR, mild TR, mild glbal LV hypokinesis Cardiology evaluation/recs noted Cr is 1.21 today Lasix per cardiology. Monitor renal function and volume status Currently on home metoprolol tartrate. Will discuss with Card at time of dc about switching to XL (2) Acute respiratory failure with hypoxia: Plan: Due to CHF Also possibility of pneumonia Leukocytosis improving Continue ceftriaxone Doxycycline discontinued due to nausea/heart burn Oxygen requirement has significantly improved since admission Will need 2 step prior to dc Incentive spirometry and flutter (3) HTN (hypertension): Plan: Stable Continue home losartan History of PE On warfarin INR is still supratherapeutic today at 3.5. Continue to hold warfarin and monitor Continue home lexapro Awaiting PT/OT eval Admission and Anticipated Discharge Date Admission Date: December 27, 2021 Subjective Patient seen and examined Reported she did not get much sleep last night due to roommate Reports cough is significantly improved Denied chest pain or shortness of breath Still reports nausea. Denied vomiting Reported some heart burn after taking her pills this AM Denied abd pain, diarrhea, constipation Denied dysuria, freq, urgency Denied fevers, chills Physical Exam Constitutional: + well hydrated and + obese; no acute distress Eyes: PERRL, conjunctivae normal, anicteric sclerae ENMT: external ear and nose normal, oropharynx normal Respiratory: normal respiratory effort; no respiratory distress Diminished breath sounds lung bases Cardiovascular: Rate/Rhythm: regular rate and regular rhythm Gastrointestinal (Abdomen): normal bowel sounds, soft, nontender, no hepatosplenomegaly Musculoskeletal: +pedal edema Neurologic: PERRL, EOMI, accommodation nl, no face palsy, no dysarthria Psychiatric: A+Ox3, euthymic affect Results & Data Results & Data ([facility]) Vital Signs (Past 12 Hours) Vital Signs Temp Pulse Pulse Resp BP BP Pulse Ox 12/29/21 08:04 75 12/29/21 08:01 12/29/21 08:01 12/29/21 07:37 36.8 C 69 17 127/78 92 12/29/21 03:09 36.8 C 65 18 119/79 96 Pulse Ox O2 Del Method O2 Del Method O2 Flow Rate O2 Flow Rate 12/29/21 08:04 12/29/21 08:01 Nasal Cannula 2 12/29/21 08:01 92 Nasal Cannula 2 12/29/21 07:37 Room Air 12/29/21 03:09 Nasal Cannula 2
[2021-12-29] MEDS: ESCITALOPRAM OXALATE 10 MG TAB PO SCH (11:40)
[2021-12-29] MEDS: PRAVASTATIN SOD 20 MG TAB PO SCH (21:04)
[2021-12-29] MEDS: TRAVOPROST Z 0.004% OPH SOLN 2.5 ML BTL OP SCH (21:04)
[2021-12-30 05:57] LABS: Hematocrit (blood only) 38.6 % (34.1-44.9); Hemoglobin 12.6 g/dl (12.0-16.0); Mean Corpuscular Hemoglobin 27.4 pg (25.0-34.0); Mean Corpuscular Hgb Conc 32.6 g/dL (32.0-36.0); Mean Corpuscular Volume 83.9 fL (80.0-100.0); Mean Platelet Volume 8.9 fL (9.4-12.3); Platelet Count 292 K/uL (130-400); RDW Coefficient of Variation 13.8 % (11.5-14.5); RDW Standard Deviation 42.2 fL (36.4-46.3); White Blood Count 9.36 K/ul (4.8-10.8)
[2021-12-30 06:07] LABS: INR 2.6 (0.9-1.1); Prothrombin Time 26.1 Seconds (9.0-12.0)
[2021-12-30] MEDS: LEVOTHYROXINE SODIUM 25 MCG TABLET PO SCH (06:26)
[2021-12-30 06:29] LABS: Albumin Globulin Ratio 1.3 (0.9-2); Albumin Level 3.5 gm/dl (3.4-5.0); BUN Creatinine Ratio 31.8 (10-20); Bilirubin,Total 0.9 mg/dl (0.2-1.0); Calcium 8.7 mg/dl (8.5-10.1); Est GFR (African American) 54.9 ml/min; Est GFR (Non-African American) 47.4 ml/min; Globulin 2.7 gm/dl (2.5-4.0); Potassium 3.7 mmol/L (3.5-5.1); Total Protein 6.2 gm/dl (6.0-8.3)
[2021-12-30] MEDS: cefTRIAXone SODIUM 1,000 MG in DEXTROSE 5% 50 ML IV SCH (08:36)
[2021-12-30] MEDS: FAMOTIDINE 20 MG TAB PO SCH ×2 (08:36→20:30)
[2021-12-30] MEDS: METOPROLOL TARTRATE 50 MG TAB PO SCH ×3 (08:36→20:30)
[2021-12-30] MEDS: MULTIVITAMIN TAB PO SCH (08:37)
[2021-12-30] MEDS: SPIRONOLACTONE 12.5 MG TAB PO SCH (08:37)
[2021-12-30] MEDS: ASPIRIN 81 MG ECTAB PO SCH (08:37)
[2021-12-30] MEDS: LOSARTAN POTASSIUM 25 MG TAB PO SCH (08:37)
[2021-12-30] MEDS ORDERED: FUROSEMIDE INJ 20 MG/2 ML VIAL IV ONE (12:02)
--- NOTE | 2021-12-30 12:07 | Cardiology Progress Note ---
Date of Service December 30, 2021 Assessment & Plan (1) Acute HFrEF (heart failure with reduced ejection fraction): Plan: -Patient received furosemide 20 mg IV yesterday 12/29/2021, creatinine has improved from 1.21 down to 1.11. Nausea has improved with having discontinued doxycycline. Given ongoing concerns with oxygen requirement, fever patient remains in hospital, proceed with furosemide 20 mg x 1 today, along with potassium supplementation. Continue aspirin, losartan, pravastatin, spironolactone, metoprolol. With regards to atrial fibrillation, Coumadin has been on hold. INR down to 2.6. Resume Coumadin at a dose of 2.5 mg daily today. Admission and Anticipated Discharge Date Admission Date: December 27, 2021 Subjective Patient seen in cardiology follow-up. She notes interval improvement compared to yesterday. Nauseousness has resolved. She still has a significant oxygen requirement, and I watched her walk with assistance, and she states she is certainly not at her baseline strength that she was prior to this hospital stay. Review of Systems Review of Systems: All systems reviewed & are unremarkable except as noted in HPI & below Physical Exam Physical Exam: Temp Pulse Resp BP Pulse Ox O2 Del Method O2 Flow Rate 36.7 C 78 18 109/66 84 L 2 12/30/21 10:45 12/30/21 11:58 12/30/21 11:58 12/30/21 10:45 12/30/21 11:58 12/30/21 10:45 12/30/21 11:58 FiO2 40 12/27/21 07:16 Constitutional: Frail, no acute distress Respiratory: no labored breathing Auscultation: + diminished lung sounds (Mildly reduced breath sounds at the bases); no crackles and no rales Cardiovascular: Rate/Rhythm: regular rate Heart Sounds: + murmur (1/6 systolic murmur) Extremities: + edema (Trace lower extremity edema) Gastrointestinal (Abdomen): normal bowel sounds, soft, nontender, no hepatosplenomegaly Neurologic: PERRL, EOMI, accommodation nl, no face palsy, no dysarthria Results & Data ([facility]) Laboratory Results Cardiac Enzymes 12/30/21 Range/Units 05:29 AST 22 (13-39) U/L Coagulation 12/30/21 Range/Units 05:29 PT 26.1 H (9.0-12.0) Seconds CBC 12/30/21 Range/Units 05:29 WBC 9.36 (4.8-10.8) K/ul RBC 4.60 (3.93-5.22) M/uL Hgb 12.6 (12.0-16.0) g/dl Hct 38.6 (34.1-44.9) % Plt Count 292 (130-400) K/uL Comprehensive Metabolic Panel 12/30/21 Range/Units 05:29 Sodium 132 L (136-145) mmol/L Potassium 3.7 (3.5-5.1) mmol/L Chloride 94 L (98-107) mmol/L Carbon Dioxide 30 (21-32) mmol/L BUN 35 H (6-23) mg/dl Creatinine 1.10 (0.6-1.2) mg/dl Glucose 91 (70-99(Fasting)) mg/dl Calcium 8.7 (8.5-10.1) mg/dl AST 22 (13-39) U/L ALT 14 (7-52) U/L Alkaline Phosphatase 55 (34-104) U/L Total Protein 6.2 (6.0-8.3) gm/dl Albumin 3.5 (3.4-5.0) gm/dl Intake and Output 12/29/21 12/30/21 12/30/21 22:59 06:59 14:59 Intake Total 175 / 685 60 / 60 Output Total 400 / 1401 200 / 1401 Balance -225 / -716 -200 / -716 60 / 60 Intake: IV 60 / 60 cefTRIAXone SODIUM 1,000 mg In 60 / 60 Dextrose 5% 50 ml @ 100 mls/hr IV Q24H [facility] Rx#:[id number] Oral 175 / 625 Output: Urine 400 / 1400 200 / 1400 Other: # Unmeasured Voids 1 1 Weight 84 kg Weight Measurement Method Built in [facility]
[2021-12-30] MEDS ORDERED: POTASSIUM CHLORIDE CRTAB 20 MEQ TABCR PO STA (12:12)
--- NOTE | 2021-12-30 12:51 | Hospitalist Progress Note ---
Date of Service December 30, 2021 Assessment & Plan (1) Acute HFrEF (heart failure with reduced ejection fraction): Plan: Presented with shortness of breath and fall Noted to have pulm edema and small pleural effusion, age indeterminate T1 and T4 compression # on CT chest Labs notable for troponin of 166->>348>462>88.3. Elevated trop may have been due to demand ischemia EKG did not show ACS. Has ventricular paced rhythm Patient was started on IV lasix Echo noted EF of 40-45%, severely dilated LA, mild dil RA, mild to mod MR, mild TR, mild glbal LV hypokinesis Cardiology evaluation/recs noted Cr is 1.1 today IV diuretics being managed by Cardiology. Monitor renal function and volume status Currently on home metoprolol tartrate. Will discuss with Card at time of dc about switching to XL (2) Acute respiratory failure with hypoxia: Plan: Due to CHF Also possibility of pneumonia though low suspicion Stop antibiotics and monitor Incentive spirometry and flutter Continue to wean oxygen May need oxygen on dc (3) HTN (hypertension): Plan: Stable Continue home losartan History of PE INR is 2.6 today. Warfarin resumed. Continue home lexapro PT/OT eval noted. Plan to dc home with Outpt PT once stable Admission and Anticipated Discharge Date Admission Date: December 27, 2021 Subjective Patient seen and examined Reports cough continues to improve Denied chest pain or shortness of breath Nausea resolved Denied abd pain, diarrhea, constipation Denied dysuria, freq, urgency Denied fevers, chills Physical Exam Constitutional: + well hydrated and + obese; no acute distress Eyes: PERRL, conjunctivae normal, anicteric sclerae ENMT: external ear and nose normal, oropharynx normal Respiratory: normal respiratory effort; no respiratory distress Reduced breath sounds at lung bases Cardiovascular: Rate/Rhythm: regular rate and regular rhythm S1 S2 Gastrointestinal (Abdomen): normal bowel sounds, soft, nontender, no hepatosplenomegaly Musculoskeletal: edema improved Neurologic: PERRL, EOMI, accommodation nl, no face palsy, no dysarthria Psychiatric: A+Ox3, euthymic affect Results & Data Results & Data ([facility]) Vital Signs (Past 12 Hours) Vital Signs Temp Pulse Pulse Pulse Pulse Pulse Resp 12/30/21 11:58 78 77 78 78 12/30/21 10:45 36.7 C 69 17 12/30/21 08:00 12/30/21 07:35 36.6 C 69 17 12/30/21 03:07 36.7 C 69 18 Resp Resp Resp Resp BP Pulse Ox Pulse Ox 12/30/21 11:58 18 19 18 18 93 12/30/21 10:45 109/66 89 L 12/30/21 08:00 12/30/21 07:35 106/68 96 12/30/21 03:07 105/65 95 Pulse Ox Pulse Ox Pulse Ox O2 Del Method O2 Flow Rate O2 Flow Rate O2 Flow Rate 12/30/21 11:58 97 94 84 L 2 2 12/30/21 10:45 Room Air 12/30/21 08:00 Nasal Cannula 2 12/30/21 07:35 Nasal Cannula 2 12/30/21 03:07 Nasal Cannula 2 O2 Flow Rate 12/30/21 11:58 2 12/30/21 10:45 12/30/21 08:00 12/30/21 07:35 12/30/21 03:07
[2021-12-30] MEDS ORDERED: WARFARIN SOD 2.5 MG TAB PO SCH (16:00)
[2021-12-30] MEDS: PRAVASTATIN SOD 20 MG TAB PO SCH (20:29)
[2021-12-30] MEDS: TRAVOPROST Z 0.004% OPH SOLN 2.5 ML BTL OP SCH (20:30)
[2021-12-31] MEDS ORDERED: LOPERAMIDE HCL 2 MG CAP PO STA (01:15)
[2021-12-31] MEDS ORDERED: LOPERAMIDE HCL 2 MG CAP PO ONE (04:50)
[2021-12-31] MEDS: LEVOTHYROXINE SODIUM 25 MCG TABLET PO SCH (06:03)
[2021-12-31 06:18] LABS: INR 1.7 (0.9-1.1); Prothrombin Time 17.7 Seconds (9.0-12.0)
[2021-12-31 06:27] LABS: BUN Creatinine Ratio 30.9 (10-20); Calcium 8.5 mg/dl (8.5-10.1); Est GFR (African American) 66.4 ml/min; Est GFR (Non-African American) 57.3 ml/min; Potassium 3.8 mmol/L (3.5-5.1)
[2021-12-31] MEDS: LOSARTAN POTASSIUM 25 MG TAB PO SCH (08:32)
[2021-12-31] MEDS: METOPROLOL TARTRATE 50 MG TAB PO SCH ×3 (08:32→21:23)
[2021-12-31] MEDS: SPIRONOLACTONE 12.5 MG TAB PO SCH (08:32)
[2021-12-31] MEDS: ASPIRIN 81 MG ECTAB PO SCH (08:32)
[2021-12-31] MEDS: FAMOTIDINE 20 MG TAB PO SCH ×2 (08:32→21:24)
[2021-12-31] MEDS: MULTIVITAMIN TAB PO SCH (08:32)
[2021-12-31] MEDS ORDERED: Heparin IV Adult Wt-Based Standard *NO* Bolus Protocol IV ONE (10:37)
[2021-12-31] MEDS ORDERED: FUROSEMIDE 40 MG/4 ML VIAL IV ONE (10:45)
--- NOTE | 2021-12-31 11:18 | Hospitalist Progress Note ---
Date of Service December 31, 2021 Assessment & Plan (1) Acute HFrEF (heart failure with reduced ejection fraction): Plan: Presented with shortness of breath and fall Noted to have pulm edema and small pleural effusion, age indeterminate T1 and T4 compression # on CT chest Labs notable for troponin of 166->>348>462>88.3. Elevated trop may have been due to demand ischemia EKG did not show ACS. Has ventricular paced rhythm Patient was started on IV lasix Echo noted EF of 40-45%, severely dilated LA, mild dil RA, mild to mod MR, mild TR, mild glbal LV hypokinesis Cardiology evaluation/recs noted Cr is 0.94 today IV diuretics being managed by Cardiology. Monitor renal function and volume status Discussed with Angle Bender Dr Ames He is planning possible stress test vs cath once patient is stabilized Anticoagulation held Currently on home metoprolol tartrate. Will discuss with Card at time of dc about switching to XL (2) Acute respiratory failure with hypoxia: Plan: Due to CHF Also possibility of pneumonia though low suspicion Incentive spirometry and flutter Continue to wean oxygen May need oxygen on dc (3) HTN (hypertension): Plan: Stable Continue home losartan History of PE INR is 1.7 today. Anticoagulation on hold per Card as above for possible cath Continue home lexapro PT/OT eval noted. Plan to dc home with Outpt PT once stable Patient's former roommate was reported to have tested positive to COVID Patient is currently on COVID isolation. COVID test last night was negative. Will check COVID test on day 5 if still inpatient Admission and Anticipated Discharge Date Admission Date: December 27, 2021 Subjective Patient seen and examined Reports feeling better Reports cough is minimal today Denied any shortness of breath, chest pain Denied any nausea, vomiting, abd pain, diarrhea Denied any dysuria, freq, urgency Physical Exam Constitutional: + well hydrated and + obese; no acute distress Eyes: PERRL, conjunctivae normal, anicteric sclerae ENMT: external ear and nose normal, oropharynx normal Respiratory: normal respiratory effort; no respiratory distress Improved air entry. mildly reduced breath sounds Cardiovascular: Rate/Rhythm: regular rate and regular rhythm S1 S2 Gastrointestinal (Abdomen): normal bowel sounds, soft, nontender, no hepatosplenomegaly Musculoskeletal: Trace ankle edema Neurologic: PERRL, EOMI, accommodation nl, no face palsy, no dysarthria Psychiatric: A+Ox3, euthymic affect Results & Data Results & Data ([facility]) Vital Signs (Past 12 Hours) Vital Signs Temp Pulse Pulse Resp BP Pulse Ox O2 Del Method 12/31/21 11:02 36.5 C 70 18 105/66 95 Nasal Cannula 12/31/21 08:00 72 12/31/21 07:26 36.7 C 79 18 109/71 94 Nasal Cannula 12/31/21 03:27 36.9 C 69 119/74 96 Nasal Cannula O2 Flow Rate 12/31/21 11:02 2 12/31/21 08:00 12/31/21 07:26 2 12/31/21 03:27 2 Laboratory Results Abnormal lab results 12/31/21 12/31/21 Range/Units 05:40 05:40 PT 17.7 H (9.0-12.0) Seconds INR 1.7 H (0.9-1.1) Sodium 131 L (136-145) mmol/L Chloride 94 L (98-107) mmol/L BUN 29 H (6-23) mg/dl BUN/Creatinine Ratio 30.9 H (10-20) Glucose 100 H (70-99(Fasting)) mg/dl
[2021-12-31] MEDS: HEPARIN SODIUM/DEXTROSE 25,000 UNITS/500 ML BAG IV SCH (11:53)
[2021-12-31] MEDS: ESCITALOPRAM OXALATE 10 MG TAB PO SCH (12:57)
[2021-12-31 19:09] LABS: Partial Thromboplastin Ratio > 5.1
[2021-12-31 19:30] LABS: Partial Thromboplastin Time > 139.0 Seconds (21.0-31.0)
[2021-12-31] MEDS: TRAVOPROST Z 0.004% OPH SOLN 2.5 ML BTL OP SCH (21:23)
[2021-12-31] MEDS: PRAVASTATIN SOD 20 MG TAB PO SCH (21:24)
[2022-01-01 04:27] LABS: Hematocrit (blood only) 38.9 % (34.1-44.9); Hemoglobin 12.6 g/dl (12.0-16.0); Mean Corpuscular Hemoglobin 27.4 pg (25.0-34.0); Mean Corpuscular Hgb Conc 32.4 g/dL (32.0-36.0); Mean Corpuscular Volume 84.6 fL (80.0-100.0); Mean Platelet Volume 8.9 fL (9.4-12.3); Platelet Count 296 K/uL (130-400); RDW Coefficient of Variation 13.9 % (11.5-14.5); RDW Standard Deviation 42.4 fL (36.4-46.3); White Blood Count 10.92 K/ul (4.8-10.8)
[2022-01-01 04:48] LABS: BUN Creatinine Ratio 30.9 (10-20); Calcium 8.8 mg/dl (8.5-10.1); Creatinine Clr Calc Pharmacy 46.4 ml/min; Est GFR (African American) 63.9 ml/min; Est GFR (Non-African American) 55.2 ml/min; Potassium 3.9 mmol/L (3.5-5.1)
[2022-01-01 04:58] LABS: Partial Thromboplastin Ratio 3.4
[2022-01-01 05:06] LABS: Partial Thromboplastin Time 93.6 Seconds (21.0-31.0)
[2022-01-01] MEDS: LEVOTHYROXINE SODIUM 25 MCG TABLET PO SCH (06:06)
[2022-01-01 09:23] LABS: INR 1.5 (0.9-1.1); Prothrombin Time 15.7 Seconds (9.0-12.0)
[2022-01-01] MEDS: METOPROLOL TARTRATE 50 MG TAB PO SCH ×2 (09:41→13:47)
[2022-01-01] MEDS: ASPIRIN 81 MG ECTAB PO SCH (09:42)
[2022-01-01] MEDS: FAMOTIDINE 20 MG TAB PO SCH ×2 (09:42→20:29)
[2022-01-01] MEDS: SPIRONOLACTONE 12.5 MG TAB PO SCH (09:42)
[2022-01-01] MEDS: LOSARTAN POTASSIUM 25 MG TAB PO SCH (09:43)
[2022-01-01] MEDS: MULTIVITAMIN TAB PO SCH (09:43)
--- NOTE | 2022-01-01 10:41 | XRay Report ---
XR chest 2V PA/lateral HISTORY: 81 years-old Female follow up CHF acute shortness of breath COMPARISON: Chest radiograph and chest CT studies 12/26/2021 TECHNIQUE: PA and lateral views of the chest FINDINGS: Cardiac silhouette is enlarged. Left subclavian pacer. Atherosclerosis of the aorta. There is no pneu mothorax, or overt pulmonary edema. Trace pleural effusions with mild subsegmental bibasilar atelecta sis. Bones appear grossly intact. IMPRESSION: 1. Cardiomegaly without pulmonary edema. 2. Trace pleural effusions with mild basilar atelectasis. ACT 112: Negative or not required by law. The above report was generated using voice recognition software. It may contain grammatical, syntax o r spelling errors. Electronically signed by: Cj Lowery M.D. 01/01/2022 10:39 AM
[2022-01-01] MEDS: ESCITALOPRAM OXALATE 10 MG TAB PO SCH (11:49)
[2022-01-01] MEDS ORDERED: FUROSEMIDE INJ 20 MG/2 ML VIAL IV ONE (12:24)
--- NOTE | 2022-01-01 12:54 | Hospitalist Progress Note ---
Date of Service January 01, 2022 Assessment & Plan (1) Acute HFrEF (heart failure with reduced ejection fraction): Plan: Presented with shortness of breath and fall Noted to have pulm edema and small pleural effusion, age indeterminate T1 and T4 compression # on CT chest Labs notable for troponin of 166->>348>462>88.3. Elevated trop may have been due to demand ischemia EKG did not show ACS. Has ventricular paced rhythm Patient was started on IV lasix Echo noted EF of 40-45%, severely dilated LA, mild dil RA, mild to mod MR, mild TR, mild glbal LV hypokinesis Cardiology evaluation/recs noted Cr is 0.97 today IV diuretics being managed by Cardiology. 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 Plan for outpatient lexiscan. Possible dc tomorrow Currently on home metoprolol tartrate. Will discuss with Card at time of dc about switching to XL (2) Acute respiratory failure with hypoxia: Plan: Due to CHF Also possibility of pneumonia though low suspicion Incentive spirometry and flutter Continue to wean oxygen. Was on 1l/min during my evaluation Discussed with RN to wean off oxygen and monitor Plan to 2 step tomorrow (3) HTN (hypertension): Plan: Stable Continue home losartan History of PE Afib INR is 1.5 today. Has been on heparin drip Started on eliquis tonight Continue home lexapro PT/OT eval noted. Plan to dc home with Outpt PT once stable Patient's former roommate was reported to have tested positive to COVID Patient is currently on COVID isolation. COVID test on 12/30/21 was negative. Patient to check COVID test on day 5 Admission and Anticipated Discharge Date Admission Date: December 27, 2021 Subjective Patient seen and examined Reports feeling better Denied cough today Denied any shortness of breath, chest pain Denied any nausea, vomiting, abd pain, diarrhea Denied any dysuria, freq, urgency Physical Exam Constitutional: + well hydrated and + obese; no acute distress Eyes: PERRL, conjunctivae normal, anicteric sclerae ENMT: external ear and nose normal, oropharynx normal Respiratory: normal respiratory effort; no respiratory distress Diminished breath sounds lung bases Cardiovascular: Rate/Rhythm: regular rate and regular rhythm S1 S2 Gastrointestinal (Abdomen): normal bowel sounds, soft, nontender, no hepatosplenomegaly Musculoskeletal: No pedal edema Neurologic: PERRL, EOMI, accommodation nl, no face palsy, no dysarthria Psychiatric: A+Ox3, euthymic affect Results & Data Results & Data ([facility]) Vital Signs (Past 12 Hours) Vital Signs Temp Pulse Pulse Resp BP Pulse Ox O2 Del Method 01/01/22 11:52 36.3 C L 69 16 101/67 95 Room Air 01/01/22 08:00 Nasal Cannula 01/01/22 07:25 36.8 C 72 16 122/74 96 Nasal Cannula 01/01/22 06:10 77 01/01/22 03:17 36.8 C 69 18 118/75 96 O2 Flow Rate 01/01/22 11:52 01/01/22 08:00 1 01/01/22 07:25 1.5 01/01/22 06:10 01/01/22 03:17 Laboratory Results Abnormal lab results 12/31/21 01/01/22 01/01/22 Range/Units 18:22 04:13 04:13 WBC 10.92 H (4.8-10.8) K/ul MPV 8.9 L (9.4-12.3) fL PT (9.0-12.0) Seconds INR (0.9-1.1) APTT > 139.0 H* (21.0-31.0) Seconds Sodium 133 L (136-145) mmol/L Chloride 95 L (98-107) mmol/L BUN 30 H (6-23) mg/dl BUN/Creatinine Ratio 30.9 H (10-20) Glucose 107 H (70-99(Fasting)) mg/dl 01/01/22 01/01/22 01/01/22 Range/Units 04:13 04:13 12:35 WBC (4.8-10.8) K/ul MPV (9.4-12.3) fL PT 15.7 H (9.0-12.0) Seconds INR 1.5 H (0.9-1.1) APTT 93.6 H* 66.1 H* (21.0-31.0) Seconds Sodium (136-145) mmol/L Chloride (98-107) mmol/L BUN (6-23) mg/dl BUN/Creatinine Ratio (10-20) Glucose (70-99(Fasting)) mg/dl
[2022-01-01 13:21] LABS: Partial Thromboplastin Ratio 2.4
[2022-01-01 13:22] LABS: Partial Thromboplastin Time 66.1 Seconds (21.0-31.0)
--- NOTE | 2022-01-01 14:52 | Cardiology Progress Note ---
Date of Service January 01, 2022 Assessment & Plan (1) Acute HFrEF (heart failure with reduced ejection fraction): Plan: * Furosemide 20 mg x 1 today, cautiously given hyponatremia relative low blood pressure. * Low-dose spironolactone added * Plan for repeat dose of 20 mg a.m. of 01/02/2022 * If continues to improve, possible discharge 01/02 * Plan for outpatient Lexiscan nuclear stress test given new mild left ventricular systolic dysfunction. Nonischemic stress test noted in 2019 (2) Chronic atrial fibrillation: Plan: * Change metoprolol to tartrate 50 mg 3 times daily to succinate 75 mg twice daily * INR therapeutic 1.5. * Continue heparin bridge * [id number] cost for Eliquis 5 mg twice daily determined to be $20 per month * Kevin, 01/01/2022, 2100, will discontinue heparin, start Eliquis. Repeat CBC, BMP 01/01/2022 Admission and Anticipated Discharge Date Admission Date: December 27, 2021 Subjective Patient seen in cardiology follow-up of chief complaint of shortness of breath. Resting comfortably in bedside chair. Oxygen saturation improving today, earlier today, pulse oximetry 95% on room air, at the time of my assessment, pulse oximetry was 91 to 92% on room air. Chest x-ray this morning revealed no infiltrate, improvement of pulmonary edema pattern, trace bilateral pleural effusion still noted. Telemetry reveals rate controlled atrial fibrillation with ventricular pacing in the 70s, PVCs. Review of Systems Review of Systems: All systems reviewed & are unremarkable except as noted in HPI & below Physical Exam Constitutional: no acute distress Respiratory: + cough; no respiratory distress and no labored breathing Auscultation: + diminished lung sounds (Mildly reduced breath sounds at the bases); no crackles and no rales Cardiovascular: Rate/Rhythm: regular rate and regular rhythm Heart Sounds: + murmur (1/6 systolic murmur) Extremities: + edema (Trace lower extremity edema) Gastrointestinal (Abdomen): normal bowel sounds, soft, nontender, no hepatosplenomegaly Neurologic: PERRL, EOMI, accommodation nl, no face palsy, no dysarthria Results & Data ([facility]) Vital Signs (Past 12 Hours) Vital Signs Temp Pulse Pulse Resp BP Pulse Ox O2 Del Method 01/01/22 13:22 70 101/68 01/01/22 11:52 36.3 C L 69 16 101/67 95 Room Air 01/01/22 08:00 Nasal Cannula 01/01/22 07:25 36.8 C 72 16 122/74 96 Nasal Cannula 01/01/22 06:10 77 01/01/22 03:17 36.8 C 69 18 118/75 96 O2 Flow Rate 01/01/22 13:22 01/01/22 11:52 01/01/22 08:00 1 01/01/22 07:25 1.5 01/01/22 06:10 01/01/22 03:17 Laboratory Results Coagulation 12/31/21 01/01/22 01/01/22 Range/Units 18:22 04:13 04:13 PT 15.7 H (9.0-12.0) Seconds APTT > 139.0 H* 93.6 H* (21.0-31.0) Seconds 01/01/22 Range/Units 12:35 PT (9.0-12.0) Seconds APTT 66.1 H* (21.0-31.0) Seconds CBC 01/01/22 Range/Units 04:13 WBC 10.92 H (4.8-10.8) K/ul RBC 4.60 (3.93-5.22) M/uL Hgb 12.6 (12.0-16.0) g/dl Hct 38.9 (34.1-44.9) % Plt Count 296 (130-400) K/uL Comprehensive Metabolic Panel 01/01/22 Range/Units 04:13 Sodium 133 L (136-145) mmol/L Potassium 3.9 (3.5-5.1) mmol/L Chloride 95 L (98-107) mmol/L Carbon Dioxide 30 (21-32) mmol/L BUN 30 H (6-23) mg/dl Creatinine 0.97 (0.6-1.2) mg/dl Glucose 107 H (70-99(Fasting)) mg/dl Calcium 8.8 (8.5-10.1) mg/dl
[2022-01-01] MEDS ORDERED: WARFARIN SOD 0.5 MG TAB PO SCH (16:00)
[2022-01-01] MEDS: HEPARIN SODIUM/DEXTROSE 25,000 UNITS/500 ML BAG IV SCH (16:46)
[2022-01-01] MEDS: APIXABAN 5 MG TABLET PO SCH (20:29)
[2022-01-01] MEDS: TRAVOPROST Z 0.004% OPH SOLN 2.5 ML BTL OP SCH (20:29)
[2022-01-01] MEDS: METOPROLOL SUCC 25MG EXT REL TAB PO SCH (20:29)
[2022-01-01] MEDS: PRAVASTATIN SOD 20 MG TAB PO SCH (20:29)
[2022-01-02] MEDS: LEVOTHYROXINE SODIUM 25 MCG TABLET PO SCH (05:32)
[2022-01-02] MEDS ORDERED: FUROSEMIDE INJ 20 MG/2 ML VIAL IV SCH (07:00)
[2022-01-02] MEDS: METOPROLOL SUCC 25MG EXT REL TAB PO SCH ×2 (07:46→10:57)
[2022-01-02] MEDS: APIXABAN 5 MG TABLET PO SCH (07:46)
[2022-01-02] MEDS: ASPIRIN 81 MG ECTAB PO SCH (07:46)
[2022-01-02] MEDS: FAMOTIDINE 20 MG TAB PO SCH (07:47)
[2022-01-02] MEDS: SPIRONOLACTONE 12.5 MG TAB PO SCH (07:47)
[2022-01-02] MEDS: MULTIVITAMIN TAB PO SCH (07:47)
[2022-01-02] MEDS: LOSARTAN POTASSIUM 25 MG TAB PO SCH (07:47)
--- NOTE | 2022-01-02 09:41 | Cardiology Progress Note ---
Date of Service January 02, 2022 Assessment & Plan (1) Acute HFrEF (heart failure with reduced ejection fraction): Plan: * Await report chem panel * if bmp stable, will consider Furosemide 20 mg x 1 today, cautiously given hyponatremia relative low blood pressure. * Low-dose spironolactone added * Plan for outpatient Lexiscan nuclear stress test given new mild left ventricular systolic dysfunction. Nonischemic stress test noted in 2019 Possible discharge later today. (2) Chronic atrial fibrillation: Plan: * Changed metoprolol to tartrate 50 mg 3 times daily to succinate 75 mg twice daily * [id number] cost for Eliquis 5 mg twice daily determined to be $20 per month * Heparin bridge DC, now on Eliquis. PUI due to COVID exposure. Afebrile. No definite infections symptoms. COVID negative of 12/30 test Admission and Anticipated Discharge Date Admission Date: December 27, 2021 Subjective Pt seen in cardiology follow up. No acute complaints. Telemetry reveals AF , ventricular pacing in the 70s, occational PVCs. Physical Exam Constitutional: no acute distress Respiratory: no respiratory distress and no labored breathing Auscultation: lungs clear to auscultation bilaterally; no crackles and no rales Cardiovascular: Rate/Rhythm: regular rate and regular rhythm Heart Sounds: + murmur (1/6 systolic murmur) Extremities: no edema (Trace lower extremity edema) Gastrointestinal (Abdomen): normal bowel sounds, soft, nontender, no hepatosplenomegaly Neurologic: PERRL, EOMI, accommodation nl, no face palsy, no dysarthria Results & Data ([facility]) Vital Signs (Past 12 Hours) Vital Signs Temp Pulse Pulse Resp BP Pulse Ox O2 Del Method 01/02/22 07:48 37.1 C 68 16 99/62 L 92 Room Air 01/02/22 05:33 36.8 C 70 16 126/74 98 Nasal Cannula 01/01/22 22:20 73 01/01/22 23:19 37.3 C 70 16 120/70 92 Nasal Cannula O2 Flow Rate 01/02/22 07:48 01/02/22 05:33 1 01/01/22 22:20 01/01/22 23:19 1
[2022-01-02 09:57] LABS: Hematocrit (blood only) 42.4 % (34.1-44.9); Hemoglobin 14.1 g/dl (12.0-16.0); Mean Corpuscular Hemoglobin 27.4 pg (25.0-34.0); Mean Corpuscular Hgb Conc 33.3 g/dL (32.0-36.0); Mean Corpuscular Volume 82.5 fL (80.0-100.0); Mean Platelet Volume 9.4 fL (9.4-12.3); Platelet Count 371 K/uL (130-400); RDW Coefficient of Variation 13.7 % (11.5-14.5); RDW Standard Deviation 40.5 fL (36.4-46.3); Red Blood Count 5.14 M/uL (3.93-5.22); White Blood Count 13.91 K/ul (4.8-10.8)
[2022-01-02 11:13] LABS: BUN Creatinine Ratio 24.2 (10-20); Calcium 9.4 mg/dl (8.5-10.1); Creatinine Clr Calc Pharmacy 47.2 ml/min; Est GFR (African American) 65.6 ml/min; Est GFR (Non-African American) 56.6 ml/min; Potassium 3.6 mmol/L (3.5-5.1)
--- NOTE | 2022-01-02 12:56 | Discharge Summary ---
Date of Service January 02, 2022 Admission HPI Per Admitting Provider An 81-year-old female with past medical history significant for hyperlipidemia, hypothyroidism, estrogen deficiency, multinodular goiter, history of paroxysmal atrial fibrillation, history of tachybrady syndrome, status post pacemaker, hypertension, history of mitral valve regurgitation, right bundle-branch block, history of paroxysmal supraventricular tachycardia, history of pulmonary embolism, history of heart failure, history of irritable bowel syndrome, GERD, stage III chronic kidney disease, myalgias, glaucoma, trigeminal neurology, polyneuropathy, history of Graves' disease, history of DVT, generalized anxiety disorder, major depression, who lives at home with her and son, presents with fall and also complains of shortness of breath and weakness. The patient states today she was feeling short of breath and also has a cough. Was feeling hot and weak. She was standing on a bench at her home to adjust the curtains when the bench broke down and she fell slowly, backwards and fell on the back. She did not hit her head . There was no loss of consciousness. With ongoing illness and the fall, she came to the ER and found to have CHF and possible pneumonia. She was somewhat tachypneic, rhonchi on exam. The patient denies any headache. No blurred visions, no earache. Has chronic runny nose. Has some sore throat, has some cough, with whitish phlegm. Denies any chest pain,, having dry heaves. No abdominal pain. Appetite is okay. No difficulty swallowing. Normal bowel and bladder movements. Admission Exam Per Admitting Provider GENERAL: The patient is of moderate build, not in acute distress. VITAL SIGNS: Temperature 36.6, pulse 69, respiratory rate 26, blood pressure 156/94, oxygen 95% on 4 liters. HEENT: Pupils equal, round and reactive to light. Oral mucosa moist. NECK: No JVD, no neck masses. CARDIOVASCULAR: S1 and S2 heard. Regular rate and rhythm. No murmur, no gallop. RESPIRATORY SYSTEM: Normal AP diameter. Mild tachypnea. Mild bilateral rhonchi and bibasilar crackles heard. ABDOMEN: Soft, bowel sounds present, nontender, no distention. CENTRAL NERVOUS SYSTEM: Cranial nerves II through XII grossly intact, nonfocal. EXTREMITIES: Mild pedal edema, no erythema seen Principal Diagnosis Acute respiratory failure with hypoxia Acute heart failure with reduced ejection fraction Discharge Exam Constitutional + well hydrated and + obese; no acute distress Eyes PERRL, conjunctivae normal, anicteric sclerae ENMT external ear and nose normal, oropharynx normal Respiratory normal respiratory effort, lungs clear to auscultation Cardiovascular Rate/Rhythm: regular rate and regular rhythm S1 S2 Gastrointestinal (Abdomen) normal bowel sounds, soft, nontender, no hepatosplenomegaly Musculoskeletal No pedal edema Neurologic PERRL, EOMI, accommodation nl, no face palsy, no dysarthria Psychiatric A+Ox3, euthymic affect Discharge Data Allergies Allergy/AdvReac Type Severity Reaction Status Date / Time atorvastatin AdvReac Intermediate "legs Verified 12/26/21 22:38 don't want to move." Consultations 12/26/21 22:50 ED Decision to Admit Stat 12/27/21 08:00 Consult Cardiology Routine Ordered Studies 12/26/21 21:50 CT Abd and Pelvis [CT abd pelvis IV con only] Urgent Lung bases: The heart is enlarged and without pericardial effusion. Pacemaker leads are noted. Intralobular septal thickening suggests congestive failure. There are small pleural effusions with dependent atelectasis. A small hiatal hernia is noted. Liver: The contrast-enhanced liver is normal in size and contour. Attenuation is heterogeneous. There is no intrahepatic biliary ductal dilatation. The hepatic veins and portal veins are patent. Gallbladder: Unremarkable. Spleen: Normal in size and attenuation. Pancreas: Unremarkable. Adrenal glands: 2 left adrenal nodules measure up to 11 mm. These likely represent adenomas but cannot be definitively characterized due to the presence of IV contrast. The right adrenal gland is normal in appearance. Kidneys: The contrast enhanced kidneys demonstrate mild cortical atrophy and are without hydronephrosis. The kidneys enhance symmetrically. Abdominal vasculature: The abdominal aorta is normal in course and caliber noting mild to moderate atherosclerotic calcification. There is moderate focal stenosis of the proximal superior mesenteric artery seen on image #[id number]. Bowel: There is no bowel obstruction. The diminutive appendix is well- visualized and normal. Peritoneum: There is no intraperitoneal free air or abdominal ascites. There is a fat-containing umbilical hernia. Lymphadenopathy: None. Pelvic viscera: The bladder is normal as visualized. The uterus is surgically absent. A 2.5 cm simple cystic focus is noted in the left ovary on image #[id number]. Skeletal structures: The skeletal structures are osteopenic. There is mild lumbosacral spondylosis. No lytic or blastic lesions are seen. There are healed left pubic ring fractures. IMPRESSION: 1. Cardiomegaly and cardiac pacemaker with evidence of congestive failure and small pleural effusions. 2. There is no evidence of solid organ injury in the abdomen or pelvis. 3. A 2.5 cm simple cystic focus is noted in the left ovary. This is pathologically indeterminant but abnormal for age. This is of low suspicion; however, as no prior studies are available for comparison to assess for stability nonemergent gynecology follow-up and pelvic ultrasound are recommended for further evaluation. 4. Additional findings as above. CT cervical spine wo con Urgent Skeletal structures: The skeletal structures are osteopenic. There is no evidence of fracture or subluxation involving the cervical spine. Vertebral body height and alignment are maintained. There is straightening of the cervical lordosis. Anterior osteophytes are seen throughout. The odontoid process and lateral masses are intact. The atlantoaxial articulation is preserved noting productive degenerative change. The spinous processes appear intact. There is [id number] multilevel cervical spondylosis. Uncovertebral and facet arthropathy contribute to neural foraminal narrowing at several levels. Intervertebral discs: There is moderate to severe disc space narrowing at C5-C6 and C6-C7. Mild disc space narrowing is seen at the remaining cervical levels. Central canal: Posterior disc osteophyte complexes are seen at all cervical levels between C3-C4 and C6-C7. This likely contributes to multilevel acquired compromise of the central canal. Soft tissues: The prevertebral and paraspinous soft tissues are within normal limits. There is atherosclerotic calcification of the carotid bulbs. Pacemaker leads are noted at the left thoracic inlet. The thyroid gland is heterogeneous. Goiter extends into the superior mediastinum. Calvarium: The visualized calvarium at the skull base appears intact. Brain parenchyma: Partially visualized brain parenchyma at the skull base is within normal limits. Sinuses and mastoids: The visualized paranasal sinuses are clear. The mastoid air cells are well pneumatized. Lung apices: Clear as visualized. IMPRESSION: 1. There is no evidence of fracture or subluxation involving the cervical spine. 2. Osteopenia and spondylotic change as above. CT chest diagnostic w con Urgent Heterogeneous nodule of the central thyroid demonstrates substernal extension measuring up to approximately 2.5 cm. Nonspecific borderline enlarged mediastinal lymph nodes measure up to approximately 10 mm in short axis. Mod erate cardiomegaly with left subclavian pacer. There is no pericardial effusion. Moderate coronary artery calcifications. Atherosclerosis of the thoracic aorta without aneurysm or dissection. There is reflux of contrast into the IVC and hepatic veins. The main pulmonary artery measures up to 3 cm transversely which may represent pulmonary arterial hypertension. No pulmonary emboli identified. Small bilateral pleural effusions. No pneumothorax. Bronchial wall thickening is noted along with intralobular septal thickening and groundglass densities. Subsegmental linear consolidation with bibasilar groundglass opacities suggest atelectasis. No suspicious pulmonary nodules or masses. The central airways appear patent. Mild nonspecific distal esophageal wall thickening with tiny hiatal hernia. 1.7 cm fundal diverticulum of the stomach. Hypodense 11 mm left adrenal gland lesion is suggestive of a probable adenoma. Partially imaged indeterminate 10 mm hypodense focus of the posterior right hepatic lobe. Unremarkable soft tissues. Demineralized appearance of the bones with degenerative changes of the shoulders and spine. Mild sclerosis with anterior angulation of the anterior left third ri b is suggestive of a subacute or chronic nondisplaced fracture. No acute displaced rib fracture is identified. 30% superior endplate compression deformity of the T4 vertebral body without retropulsion. Less than 20% superior endplate compression of the T1 vertebral body. There is no significant paravertebral edema. IMPRESSION: 1. Cardiomegaly with pulmonary edema and small pleural effusions. 2. Subsegmental bibasilar opacities suggest atelectasis. 3. Mild nonspecific mediastinal lymphadenopathy. 4. Age-indeterminate 30% superior endplate compression deformity of the T4 vertebral body, likely acute or subacute. 5. Age-indeterminate less than 20% superior endplate compression deformity of the T1 vertebral body, likely chronic. 6. Additional findings as above. CT head/brain wo con Urgent Brain parenchyma: There is age-related involutional change noting moderate subcortical and periventricular microangiopathic disease. There is no hemorrhage, mass effect, or evidence of acute territorial ischemia by CT criteria. Carvalho-white matter differentiation is preserved. No extra-axial fluid collection is seen. Ventricles, sulci, cisterns: Prominent secondary to involutional change. Intracranial vasculature: There is atherosclerotic calcification of the cavernous carotid and vertebral arteries. Calvarium: The skeletal structures are osteopenic. No depressed calvarial fracture is identified. Sinuses and mastoids: The visualized paranasal sinuses are clear. The mastoid air cells are well pneumatized. Orbits: The bony orbits are grossly intact. There are bilateral ocular lens implants. IMPRESSION: There is no hemorrhage, mass effect, or evidence of acute territorial ischemia by CT criteria. Hospital Course (1) Acute HFrEF (heart failure with reduced ejection fraction): Presented with shortness of breath and fall Noted to have pulm edema and small pleural effusion, age indeterminate T1 and T4 compression # on CT chest Labs notable for troponin of 166->>348>462>88.3. Elevated trop may have been due to demand ischemia EKG did not show ACS. Has ventricular paced rhythm Patient was started on IV lasix Echo noted EF of 40-45%, severely dilated LA, mild dil RA, mild to mod MR, mild TR, mild glbal LV hypokinesis Was comanaged with Sports Physiologist Discharged on po lasix 20mg daily starting on 01/03/22 Home metoprolol tartarate was changed to metoprolol succinate 75mg bid Patient to follow up with Cardiology outpatient for stress test and continued management (2) Acute respiratory failure with hypoxia: Due to CHF Also possibility of pneumonia though low suspicion Patient initially required NIV on presentation. This was weaned to nasal cannula Oxygen was gradually weaned off during hospital stay Hypoxia resolved (3) HTN (hypertension): Stable Continue home losartan History of PE Afib Patient's warfarin was changed to eliquis Was evaluted by PT/OT while inpatient While in the hospital, patient's former roommate was reported to have tested positive to COVID Patient is currently on COVID isolation. COVID test on 12/30/21 was negative. Patient to check COVID test at home on 01/04/22. Advised to maintain home isolation until then Total Time Total Time Spent Total Time Spent (In Minutes): 50 Total Time Includes: Examination of the Patient, Discharge Planning, Medication Reconciliation and Communication With Other Providers Discharge Plan Discharge Items Patient Disposition: Home - Home Health Services Reason For Visit: Shortness of breath, fall Discharge Diagnosis: Acute respiratory failure with hypoxia Acute heart failure with reduced ejection fraction Condition on Discharge: Fair Activity: Resume your previous activity Non-emergency contact: Primary Care Provider and Sports Physiologist Call non-emergency contact if: you have any medication questions and your symptoms worsen Follow-up/Referrals: Marcell Landry, DO [Primary Care Provider] - (Date & Time 01/08/2022 11:00 AM Provider Lloyd Lopes III, MD Department Family [facility] ) Diet: Heart Healthy and Low Sodium (2gm) Addtl Attending Provider Instructions: Mrs Hua You came to the hospital complaining of shortness of breath, weakness and fall. You were evaluated and noted to have new heart failure with reduced ejection fraction and low oxygen level. You were treated with injection lasix and required oxygen for sometime. You were comanaged with the Sports Physiologist. You are being discharged home on lasix 20mg daily starting tomorrow Your metoprolol tartarate was changed to metoprolol succinate 75mg twice a day Your blood thinner, warfarin was changed to eliquis. Please adhere to COVID home isolation precautions as we discussed due to possible exposure and you can retest on 01/04/22. Please ensure follow up with your Primary Doctor. Please ensure follow up with Cardiology who may do stress test outpatient. It was a pleasure taking care of you. Pending Studies at Discharge: No Stand-Alone Forms: [facility] Medications and DC Order Prescriptions: New metoprolol succinate 25 mg Tablet Extended Release 24 Hr 75 mg PO BID Qty: 60 0RF Eliquis 5 mg Tablet 5 mg PO BID Qty: 60 0RF furosemide [Lasix] 20 mg tablet 20 mg PO DAILY Qty: 30 0RF Rx Instructions: Starting 01/03/22 Continued levothyroxine 25 mcg tablet 25 mcg PO DAILY famotidine 20 mg Tablet 20 mg PO BID lorazepam 0.5 mg Tablet 0.5 mg PO HS PRN (Reason: Insomnia) spironolactone 25 mg Tablet 12.5 mg PO QAM Qty: 0 0RF travoprost [Travatan Z] 0.004 % Drops 1 drp OPHTHALMIC (EYE) PM aspirin 81 mg Tablet,Delayed Release (Dr/Ec) 81 mg PO QAM pravastatin 20 mg Tablet 20 mg PO QPM multivitamin Capsule 1 cap PO QAM escitalopram oxalate 5 mg Tablet 5 mg PO QDL calcium carbonate-vitamin D3 [Calcium 500 + D] 500 mg(1,250mg) -200 unit Tablet 1 tab PO QDL losartan 25 mg tablet 25 mg PO DAILY Discontinued warfarin 3 mg Tablet See Rx Instructions .ROUTE .COMPLEX Rx Instructions: 3 mg orally; TAKES 1.5 MG ON MONDAYS ONLY, THEN 3 MG ALL OTHER DAYS. furosemide 20 mg tablet 20 mg PO [id number] Rx Instructions: TAKES SAT, SAT, & SAT. metoprolol tartrate 50 mg tablet 50 mg PO TID Discharge Orders: Discharge Order (Routine); Ordered 01/02/22 Ordered By: Mari Miranda Admission Data Admit Date/Time: 12/27/21 00:44 Attending Provider: Mari Miranda I. Admit Provider: Tony Reyes Primary Care Provider: Marcell Landry Other Providers: Tony Reyes ; Pillo Freire ; Harry Ames ; Adam Luna ; Odin Gold ; Cheo Cardoza ; Efren Diaz ; Radha Venegas ; Maye Moss ; Lilly Silva ; Juan Arroyo ; [facility] Other Interventions: Discharge Summary Assessment (RN) Last Done: 01/02/22 13:04
[2022-01-02] MEDS: ESCITALOPRAM OXALATE 10 MG TAB PO SCH (12:57)
== END 2022-01-02 14:23 | disposition home health service (06) | DRG 291 ==
LOC: ED 19:54 → EDINP 12-27 00:44 → SUATTDRO 12-27 00:44 → EDINP 12-27 02:19 → 2S 12-27 22:43
DX: J96.01 Acute respiratory failure with hypoxia; I50.21 Acute systolic (congestive) heart failure; I24.8 Other forms of acute ischemic heart disease; Z79.890 Hormone replacement therapy; I13.0 Hypertensive heart and chronic kidney disease with heart failure and stage 1 through stage 4 chronic kidney disease, or unspecified chronic kidney disease; E78.5 Hyperlipidemia, unspecified; E87.1 Hypo-osmolality and hyponatremia; Z79.01 Long term (current) use of anticoagulants; Z86.711 Personal history of pulmonary embolism; I49.5 Sick sinus syndrome; Z95.0 Presence of cardiac pacemaker; I48.0 Paroxysmal atrial fibrillation; N18.30 Chronic kidney disease, stage 3 unspecified; I48.19 Other persistent atrial fibrillation; J18.9 Pneumonia, unspecified organism; E04.2 Nontoxic multinodular goiter; Z86.718 Personal history of other venous thrombosis and embolism; Z79.82 Long term (current) use of aspirin; E03.9 Hypothyroidism, unspecified

== ENCOUNTER 2024-01-02 10:46 | Inpatient (IN) ==
--- NOTE | 2024-01-02 11:06 | Emergency Department Note ---
Impression & Plan Hypoxia, Nausea & vomiting, Diarrhea, Abdominal pain ED Provider Note NAME: SHARIF QUACH AGE: 83 SEX: F : 1940 ARRIVES VIA: Walk-In INFORMANT: Patient ED PROVIDER(S): Manish Conway DO CHIEF COMPLAINT: Nausea, vomiting and diarrhea HPI: Patient is an 83-year-old female with a past medical history of CHF, dizziness, tachybradycardia syndrome, CKD, hypertension and PE on apixaban who presents to the ER for nausea, vomiting, and diarrhea. Patient denies any belly pain. She notes the vomiting has abated but she still very nauseated. She denies any headache or change in vision. Yesterday she did feel little lightheaded. No chest pain or shortness of breath. No dysuria, urgency, or frequency. She notes her blood pressure has been running on the high side but she was able to take her medications today. She also admits to a cough which has been present for quite some time. She has been taking her blood thinner and has not missed any doses. ADDITIONAL HISTORY OBTAINED: Per HPI Chronic Medical/Social Conditions Affecting Care: Per HPI PAST MEDICAL HISTORY:See Below PAST SURGICAL HISTORY:See Below FAMILY HISTORY:See Below SOCIAL HISTORY:See Below HOME MEDICATIONS:See Below ALLERGIES:See Below VITALS:See Below PHYSICAL EXAMINATION: GENERAL: Sitting up in bed, alert, well appearing, well nourished, no distress, non-toxic EYE EXAM: normal conjunctiva. OROPHARYNX: no exudate, no erythema, lips, buccal mucosa, and tongue normal and mucous membranes are moist NECK: supple, no nuchal rigidity, no adenopathy, non-tender LUNGS: Clear to auscultation. Normal chest wall mechanics HEART: no murmurs, S1 normal and S2 normal ABDOMEN: abdomen soft, non-tender, normo-active bowel sounds, no masses, no rebound or guarding. BACK: Back is symmetrical on inspection and there is no deformity, no midline tenderness, no CVA tenderness. SKIN: no rashes and no bruising UPPER EXTREMITIES: upper extremities are grossly normal. LOWER EXTREMITIES: No pitting edema. NEURO EXAM: Normal sensorium, cranial nerves II-XII grossly intact, normal speech, no gross weakness of arms, no gross weakness of legs. MEDICAL DECISION MAKING: Patient is a 23-year-old female who presents to the ER with a past medical history of CKD, CHF and A-fib for the above-stated complaint. IV was established multimers obtained. Upon presentation was found to be hypoxic in the 80s on room air. Placed on 2 L nasal cannula. BMP was unremarkable. LFTs bilirubin was unremarkable. Troponin was negative. proBNP was elevated mildly. Lipase is normal. UA was clean. Viral panel was negative. Chest x-ray was unremarkable. She is on a NOAC and consequently CT angio the chest was not obtained and she notes she has not missed any doses. Will defer to the hospitalist. She was updated bedside and discussed with the hospitalist for further evaluation management treatment. Consults/Care Managements Discussions: Per [facility] Triage Nursing notes reviewed. Limited review of prior medical records performed Vital Signs: reviewed and remarkable for HTN Differential diagnosis: Differential diagnoses includes but is not limited to gastritis, peptic ulcer disease, GERD, gallbladder disease, pancreatitis, small bowel obstruction, appendicitis, diverticulitis, hernia, urinary tract infection, torsion, perforation, trauma, infectious. ER treatment provided: See below Diagnostics interpreted by me include EKG and cardiac monitoring as listed below: -Cardiac Monitoring: An order was placed for continuous cardiac monitoring. The monitor shows a rate of 70 with paced rhythm. -ECG: Paced rate of 71 No PVCs QTc 502 -Laboratory studies:Interpreted by me as stated above in MDM and shown below. Imaging studies: Xrays: As interpreted by me: Portable AP upright 1 view of the chest shows no focal CTs show: CT of chest and abdomen pelvis as described above Procedures:none Critical Care: I have personally spent 35 minutes of critical care time in the direct management of this patient. This includes bedside care, interpretation of diagnostic studies, and testing, discussion with consultants, patient, and family members, and other required patient management activities. This 35 minutes is in excess of all separately billable procedures. Past Med/Surg History Problem List (Updated 01/02/24 @ 17:47 by Manish Conway DO) Abdominal pain (Acute) Diarrhea (Acute) Hypoxia (Acute) Cardiac pacemaker in situ Pulmonary hypertension Hypoxia Left knee DJD Chronic atrial fibrillation Acute respiratory failure with hypoxia Acute HFrEF (heart failure with reduced ejection fraction) Osteoarthritis of right knee DJD (degenerative joint disease), lumbar Tachy-hari syndrome CKD (chronic kidney disease), stage III Post-surgical hypothyroidism Graves disease Diastolic dysfunction Sick sinus syndrome (Acute) Hari-tachy syndrome (Acute) Symptomatic bradycardia Recommend dual chamber pacemaker; discussed the procedure and potential risks with the patient today; she expressed an understanding is agreed to the procedure; NPO after midnight with hopefully procedure tomorrow afternoon as long as INR is low 2 range Hold coreg and sotalol Paroxysmal atrial fibrillation Pt with pAF on low dose sotalol due to bradycardia; hold coumadin; reverse the INR slightly today give Vitamin K 2.5mg IV now, have pt eat broccoli or spinach today for lunch and breakfast to try and ensure INR is in low 2 range for tomorrows potential pacemaker Encounter for pre-operative examination Myalgia (Chronic) Headache (Acute) Calf pain (Acute) HTN (hypertension) Nausea & vomiting (Acute) Pulmonary embolism, bilateral (Acute) HTN (hypertension) (Chronic) Hyperlipidemia (Chronic) Glaucoma (Chronic) Migraine (Chronic) OCAS MIGRAINES IBS (irritable bowel syndrome) (Chronic) Goiter (Chronic) THYROID GOITER AND WATCING Osteoporosis (Chronic) Mitral valve regurgitation (Chronic) FOLLOW WITH DR. ARMIJO Esophageal reflux (Chronic) Depression (Chronic) OCAS Arthritis (Chronic) Pulmonary embolism (Acute) DX 2014 TAKES WARFARIN Atrial fibrillation with rapid ventricular response FOLLOW WITH DR ARMIJO Medical History (Updated 01/02/24 @ 17:47 by Manish Conway DO) History of cardioversion Hypothyroidism Surgical History Hx of arthroscopic knee surgery RIGHT Hx of laminectomy LUMBAR Family History Father Coronary heart disease Brother Diabetes Sister Thyroid cancer Social History Smoking Status: Never smoker Second Hand Exposure: No; Do You Dip or Chew Tobacco: No; Hx Alcohol Use: No Hx Substance Use: No Preferred Language: Greek Communication Ability: Effective Visual Impairment: No Limitations Hearing Ability: Normal [employer] Intern[employer] Required: No Beliefs That Will Affect Care: None marital status: Current Living Situation: Spouse and Family current occupational status: retired How many Children do You have: 3 Feels Safe at Home: Yes Assistive Devices: None Allergies Allergies Allergy/AdvReac Type Severity Reaction Status Date / Time atorvastatin AdvReac Intermediate "legs Verified 01/02/24 14:11 don't want to move." Home Meds Home Medications Medication Instructions Recorded Confirmed aspirin 81 mg tablet,delayed 81 mg PO QAM 05/11/19 01/02/24 release calcium carbonate 500 mg-vitamin 1 tab PO QDL 05/11/19 01/02/24 D3 5 mcg (200 unit) tablet (Calcium 500 + D) escitalopram oxalate 5 mg tablet 5 mg PO QDL 05/11/19 01/02/24 pravastatin 20 mg tablet 20 mg PO QPM 05/11/19 01/02/24 travoprost 0.004 % eye drops 1 drp ophthalmic (eye) PM 05/11/19 01/02/24 (Travatan Z) levothyroxine 25 mcg tablet 25 mcg PO DAILY 05/12/19 01/02/24 lorazepam 0.5 mg tablet 0.5 mg PO HS PRN Insomnia 05/12/19 01/02/24 losartan 25 mg tablet 25 mg PO DAILY 12/26/21 01/02/24 multivitamin 1 tab PO DAILY 11/10/22 01/02/24 furosemide 20 mg tablet (Lasix) 20 mg PO 3XWK 01/02/24 01/02/24 Previous Rx's Medication Instructions Recorded spironolactone 25 mg tablet 12.5 mg (1/2 x 25 mg) PO QAM #0 05/15/19 tabs apixaban 5 mg tablet (Eliquis) 5 mg PO BID #60 tabs 01/02/22 metoprolol succinate 25 mg 75 mg (3 x 25 mg) PO BID #60 tabs 01/02/22 tablet,extended release 24 hr Results & Data (ED) Vital Signs Vital Signs - 24 hr 01/02/24 10:51 01/02/24 10:56 01/02/24 11:12 Temperature 36.6 C Temperature Source Temporal Artery Scan Pulse Rate 74 74 70 Pulse Rate from SpO2 Sensor 70 Pulse Rhythm Regular Regular Pulse Strength Normal Respiratory Rate 20 20 23 Respiratory Effort / Characteristics Non-Labored Spontaneous Respiratory Depth Normal Blood Pressure 191/83 H Blood Pressure Mean 119 Pulse Oximetry 92 96 93 Oxygen Delivery Method Room Air Room Air Nasal Cannula Oxygen Flow Rate 2 Sepsis Recent Fever Within 48 Hours No Sepsis New/Unexplained Change in Mental Status N/A Sepsis Action Taken by Nursing No Action Required 01/02/24 11:15 01/02/24 11:15 01/02/24 11:42 Temperature Temperature Source Pulse Rate 74 70 Pulse Rate from SpO2 Sensor 70 70 Pulse Rhythm Pulse Strength Respiratory Rate 21 23 Respiratory Effort / Characteristics Respiratory Depth Blood Pressure 160/86 H Blood Pressure Mean 110 Pulse Oximetry 91 90 Oxygen Delivery Method Nasal Cannula Nasal Cannula Oxygen Flow Rate 2 2 Sepsis Recent Fever Within 48 Hours Sepsis New/Unexplained Change in Mental Status Sepsis Action Taken by Nursing 01/02/24 12:18 01/02/24 12:24 01/02/24 12:30 Temperature Temperature Source Pulse Rate 71 72 Pulse Rate from SpO2 Sensor 71 Pulse Rhythm Pulse Strength Respiratory Rate 21 Respiratory Effort / Characteristics Respiratory Depth Blood Pressure 162/82 H Blood Pressure Mean 108 Pulse Oximetry 91 Oxygen Delivery Method Nasal Cannula Oxygen Flow Rate 2 Sepsis Recent Fever Within 48 Hours Sepsis New/Unexplained Change in Mental Status Sepsis Action Taken by Nursing 01/02/24 12:33 01/02/24 15:27 01/02/24 15:30 Temperature Temperature Source Pulse Rate 71 74 Pulse Rate from SpO2 Sensor 71 74 Pulse Rhythm Pulse Strength Respiratory Rate 19 26 H Respiratory Effort / Characteristics Respiratory Depth Blood Pressure 141/80 H Blood Pressure Mean 94 Pulse Oximetry 92 83 L Oxygen Delivery Method Nasal Cannula Oxygen Flow Rate 0 Sepsis Recent Fever Within 48 Hours Sepsis New/Unexplained Change in Mental Status Sepsis Action Taken by Nursing 01/02/24 15:33 01/02/24 16:00 01/02/24 16:15 Temperature Temperature Source Pulse Rate 70 72 Pulse Rate from SpO2 Sensor 70 72 Pulse Rhythm Pulse Strength Respiratory Rate 24 22 Respiratory Effort / Characteristics Respiratory Depth Blood Pressure 152/76 H Blood Pressure Mean 118 Pulse Oximetry 94 95 Oxygen Delivery Method Nasal Cannula Nasal Cannula Oxygen Flow Rate 2 2 Sepsis Recent Fever Within 48 Hours Sepsis New/Unexplained Change in Mental Status Sepsis Action Taken by Nursing 01/02/24 16:22 Temperature Temperature Source Pulse Rate 70 Pulse Rate from SpO2 Sensor Pulse Rhythm Pulse Strength Respiratory Rate Respiratory Effort / Characteristics Respiratory Depth Blood Pressure Blood Pressure Mean Pulse Oximetry Oxygen Delivery Method Oxygen Flow Rate Sepsis Recent Fever Within 48 Hours Sepsis New/Unexplained Change in Mental Status Sepsis Action Taken by Nursing Laboratory Data 01/02/24 11:00 01/02/24 11:00 Lab Results 01/02/24 01/02/24 01/02/24 Range/Units 11:00 15:19 Unknown WBC 9.03 (4.8-10.8) K/ul RBC 5.02 (4.20-5.40) M/uL Hgb 12.3 (12.0-16.0) g/dl Hct 40.0 (37.0-47.0) % MCV 79.7 L (80.0-100.0) fL MCH 24.5 L (25.0-34.0) pg MCHC 30.8 L (32.0-36.0) g/dL RDW Std Deviation 45.1 (36.4-46.3) fL RDW Coeff of Yadira 15.8 H (11.5-14.5) % Plt Count 397 (130-400) K/uL MPV 9.0 L (9.4-12.4) fL Immature Gran % (Auto) 0.3 % Neut % (Auto) 78.7 % Lymph % (Auto) 15.0 % [place] % (Auto) 5.5 % Eos % (Auto) 0.1 % Baso % (Auto) 0.4 % Neut # (Auto) 7.10 H (1.40-6.50) K/uL Lymph # (Auto) 1.35 (1.20-3.40) K/uL [place] # (Auto) 0.50 (0.11-0.59) K/uL Eos # (Auto) 0.01 (0.00-0.50) K/uL Baso # (Auto) 0.04 (0.00-0.20) K/uL Immature Gran # (Auto) 0.03 (0.01-0.20) K/uL Sodium 139 (136-145) mmol/L Potassium 3.6 (3.5-5.1) mmol/L Chloride 103 (98-107) mmol/L Carbon Dioxide 25 (21-32) mmol/L Anion Gap 11 (3-11) BUN 12 (6-23) mg/dl Creatinine 0.97 (0.6-1.2) mg/dl Est Cr Clr Drug Dosing 43.3 ml/min Est GFR ( Amer) 63.0 ml/min Est GFR (Non-Af Amer) 54.4 ml/min BUN/Creatinine Ratio 12.4 (10-20) Glucose 118 H (70-99(Fasting)) mg/dl Calcium 9.9 (8.6-10.3) mg/dl Total Bilirubin 1.0 (0.2-1.0) mg/dl AST 24 (13-39) U/L ALT 11 (7-52) U/L Alkaline Phosphatase 94 (34-104) U/L Troponin I High Sens 11.6 (0-14) pg/ml B-Natriuretic Peptide 484 H (0-100) pg/ml Total Protein 7.9 (6.0-8.3) gm/dl Albumin 4.5 (3.4-5.0) gm/dl Globulin 3.4 (2.5-4.0) gm/dl Albumin/Globulin Ratio 1.3 (0.9-2) Lipase 35 (11-82) U/L Urine Color Dark Yellow Urine Appearance Clear (Clear) Urine pH 6.5 (4.5-7.5) Ur Specific [place] 1.026 (1.000-1.030) Urine Protein 1+ H (Negative) Urine Glucose (UA) Negative (Negative) Urine Ketones 1+ H (Negative) Urine Blood Negative (Negative) Urine Nitrite Negative (Negative) Urine Bilirubin Negative (Negative) Urine Urobilinogen Negative (Negative) Ur Leukocyte Esterase Negative (Negative) Urine WBC (Auto) 0-5 (0-5) /hpf Urine RBC (Auto) 0-2 (0-2) /hpf U Hyaline Cast (Auto) 0-2 (0-2) /lpf U Epithel Cells (Auto) 0-2 (0-2) /hpf Urine Bacteria (Auto) None Seen (None Seen) Adenovirus (PCR) Not Detected (NotDetected) B. pertussis DNA (PCR) Not Detected (NotDetected) B.parapertussis DNA PCR Not Detected (NotDetected) C. pneumoniae DNA (PCR) Not Detected (NotDetected) Coronavirus OC43 (PCR) Not Detected (NotDetected) Coronavirus HKU1 (PCR) Not Detected (NotDetected) Coronavirus 229E (PCR) Not Detected (NotDetected) SARS-CoV-2 (PCR) Not Detected (NotDetected) Coronavirus NL63 (PCR) Not Detected (NotDetected) Human Metapneumovir PCR Not Detected (NotDetected) Influenza Type A (PCR) Not Detected (NotDetected) Influenza Type B (PCR) Not Detected (NotDetected) M. pneumoniae (PCR) Not Detected (NotDetected) Parainfluenza 1 (PCR) Not Detected (NotDetected) Parainfluenza 2 (PCR) Not Detected (NotDetected) Parainfluenza 3 (PCR) Not Detected (NotDetected) Parainfluenza 4 (PCR) Not Detected (NotDetected) RSV (PCR) Not Detected (NotDetected) Entero/Rhino (PCR) Not Detected (NotDetected) Administered Medications Discontinued Medications Sodium Chloride (Nss) 500 mls @ 999 mls/hr IV .Q31M ONE Stop: 01/02/24 11:32 Last Infusion: 01/02/24 13:53 Dose: Infused Documented By: Admin: 01/02/24 11:12 Dose: 999 mls/hr Documented By: JAQUAN Ioversol (Optiray 320 100ml) 94 ml IV ONCE ONE Stop: 01/02/24 12:00 Last Admin: 01/02/24 11:59 Dose: 94 ml Documented By: RONNI Ondansetron HCl (Ondansetron Inj 2 Mg/Ml 2 Ml Vial) 4 mg IV NOW STA Stop: 01/02/24 11:03 Last Admin: 01/02/24 11:11 Dose: 4 mg Documented By: JAQUAN Imaging Data Radiologist's Impression: Chest X-Ray 01/02/24 10:56 XR chest 1V portable CLINICAL HISTORY: Chest pain, nonspecific COMPARISON STUDY: Chest CT December 26, 2021. Chest radiograph January 01, 2022. FINDINGS: There is no pneumothorax or pleural effusion. Left subclavian pacer is in place. There is stable cardiomegaly. There is no radiographic evidence for pulmonary edema. There is no consolidation to suggest pneumonia. There is a possible 8 mm left upper lobe pulmonary nodule. IMPRESSION: 1. No acute cardiopulmonary findings. 2. Possible 8 mm left upper lobe nodule. Nonemergent chest CT is recommended for further evaluation. ACT 112: Negative or not required by law. Electronically signed by: Sim Lopez M.D. 01/02/2024 12:42 PM Abdomen/Pelvis CT 01/02/24 11:02 CT abd pelvis IV con only CLINICAL HISTORY: n/v/d TECHNIQUE: Helical axial images of the abdomen and pelvis were obtained and displayed. Automated dose lowering techniques and/or adjustment according to patient size were utilized for this exam. This exam was performed with intravenous contrast. CT DOSE: 1184.97 mGy.cm COMPARISON: Comparison is made to CT abdomen pelvis 12/26/2021 FINDINGS: Lower chest: Cardiomegaly is seen. Bibasilar scarring is seen. Liver: Heterogeneous enhancement of the liver is again seen. Gallbladder and biliary tree: No calcified gallstones. Normal caliber wall. No intra- or extrahepatic biliary ductal dilation. Pancreas: Unremarkable, no focal lesions. Spleen: Unremarkable. Adrenals: Stable left adrenal nodules measuring up to 1 cm. Kidneys and ureters: Unremarkable. Bladder: Limited evaluation due to underdistention. Reproductive organs: Stable left ovarian cyst. Bowel: Unremarkable. Lymph nodes Retroperitoneal: Unremarkable. Pelvic: Unremarkable. Mesenteric: Unremarkable. Peritoneum: Normal. Vessels: Atherosclerotic calcifications are seen. Abdominal wall: Unremarkable. Bones: Degenerative changes in the visualized spine. IMPRESSION: 1. No acute abnormalities to explain nausea, vomiting, and diarrhea. 2. Nodules are stable Heterogeneous appearance of the liver as above. 3. Cardiomegaly is again seen. 4. Stable left ovarian cyst. ACT 112: Negative or not required by law. Electronically signed by: Arias Carbone M.D. 01/02/2024 12:[address] 01/02/24 14:08 CT OF THE CHEST WITHOUT IV CONTRAST CLINICAL HISTORY: possible aspiration pna, hypoxia COMPARISON STUDY: Chest CT December 26, 2021. Chest radiograph performed earlier today. CT DOSE: 421.73 mGy.cm TECHNIQUE: Axial images of the chest were obtained without IV contrast. Images were reviewed in the axial, sagittal, and coronal planes. IV contrast was not administered for this examination. Automated exposure control was utilized for the study. A dose lowering technique was utilized adhering to the principles of ALARA. FINDINGS: A left subclavian pacer is in place. There is moderate cardiomegaly. There is no pericardial effusion. Mild dilatation of the central pulmonary arteries. No pneumothorax or pleural effusion is present. Lungs are suboptimally assessed due to respiratory motion. Mildly enlarged mediastinal lymph nodes are similar to CT of December 26, 2021. Suspected exophytic thyroid nodule extending into the anterior mediastinum is unchanged, measuring 2.4 cm. Subpleural opacities within the lungs favor atelectasis. There is no consolidation to suggest pneumonia. The possible left upper lobe nodule on chest radiograph performed earlier today was artifactual. Old T4 compression fracture is unchanged in appearance. There are no suspicious pulmonary nodules. IMPRESSION: 1. No consolidation to suggest pneumonia. Subpleural opacities suggestive of atelectasis. 2. Moderate cardiomegaly and mild dilatation of the central pulmonary arteries. 3. Stable mildly enlarged mediastinal lymph nodes which are likely benign. 4. The possible left upper lobe nodule and chest radiograph from earlier today was artifactual. ACT 112: Negative or not required by law. Electronically signed by: Sim Lopez M.D. 01/02/2024 3:51 PM Discharge Plan Visit Data Chief Complaint: Illness Stated Complaint: DIARRHEA, COUGH, HIGH BP ED Provider: Manish Conway Discharge Problem: Hypoxia, Nausea & vomiting, Diarrhea, Abdominal pain Patient Disposition: Admitted As Inpatient Discharge Instructions Interventions: ED Discharge Assessment Last Done: 01/02/24 17:43 Forms Stand Alone Forms: [facility] Prescriptions Prescriptions: No Action levothyroxine 25 mcg tablet 25 mcg PO DAILY lorazepam 0.5 mg Tablet 0.5 mg PO HS PRN (Reason: Insomnia) spironolactone 25 mg Tablet 12.5 mg PO QAM Qty: 0 0RF travoprost [Travatan Z] 0.004 % Drops 1 drp OPHTHALMIC (EYE) PM aspirin 81 mg Tablet,Delayed Release (Dr/Ec) 81 mg PO QAM pravastatin 20 mg Tablet 20 mg PO QPM escitalopram oxalate 5 mg Tablet 5 mg PO QDL calcium carbonate-vitamin D3 [Calcium 500 + D] 500 mg(1,250mg) -200 unit Tablet 1 tab PO QDL losartan 25 mg tablet 25 mg PO DAILY metoprolol succinate 25 mg Tablet Extended Release 24 Hr 75 mg PO BID Qty: 60 0RF Eliquis 5 mg Tablet 5 mg PO BID Qty: 60 0RF multivitamin Tablet 1 tab PO DAILY furosemide [Lasix] 20 mg tablet 20 mg PO 3XWK Rx Instructions: Mon/Wed/Fri Referrals Referrals: Marcell Landry DO [Primary Care Provider] - Discharge Problem: Nausea & vomiting Qualifiers: Vomiting type: unspecified Qualified Code(s): R11.2 - Nausea with vomiting, unspecified Diarrhea Qualifiers: Diarrhea type: unspecified type Qualified Code(s): R19.7 - Diarrhea, unspecified Abdominal pain Qualifiers: Abdominal location: unspecified location Qualified Code(s): R10.9 - Unspecified abdominal pain
[2024-01-02] MEDS: ONDANSETRON INJ 2 MG/ML 2 ML VIAL IV STA (11:11)
[2024-01-02] MEDS: SODIUM CHLORIDE 0.9% 500 ML IV ONE (11:12)
[2024-01-02 11:16] LABS: Basophils # (auto) 0.04 K/uL (0.00-0.20); Basophils % (auto) 0.4 %; Eosinophils # (auto) 0.01 K/uL (0.00-0.50); Eosinophils % (auto) 0.1 %; Hemoglobin 12.3 g/dl (12.0-16.0); Immature Granulocytes # (auto) 0.03 K/uL (0.01-0.20); Immature Granulocytes % (auto) 0.3 %; Lymphocytes # (auto) 1.35 K/uL (1.20-3.40); Mean Corpuscular Hemoglobin 24.5 pg (25.0-34.0); Mean Corpuscular Hgb Conc 30.8 g/dL (32.0-36.0); Mean Corpuscular Volume 79.7 fL (80.0-100.0); Monocytes % (auto) 5.5 %; Neutrophils % (auto) 78.7 %; Platelet Count 397 K/uL (130-400); RDW Coefficient of Variation 15.8 % (11.5-14.5); RDW Standard Deviation 45.1 fL (36.4-46.3); Red Blood Count 5.02 M/uL (4.20-5.40); White Blood Count 9.03 K/ul (4.8-10.8)
[2024-01-02 11:39] LABS: Albumin Globulin Ratio 1.3 (0.9-2); Albumin Level 4.5 gm/dl (3.4-5.0); BUN Creatinine Ratio 12.4 (10-20); Calcium 9.9 mg/dl (8.6-10.3); Creatinine Clr Calc Pharmacy 43.3 ml/min; Est GFR (Non-African American) 54.4 ml/min; Globulin 3.4 gm/dl (2.5-4.0); Potassium 3.6 mmol/L (3.5-5.1); Total Protein 7.9 gm/dl (6.0-8.3)
[2024-01-02 11:40] LABS: Troponin I High Sensitivity 11.6 pg/ml (0-14)
[2024-01-02] MEDS: OPTIRAY 320 100ml IV ONE (11:59)
--- NOTE | 2024-01-02 12:10 | CT Scan Report ---
CT abd pelvis IV con only CLINICAL HISTORY: n/v/d TECHNIQUE: Helical axial images of the abdomen and pelvis were obtained and displayed. Automated dose lowering techniques and/or adjustment according to patient size were utilized for this exam. This e xam was performed with intravenous contrast. CT DOSE: 1184.97 mGy.cm COMPARISON: Comparison is made to CT abdomen pelvis 12/26/2021 FINDINGS: Lower chest: Cardiomegaly is seen. Bibasilar scarring is seen. Liver: Heterogeneous enhancement of the liver is again seen. Gallbladder and biliary tree: No calcified gallstones. Normal caliber wall. No intra- or extrahepatic biliary ductal dilation. Pancreas: Unremarkable, no focal lesions. Spleen: Unremarkable. Adrenals: Stable left adrenal nodules measuring up to 1 cm. Kidneys and ureters: Unremarkable. Bladder: Limited evaluation due to underdistention. Reproductive organs: Stable left ovarian cyst. Bowel: Unremarkable. Lymph nodes Retroperitoneal: Unremarkable. Pelvic: Unremarkable. Mesenteric: Unremarkable. Peritoneum: Normal. Vessels: Atherosclerotic calcifications are seen. Abdominal wall: Unremarkable. Bones: Degenerative changes in the visualized spine. IMPRESSION: 1. No acute abnormalities to explain nausea, vomiting, and diarrhea. 2. Nodules are stable Heterogeneous appearance of the liver as above. 3. Cardiomegaly is again seen. 4. Stable left ovarian cyst. ACT 112: Negative or not required by law. Electronically signed by: Arias Carbone M.D. 01/02/2024 12:08 PM
--- NOTE | 2024-01-02 12:44 | XRay Report ---
XR chest 1V portable CLINICAL HISTORY: Chest pain, nonspecific COMPARISON STUDY: Chest CT December 26, 2021. Chest radiograph January 01, 2022. FINDINGS: There is no pneumothorax or pleural effusion. Left subclavian pacer is in place. There is s table cardiomegaly. There is no radiographic evidence for pulmonary edema. There is no consolidation to suggest pneumonia. There is a possible 8 mm left upper lobe pulmonary nodule. IMPRESSION: 1. No acute cardiopulmonary findings. 2. Possible 8 mm left upper lobe nodule. Nonemergent chest CT is recommended for further evaluation. ACT 112: Negative or not required by law. Electronically signed by: Sim Lopez M.D. 01/02/2024 12:42 PM
[2024-01-02 13:16] LABS: Appearance Urine Clear (Clear); Bacteria Urine Automated None Seen (None Seen); Bilirubin Urine Negative (Negative); Blood Urine Negative (Negative); Cast Urine Automated 0-2 /lpf (0-2); Color Urine Dark Yellow; Epithelial Cell Urine Auto 0-2 /hpf (0-2); Glucose Urine UA Negative (Negative); Ketones Urine 1+ (Negative); Leukocyte Esterase Urine Negative (Negative); Nitrite Urine Negative (Negative); Protein Urine 1+ (Negative); RBC Urine Automated 0-2 /hpf (0-2); Specific Gravity Urine 1.026 (1.000-1.030); Urobilinogen Urine Negative (Negative); WBC Urine Automated 0-5 /hpf (0-5); pH Urine 6.5 (4.5-7.5)
--- NOTE | 2024-01-02 13:47 | History & Physical Report ---
Date of Service January 02, 2024 Assessment & Plan (1) Hypoxia: (2) Atrial fibrillation: (3) Pulmonary embolism: (4) Mitral valve regurgitation: (5) Pulmonary hypertension: (6) Cardiac pacemaker in situ: (7) Post-surgical hypothyroidism: (8) IBS (irritable bowel syndrome): (9) Esophageal reflux: Plan Hypoxia Pulmonary hypertension Positive nocturnal oximetry test as outpatient, previous patient refusal of supplemental O2 -Admit to med surg -CXR reviewed, obtain CT of the chest -COVID neg end of November, obtain resp biofire - Pt not septic appearing, no fever, chills, sweats, no leukocytosis, will hold off on BCx due to national shortage, no IV abx for now -Follows with Dr. Chapa, pulmonary medicine as outpatient, currently in the process of completing pulm workup for further recommendations in regards to pulmonary hypertension -PFTs completed on 12/25/2023, reviewed in epic - Pt refused nocturnal O2 although previously failed noc ox test 1 wk ago - she is agreeable to having it at home at this time. Pt feels better now than when she presented. - HOLD lorazepam 0.5 mg HS ( pt uses most nights at home), would recommend reducing/discontinuing this medication due to nocturnal hypoxia on discharge Systolic CHF Chronic A-fib History of DVT/PE on Eliquis HTN HLD Cardiac pacemaker in situ -BNP was noted to be elevated at nearly 4000 on 12/02/2023, remains on Lasix 3x/wk, euvolemic on presentation She was also tested for COVID at that time which was negative, also CXR was negative, lungs clear, no pleural effusion or pneumothorax, heart was mildly enlarged at that time as well. -Echo in September 2023 reviewed: Moderate MR, severe TR, severe pulmonary hypertension, normal LVEF - Cont Lasix 20 mg on Saturday and Saturday only - Cont Toprol XL 75 mg BID, losartan, spironolactone - Consider pacemaker interrogation IBS GERD Diarrhea/N/Vomiting - Pt reports resolved at this time, allow HH diet, encourage fluids today PO, no IV fluids with use of diuretic as above - Obtain stool studies with diarrhea rule out C. difficile, pt denies any antibiotic use recently - Cont famotidine BID History of Graves' disease Postsurgical hypothyroidism -Continue levothyroxine DVT ppx: teds, scds Lines: PIV x 1 FEN/GI: Heart healthy CODE: DNR/DNI Dispo: From home, likely to remain in the hospital x 1-2 days A total of 77 minutes were spent with greater than 50% of that time face to face with the patient, personally reviewing all current laboratories, imaging studies, past medication reconciliation, outpatient chart review, and discussion with specialists to collaborate care for the patient with attending. Please see attending documentation for corrections and/or additions. History of Present Illness Chief Complaint: Abdominal pain, nausea, diarrhea, cough Primary Care Provider: Marcell Landry DO This is an 83 yo F with PMHx of Chronic systolic CHF, PSVT, history of PE on Eliquis, A-fib, severe pulmonary hypertension, severe TR, moderate MR, on most recent echo in September 2023, HTN, HLD, RBBB, CKD stage III, irritable bowel syndrome, GERD, Graves' disease, who presents the hospital with multiple complaints including abdominal pain, nausea, diarrhea and cough. Patient is found to be hypoxic today with O2 sats of 82 to 85% on room air at rest. Upon review of her outpatient epic chart she has complained of similar things 1 month ago, but pt states she had food poisoning at that time. Pt has had diarrhea multiple times daily and nausea with vomiting x 4 episodes yesterday, but this morning is much improved. She denies recent illnessess in the house, lives with her son who is at bedside. Denies recent antibiotic use. Patient has been compliant with her home medications including Eliquis and has not missed a dose of it. Patient has been followed by Dr. Chapa with pulmonary medicine in October for pulmonary hypertension. She had history of COVID viral illness with residual dry cough reported, was not on any bronchodilator therapy. Had PFTs completed on 12/25/2023 where exercise oximetry was performed on room air for 6 minutes, patient ambulated 1080 feet, to rest periods required for 27 seconds, lowest SpO2 on room air with 90% at that time. Patient underwent nocturnal pulse ox on 12/20/2023 showing positive for nocturnal hypoxia, 2L NC oxygen was ordered and recommended to be worn at night. The patient was seen and examined this morning. Patient refused order for oxygen at night so it was canceled and not sent to her home. Allergies Allergy/AdvReac Type Severity Reaction Status Date / Time atorvastatin AdvReac Intermediate "legs Verified 01/02/24 14:11 don't want to move." Home Medications Medication Instructions Recorded Confirmed Type aspirin 81 mg tablet,delayed 81 mg PO QAM 05/11/19 01/02/24 History release calcium carbonate 500 mg-vitamin 1 tab PO QDL 05/11/19 01/02/24 History D3 5 mcg (200 unit) tablet (Calcium 500 + D) escitalopram oxalate 5 mg tablet 5 mg PO QDL 05/11/19 01/02/24 History pravastatin 20 mg tablet 20 mg PO QPM 05/11/19 01/02/24 History travoprost 0.004 % eye drops 1 drp ophthalmic (eye) PM 05/11/19 01/02/24 History (Travatan Z) levothyroxine 25 mcg tablet 25 mcg PO DAILY 05/12/19 01/02/24 History lorazepam 0.5 mg tablet 0.5 mg PO HS PRN Insomnia 05/12/19 01/02/24 History spironolactone 25 mg tablet 12.5 mg (1/2 x 25 mg) PO QAM #0 05/15/19 01/02/24 Rx tabs losartan 25 mg tablet 25 mg PO DAILY 12/26/21 01/02/24 History apixaban 5 mg tablet (Eliquis) 5 mg PO BID #60 tabs 01/02/22 01/02/24 Rx metoprolol succinate 25 mg 75 mg (3 x 25 mg) PO BID #60 tabs 01/02/22 01/02/24 Rx tablet,extended release 24 hr multivitamin 1 tab PO DAILY 11/10/22 01/02/24 History furosemide 20 mg tablet (Lasix) 20 mg PO 3XWK 01/02/24 01/02/24 History Past Med/Surg History Problem List (Updated 01/02/24 @ 17:47 by Manish Conway DO) Abdominal pain (Acute) Diarrhea (Acute) Hypoxia (Acute) Cardiac pacemaker in situ Pulmonary hypertension Hypoxia Left knee DJD Chronic atrial fibrillation Acute respiratory failure with hypoxia Acute HFrEF (heart failure with reduced ejection fraction) Osteoarthritis of right knee DJD (degenerative joint disease), lumbar Tachy-hari syndrome CKD (chronic kidney disease), stage III Post-surgical hypothyroidism Graves disease Diastolic dysfunction Sick sinus syndrome (Acute) Hari-tachy syndrome (Acute) Symptomatic bradycardia Recommend dual chamber pacemaker; discussed the procedure and potential risks with the patient today; she expressed an understanding is agreed to the procedure; NPO after midnight with hopefully procedure tomorrow afternoon as long as INR is low 2 range Hold coreg and sotalol Paroxysmal atrial fibrillation Pt with pAF on low dose sotalol due to bradycardia; hold coumadin; reverse the INR slightly today give Vitamin K 2.5mg IV now, have pt eat broccoli or spinach today for lunch and breakfast to try and ensure INR is in low 2 range for tomorrows potential pacemaker Encounter for pre-operative examination Myalgia (Chronic) Headache (Acute) Calf pain (Acute) HTN (hypertension) Nausea & vomiting (Acute) Pulmonary embolism, bilateral (Acute) HTN (hypertension) (Chronic) Hyperlipidemia (Chronic) Glaucoma (Chronic) Migraine (Chronic) OCAS MIGRAINES IBS (irritable bowel syndrome) (Chronic) Goiter (Chronic) THYROID GOITER AND WATCING Osteoporosis (Chronic) Mitral valve regurgitation (Chronic) FOLLOW WITH DR. ARMIJO Esophageal reflux (Chronic) Depression (Chronic) OCAS Arthritis (Chronic) Pulmonary embolism (Acute) DX 2014 TAKES WARFARIN Atrial fibrillation with rapid ventricular response FOLLOW WITH DR ARMIJO Medical History (Updated 01/02/24 @ 17:47 by Manish Conway DO) History of cardioversion Hypothyroidism Surgical History Hx of arthroscopic knee surgery RIGHT Hx of laminectomy LUMBAR Family History Father Coronary heart disease Brother Diabetes Sister Thyroid cancer Social History Smoking Status: Never smoker Second Hand Exposure: No; Do You Dip or Chew Tobacco: No; Hx Alcohol Use: No Hx Substance Use: No Preferred Language: French Communication Ability: Effective Visual Impairment: No Limitations Hearing Ability: Normal Java Systems Analyst Required: No Beliefs That Will Affect Care: None marital status: Current Living Situation: Family Current Living Situation Comment: Lives with son current occupational status: retired How many Children do You have: 3 Other Information That Helps Us Care for You: No Feels Safe at Home: Yes Safety Concerns: Feels Safe At This Time Assistive Devices: Glasses Review of Systems Review of Systems: Constitutional: No fever, sweats or chills Eyes: No diplopia, no worsening or blurred vision ENT: normal hearing, no trouble swallowing Respiratory: No cough, sputum, dyspnea at rest or on exertion Cardiovascular: No chest pain, tightness or palpitations Abdomen: As per HPI, +nausea, vomiting, diarrhea, intermittently has issues with constipation but none at this time Musculoskeletal: No joint pain, calf pain, swelling Neurologic: No weakness, numbness/tingling, or balance problems Psychiatric: No anxiety or depression Skin: No rash or itch Physical Exam 2 Physical Exam: General: awake, alert, no apparent distress, white female, BMI 31.6 Head: Normocephalic, atraumatic ENT: PERRL, EOMI, no pharyngeal exudate, mucous membranes moist Chest: Clear to auscultation, on 2 L via NC with o2 sats 94%,, no adventitious breath sounds Cardiac: Regular rate and rhythm, ventricularly paced, + systolic murmur, no JVD, normal peripheral pulses, good capillary refill Abdominal: NABS x 4 quadrants, soft, nondistended, nontender to palpation, no rebound or guarding Extremities: Normal inspection, no peripheral edema or erythema, calfs nontender to palpation Psych: Normal mood and affect Neuro: AAO x 3, strength intact bilaterally and rated 5/5, no motor deficits, speech is clear, no peripheral sensory deficits Results & Data Results & Data Vital Signs (Past 12 Hours) Vital Signs Temp Pulse Resp BP Pulse Ox O2 Del Method O2 Flow Rate 01/02/24 12:33 71 19 92 01/02/24 12:30 162/82 H 01/02/24 12:24 72 01/02/24 12:18 71 21 91 Nasal Cannula 2 01/02/24 11:42 70 23 90 Nasal Cannula 2 01/02/24 11:15 160/86 H 01/02/24 11:15 74 21 91 Nasal Cannula 2 01/02/24 11:12 70 23 93 Nasal Cannula 2 01/02/24 10:56 74 20 96 Room Air 01/02/24 10:51 36.6 C 74 20 191/83 H 92 Room Air Laboratory Results 01/02/24 01/02/24 Unknown 11:00 WBC 9.03 RBC 5.02 Hgb 12.3 Hct 40.0 MCV 79.7 L MCH 24.5 L MCHC 30.8 L RDW Std Deviation 45.1 RDW Coeff of Yadira 15.8 H Plt Count 397 MPV 9.0 L Immature Gran % (Auto) 0.3 Neut % (Auto) 78.7 Lymph % (Auto) 15.0 [place] % (Auto) 5.5 Eos % (Auto) 0.1 Baso % (Auto) 0.4 Neut # (Auto) 7.10 H Lymph # (Auto) 1.35 Webster # (Auto) 0.50 Eos # (Auto) 0.01 Baso # (Auto) 0.04 Immature Gran # (Auto) 0.03 Sodium 139 Potassium 3.6 Chloride 103 Carbon Dioxide 25 Anion Gap 11 BUN 12 Creatinine 0.97 Est Cr Clr Drug Dosing 43.3 Est GFR ( Amer) 63.0 Est GFR (Non-Af Amer) 54.4 BUN/Creatinine Ratio 12.4 Glucose 118 H Calcium 9.9 Total Bilirubin 1.0 AST 24 ALT 11 Alkaline Phosphatase 94 Troponin I High Sens 11.6 Total Protein 7.9 Albumin 4.5 Globulin 3.4 Albumin/Globulin Ratio 1.3 Lipase 35 Urine Color Dark Yellow Urine Appearance Clear Urine pH 6.5 Ur Specific [place] 1.026 Urine Protein 1+ H Urine Glucose (UA) Negative Urine Ketones 1+ H Urine Blood Negative Urine Nitrite Negative Urine Bilirubin Negative Urine Urobilinogen Negative Ur Leukocyte Esterase Negative Urine WBC (Auto) 0-5 Urine RBC (Auto) 0-2 U Hyaline Cast (Auto) 0-2 U Epithel Cells (Auto) 0-2 Urine Bacteria (Auto) None Seen Diagnostic Findings Chest X-Ray 01/02/24 10:56 XR chest 1V portable CLINICAL HISTORY: Chest pain, nonspecific COMPARISON STUDY: Chest CT December 26, 2021. Chest radiograph January 01, 2022. FINDINGS: There is no pneumothorax or pleural effusion. Left subclavian pacer is in place. There is stable cardiomegaly. There is no radiographic evidence for pulmonary edema. There is no consolidation to suggest pneumonia. There is a possible 8 mm left upper lobe pulmonary nodule. IMPRESSION: 1. No acute cardiopulmonary findings. 2. Possible 8 mm left upper lobe nodule. Nonemergent chest CT is recommended for further evaluation. ACT 112: Negative or not required by law. Electronically signed by: Sim Lopez M.D. 01/02/2024 12:42 PM Abdomen/Pelvis CT 01/02/24 11:02 CT abd pelvis IV con only CLINICAL HISTORY: n/v/d TECHNIQUE: Helical axial images of the abdomen and pelvis were obtained and displayed. Automated dose lowering techniques and/or adjustment according to patient size were utilized for this exam. This exam was performed with in travenous contrast. CT DOSE: 1184.97 mGy.cm COMPARISON: Comparison is made to CT abdomen pelvis 12/26/2021 FINDINGS: Lower chest: Cardiomegaly is seen. Bibasilar scarring is seen. Liver: Heterogeneous enhancement of the liver is again seen. Gallbladder and biliary tree: No calcified gallstones. Normal caliber wall. No intra- or extrahepatic biliary ductal dilation. Pancreas: Unremarkable, no focal lesions. Spleen: Unremarkable. Adrenals: Stable left adrenal nodules measuring up to 1 cm. Kidneys and ureters: Unremarkable. Bladder: Limited evaluation due to underdistention. Reproductive organs: Stable left ovarian cyst. Bowel: Unremarkable. Lymph nodes Retroperitoneal: Unremarkable. Pelvic: Unremarkable. Mesenteric: Unremarkable. Peritoneum: Normal. Vessels: Atherosclerotic calcifications are seen. Abdominal wall: Unremarkable. Bones: Degenerative changes in the visualized spine. IMPRESSION: 1. No acute abnormalities to explain nausea, vomiting, and diarrhea. 2. Nodules are stable Heterogeneous appearance of the liver as above. 3. Cardiomegaly is again seen. 4. Stable left ovarian cyst. ACT 112: Negative or not required by law. Electronically signed by: Arias Carbone M.D. 01/02/2024 12:08 PM ECG Additional Comments: Ventricularly paced, HR in the 70s, no ST wave changes, QTC is prolonged at 502. Code Status & VTE Plan Code Status DNR/DNI - discussed with pt at bedside Supervising Physician Co-Signing Physician Notes Attending Addendum: Case reviewed with the advanced practitioner. I have personally performed a history and physical examination on the patient. I have reviewed the advanced practitioner's documentation on the date of service referenced in note, and I agree with, and take responsibility for the plan of care. please refer to her notes for full details patient seen and examined, records reviewed by myself as well on exam, patient seen [] no other symptoms VS noted and reviewed oriented , not in distress, speaks in sentences with no effort nor accessory muscle use normal rate, regular rhythm, no murmurs clear breath sounds bilaterally non distended, soft, nontender no bipedal edema, erythema, warmth no neuro deficits all labs, imaging noted and reviewed ASSESSMENT AND PLAN NAUSEA/VOMITING, DIARRHEA CT abdomen/pelvis with contrast: unrevealing stool PCR, C diff ordered symptoms seems to be improving today as per patient HYPOXIA LIKELY SECONDARY TO UNDERLYING PULMONARY HYPERTENSION R/O PNEUMONIA CT chest without contrast ordered Acute PE unlikely as patient already on Eliquis other diagnoses and plan of care as per advanced practitioner's notes Richard Howell MD
--- NOTE | 2024-01-02 14:50 | Electrocardiogram Report ---
Test Reason : Blood Pressure : */* mmHG Vent. Rate : 71 BPM Atrial Rate : 214 BPM P-R Int : * ms QRS Dur : 158 ms QT Int : 462 ms P-R-T Axes : * -69 109 degrees QTcB Int : 502 ms Ventricular-paced rhythm Abnormal ECG When compared with ECG of 26-Dec-2021 20:35, No significant change was found Confirmed by Chico Silverman ([id number]) on 01/02/2024 2:50:15 PM Referred By: REFERRED SELF Confirmed By: Chico Silverman
--- OUTSIDE RECORDS SUMMARY | 2024-01-02 15:13 | External Medical Summary | Summary of Care ---
Author Name Unknown Organization [facility] Address [address] [place] [address] Phone [phone] Care Team Providers Care Safety Investigator/Cause Analyst Name Role Phone RichardMarcell rutledge Betty NOLEN Primary Care Provider [phone] Reason for Visit * Reason Comments Acute Encounter Details Date Type Department Care Team ([facility] st Contact Info) Description 12/02/2023 9:40 AM EDT Office Visit Family [facility] [address] [place] [address] Yolette Mccray MD [address] [place] [address] Shortness of breath*; Myalgia; Nausea and vomiting, unspecified vomiting type; Heart failure with reduced left ventricular function (HCC); HTN, goal below 140/90; Longstanding persistent atrial fibrillation (HCC); Stage 3a chronic kidney disease; History of pulmonary embolus (PE) Allergies Active Allergy Reactions Criticality Noted Date Comments Atorvastatin Calcium 02/04/2007 Muscle aches, confusion documented as of this encounter (statuses as of 01/01/2024) Medications Medication Sig Dispensed Refills Start Date End Date Status famotidine (PEPCID) 20 MG TabletIndications: Gastroesophageal reflux disease, esophagitis presence not specified Take 1 Tablet by mouth 2 times a day as needed for Heartburn. 60 Tab 5 08/24/2016 Active dicyclomine (BENTYL) 20 MG Tablet Take 1 Tablet by mouth every 4 hours as needed. Active Ondansetron HCl 4 MG Oral Tablet (Zofran) Take by mouth 1 Tablet every 8 hours as needed for Nausea. 10 Tablet 01/20/2022 Active PreserVision AREDS Oral Capsule Take 1 Capsule by mouth in the morning. Active Spironolactone 25 MG Oral Tablet (Aldactone)Indicat ions:HTN, goal below 140/90 TAKE 1/2 TABLET BY MOUTH EVERY MORNING 45 Tablet 3 01/02/2023 Active Pravastatin Sodium 20 MG Oral Tablet (Pravachol)Indicat ions:Dyslipidemia, goal to be determined Take 1 Tablet by mouth every evening. 90 Tablet 3 05/23/2023 Active Metoprolol Succinate ER 25 MG Oral Tablet Extended Release 24 Hour (toPROL XL) Take 3 Tablets by mouth in the morning and 3 Tablets before bedtime. 540 Tablet 3 05/23/2023 Active Furosemide 20 MG Oral Tablet (Lasix)Indications :HTN, goal below 140/90 TAKE 1 TAB BY MOUTH ONCE A DAY ON SATURDAY, SATURDAY, AND SATURDAY ONLY. 36 Tablet 3 05/23/2023 Active Travoprost (STEFFEN Free) 0.004 % Ophthalmic Solution (Travatan Z) Instill into both eyes at bedtime. 2.5 mL 6 05/30/2023 Active Losartan Potassium 25 MG Oral Tablet (Cozaar)Indication s:Hypertension goal BP (blood pressure) < 140/80 TAKE 1 TABLET BY MOUTH EVERY DAY IN THE MORNING 90 Tablet 3 06/26/2023 Active Escitalopram Oxalate 5 MG Oral Tablet (Lexapro)Indicatio ns:Recurrent major depressive disorder, remission status unspecified (HCC) TAKE 1 TABLET BY MOUTH EVERY DAY IN THE MORNING 90 Tablet 3 09/12/2023 Active Eliquis 5 MG Oral Tablet (Apixaban)Indicati ons:Persistent atrial fibrillation (HCC) TAKE 1 TABLET BY MOUTH EVERY DAY IN THE MORNING AND AT BEDTIME 180 Tablet 3 09/19/2023 Active LORazepam 0.5 MG Oral Tablet (Ativan)Indication s:Primary insomnia TAKE 1 TABLET BY MOUTH EVERY DAY AT BEDTIME NEEDED FOR INSOMNIA 90 Tablet 1 10/02/2023 Active Levothyroxine Sodium 25 MCG Oral Tablet (Levoxyl)Indicatio ns:Hypothyroidism, postablative TAKE 1/2 TABLET BY MOUTH DAILY. (AT LEAST 30 MIN PRIOR TO BREAKFAST OR OTHER MEDS) 45 Tablet 1 10/02/2023 Active Multi-Vitamins Oral Tablet Take 1 Tablet by mouth in the morning. Active Meclizine HCl 25 MG Oral Tablet (Antivert)Indicati ons:Vertigo TAKE 1 TABLET BY MOUTH 2 TIMES A DAY NEEDED FOR DIZZINESS OR NAUSEA. 90 Tablet 3 12/12/2021 4 Discontinue d(Refill) Hospital, Clinic, or Other Facility Administered Medication Ordered Dose Route Frequency Start Date End Date Status Albuterol Sulfate (Proventil) (5 MG/ML) 0.5% *conc* inhalation solution 2.5 mgIndications:Heart failure with reduced left ventricular function (HCC),PSVT (paroxysmal supraventricular tachycardia) (HCC),Multinodular goiter,Permanent atrial fibrillation (HCC),Dyspnea and respiratory abnormalities 2.5 mg NEBULIZER PRN 11/04/2023 11/03/2024 Active Albuterol Sulfate (Proventil) (2.5 MG/3ML) 0.083% inhalation solution 2.5 mgIndications:Heart failure with reduced left ventricular function (HCC),PSVT (paroxysmal supraventricular tachycardia) (HCC),Multinodular goiter,Permanent atrial fibrillation (HCC),Dyspnea and respiratory abnormalities 2.5 mg NEBULIZER PRN 11/04/2023 11/03/2024 Active documented as of this encounter (statuses as of 01/01/2024) Active Problems Problem Noted Date Diagnosed Date Heart failure with reduced left ventricular func tion 10/17/2021 Longstanding persistent atrial fibrillation 07/26 Cardiac pacemaker in situ 08/14/2021 Stage 3a chronic kidney disease 04/04/2020 Overview: Per CKD protocol - Per CKD protocol Major depressive disorder, recurrent, unspecifie d 03/18/2019 MAHNAZ (generalized anxiety disorder) 12/18/2017 Multinodular goiter 10/04/2016 PSVT (paroxysmal supraventricular tachycardia) 0 2016 History of thrombosis of leg 12/05/2015 History of colon polyps 10/31/2015 Overview: 10/26/2015: tubular adenoma, 2 mm prox descending colon repeat 5 years History of pulmonary embolus (PE) 09/28/2015 GERD (gastroesophageal reflux disease) 4 Dyslipidemia, goal LDL below 100 09/15/2013 H/O Graves' disease 08/12/2013 Hypothyroidism, 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 Overview: 01/30/12: Treated with [id number] mCi [facility] Right bundle branch block 06/28/2009 Mitral valve regurgitation 03/02/2009 Overview: mild to mod pulmonary hypertension on echo Trigeminal neuralgia 05/27/2006 Irritable bowel syndrome 05/08/2005 HTN, goal below 140/90 02/12/2005 Lichenification 09/03/2002 Other specified glaucoma 08/12/2002 documented as of this encounter (statuses as of 01/01/2024) Resolved Problems Problem Noted Date Diagnosed Date Resolved Date Permanent atrial fibrillation 06/17/2023 12/31/2023 Polyneuropathy in other dise ases classified elsewhere 03/23/2020 12/31/2023 Other pulmonary embolism wit hout acute cor pulmonale 03/23/2020 12/31/2023 Kidney disease, chronic, sta ge III (GFR 30-59 ml/min) 11/03/2018 04/07/2020 Overview: Per CKD protocol Oth athscl [place] arteries o f extremities, bilateral legs 09/10/2018 12/31/2023 Intractable migraine with au ra without status migrainosus 08/23/2017 09/10/2018 Right bundle branch block (RBBB) 02/28/2015 10/02/2016 Paroxysmal atrial fibrillation 09/20/2014 01/30/2022 Pulmonary embolism 09/14/2014 8 Overview: 09/14/2014: PE bilateral, associated with right heart strain, recent right knee surgery, anticoagulate for 12 months Atrial fibrillation 09/14/2014 09/21/19 15 Venous thrombosis 09/14/2014 12/05/2015 Overview: Right calf after right knee surgery Warfarin anticoagulation 09/14/2014 Overview: 09/14/2014: PE bilateral, associated with right heart strain, recent right knee surgery, anticoagulate for 12 months, Factor Leiden negative Grief reaction 09/26/2013 10/02/2016 Thyroid nodule 09/26/2013 09/26/2015 Estrogen deficiency 08/12/2013 12/31/19 24 Hypertensive emergency 07/24/201310/02 Depression, major 11/10/2012 05/19/2019 Chest pain, non-cardiac 11/22/2010 05/01/2017 Myalgia 11/06/2010 12/31/2023 Abdominal pain, generalized 02/21/2010 10/02/2016 Chest pain 06/28/2009 10/02/2016 HTN, goal below 140/90 06/28/200901/16 Esophageal reflux 06/28/2009 07/23/2017 Benign neoplasm of colon 12/31/2008 Overview: 11/14/2015: tubular adenoma, 2 mm prox descending colon repeat 5 years 12/31/2008: adenomatous/repeat colonoscopy in 5 yrs Osteoporosis 02/29/2008 04/06/2016 Goiter 01/09/2008 09/10/2018 Dyslipidemia, goal to be determined 09/03/2006 12/31/2023 No advance directive on file 01/22/2005 09/10/2018 Overview: No, Advance Directive brochure given to patient. Major depressive disorder 01/12/2003 Overview: ICD-10 update of inactive term CLASSICAL MIGRAINE WITH INTR ACTABLE MIGRAINE, SO STATED 08/23/2017 Toxic nodular goiter 015 Overview: suppressed TSH, toxic nodule noted documented as of this encounter (statuses as of 01/01/2024) Immunizations Name Administration Dates Next Due COVID-19 mRNA, LNP-s, No Pre serve, 2-Dose Series ([employer]) 05/02/2021,08/13/2020,07/23/2020 COVID-19, LNP-s, No Preserve , Kishor-sucrose, Ages 12+ (Pfizer) 10/31/2021 Covid-19, Mrna, Lnp-s, Pf, B ivalent, 30 Mcg, IM, 12 yrs and above ([employer]) 04/23/2022 Pneumococcal Conjugate Vacc, 13 Valent (Prevnar) 07/28/2014 Pneumococcal Polysaccharide PPV23 (Pneumovax) 02/27/2006 Seasonal Influenza, PF, 6 M & above, IM , (FluLaval or Fluzone) 02/09/2020,03/12/2018,02/18/2017 Seasonal Influenza, Quadriva lent Hd (Fluzone Hd) 01/30/2023,03/03/2022,03/11/2021 Seasonal Influenza, Quadriva lent, No Preserve, IM 04/06/2016 Seasonal Influenza, Split, I IV3, With Preserve, Inj 02/03/2015,03/02/2014,03/14/2013,1105/2011,03/29/2011,03/07/2010,02/19/20 09,03/30/2008,03/31/2007,04/09/2006 03/29/2012 Seasonal Influenza, Trivalen t, Adjuvanted, 65+ yrs 03/18/2019 TD - Tetanus/Diptheria (ADULT) 12/29/2000 TDAP (age 10 and older)(Boostrix) 11/24/2012 Zoster Vaccine Recombinant (Shingrix) 07/15/2019 ,05/22/2019,12/11/2018 documented as of this encounter Social History Tobacco Use Types Packs/Day Years Used Date Smoking Tobacco: Never Smokeless Tobacco: Never Tobacco Cessation:Counseling Given: Not Answered Alcohol Use Standard Drinks/Week Comments No 0 (1 standard drink = 0.6 oz pur e alcohol) rare PHQ-2 Answer Date Recorded PHQ Adult Total Score 0 05/07/2022 Hunger Vital Sign Answer Date Recorded Worried About Running Out of Food in the Last Ye ar Never true 01/12/2019 Ran Out of Food in the Last Year Never true 01/12/2019 Utilities Answer Date Recorded Do you have trouble paying y our heating, water, or electric bill? (Adult - for ages 18 years and over) Not on file 11/12/2023 Is your family able to pay t he heat, water, or electric bill? (Household - for ages 0-17 years) Not on file 11/12/2023 Does your family have access to good internet? (Household - for ages 0-17 years) Not on file 11/12/2023 Social Connections Answer Date Recorded How often do you feel lonely or isolated from those around you? (Adult - for ages 18 years and over) Not on file 11/12/2023 Sex and Gender Information Value Date Recorded Sex Assigned at Female 09/10/2018 8:13 AM EDT Gender Identity Female 09/10/2018 8:13 AM EDT Sexual Orientation Straight 09/10/2018 8: 13 AM EDT Job Start Date Occupation Industry Not on file Not on file Not on file documented as of this encounter Last Filed Vital Signs Vital Sign Reading Time Taken Comments Blood Pressure 142/78 12/02/2023 9:29 AM EDT Pulse 78 12/02/2023 9:29 AM EDT Temperature 36.1 C (96.9 F) 12/02/2023 9:29 AM ED T Respiratory Rate 18 12/02/2023 9:29 AM EDT Oxygen Saturation 91% 12/02/2023 9:29 AM EDT Inhaled Oxygen Concentration - - Weight 77.6 kg (171 lb 1.9 oz) 12/02/2023 9:29 A M EDT Height - - Body Mass Index 31.81 11/04/2023 8:56 AM EDT documented in this encounter Progress Notes * Yolette Mccray MD - 12/02/2023 9:40 AM EDT Subjective Chief Complaint Patient presents with Acute HPI: Sachi Hua is a 83 year old female. Patient is unaccompanied. The following issues were addressed today: Patient with HFrEF, a-fib, CKD stage 3a, history of PE on Eliquis presents today with c/o diarrhea,nausea, and vomiting. Started last week about 6 hours after she ate pasta salad. In the past few days the diarrhea and vomiting have resolved but she still feels nauseated. She took loperamide on Saturday which seemed to help. Has been feeling weak and has had body aches. She also notes she has been feeling short of breath and has a cough. Seems worse in the evening. She denies fever, abdominal pain, or dysuria. Review of Systems: See HPI Objective BP 142/78 | Pulse 78 | Temp 36.1 C (96.9 F) (Tympanic) | Resp 18 | Wt 77.6 kg (171 lb 1.9 oz) |SpO2 91% | BMI 31.81 kg/m | BSA 1.83 m General: Well-appearing, no acute distress Head: Normocephalic and atraumatic Eyes: No conjunctival injection, no scleral icterus, extraocular movements are intact Ears: External ear unremarkable, canals normal and tympanic membranes clear bilaterally Nose: Nasal mucosa pink and moist, nares patent bilaterally Throat/Mouth: Oral mucosa pink and moist, tongue normal in appearance without lesions and with symmetrical movement, pharynx normal in appearance Cardiovascular: Regular rate and rhythm Respiratory: Good respiratory effort, breath sounds equal and clear to auscultation bilaterally Abdomen: Soft, non-distended, non-tender, normoactive bowel sounds Extremities: No edema Neurological: Alert and oriented Psychiatric: Appropriate mood and affect Assessment & Plan 1. Shortness of breath 2. Myalgia 3. Nausea and vomiting, unspecified vomiting type Symptoms suggestive of viral syndrome. Overall she is improving. Will test for COVID. Vitals and exam are normal today in the office. Continue supportive care. Patient encouraged to rest and maintain adequate hydration. Patient advised to monitor symptoms and seek medical attention if experiencing high fever, worsening symptoms after 7-10 days, difficulty breathing, or chest pain. No antibiotics currently indicated. 4. Heart failure with reduced left ventricular function (HCC) Patient euvolemic on exam today. Continue current medications. 5. HTN, goal below 140/90 Well-controlled. Continue current medication(s). 6. Longstanding persistent atrial fibrillation (HCC) Stable. Continue current medications. 7. Stage 3a chronic kidney disease Stable. 8. History of pulmonary embolus (PE) Stable. Continue Eliquis. Return if symptoms worsen or fail to improve. This note was electronically signed by Yolette Mccray MD documented in this encounter Nursing Notes * Capri Malhotra LPN - 12/02/2023 9:25 AM EDT Patient presents in office today with C/O possible food poisoning from pasta salad she ate. Symptoms started 11/26. Nausea, vomiting, diarrhea. Weakness, SOB mostly in the evening time, dizzy when up and moving, feels blah. Does not think she had a fever documented in this encounter Plan of Treatment Upcoming Encounters Date Type Department Care Team (Late st Contact Info) Description 01/23/2024 8:00 AM EDT Office Visit [facility] Disorders Ctr [facility] [address] [place] [phone] Lucía López, [address] [place] [address] 02/03/2024 10:00 AM EDT Office Visit Pulmonary Medicine, [facility] [address] [place] [address] Armando Chapa MD [address] [place] [id number] 03/19/2024 10:30 AM EDT Office Visit Cardiology, [facility] [address] [facility] [place] [address] Radha Venegas PA-C [address] [place] [address] 07/28/2024 9:20 AM EST Office Visit Family Practice [facility] [address] [place] [address] Marcell Landry, DO [address] [place], [place] [address] Health Maintenance Due Date Last Done Comments Adult Wellness Visit 2007 DTaP,Tdap,and Td Vaccines (2 - Td or Tdap) 11/24/2022 11/24/2012, 12/29/2000, 12/29/2000 Depression Monitoring 05/07/2023 05/07/2022 COVID-19 Vaccine ( season) 2023 03/09/2023, 04/23/2022, 10/31/2021, Additional history exists DXA Scan 10/10/2023 10/09/2016, 02/25, 03/22/2014, Additional history exists Albumin/Creatinine Ratio 11/06/2023 11/05/2022, 12/26 CKD HGB USE SMARTSET 37414 11/06/202311/05, 09/07/2021, 08/31/2020, Additional history exists CKD PHOS USE SMARTSET [id number] 11/06/202310/25, 04/17/2021, 03/20/2019, Additional history exists Influenza Vaccine (FLU shot) (#1) 2024 01/30/2023, 03/03/2022, 03/11/2021, Additional history exists GFR 04/25/2024 10/25/2023, 05/28, 11/05/2022, Additional history exists TSH 06/17/2024 06/17/2023, 10/25, 09/07/2021, Additional history exists Pneumococcal Vaccine: 65+ Years Completed 07/28/2014, 02/27/2006 RETIRED - COLONOSCOPY-EVERY 5 YRS AGES 18-100 Discontinued 10/26/2015, 10/26/2015, 12/31/2008, Additional history exists Zoster Vaccines Completed 07/15/2019, 04/27, 12/11/2018 HPV (Gardasil) Vaccine Aged Out No lo nger eligible based on patient's age to complete this topic Hepatitis B Vaccine Aged Out No longe r eligible based on patient's age to complete this topic MENINGOCOCCAL (MENACTRA/MENVEO) Aged Out No longer eligible based on patient's age to complete this topic documented as of this encounter Medical Devices Not on filedocumented as of this encounter Procedures Procedure Name Priority Date/Time Associated Diagnosis Comments SARS-COV-2 (COVID-19), NAAT Routine 12/02/2023 10:03 AM EDT Shortness of breath documented in this encounter Results * SARS-COV-2 (COVID-19), NAAT (12/02/2023 10:03 AM EDT) SARS-CoV-2 (COVID-19) Result Negative Negative 12/02/2023 7:26 PM EDT LABORATORY C Comment: 2019 Novel Coronavirus not detected. This express test was developed and its performance characteristics determined by [facility]. It has not been cleared or approved by the U.S. Food and Drug Administration (FDA). FDA does not require this test to go thru premarket FDA review. This test is used for clinical purposes. It should not be regarded as investigational or for research. This laboratory is certified under the Clinical Laboratory Improvement Amendments (CLIA) as qualified to perform high complexity clinical laboratory testing. This test is a nucleic acid amplification test (NAAT), a reverse transcriptase polymerase chain reaction (RT-PCR) test, or a Centers for Disease Control- acceptable equivalent. The test is performed in a high complexity Clinical Laboratory Improvement Amendments-(CLIA) certified laboratory. The test is acceptable for SARS-CoV-2 diagnosis, surveillance, and travel within the [place] and to most countries. Please check with local testing authorities about requirements before travel. The validation of bronchial specimens, tracheal aspirates, and sputum for this assay was developed and performance characteristics determined by [facility]. The validation of alternate specimen types has not been cleared or approved by the U.S. Food and Drug Administration (FDA). It has been determined that such clearance is not necessary. Upper Respiratory Mid-turbinate nasal swab / Unknown Non-blood Collection / Unknown 12/02/2023 10:03 AM EDT 12/02/2023 12:42 PM EDT Yolette Mccray MD LAB MICRO - GENERAL ORDERABLES [facility]ATORY [facility] [address] [place] [address] documented in this encounter Visit Diagnoses Diagnosis Shortness of breath- Primary Myalgia Mylagia and myositis, unspecified Nausea and vomiting, unspecified vomiting type Heart failure with reduced left ventricular function (HCC) Unspecified systolic heart failure HTN, goal below 140/90 Unspecified essential hypertension Longstanding persistent atrial fibrillation (HCC) Stage 3a chronic kidney disease History of pulmonary embolus (PE) Personal history of pulmonary embolism documented in this encounter Care Teams Safety Investigator/Cause Analyst Relationship Specialty Start Date End Date Marcell Landry DO [address] [place] [address] PCP - General Family Medicine 11/07/16 documented as of this encounter"
--- OUTSIDE RECORDS SUMMARY | 2024-01-02 15:13 | External Medical Summary | Summary of Care ---
Author Name Unknown Organization [facility] Address [address] [place] [address] Phone [phone] Care Team Providers Care Flight Operations Specialist Name Role Phone FrantzMarcell Betty NOLEN Primary Care Provider [phone] Reason for Visit * Reason Comments Blood Pressure Check NV for BP check Encounter Details Date Type Department Care Team (Latest Contact Info) Description 12/25/2023 1:00 PM EDT Cardiac Studies Cardiac Studies, [facility] [address] [place] [address] HTN, goal below 140/90* Allergies Active Allergy Reactions Criticality Noted Date [...] Hypothyroidism, 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 Overview: 01/30/12: Treated with I-43145.6 mCi [facility] Right bundle branch block 06/28/2009 Mitral valve [...] 04/07/2020 Overview: Per CKD protocol Oth athscl [place] arteries o f extremities, bilateral legs 09/10/2018 [...] major 11/10/2012 05/19/2019 Chest pain, non-cardiac 11/22/2010 05/0 01/2017 Myalgia 11/06/2010 12/31/2023 Abdominal pain, generalized 02/21/2010 [...] mRNA, LNP-s, No Pre serve, 2-Dose Series ([employer] 05/02/2021,08/13/2020,07/23/2020 COVID-19, LNP-s, No Preserve , Kishor-sucrose, Ages 12+ ([employer] 10/31/2021 Covid-19, Mrna, Lnp-s, Pf, B ivalent, 30 Mcg, IM, 12 yrs and above ([employer] 04/23/2022 Pneumococcal Conjugate Vacc, 13 Valent (Prevnar) 07/28/2014 Pneumococcal Polysaccharide PPV23 (Pneumovax) 02/27/2006 Seasonal Influenza, PF, 6 M & above, IM , (FluLaval or Fluzone) 02/09/2020,03/12/2018,02/18/2017 Seasonal Influenza, Quadriva lent Hd (Fluzone Hd) 01/30/2023,03/03/2022,03/11/2021 Seasonal Influenza, Quadriva lent, No Preserve, IM 04/06/2016 Seasonal Influenza, Split, I IV3, No Preserve, Inj 05/22/2000 05/22/2001 Seasonal Influenza, Split, I IV3, With Preserve, Inj 02/03/2015,03/02/2014,03/14/2013,11/0 05/2011,03/29/2011,03/07/2010,02/19/20 09,03/30/2008,03/31/2007,04/09/2006,1 ,03/23/2003,04/03/2002 03/29/2012 Seasonal Influenza, Trivalen t, Adjuvanted, 65+ yrs 03/18/2019 TD - Tetanus/Diptheria (ADULT) 12/29/2000 TDAP (age 10 and older)(Boostrix) 11/24/2012 Zoster Vaccine Recombinant (Shingrix) 07/15/2019 ,05/22/2019,12/11/2018 documented as of this encounter Social History Tobacco Use Types Packs/Day Years Used Date Smoking Tobacco: Never Smokeless Tobacco: Never Alcohol Use Standard Drinks/Week Comments No 0 [...] Sign Reading Time Taken Comments Blood Pressure 140/82 12/25/2023 10:20 AM EDT Pulse - - Temperature - - Respiratory Rate - - Oxygen Saturation - - Inhaled Oxygen Concentration - - Weight - - Height - - Body Mass Index - - documented in this encounter Progress Notes * Radha Venegas PA-C - 01/01/2024 3:08 PM EDT BP readings within acceptable range. Would continue current medications and keep follow up as scheduled * Iraj Murguia LPN - 12/25/2023 10:22 AM EDT Sachi Hua presented for blood pressure check per provider orders. The blood pressure was obtained using the left arm in the sitting position using a adult cuff. The results were charted in Vital Signs. BP Readings from Last 3 Encounters: 12/25/23 140/82 12/25/23 128/80 12/02/23 142/78 BP 140/82 Patient denies headache, pressure in head, dizziness, lightheadedness, chest discomfort, focal neurological symptoms, change in vision, nose bleeds. Did patient take medications today? Patient took losartan and metoprolol but did not take diuretics Patient's home cuff at [place]- 146/84. At home readings trending in the 140's/70-80's. Patient was instructed provider would review BP check results and she would be contacted with any changes. Patient stopped at check out to schedule a routine follow up appointment. documented in this encounter Plan of Treatment Upcoming Encounters Date Type Department Care Team (Late st Contact Info) Description 01/23/2024 8:00 AM EDT Office Visit Sleep Disorders Ctr [facility] [address] [place] [phone] Lucía López DO [address] [place] [address] 02/03/2024 10:00 AM EDT Office Visit Pulmonary Medicine, [facility] [address] [place] [address] Armando Chapa MD [address] [place] [address] 03/19/2024 10:30 AM EDT Office Visit Cardiology, [facility] [address] [place] [address] Radha Venegas PA-C [address] [place] [address] 07/28/2024 9:20 AM EST Office Visit Family Practice [facility] [address] [place] [address] Marcell Landry, DO [address] [place] [address] Health Maintenance Due Date Last Done Comments Adult Wellness Visit 2007 DTaP,Tdap,and Td Vaccines (2 - Td or Tdap) 11/24/2022 11/24/2012, 12/29/2000, 12/29/2000 Depression Monitoring 05/07/2023 05/07/2022 COVID-19 Vaccine ( season) 2023 03/09/2023, 04/23/2022, 10/31/2021, Additional history exists DXA Scan 10/10/2023 10/09/2016, 02/25, 03/22/2014, Additional history exists Albumin/Creatinine Ratio 11/06/2023 11/05/2022, 12/26 CKD HGB USE SMARTSET 57770 11/06/202311/05, 09/07/2021, 08/31/2020, Additional history exists CKD PHOS USE SMARTSET 14373 11/06/202310/25, 04/17/2021, 03/20/2019, Additional history exists Influenza [...] Not on filedocumented as of this encounter Visit Diagnoses Diagnosis HTN, goal below 140/90- Primary Unspecified essential hypertension documented in this encounter Care Teams Flight Operations Specialist Relationship Specialty Start Date End Date Marcell Landry DO [address] [place] [address] PCP - General Family Medicine 11/07/16 documented as of this encounter
--- OUTSIDE RECORDS SUMMARY | 2024-01-02 15:14 | External Medical Summary | Summary of Care ---
Author Name Unknown Organization [facility] Address [address] [place] [address] Phone [phone] Care Team Providers Care Second Grade Teacher Name Role Phone FrantzMarcell Betty NOLEN Primary Care Provider [phone] Reason for Visit * Reason Comments Pulmonary Function Test PFT with broncho dilator Oxygen Assessment 6 [address] Encounter Details Date Type Department Care Team (Latest Contact Info) Description 12/25/2023 10:00 AM EDT PulmDiagnostic Pulmonary Function Lab, [facility] [address] [facility] [place] [address] [address], [address] [place] [address] Dyspnea and respiratory abnormalities*; Heart failure with reduced left ventricular function (HCC); PSVT (paroxysmal supraventricular tachycardia) (HCC); Multinodular goiter; Permanent atrial fibrillation (HCC) Allergies Active Allergy Reactions Criticality Noted Date Comments Atorvastatin Calcium 02/04/2007 Muscle aches, confusion documented as of this encounter (statuses as of 12/25/2023) Medications Medication Sig Dispensed Refills Start Date End Date Status famotidine (PEPCID) 20 MG TabletIndications:Ga stroesophageal reflux disease, esophagitis presence not specified Take 1 Tablet by mouth 2 times a day as needed for Heartburn. 60 Tab 5 08/24/2016 Active dicyclomine (BENTYL) 20 MG Tablet Take 1 Tablet by mouth every 4 hours as needed. Active Meclizine HCl 25 MG Oral Tablet (Antivert)Indication s:Vertigo TAKE 1 TABLET BY MOUTH 2 TIMES A DAY NEEDED FOR DIZZINESS OR NAUSEA. 90 Tablet 3 12/12/2021 Active Ondansetron HCl 4 MG Oral Tablet (Zofran) Take by mouth 1 Tablet every 8 hours as needed for Nausea. 10 Tablet 01/20/2022 Active PreserVision AREDS Oral Capsule Take 1 Capsule by mouth in the morning. Active Spironolactone 25 MG Oral Tablet (Aldactone)Indicatio ns:HTN, goal below 140/90 TAKE 1/2 TABLET BY MOUTH EVERY MORNING 45 Tablet 3 01/02/2023 Active Pravastatin Sodium 20 MG Oral Tablet (Pravachol)Indicatio ns:Dyslipidemia, goal to be determined Take 1 Tablet by mouth every evening. 90 Tablet 3 05/23/2023 Active Metoprolol Succinate ER 25 MG Oral Tablet Extended Release 24 Hour (toPROL XL) Take 3 Tablets by mouth in the morning and 3 Tablets before bedtime. 540 Tablet 3 05/23/2023 Active Furosemide 20 MG Oral Tablet (Lasix)Indications:H TN, goal below 140/90 TAKE 1 TAB BY MOUTH ONCE A DAY ON SATURDAY, SATURDAY, AND SATURDAY ONLY. 36 Tablet 3 05/23/2023 Active Travoprost (STEFFEN Free) 0.004 % Ophthalmic Solution (Travatan Z) Instill into both eyes at bedtime. 2.5 mL 6 05/30/2023 Active Losartan Potassium 25 MG Oral Tablet (Cozaar)Indications: Hypertension goal BP (blood pressure) < 140/80 TAKE 1 TABLET BY MOUTH EVERY DAY IN THE MORNING 90 Tablet 3 06/26/2023 Active Escitalopram Oxalate 5 MG Oral Tablet (Lexapro)Indications :Recurrent major depressive disorder, remission status unspecified (HCC) TAKE 1 TABLET BY MOUTH EVERY DAY IN THE MORNING 90 Tablet 3 09/12/2023 Active Eliquis 5 MG Oral Tablet (Apixaban)Indication s:Persistent atrial fibrillation (HCC) TAKE 1 TABLET BY MOUTH EVERY DAY IN THE MORNING AND AT BEDTIME 180 Tablet 3 09/19/2023 Active LORazepam 0.5 MG Oral Tablet (Ativan)Indications: Primary insomnia TAKE 1 TABLET BY MOUTH EVERY DAY AT BEDTIME NEEDED FOR INSOMNIA 90 Tablet 1 10/02/2023 Active Levothyroxine Sodium 25 MCG Oral Tablet (Levoxyl)Indications :Hypothyroidism, postablative TAKE 1/2 TABLET BY MOUTH DAILY. (AT LEAST 30 MIN PRIOR TO BREAKFAST OR OTHER MEDS) 45 Tablet 1 10/02/2023 Active Multi-Vitamins Oral Tablet Take 1 Tablet by mouth in the morning. Active Hospital, Clinic, or Other Facility Administered Medication [...] as of this encounter (statuses as of 12/25/2023) Active Problems Problem Noted Date Diagnosed Date Permanent atrial fibrillation 06/17/2023 Heart failure with reduced left ventricular func tion 10/17/2021 Longstanding persistent atrial fibrillation 07/26 Cardiac pacemaker in situ 08/14/2021 Stage 3a chronic kidney disease 04/04/2020 Overview: Per CKD protocol - Per CKD protocol Polyneuropathy in other diseases classified else where 03/23/2020 Other pulmonary embolism without acute cor pulmo nale 03/23/2020 Major depressive disorder, recurrent, unspecifie d 03/18/2019 Ot athscl [place] arteries of extremities, bilat eral legs 09/10/2018 MAHNAZ (generalized anxiety disorder) 12/18/2017 Multinodular goiter 10/04/2016 PSVT (paroxysmal supraventricular tachycardia) 0 2016 History of thrombosis of leg 12/05/2015 History of colon polyps 10/31/2015 Overview: 10/26/2015: tubular adenoma, 2 mm prox descending colon repeat 5 years History of pulmonary embolus (PE) 09/28/2015 GERD (gastroesophageal reflux disease) 4 Dyslipidemia, goal LDL below 100 09/15/2013 H/O Graves' disease 08/12/2013 Estrogen deficiency 08/12/2013 Hypothyroidism, 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 Overview: 01/30/12: Treated with I-58074.6 mCi [facility] Myalgia 11/06/2010 Right bundle branch block 06/28/2009 Mitral valve regurgitation 03/02/2009 Overview: mild to mod pulmonary hypertension on echo Dyslipidemia, goal to be determined 09/03/2006 Trigeminal neuralgia 05/27/2006 Irritable bowel syndrome 05/08/2005 HTN, goal below 140/90 02/12/2005 Lichenification 09/03/2002 Other specified glaucoma 08/12/2002 documented as of this encounter (statuses as of 12/25/2023) Resolved Problems Problem Noted Date Diagnosed Date Resolved Date Kidney disease, chronic, sta ge III (GFR 30-59 ml/min) 11/03/2018 04/07/2020 Overview: Per CKD protocol Intractable migraine with au ra without status [...] reaction 09/26/2013 10/02/2016 Thyroid nodule 09/26/2013 09/26/2015 Hypertensive emergency 07/24/201310/02 Depression, major 11/10/2012 05/19/2019 Chest pain, non-cardiac 11/22/2010 05/0 01/2017 Abdominal pain, generalized 02/21/2010 10/02/2016 Chest pain 06/28/2009 10/02/2016 HTN, goal below 140/90 06/28/200901/16 Esophageal reflux 06/28/2009 07/23/2017 Benign neoplasm of colon 12/31/2008 Overview: 11/14/2015: tubular adenoma, 2 mm prox descending colon repeat 5 years 12/31/2008: adenomatous/repeat colonoscopy in 5 yrs Osteoporosis 02/29/2008 04/06/2016 Goiter 01/09/2008 09/10/2018 No advance directive on file 01/22/2005 09/10/2018 Overview: No, Advance Directive brochure given to patient. Major depressive disorder 01/12/2003 Overview: ICD-10 update of inactive term CLASSICAL MIGRAINE WITH INTR ACTABLE MIGRAINE, SO STATED 08/23/2017 Toxic nodular goiter 015 Overview: suppressed TSH, toxic nodule noted documented as of this encounter (statuses as of 12/25/2023) Immunizations Name Administration Dates Next Due COVID-19 mRNA, LNP-s, No Pre serve, 2-Dose Series ([employer]) 05/02/2021,08/13/2020,07/23/2020 COVID-19, LNP-s, No Preserve , Kishor-sucrose, Ages 12+ ([employer]) 10/31/2021 Covid-19, Mrna, Lnp-s, Pf, B ivalent, 30 Mcg, IM, 12 yrs and above ([employer]) 04/23/2022 Pneumococcal Conjugate Vacc, 13 Valent (Prevnar) 07/28/2014 Pneumococcal Polysaccharide PPV23 (Pneumovax) 02/27/2006 Seasonal Influenza, PF, 6 M & above, IM , (FluLaval or Fluzone) 02/09/2020,03/12/2018,02/18/2017 Seasonal Influenza, Quadriva lent Hd (Fluzone Hd) 01/30/2023,03/03/2022,03/11/2021 Seasonal Influenza, Quadriva lent, No Preserve, IM 04/06/2016 Seasonal Influenza, Split, I IV3, With Preserve, Inj 02/03/2015,03/02/2014,03/14/2013,11/0 05/2011,03/29/2011,03/07/2010,02/19/20 09,03/30/2008,03/31/2007,04/09/2006 03/29/2012 Seasonal Influenza, Trivalen t, Adjuvanted, [...] Sign Reading Time Taken Comments Blood Pressure 128/80 12/25/2023 9:20 AM EDT Pulse 87 12/25/2023 9:20 AM EDT Temperature - - Respiratory Rate 16 12/25/2023 9:20 AM EDT Oxygen Saturation 96% 12/25/2023 9:20 AM EDT Inhaled Oxygen Concentration - - Weight 78.9 kg (173 lb 15.1 oz) 12/25/2023 9:20 AM EDT Height 155.5 cm (5' 1.22") 12/25/2023 9:20 AM ED T Body Mass Index 32.63 12/25/2023 9:20 AM EDT documented in this encounter Nursing Notes * Zahira George RRT - 12/25/2023 9:38 AM EDT Sachi Hua was identified by name, Date of : (1940), and . Vitals were obtained for testing. Body mass index is 32.63 kg/m. Pt does not have a smoking history. 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 Spirometry, DLCO, RAW, and TGV performed. A slow volume nebulizer treatment of 0.5ml of albuterol in 3 ml of NSS was given. The proper method of use, as well as anticipated side effects, of this svn are discussed and demonstrated to the patient. Patient demonstrates adequate delivery. Administrations This Visit Albuterol Sulfate (Proventil) (2.5 MG/3ML) 0.083% inhalation solution 2.5 mg Admin Date 12/25/2023 Action Given Dose 2.5 mg Route Nebulizer Documented By Zahira George RRT 6 minute walk Exercise oximetry performed on room air x 6 minutes. Pt ambulated 1080 feet/ 329 meters. 2 rest periods were required for 27 seconds. Lowest SPO2 on room air was 90%. documented in this encounter Plan of Treatment Upcoming Encounters Date Type Department Care Team (Late st Contact Info) Description 12/25/2023 1:00 PM EDT Cardiac Studies Cardiac Studies, [facility] [address] [facility] [place] [address] 12/30/2023 9:30 AM EDT Laboratory Laboratory, [facility] [address] [facility] [place] [phone] Blayne Cueva [facility] [address] [facility] [place] [address] 12/31/2023 9:40 AM EDT Office Visit Pulmonary Medicine, [facility] [address] [facility] [place] [address] Armando Chapa MD [address] [place] [address] 12/31/2023 11:00 AM EDT Office Visit Family Practice [facility] [address] [facility] [place] [address] Marcell Landry, DO [address] [facility] [place] [address] 01/23/2024 8:00 AM EDT Office Visit Sleep Disorders Ctr [facility] [address] [facility] [place] [phone] Lucía López, DO [address] [facility] [place] [address] Health Maintenance Due Date Last Done Comments DTaP,Tdap,and Td Vaccines (2 - Td or Tdap) 11/24/2022 11/24/2012, 12/29/2000, 12/29/2000 Depression Monitoring 05/07/2023 05/07/2022 COVID-19 Vaccine ( season) 2023 03/09/2023, 04/23/2022, 10/31/2021, Additional history exists DXA Scan 10/10/2023 10/09/2016, 02/25, 03/22/2014, Additional history exists Albumin/Creatinine Ratio 11/06/2023 11/05/2022, 12/26 CKD HGB USE SMARTSET 05435 11/06/202311/05, 09/07/2021, 08/31/2020, Additional history exists CKD PHOS USE SMARTSET 39428 11/06/202310/25, 04/17/2021, 03/20/2019, Additional history exists Influenza [...] as of this encounter Visit Diagnoses Diagnosis Dyspnea and respiratory abnormalities- Primary Other dyspnea and respiratory abnormality Heart failure with reduced left ventricular function (HCC) Unspecified systolic heart failure PSVT (paroxysmal supraventricular tachycardia) (HCC) Paroxysmal supraventricular tachycardia Multinodular goiter Nontoxic multinodular goiter Permanent atrial fibrillation (HCC) Atrial fibrillation documented in this encounter Administered Medications Active Administered Medications - up to 3 most recent administrations Medication Order MAR Action Action Date Dose Rate Site Albuterol Sulfate (Proventil) (2.5 MG/3ML) 0.083% inhalation solution 2.5 mg 2.5 mg, Nebulizer, PRN Other, ONCE FOR PFT, Starting on Sat11/04/23 at 0921, Until Sat11/03/24 at 0920, For 365 days Given 12/25/2023 9:18 AM EDT 2.5 mg documented in this encounter Care Teams Second Grade Teacher Relationship Specialty Start Date End Date Marcell Landry DO [address] [place] [address] PCP - General Family Medicine 11/07/16 documented as of this encounter
--- OUTSIDE RECORDS SUMMARY | 2024-01-02 15:14 | External Medical Summary | Summary of Care ---
Author Name Unknown Organization [facility] Address [address] [place] [address] Phone [phone] Care Team Providers Care Sports Director Name Role Phone RichardMarcell rutledge Betty NOLEN Primary Care Provider [phone] Reason for Visit * Reason Onset Date Comments Oxygen Assessment 12/20/2023 NPO Encounter Details Date Type Department Care Team ([facility] Contact Info) Description 12/20/2023 Telephone Pulmonary Medicine, [facility] [address] [facility] [place] [address] Armando Chapa MD [address] [facility] [phone] Oxygen Assessment (NPO) Allergies Active Allergy Reactions Criticality Noted Date Comments Atorvastatin Calcium 02/04/2007 Muscle aches, confusion documented as of this encounter (statuses as of 12/20/2023) Medications Medication Sig Dispensed Refills Start Date [...] as of this encounter (statuses as of 12/20/2023) Active Problems Problem Noted Date Diagnosed Date [...] Major depressive disorder, recurrent, unspecifie d 03/18/2019 Oth athscl [place] arteries of extremities, bilat eral legs 09/10/2018 [...] Hypothyroidism, 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 Overview: 01/30/12: Treated with I-96482.6 mCi [facility] Myalgia 11/06/2010 Right bundle branch block 06/28/2009 Mitral valve regurgitation 03/02/2009 Overview: mild to mod pulmonary hypertension on echo Dyslipidemia, goal to be determined 09/03/2006 Trigeminal neuralgia 05/27/2006 Irritable bowel syndrome 05/08/2005 HTN, goal below 140/90 02/12/2005 Lichenification 09/03/2002 Other specified glaucoma 08/12/2002 documented as of this encounter (statuses as of 12/20/2023) Resolved Problems Problem Noted Date Diagnosed Date [...] as of this encounter (statuses as of 12/20/2023) Immunizations Name Administration Dates Next Due COVID-19 mRNA, LNP-s, No Pre serve, 2-Dose Series ([employer]) 05/02/2021,08/13/2020,07/23/2020 COVID-19, LNP-s, No Preserve , Kishor-sucrose, Ages 12+ ([employer]) 10/31/2021 Covid-19, Mrna, Lnp-s, Pf, B ivalent, 30 Mcg, IM, 12 yrs and above ([employer]) 04/23/2022 Pneumococcal Conjugate Vacc, 13 Valent (Prevnar) [...] on file documented as of this encounter Miscellaneous Notes * Telephone Encounter - Ophelia Abrams LPN - 12/20/2023 1:56 PM EDT Order has been sent to * Telephone Encounter - Ophelia Abrams LPN - 12/20/2023 1:49 PM EDT ----- Message from Armando Chapa MD sent at 12/17/2023 5:15 PM EDT ----- Nocturnal oximetry study 11/22/2023 is positive for nocturnal hypoxia. 2 L nasal cannula oxygen is being ordered. documented in this encounter Plan of Treatment Upcoming Encounters Date Type Department Care Team (Late st Contact Info) Description 12/25/2023 10:00 AM EDT PulmDiagnostic Pulmonary Function Lab, [facility] [address] [facility] [place] [address] [address], [address] [facility] [place] [address] 12/25/2023 1:00 PM EDT Cardiac Studies Cardiac Studies, [facility] [address] [facility] [place] [address] 12/30/2023 9:30 AM EDT Laboratory Laboratory, [facility] [address] [facility] [place] [phone] Blayne Cueva [facility] [address] [facility] [place] [address] 12/31/2023 9:40 AM EDT Office Visit Pulmonary Medicine, [facility] [address] [facility] [place] [address] Armando Chapa MD [address] [place] [address] 12/31/2023 11:00 AM EDT Office Visit [facility] [address] [place] [address] Marcell Landry, DO [address] [facility] [place] [address] 01/23/2024 8:00 AM EDT Office Visit [facility]tr [facility] [place] [address] [place] [phone] Lucía López, DO [address] [place] [address] Health Maintenance Due Date Last Done Comments DTaP,Tdap,and Td Vaccines (2 - Td or Tdap) 11/24/2022 11/24/2012, 12/29/2000, 12/29/2000 Depression Monitoring 05/07/2023 05/07/2022 COVID-19 Vaccine ( season) 2023 03/09/2023, 04/23/2022, 10/31/2021, Additional history exists DXA Scan 10/10/2023 10/09/2016, 02/25, 03/22/2014, Additional history exists Albumin/Creatinine Ratio 11/06/2023 11/05/2022, 12/26 CKD HGB USE SMARTSET 42682 11/06/202311/05, 09/07/2021, 08/31/2020, Additional history exists CKD PHOS USE SMARTSET 65608 11/06/202310/25, 04/17/2021, 03/20/2019, Additional history exists Influenza [...] Not on filedocumented as of this encounter Care Teams Sports Director Relationship Specialty Start Date End Date Marcell Landry DO [address] [place] [address] PCP - General Family Medicine 11/07/16 documented as of this encounter
--- OUTSIDE RECORDS SUMMARY | 2024-01-02 15:14 | External Medical Summary | Summary of Care ---
Author Name Unknown Organization [facility] Address [address] [place] [address] Phone [phone] Care Team Providers Care Manager Group Home Name Role Phone FrantzMarcell Betty NOLEN Primary Care Provider [phone] Reason for Visit * Reason Onset Date Comments Order Request 12/20/2023 Night oxygen Encounter Details Date Type Department Care Team ([facility] st Contact Info) Description 12/20/2023 Telephone Pulmonary Medicine Duc Prabhakar [address] [place] [address] [phone] Armando Chapa MD [address] [address] Order Request (Night oxygen) Allergies Active Allergy Reactions Criticality Noted Date [...] disorder, recurrent, unspecifie d 03/18/2019 Oth athscl [place] arteries of extremities, bilat eral legs 09/10/2018 [...] Hypothyroidism, 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 Overview: 01/30/12: Treated with [id number] mCi [facility] Myalgia 11/06/2010 Right bundle branch block 06/28/2009 [...] mRNA, LNP-s, No Pre serve, 2-Dose Series ([employer]) 05/02/2021,08/13/2020,07/23/2020 COVID-19, LNP-s, No Preserve , Kishor-sucrose, Ages 12+ (Pfizer) 10/31/2021 Covid-19, Mrna, Lnp-s, Pf, B ivalent, 30 Mcg, IM, 12 yrs and above ([employer]) 04/23/2022 Pneumococcal Conjugate Vacc, 13 Valent (Prevnar) [...] encounter Miscellaneous Notes * Telephone Encounter - Delia Radford LPN - 12/20/2023 2:40 PM EDT Jordan from [facility] called and stated that patient is refusing the order for oxygen at night. So she is cancelling the order for it. documented in this encounter Plan of Treatment Upcoming Encounters Date Type Department Care Team (Late st Contact Info) Description 12/25/2023 10:00 AM EDT PulmDiagnostic Pulmonary Function Lab, [facility] [address] [facility] [place] [address] [place], [address] [facility] [place] [address] 12/25/2023 1:00 PM EDT Cardiac Studies Cardiac Studies, [facility] [address] [facility] [place] [address] 12/30/2023 9:30 AM EDT Laboratory Laboratory, [facility] 132 [facility] [place] [phone] CuevaBlayne benedict [address] [place] [address] 12/31/2023 9:40 AM EDT Office Visit Pulmonary Medicine, [facility] [address] [place] [address] Armando Chapa MD [address] [facility] [address] 12/31/2023 11:00 AM EDT Office Visit Family Practice [facility] 200 [facility] [place] [address] Marcell Landry, DO [address] [facility] [place] [address] 01/23/2024 8:00 AM EDT Office Visit Sleep Disorders Ctr [facility] [place] [address] [facility] [place] [phone] Lucía López, DO [address] [place] [address] Health Maintenance Due Date Last Done Comments DTaP,Tdap,and Td Vaccines (2 - Td or Tdap) 11/24/2022 11/24/2012, 12/29/2000, 12/29/2000 Depression Monitoring 05/07/2023 05/07/2022 COVID-19 Vaccine (2022- season) 2023 03/09/2023, 04/23/2022, 10/31/2021, Additional history exists DXA Scan 10/10/2023 10/09/2016, 02/25, 03/22/2014, Additional history exists Albumin/Creatinine Ratio 11/06/2023 11/05/2022, 12/26 CKD HGB USE SMARTSET 67357 11/06/202311/05, 09/07/2021, 08/31/2020, Additional history exists CKD PHOS USE SMARTSET 30262 11/06/202310/25, 04/17/2021, 03/20/2019, Additional history exists Influenza [...] filedocumented as of this encounter Care Teams Manager Group Home Relationship Specialty Start Date End Date Marcell Landry DO [address] [place] [address] PCP - General Family Medicine 11/07/16 documented as of this encounter
--- OUTSIDE RECORDS SUMMARY | 2024-01-02 15:14 | External Medical Summary | Summary of Care ---
Author Name Unknown Organization [facility] Address [address] [place] [address] Phone [phone] Care Team Providers Care Java Jsf Developer Name Role Phone RichardMarcell rutledge Primary Care Provider [phone] Reason for Visit * Reason Onset Date Comments Test Results 12/04/2023 BNP Encounter Details Date Type Department Care Team ([facility] Contact Info) Description 12/04/2023 Telephone Pulmonary Medicine, [facility] 132 [facility] [place] [address] Armando Chapa MD [address] [facility] [place] [id number] Test Results (BNP) Allergies Active Allergy Reactions Criticality Noted Date Comments Atorvastatin Calcium 02/04/2007 Muscle aches, confusion documented as of this encounter (statuses as of 12/04/2023) Medications Medication Sig Dispensed Refills Start Date [...] as of this encounter (statuses as of 12/04/2023) Active Problems Problem Noted Date Diagnosed Date [...] disorder, recurrent, unspecifie d 03/18/2019 Oth athscl [place] arteries of extremities, bilat eral legs 09/10/2018 [...] Hypothyroidism, 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 Overview: 01/30/12: Treated with [id number] mCi [facility] Myalgia 11/06/2010 Right bundle branch block 06/28/2009 Mitral valve regurgitation 03/02/2009 Overview: mild to mod pulmonary hypertension on echo Dyslipidemia, goal to be determined 09/03/2006 Trigeminal neuralgia 05/27/2006 Irritable bowel syndrome 05/08/2005 HTN, goal below 140/90 02/12/2005 Lichenification 09/03/2002 Other specified glaucoma 08/12/2002 documented as of this encounter (statuses as of 12/04/2023) Resolved Problems Problem Noted Date Diagnosed Date [...] 11/10/2012 05/19/2019 Chest pain, non-cardiac 11/22/2010 05/01/2017 Abdominal pain, generalized 02/21/2010 10/02/2016 Chest pain [...] as of this encounter (statuses as of 12/04/2023) Immunizations Name Administration Dates Next Due COVID-19 mRNA, LNP-s, No Pre serve, 2-Dose Series ([employer] / [employer]Já) 05/02/2021,08/13/2020,07/23/2020 COVID-19, LNP-s, No Preserve , Kishor-sucrose, Ages 12+ (PedidosYa / PedidosJá) 10/31/2021 Covid-19, Mrna, Lnp-s, Pf, B ivalent, 30 Mcg, IM, 12 yrs and above (PedidosYa / PedidosJá) 04/23/2022 Pneumococcal Conjugate Vacc, 13 Valent (Prevnar) 07/28/2014 Pneumococcal Polysaccharide PPV23 (Pneumovax) 02/27/2006 Seasonal Influenza, PF, 6 M & above, IM , (FluLaval or Fluzone) 02/09/2020,03/12/2018,02/18/2017 Seasonal Influenza, Quadriva lent Hd (Fluzone Hd) 01/30/2023,03/03/2022,03/11/2021 Seasonal Influenza, Quadriva lent, No Preserve, IM 04/06/2016 Seasonal Influenza, Split, I IV3, With Preserve, Inj 02/03/2015,03/02/2014,03/14/2013,11/0 05/2011,03/29/2011,03/07/2010,02/19/20,03/30/2008,03/31/2007,04/09/2006 03/29/2012 Seasonal Influenza, Trivalen t, Adjuvanted, 65+ [...] encounter Miscellaneous Notes * Telephone Encounter - Armando Chapa MD - 12/04/2023 5:37 PM EDT Chart note only. * Telephone Encounter - Ai Hess LPN - 12/04/2023 8:31 AM EDT Please advise. * Telephone Encounter - Ai Hess LPN - 12/04/2023 8:31 AM EDT ----- Message from Armando Chapa MD sent at 12/04/2023 7:26 AM EDT ----- BNP elevated at 3998 units increased from last year evaluation, (normal for age group, less than 1800 units). GFR 50 documented in this encounter Plan of Treatment Upcoming Encounters Date Type Department Care Team (Late st Contact Info) Description 12/25/2023 10:00 AM EDT PulmDiagnostic Pulmonary Function Lab, [facility] [address] [facility] [place] [address] [place], [address] [facility] [place] [address] 12/25/2023 12:00 PM EDT Office Visit Pulmonary Medicine, [facility] [address] [facility] [place] [address] Armando Chapa MD [address] [place] [address] [address] 12/30/2023 9:30 AM EDT Laboratory Laboratory, [facility] [address] [facility] [place] [phone] CuevaBlayne benedict [facility] [address] [facility] [place] [address] 01/01/2024 8:30 AM EDT Imaging Radiology, [facility] [address] [facility] [place], [place] [address] 01/06/2024 9:20 AM EDT Office Visit Family Practice [facility] [place] [address] [place] [address] Marcell Landry, DO [address] [facility] [place] [address] 01/23/2024 8:00 AM EDT [facility] [place] [address] [place] [phone] Lucía López, DO [address] [place] [address] Health Maintenance Due Date Last Done Comments DTaP,Tdap,and Td Vaccines (2 - Td or Tdap) 11/24/2022 11/24/2012, 12/29/2000, 12/29/2000 Depression Monitoring 05/07/2023 05/07/2022 COVID-19 Vaccine ( season) 2023 03/09/2023, 04/23/2022, 10/31/2021, Additional history exists DXA Scan 10/10/2023 10/09/2016, 02/25, 03/22/2014, Additional history exists Albumin/Creatinine Ratio 11/06/2023 11/05/2022, 12/26 CKD HGB USE SMARTSET 86718 11/06/202311/05, 09/07/2021, 08/31/2020, Additional history exists CKD PHOS USE SMARTSET 71363 11/06/202310/25, 04/17/2021, 03/20/2019, Additional history exists Influenza [...] filedocumented as of this encounter Care Teams Java Jsf Developer Relationship Specialty Start Date End Date Marcell Landry DO [address] [place] [address] PCP - General Family Medicine 11/07/16 documented as of this encounter
--- OUTSIDE RECORDS SUMMARY | 2024-01-02 15:14 | External Medical Summary | Summary of Care ---
Author Name Unknown Organization [facility] Address [address] [place] [address] Phone [phone] Care Team Providers Care Valve Seater Operator Name Role Phone Marcell Landry DO Primary Care Provider [phone] Reason for Referral * Medication Prior Authorization - Pending Review Specialty Diagnoses / Procedures Referred By Daphne pfeiffer Referred To Contact Diagnoses Chronic pruritus Marcell Landry DO [address] [place], [place] [address] Referral ID Status Reason Start Date Expiration Date V isits Requested Visits Authorized [id number] Pending Review 999 999 * Evaluate & Treat - Unlimited Visits (Within 30 days (routine)) - Authorized Specialty Diagnoses / Procedures Referred By Daphne pfeiffer Referred To Contact Physical Therapy / Physical Medicine And Rehab Diagnoses Chronic right-sided low back pain without sciatica Marcell Landry DO [address] [place], [place] [address] Referral ID Status Reason Start Date Expiration Date Visits Requested Visits Authorized [id number] Authorized Specialty Services Required 12/31/2023 999 999 Question Answer Referral Priority Within 30 days (routine) Where should this appointment be scheduled? [facility] Reason for Visit * Reason Comments Re-Check Encounter Details Date Type Department Care Team ([facility] Contact Info) Description 12/31/2023 11:00 AM EDT Office Visit Family Practice [facility] [place] [address] [place] [address] Marcell Landry, DO [address] [place] [address] Hypothyroidism, postablative*; Vertigo; Dyslipidemia, goal LDL below 100; Chronic right-sided low back pain without sciatica; Chronic pruritus Allergies Active Allergy Reactions Criticality Noted Date Comments Atorvastatin Calcium 02/04/2007 Muscle aches, confusion documented as of this encounter (statuses as of 12/31/2023) Medications Medication Sig Dispensed Refills Start Date [...] HCl 25 MG Oral Tablet (Antivert)Indicati ons:Vertigo Take 1 Tablet by mouth daily as needed for Dizziness or Nausea. 30 Tablet 3 12/31/2023 Active hydrOXYzine HCl 10 MG Oral Tablet (Atarax)Indication s:Chronic pruritus Take 1 Tablet by mouth every 6 hours as needed for Itching. 40 Tablet 2 12/31/2023 Active Meclizine HCl 25 MG Oral Tablet [...] as of this encounter (statuses as of 12/31/2023) Active Problems Problem Noted Date Diagnosed Date [...] Hypothyroidism, 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 Overview: 01/30/12: Treated with [id number] mCi [facility] Right bundle branch block 06/28/2009 Mitral valve regurgitation 03/02/2009 Overview: mild to mod pulmonary hypertension on echo Trigeminal neuralgia 05/27/2006 Irritable bowel syndrome 05/08/2005 HTN, goal below 140/90 02/12/2005 Lichenification 09/03/2002 Other specified glaucoma 08/12/2002 documented as of this encounter (statuses as of 12/31/2023) Resolved Problems Problem Noted Date Diagnosed Date Resolved Date Permanent atrial fibrillation 06/17/2023 12/31/2023 Polyneuropathy in other dise ases classified elsewhere 03/23/2020 12/31/2023 Other pulmonary embolism wit hout acute cor pulmonale 03/23/2020 12/31/2023 Kidney disease, chronic, sta ge III (GFR 30-59 ml/min) 11/03/2018 04/07/2020 Overview: Per CKD protocol Ot athscl [place] arteries o f extremities, bilateral legs 09/10/2018 [...] as of this encounter (statuses as of 12/31/2023) Immunizations Name Administration Dates Next Due COVID-19 mRNA, LNP-s, No Pre serve, 2-Dose Series ([employer]) 05/02/2021,08/13/2020,07/23/2020 COVID-19, LNP-s, No Preserve , Kishor-sucrose, Ages 12+ (Pfizer) 10/31/2021 Covid-19, Mrna, Lnp-s, Pf, B ivalent, 30 Mcg, IM, 12 yrs and above ([employer]) 04/23/2022 Pneumococcal Conjugate Vacc, 13 Valent (Prevnar) 07/28/2014 Pneumococcal Polysaccharide PPV23 (Pneumovax) 02/27/2006 Seasonal Influenza, PF, 6 M & above, IM , (FluLaval or Fluzone) 02/09/2020,03/12/2018,02/18/2017 Seasonal Influenza, Quadriva lent Hd (Fluzone Hd) 01/30/2023,03/03/2022,03/11/2021 Seasonal Influenza, Quadriva lent, No Preserve, IM 04/06/2016 Seasonal Influenza, Split, I IV3, With Preserve, Inj 02/03/2015,03/02/2014,03/14/2013,05/2011,03/29/2011,03/07/2010,02/19/20 09,03/30/2008,03/31/2007,04/09/2006 03/29/2012 Seasonal Influenza, Trivalen t, Adjuvanted, 65+ yrs 03/18/2019 TD - Tetanus/Diptheria (ADULT) 12/29/2000 TDAP (age 10 and older)(Boostrix) 11/24/2012 Zoster Vaccine Recombinant (Shingrix) 07/15/2019 ,05/22/2019,12/11/2018 documented as of this encounter Social History Tobacco Use Types Packs/Day Years Used Date Smoking Tobacco: Never Smokeless Tobacco: Never Alcohol Use Standard Drinks/Week Comments No 0 (1 standard drink = 0.6 oz pur e alcohol) PHQ-2 Answer Date Recorded PHQ Adult Total [...] Sign Reading Time Taken Comments Blood Pressure 132/82 12/31/2023 10:56 AM EDT Pulse 67 12/31/2023 10:56 AM EDT Temperature 36.2 C (97.1 F) 12/31/2023 10:56 AM E DT Respiratory Rate - - Oxygen Saturation 90% 12/31/2023 10:56 AM EDT Inhaled Oxygen Concentration - - Weight 79.6 kg (175 lb 6.4 oz) 12/31/2023 10:56 AM EDT Height - - Body Mass Index 32.9 12/25/2023 9:20 AM EDT documented in this encounter Progress Notes * Marcell Landry, - 12/31/2023 11:17 AM EDT Subjective: Sachi Hua is a 83 year old female. Chief Complaint Patient presents with Re-Check HPI: Pt here in follow-up. Sister coming at the end of the month. They are going to try to clear some things out. Has to find a way to get rid of a tread mill and execise bike. She feels okay. Wakes up in the night, thinking about things. Jonathan was harsh in the end. Breathing discussed. She is seeing pulmonary. Went through PFTs. Restrictive deficit found. We discussed nocturnal pulse ox. Meclizine discussed. Notices her balance is off. Takes meclizine maybe 2 per week. HAs not had fullfledged attack in awhile. We discussed her balance and seeing PT. PT works on her back. She asked about walking upstairs. She has an itch on her hands. She has no rash from it. She feels like it comes out. IT's everyday, worse in the evening. We discussed risks and benefits of Vistaril. PMHx, meds, and allergies reviewed Patient Active Problem List Diagnosis Other specified glaucoma Lichenification HTN, goal below 140/90 Irritable bowel syndrome Trigeminal neuralgia Mitral valve regurgitation Right bundle branch block Hypothyroidism, postablative H/O Graves' disease Dyslipidemia, goal LDL below 100 GERD (gastroesophageal reflux disease) History of pulmonary embolus (PE) History of colon polyps History of thrombosis of leg PSVT (paroxysmal supraventricular tachycardia) (HCC) Multinodular goiter MAHNAZ (generalized anxiety disorder) Major depressive disorder, recurrent, unspecified (HCC) Stage 3a chronic kidney disease Longstanding persistent atrial fibrillation (HCC) Cardiac pacemaker in situ Heart failure with reduced left ventricular function (HCC) Current Outpatient Medications Medication Sig Dispense Refill famotidine (PEPCID) 20 MG Tablet Take 1 Tablet by mouth 2 times a day as needed for Heartburn. 60 Tab 5 dicyclomine (BENTYL) 20 MG Tablet Take 1 Tablet by mouth every 4 hours as needed. Meclizine HCl 25 MG Oral Tablet (Antivert) TAKE 1 TABLET BY MOUTH 2 TIMES A DAY NEEDED FOR DIZZINESS OR NAUSEA. 90 Tablet 3 Ondansetron HCl 4 MG Oral Tablet (Zofran) Take by mouth 1 Tablet every 8 hours as needed for Nausea. 10 Tablet 0 PreserVision AREDS Oral Capsule Take 1 Capsule by mouth in the morning. Spironolactone 25 MG Oral Tablet (Aldactone) TAKE 1/2 TABLET BY MOUTH EVERY MORNING 45 Tablet 3 Pravastatin Sodium 20 MG Oral Tablet (Pravachol) Take 1 Tablet by mouth every evening. 90 Tablet 3 Metoprolol Succinate ER 25 MG Oral Tablet Extended Release 24 Hour (toPROL XL) Take 3 Tablets by mouth in the morning and 3 Tablets before bedtime. 540 Tablet 3 Furosemide 20 MG Oral Tablet (Lasix) TAKE 1 TAB BY MOUTH ONCE A DAY ON SATURDAY, SATURDAY, AND SATURDAY ONLY. 36 Tablet 3 Travoprost (STEFFEN Free) 0.004 % Ophthalmic Solution (Travatan Z) Instill into both eyes at bedtime. 2.5 mL 6 Losartan Potassium 25 MG Oral Tablet (Cozaar) TAKE 1 TABLET BY MOUTH EVERY DAY IN THE MORNING 90 Tablet 3 Escitalopram Oxalate 5 MG Oral Tablet (Lexapro) TAKE 1 TABLET BY MOUTH EVERY DAY IN THE MORNING 90 Tablet 3 Eliquis 5 MG Oral Tablet (Apixaban) TAKE 1 TABLET BY MOUTH EVERY DAY IN THE MORNING AND AT BEDTIME 180 Tablet 3 LORazepam 0.5 MG Oral Tablet (Ativan) TAKE 1 TABLET BY MOUTH EVERY DAY AT BEDTIME NEEDED FOR INSOMNIA 90 Tablet 1 Levothyroxine Sodium 25 MCG Oral Tablet (Levoxyl) TAKE 1/2 TABLET BY MOUTH DAILY. (AT LEAST 30 MIN PRIOR TO BREAKFAST OR OTHER MEDS) 45 Tablet 1 Multi-Vitamins Oral Tablet Take 1 Tablet by mouth in the morning. Current Facility-Administered Medications Medication Dose Route Frequency Provider Last Rate Last Admin Albuterol Sulfate (Proventil) (5 MG/ML) 0.5% *conc* inhalation solution 2.5 mg 2.5 mg Nebulizer PRN Albuterol Sulfate (Proventil) (2.5 MG/3ML) 0.083% inhalation solution 2.5 mg 2.5 mg Nebulizer PRN 2.5 mg at 12/25/23 0918 Review of patient's allergies indicates: Allergen Reactions Lipitor [Atorvastatin Calcium] Muscle aches, confusion OBJECTIVE: Pulse 67 | Temp 36.2 C (97.1 F) | Wt 79.6 kg (175 lb 6.4 oz) | SpO2 90% | BMI 32.90 kg/m | BSA 1.85 m Estimated body mass index is 32.9 kg/m as calculated from the following: Height as of 12/25/23: 1.555 m (5' 1.22"). Weight as of this encounter: 79.6 kg (175 lb 6.4 oz). BP Readings from Last 3 Encounters: 12/25/23 140/82 12/25/23 128/80 12/02/23 142/78 Wt Readings from Last 3 Encounters: 12/31/23 79.6 kg (175 lb 6.4 oz) 12/25/23 78.9 kg (173 lb 15.1 oz) 12/02/23 77.6 kg (171 lb 1.9 oz) ROS: Negative except for above PHYSICAL EXAM: General: alert, healthy, and no distress Head: Normocephalic, No masses, lesions, tenderness or abnormalities Heart: regular rate & rhythm, no gallops, and RICH 2/6 Lungs: chest symmetric with normal AP diameter, no chest deformities noted, no chest wall tenderness, lungs clear to auscultation Extremities: less than 2 second capillary refill, no joint deformities, effusion, or inflammation ASSESSMENT/Plan Hypothyroidism, postablative (Primary) - TSH WITH FREE T4 IF INDICATED; Future; Expected date: 07/02/2024 Vertigo - Meclizine HCl 25 MG Oral Tablet (Antivert); Take 1 Tablet by mouth daily as needed for Dizziness or Nausea. Dyslipidemia, goal LDL below 100 - COMPREHENSIVE METABOLIC PANEL; Future; Expected date: 07/02/2024 - LIPID PANEL WITH DIRECT LDL IF TG IS HIGH; Future; Expected date: 07/02/2024 Chronic right-sided low back pain without sciatica - PHYSICAL THERAPY REFERRAL OP Chronic pruritus - hydrOXYzine HCl 10 MG Oral Tablet (Atarax); Take 1 Tablet by mouth every 6 hours as needed for Itching. I spent a total of 30 minutes on the date of service in preparation, delivery, and documentation ofthe care provided to this patient, excluding any time spent on the performance of any procedure or separately billable services. Good discussion on limited use plan for meclizine. The above was discussed and understanding was expressed. Marcell Landry DO documented in this encounter Nursing Notes * Luisa Stephen CMA - 12/31/2023 10:51 AM EDT Sachi Hua presents for 6 month recheck. Medications & HM reviewed. She denies any concerns today. documented in this encounter Plan of Treatment Upcoming Encounters Date Type Department Care Team (Late st Contact Info) Description 01/23/2024 8:00 AM EDT Office Visit Sleep Disorders Ctr [facility] [address] [place] [phone] Lucía López DO [address] [place] [address] 02/03/2024 10:00 AM EDT Office Visit Pulmonary Medicine, [facility] [address] [place] [address] Armando Chapa MD [address] [place] [address] 03/19/2024 10:30 AM EDT Office Visit Cardiology, [facility] [address] [place] [address] Radha Venegas PA-C [address] [place] [address] 07/28/2024 9:20 AM EST [facility] [place] [address] [place] [address] Marcell Landry DO [address] [place] [address] Scheduled Orders Name Type Priority Associated Diagnoses Orde r Schedule TSH WITH FREE T4 IF INDICATED Lab Routine Hypothyroidism, postablative Expected: 07/02/2024 (Approximate), Expires: 12/30/2024 COMPREHENSIVE METABOLIC PANEL Lab Routine Dyslipidemia, goal LDL below 100 Expected: 07/02/2024 (Approximate), Expires: 12/30/2024 LIPID PANEL WITH DIRECT LDL IF TG IS HIGH Lab Routine Dyslipidemia, goal LDL below 100 Expected: 07/02/2024, Expires: 12/30/2024 Scheduled Referrals Name Type Priority Associated Diagnoses Orde r Schedule PHYSICAL THERAPY REFERRAL OP Referral Within 30 days (routine) Chronic right-sided low back pain without sciatica Ordered: 12/31/2023 Health Maintenance Due Date Last Done Comments DTaP,Tdap,and Td Vaccines (2 - Td or Tdap) 11/24/2022 11/24/2012, 12/29/2000, 12/29/2000 Depression Monitoring 05/07/2023 05/07/2022 COVID-19 Vaccine ( season) 2023 03/09/2023, 04/23/2022, 10/31/2021, Additional history exists DXA Scan 10/10/2023 10/09/2016, 02/25, 03/22/2014, Additional history exists Albumin/Creatinine Ratio 11/06/2023 11/05/2022, 12/26 CKD HGB USE SMARTSET 66030 11/06/202311/05, 09/07/2021, 08/31/2020, Additional history exists CKD PHOS USE SMARTSET 65320 11/06/202310/25, 04/17/2021, 03/20/2019, Additional history exists Influenza [...] as of this encounter Visit Diagnoses Diagnosis Hypothyroidism, postablative- Primary Other postablative hypothyroidism Vertigo Dizziness and giddiness Dyslipidemia, goal LDL below 100 Other and unspecified hyperlipidemia Chronic right-sided low back pain without sciatica Chronic pruritus Unspecified pruritic disorder documented in this encounter Care Teams Valve Seater Operator Relationship Specialty Start Date End Date Marcell Landry DO [address] [place] [address] PCP - General Family Medicine 11/07/16 documented as of this encounter
--- OUTSIDE RECORDS SUMMARY | 2024-01-02 15:14 | External Medical Summary | Summary of Care ---
Author Name Unknown Organization [facility] Address [address] [place] [address] Phone [phone] Care Team Providers Care Weight Reduction Specialist Name Role Phone FrantzMarcell Betty NOLEN Primary Care Provider [phone] Reason for Visit * Reason Comments Blood Pressure Check NV for BP check Encounter Details Date Type Department Care Team (Latest Contact Info) Description 12/25/2023 1:00 PM EDT Cardiac Studies Cardiac Studies, [facility] [address] [place] [address] HTN, goal below 140/90* Allergies [...] disorder, recurrent, unspecifie d 03/18/2019 Oth athscl [place] arteries of extremities, bilat eral legs 09/10/2018 [...] Hypothyroidism, 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 Overview: 01/30/12: Treated with I-42702.6 mCi [facility] Myalgia 11/06/2010 Right bundle branch block 06/28/2009 [...] mRNA, LNP-s, No Pre serve, 2-Dose Series ([employer]) 05/02/2021,08/13/2020,07/23/2020 COVID-19, LNP-s, No Preserve , Kishor-sucrose, Ages 12+ ([employer]) 10/31/2021 Covid-19, Mrna, Lnp-s, Pf, B ivalent, 30 Mcg, IM, 12 yrs and above ([employer]) 04/23/2022 Pneumococcal Conjugate Vacc, 13 Valent (Prevnar) 07/28/2014 Pneumococcal Polysaccharide PPV23 (Pneumovax) 02/27/2006 Seasonal Influenza, PF, 6 M & above, IM , (FluLaval or Fluzone) 02/09/2020,03/12/2018,02/18/2017 Seasonal Influenza, Quadriva lent Hd (Fluzone Hd) 01/30/2023,03/03/2022,03/11/2021 Seasonal Influenza, Quadriva lent, No Preserve, IM 04/06/2016 Seasonal Influenza, Split, I IV3, With Preserve, Inj 02/03/2015,03/02/2014,03/14/2013,11/0 05/2011,03/29/2011,03/07/2010,09,03/30/2008,03/31/2007,04/09/2006 03/29/2012 Seasonal Influenza, Trivalen t, Adjuvanted, 65+ [...] documented in this encounter Progress Notes * Iraj Murguia LPN - 12/25/2023 10:22 [...] Care Team (Late st Contact Info) Description 12/30/2023 9:30 AM EDT Laboratory Laboratory, [facility] [address] [facility] Toni RODRIGUEZ [place]ON[place] [phone] [facility] [address] 12/31/2023 9:40 AM EDT Office Visit Pulmonary Medicine, [facility] [address] [facility] [place] [address] Armando Chapa MD [address] [facility] [address] 12/31/2023 11:00 AM EDT Office Visit Family [facility] [address] [place] [address] Marcell Landry, [address] [facility] [place] [address] 01/23/2024 8:00 AM EDT Office Visit Sleep Disorders [facility] [address] [place] [phone] Lucía López DO [address] [place] [address] 03/19/2024 10:30 AM EDT Office Visit Cardiology, [facility] [address] [place] [address] Radha Venegas, RANDEE [address] [place] [address] Health Maintenance Due Date Last Done Comments DTaP,Tdap,and Td Vaccines (2 - Td or Tdap) 11/24/2022 11/24/2012, 12/29/2000, 12/29/2000 Depression Monitoring 05/07/2023 05/07/2022 COVID-19 Vaccine ( season) 2023 03/09/2023, 04/23/2022, 10/31/2021, Additional history exists DXA Scan 10/10/2023 10/09/2016, 02/25, 03/22/2014, Additional history exists Albumin/Creatinine Ratio 11/06/2023 11/05/2022, 12/26 CKD HGB USE SMARTSET 42961 11/06/202311/05, 09/07/2021, 08/31/2020, Additional history exists CKD PHOS USE SMARTSET 62887 11/06/202310/25, 04/17/2021, 03/20/2019, Additional history exists Influenza [...] hypertension documented in this encounter Care Teams Weight Reduction Specialist Relationship Specialty Start Date End Date Marcell Landry DO [address] [place] [address] PCP - General Family Medicine 11/07/16 documented as of this encounter
--- OUTSIDE RECORDS SUMMARY | 2024-01-02 15:14 | External Medical Summary | Summary of Care ---
Author Name Unknown Organization [facility] Address [address] [facility] [facility] [address] Phone [phone] Care Team Providers Care Patient Clerical Assistant Name Role Phone FrantzMarcell Betty NOLEN Primary Care Provider [phone] Encounter Details Date Type Department Care Team (Late st Contact Info) Description 12/17/2023 Orders Only Pulmonary Medicine, [facility] [address] [facility] [place] [address] Armando Chapa MD [address] [facility] [place] [id number] Chronic respiratory failure with hypoxia (HCC)*; Heart failure with reduced left ventricular function (HCC); Idiopathic PAH (pulmonary arterial hypertension) (HCC) Allergies Active Allergy Reactions Criticality Noted Date Comments Atorvastatin Calcium 02/04/2007 Muscle aches, confusion documented as of this encounter (statuses as of 12/17/2023) Medications Medication Sig Dispensed Refills Start Date [...] as of this encounter (statuses as of 12/17/2023) Active Problems Problem Noted Date Diagnosed Date [...] disorder, recurrent, unspecifie d 03/18/2019 Oth athscl [place] arteries of extremities, bilat eral legs 09/10/2018 [...] Hypothyroidism, 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 Overview: 01/30/12: Treated with I-45818.6 mCi [facility] Myalgia 11/06/2010 Right bundle branch block 06/28/2009 Mitral valve regurgitation 03/02/2009 Overview: mild to mod pulmonary hypertension on echo Dyslipidemia, goal to be determined 09/03/2006 Trigeminal neuralgia 05/27/2006 Irritable bowel syndrome 05/08/2005 HTN, goal below 140/90 02/12/2005 Lichenification 09/03/2002 Other specified glaucoma 08/12/2002 documented as of this encounter (statuses as of 12/17/2023) Resolved Problems Problem Noted Date Diagnosed Date [...] as of this encounter (statuses as of 12/17/2023) Immunizations Name Administration Dates Next Due COVID-19 mRNA, LNP-s, No Pre serve, 2-Dose Series (AMEE) 05/02/2021,08/13/2020,07/23/2020 COVID-19, LNP-s, No Preserve , Kishor-sucrose, Ages 12+ (Pfizer) 10/31/2021 Covid-19, Mrna, Lnp-s, Pf, B ivalent, 30 Mcg, IM, 12 yrs and above (AMEE) 04/23/2022 Pneumococcal Conjugate Vacc, 13 Valent (Prevnar) [...] on file documented as of this encounter Plan of Treatment Upcoming Encounters Date Type Department Care Team (Late st Contact Info) Description 12/25/2023 10:00 AM EDT PulmDiagnostic Pulmonary Function Lab, [facility] [address] [facility] [place] [address] [place], [address] 132 [facility] [place] [address] 12/25/2023 1:00 PM EDT Cardiac Studies Cardiac Studies, [facility] 132 [facility] [place] [address] 12/30/2023 9:30 AM EDT Laboratory Laboratory, [facility] [address] [facility] [place] [phone] [facility] [address] [facility] [place] [address] 12/31/2023 9:40 AM EDT Office Visit Pulmonary Medicine, [facility] 132 [facility] [place] [address] Armando Chapa MD [address] [place] [address] 12/31/2023 11:00 AM EDT Office Visit Family Practice [facility] [address] [facility] [place] [address] Marcell Landry, DO [address] [facility] [place], [place] [address] 01/01/2024 8:30 AM EDT Imaging Radiology, [facility] [address] [facility] [place], [place] [address] 01/23/2024 8:00 AM EDT Office Visit Sleep Disorders Ctr [facility] 132 [facility] [place] [phone] Lucía López, DO 132 [facility] [place] [address] Health Maintenance Due Date Last Done Comments DTaP,Tdap,and Td Vaccines (2 - Td or Tdap) 11/24/2022 11/24/2012, 12/29/2000, 12/29/2000 Depression Monitoring 05/07/2023 05/07/2022 COVID-19 Vaccine (7 - 2022- season) 2023 03/09/2023, 04/23/2022, 10/31/2021, Additional history exists DXA Scan 10/10/2023 10/09/2016, 02/25, 03/22/2014, Additional history exists Albumin/Creatinine Ratio 11/06/2023 11/05/2022, 12/26 CKD HGB USE SMARTSET 16465 11/06/202311/05, 09/07/2021, 08/31/2020, Additional history exists CKD PHOS USE SMARTSET 33038 11/06/202310/25, 04/17/2021, 03/20/2019, Additional history exists Influenza [...] as of this encounter Visit Diagnoses Diagnosis Chronic respiratory failure with hypoxia (HCC)- Primary Chronic respiratory failure Heart failure with reduced left ventricular function (HCC) Unspecified systolic heart failure Idiopathic PAH (pulmonary arterial hypertension) (HCC) Other chronic pulmonary heart diseases documented in this encounter Care Teams Patient Clerical Assistant Relationship Specialty Start Date End Date Marcell Landry DO [address] [place] [address] PCP - General Family Medicine 11/07/16 documented as of this encounter
--- OUTSIDE RECORDS SUMMARY | 2024-01-02 15:15 | External Medical Summary ---
Author Name Unknown Address Unknown Organization K01:[facility] [place] [address] [facility] [address] Laboratory Report Ordering Provider Test Date Status CHANDRIKA CHRISTINEI 12/02/2023 10:08:51 Final Exclude Heart Failure: <300 pg/mL
Diagnose Heart Failure:
Age <50 yr: >450 pg/mL
50-75 yr: >900 pg/mL
>75 yr: >1800 pg/mL
GFR is 30-59 mL/min: >1200 pg/mL or Age- adjusted values
GFR <30 mL/min: do not use, not reliable

Prognostic threshold: 1000 pg/mL Observation Date Value Abnormality Reference (Units ) Status BNP, Pro-hormone 12/02/2023 10:08:51 3998 Above high no rmal <300 (pg/mL) Final Performing Location [facility] [place] [address] [place] [address]
--- OUTSIDE RECORDS SUMMARY | 2024-01-02 15:15 | External Medical Summary | Summary of Care ---
Author Name Unknown Organization [facility] Address [address] [place] [address] Phone [phone] Care Team Providers Care Bulkhead Carpenter Name Role Phone FrantzMarcell Betty NOLEN Primary Care Provider [phone] Reason for Visit * Reason Comments Outpatient Testing Encounter Details Date Type Department Care Team ([facility] st Contact Info) Description 12/02/2023 10:20 AM EDT Laboratory Laboratory [facility] [address] [place] [address] [facility] [address] [facility] [place] [address] Arrived Allergies Active Allergy Reactions Criticality Noted Date Comments Atorvastatin Calcium 02/04/2007 Muscle aches, confusion documented as of this encounter (statuses as of 12/02/2023) Medications Medication Sig Dispensed Refills Start Date [...] as of this encounter (statuses as of 12/02/2023) Active Problems Problem Noted Date Diagnosed Date [...] disorder, recurrent, unspecifie d 03/18/2019 Ot athscl [place] arteries of extremities, bilat eral legs 09/10/2018 [...] Hypothyroidism, 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 Overview: 01/30/12: Treated with I-79291.6 mCi [facility] Myalgia 11/06/2010 Right bundle branch block 06/28/2009 Mitral valve regurgitation 03/02/2009 Overview: mild to mod pulmonary hypertension on echo Dyslipidemia, goal to be determined 09/03/2006 Trigeminal neuralgia 05/27/2006 Irritable bowel syndrome 05/08/2005 HTN, goal below 140/90 02/12/2005 Lichenification 09/03/2002 Other specified glaucoma 08/12/2002 documented as of this encounter (statuses as of 12/02/2023) Resolved Problems Problem Noted Date Diagnosed Date [...] as of this encounter (statuses as of 12/02/2023) Immunizations Name Administration Dates Next Due COVID-19 mRNA, LNP-s, No Pre serve, 2-Dose Series ([employer]) 05/02/2021,08/13/2020,07/23/2020 COVID-19, LNP-s, No Preserve , Kishor-sucrose, Ages 12+ (Pfizer) 10/31/2021 Covid-19, Mrna, Lnp-s, Pf, B ivalent, 30 Mcg, IM, 12 yrs and above ([employer]) 04/23/2022 Pneumococcal Conjugate Vacc, 13 Valent (Prevnar) [...] 10:00 AM EDT PulmDiagnostic Pulmonary Function Lab, [address] [place] [address] [place], [address] [facility] [place] [address] 12/25/2023 12:00 PM EDT Office Visit Pulmonary Medicine, [facility] 132 [facility] [place] [address] Armando Chapa MD [address] [facility] [address] 12/30/2023 9:30 AM EDT Laboratory Laboratory, [facility] 132 [facility] [place] [phone] Blayne Cueva [facility] 132 [facility] [place] [address] 01/01/2024 8:30 AM EDT Imaging Radiology, [facility] [address] [facility] [place] [address] 01/06/2024 9:20 AM EDT Office Visit Family Practice [facility] 200 [facility] [place], [place] [address] Marcell Landry, DO 200 [facility] [place], [place] [address] 01/23/2024 8:00 AM EDT Office Visit [facility] Ctr [facility] 132 [facility] [place] [phone] Lucía López, DO 132 [facility] [place] [address] Health Maintenance Due Date Last Done Comments DTaP,Tdap,and Td Vaccines (2 - Td or Tdap) 11/24/2022 11/24/2012, 12/29/2000, 12/29/2000 Depression Monitoring 05/07/2023 05/07/2022 COVID-19 Vaccine (2022-24 season) 2023 03/09/2023, 04/23/2022, 10/31/2021, Additional history exists DXA Scan 10/10/2023 10/09/2016, 02/25, 03/22/2014, Additional history exists Albumin/Creatinine Ratio 11/06/2023 11/05/2022, 12/26 CKD HGB USE SMARTSET 10413 11/06/202311/05, 09/07/2021, 08/31/2020, Additional history exists CKD PHOS USE SMARTSET 83510 11/06/202310/25, 04/17/2021, 03/20/2019, Additional history exists Influenza [...] filedocumented as of this encounter Care Teams Bulkhead Carpenter Relationship Specialty Start Date End Date Marcell Landry DO [address] [place] [address] PCP - General Family Medicine 11/07/16 documented as of this encounter
--- OUTSIDE RECORDS SUMMARY | 2024-01-02 15:15 | External Medical Summary ---
Author Name Unknown Address Unknown Organization K01:[facility] [place] [facility] [address] [facility] [address] [facility] [address] Laboratory Report Ordering Provider Test Date Status YOUSUF HOLDER 12/02/2023 10:03:33 Final For PreSurgery, Procedure, O B Admit, or Surveillance testing - Nasal Turbinate source preferred.

For Symptomatic testing - Nasopharyngeal source preferred.
null Observation Date Value Abnormality Reference (Units ) Status SARS Coronavirus 2 12/02/2023 10:03:33 Negative N egative Final 2018 Novel Coronavirus not d etected.

This express test was developed and its performance characteristics determined by [employer]. It has not been cleared or approved [...] (RT-PCR) test, or a Centers for Disease Control-acceptable equivalent. The test is performed in a high complexity Clinical Laboratory Improvement Amendments-(CLIA) certified laboratory. The test is acceptable for SARS-CoV-2 diagnosis, surveillance, and travel within the [place] and to most countries. Please check with local testing authorities about requirements before travel.

The validation of bronchial specimens, tracheal aspirates, and sputum for this assay was developed and performance characteristics determined by [facility] [employer]. The validation of alternate specimen types has not been cleared or approved by the U.S. Food and Drug Administration (FDA). It has been determined that such clearance is not necessary. Performing Location [facility] [place] [address] [facility] [address]
--- NOTE | 2024-01-02 15:53 | CT Scan Report ---
CT OF THE CHEST WITHOUT IV CONTRAST CLINICAL HISTORY: possible aspiration pna, hypoxia COMPARISON STUDY: Chest CT December 26, 2021. Chest radiograph performed earlier today. CT DOSE: 421.73 mGy.cm TECHNIQUE: Axial images of the chest were obtained without IV contrast. Images were reviewed in the axial, sagittal, and coronal planes. IV contrast was not administered for this examination. Automat ed exposure control was utilized for the study. A dose lowering technique was utilized adhering to t he principles of ALARA. FINDINGS: A left subclavian pacer is in place. There is moderate cardiomegaly. There is no pericardia l effusion. Mild dilatation of the central pulmonary arteries. No pneumothorax or pleural effusion is present. Lungs are suboptimally assessed due to respiratory motion. Mildly enlarged mediastinal lymp h nodes are similar to CT of December 26, 2021. Suspected exophytic thyroid nodule extending into the an terior mediastinum is unchanged, measuring 2.4 cm. Subpleural opacities within the lungs favor atelec tasis. There is no consolidation to suggest pneumonia. The possible left upper lobe nodule on chest r adiograph performed earlier today was artifactual. Old T4 compression fracture is unchanged in appear ance. There are no suspicious pulmonary nodules. IMPRESSION: 1. No consolidation to suggest pneumonia. Subpleural opacities suggestive of atelectasis. 2. Moderate cardiomegaly and mild dilatation of the central pulmonary arteries. 3. Stable mildly enlarged mediastinal lymph nodes which are likely benign. 4. The possible left upper lobe nodule and chest radiograph from earlier today was artifactual. ACT 112: Negative or not required by law. Electronically signed by: Sim Lopez M.D. 01/02/2024 3:51 PM
[2024-01-02 16:34] LABS: Adenovirus PCR Not Detected (NotDetected); Bordetella parapertussis PCR Not Detected (NotDetected); Bordetella pertussis PCR Not Detected (NotDetected); Chlamydia pneumoniae PCR Not Detected (NotDetected); Coronavirus 229E PCR Not Detected (NotDetected); Coronavirus CoV-2 (COVID19)PCR Not Detected (NotDetected); Coronavirus HKU1 PCR Not Detected (NotDetected); Coronavirus NL63 PCR Not Detected (NotDetected); Coronavirus OC43PCR Not Detected (NotDetected); Human Metapneumovirus PCR Not Detected (NotDetected); Influenza A PCR Not Detected (NotDetected); Influenza B PCR Not Detected (NotDetected); Mycoplasma pneumoniae PCR Not Detected (NotDetected); Parainfluenza Virus 1 PCR Not Detected (NotDetected); Parainfluenza Virus 2 PCR Not Detected (NotDetected); Parainfluenza Virus 3 PCR Not Detected (NotDetected); Parainfluenza Virus 4 PCR Not Detected (NotDetected); Respiratory Syncytial VirusPCR Not Detected (NotDetected); Rhinovirus/Enterovirus PCR Not Detected (NotDetected)
[2024-01-02] MEDS: APIXABAN 5 MG TABLET PO SCH (20:56)
[2024-01-02] MEDS: TRAVOPROST Z 0.004% OPH SOLN 2.5 ML BTL OPB SCH (20:56)
[2024-01-02] MEDS: METOPROLOL SUCC 25MG EXT REL TAB PO SCH (20:56)
[2024-01-02] MEDS: PRAVASTATIN SOD 20 MG TAB PO SCH (20:56)
[2024-01-02] MEDS: ACETAMINOPHEN 325 MG TAB PO PRN (21:16)
[2024-01-03] MEDS: LORazepam 0.5 MG TAB PO STA (00:02)
[2024-01-03] MEDS: LEVOTHYROXINE SODIUM 25 MCG TABLET PO SCH (05:56)
[2024-01-03 07:52] LABS: Hematocrit (blood only) 35.4 % (37.0-47.0); Hemoglobin 10.8 g/dl (12.0-16.0); Mean Corpuscular Hemoglobin 24.4 pg (25.0-34.0); Mean Corpuscular Hgb Conc 30.5 g/dL (32.0-36.0); Mean Corpuscular Volume 79.9 fL (80.0-100.0); Mean Platelet Volume 9.1 fL (9.4-12.4); Platelet Count 312 K/uL (130-400); RDW Coefficient of Variation 15.6 % (11.5-14.5); RDW Standard Deviation 44.7 fL (36.4-46.3); Red Blood Count 4.43 M/uL (4.20-5.40); White Blood Count 6.74 K/ul (4.8-10.8)
[2024-01-03 08:13] LABS: Calcium 8.8 mg/dl (8.6-10.3); Creatinine Clr Calc Pharmacy 48.9 ml/min; Est GFR (African American) 72.9 ml/min; Est GFR (Non-African American) 62.9 ml/min
[2024-01-03] MEDS: ASPIRIN 81 MG ECTAB PO SCH (09:55)
[2024-01-03] MEDS: MULTIVITAMIN TAB PO SCH (09:56)
[2024-01-03] MEDS: LOSARTAN POTASSIUM 25 MG TAB PO SCH (09:56)
[2024-01-03] MEDS: SPIRONOLACTONE 12.5 MG TAB PO SCH (09:56)
[2024-01-03] MEDS: FUROSEMIDE 20 MG TAB PO SCH (09:57)
[2024-01-03] MEDS: ESCITALOPRAM OXALATE 10 MG TAB PO SCH (13:12)
[2024-01-03] MEDS: CALCIUM 600MG + VIT D 400 IU TAB PO SCH (13:12)
--- NOTE | 2024-01-03 13:39 | Hospitalist Progress Note ---
Date of Service January 03, 2024 Assessment & Plan (1) Hypoxia: (2) Atrial fibrillation: (3) Pulmonary embolism: (4) Mitral valve regurgitation: (5) Pulmonary hypertension: (6) Cardiac pacemaker in situ: (7) Post-surgical hypothyroidism: (8) IBS (irritable bowel syndrome): (9) Esophageal reflux: Plan Hypoxia Likely secondary to pulmonary hypertension Atelectasis Mediastinal lymphadenopathy--incidental finding on CT Pulmonary hypertension Positive nocturnal oximetry test as outpatient, previous patient refusal of supplemental O2 Possible left upper lobe pulmonary nodule H/O COVID --CT chest:No consolidation to suggest pneumonia. Subpleural opacities s uggestive of atelectasis. Moderate cardiomegaly and mild dilatation of the central pulmonary arteries. Stable mildly enlarged mediastinal lymph nodes which are likely benign. The possible left upper lobe nodule and chest radiograph from earlier today was artifactual. --Echo in September 2023 reviewed: Moderate MR, severe TR, severe pulmonary hypertension, normal LVEF -- Biofire negative Check procalcitonin Patient had PFTs in November 2023 Currently willing to use supplemental oxygen Will order nocturnal oximetry study Follows with [facility] pulmonology as outpatient--already scheduled to follow-up Will need to step prior to discharge Hold sedative meds as able Add incentive spirometry May need sleep study as outpatient Needs further evaluation of mediastinal lymphadenopathy as outpatient Nausea, vomiting, diarrhea, abdominal pain Likely due to irritable bowel disease H/O lactose intolerance as per patient --CT ABD: No acute abnormalities to explain nausea, vomiting, and diarrhea. Nodules are stable Heterogeneous appearance of the liver as above. Cardiomegaly is again seen. Stable left ovarian cyst. -- Will obtain stool studies if recurrence of diarrhea --Advance diet as tolerated Left adrenal nodules Left ovarian cyst Stable when compared to prior imaging Follow-up as outpatient Other chronic conditions: Systolic CHF: Continue home diuretics, metoprolol, losartan, monitor volume status Chronic A-fib: Continue metoprolol, on Eliquis for anticoagulation H/O DVT/PE on Eliquis HTN: Continue metoprolol, losartan HLD: Continue pravastatin Cardiac pacemaker in situ History of Graves' disease Postsurgical hypothyroidism Continue levothyroxine DVT Px: Eliquis CODE STATUS: DNR/DNI Disposition PT OT prior to discharge Admission and Anticipated Discharge Date Admission Date: January 02, 2024 Subjective Patient is seen and examined at bedside Nausea, vomiting, abdominal pain, diarrhea resolved Admits to have minimal cough Offers no other complaints Denies any chest pain, dyspnea, dizziness Review of Systems Review of Systems: All systems reviewed & are unremarkable except as noted in Subjective Physical Exam Physical Exam: Physical Exam: Vitals signs as noted above General Appearance:Moderately built and nourished, no apparent distress Head: normocephalic, Atraumatic Eyes: normal inspection, EOMI Neck: supple, Trachea midline Respiratory/Chest: Normal breath sounds, CTA, No accessory muscle use Cardiovascular: S1, S2, + murmur Abdomen/GI:Soft, Non tender, Bowel sounds present Extremities/Musculoskeletal:normal inspection, 1+ pedal edema Neurologic/Psych:AAOX3, grossly no focal neurological deficits Skin: normal color, warm Results & Data Results & Data Vital Signs (Past 12 Hours) Vital Signs Temp Pulse Resp BP BP Pulse Ox O2 Del Method 01/03/24 12:13 36.6 C 70 16 140/72 95 Nasal Cannula 01/03/24 10:32 Nasal Cannula 01/03/24 08:21 36.9 C 70 16 145/82 H 97 Nasal Cannula O2 Flow Rate 01/03/24 12:13 2.5 01/03/24 10:32 2.5 01/03/24 08:21 2.5 Laboratory Results Short CBC 01/03/24 Range/Units 07:20 WBC 6.74 (4.8-10.8) K/ul Hgb 10.8 L (12.0-16.0) g/dl Hct 35.4 L (37.0-47.0) % Plt Count 312 (130-400) K/uL BMP 01/03/24 07:20 Sodium 138 Potassium 4.0 Chloride 105 Carbon Dioxide 25 BUN 12 Creatinine 0.86 Glucose 90 Calcium 8.8
[2024-01-03 15:38] VITALS: TEMP 98.2
[2024-01-03] MEDS: LORazepam 0.5 MG TAB PO PRN (20:48)
[2024-01-04 06:50] LABS: Hematocrit (blood only) 35.6 % (37.0-47.0); Hemoglobin 11.1 g/dl (12.0-16.0); Mean Corpuscular Hemoglobin 24.6 pg (25.0-34.0); Mean Corpuscular Hgb Conc 31.2 g/dL (32.0-36.0); Mean Corpuscular Volume 78.8 fL (80.0-100.0); Mean Platelet Volume 9.4 fL (9.4-12.4); Platelet Count 332 K/uL (130-400); RDW Coefficient of Variation 15.3 % (11.5-14.5); RDW Standard Deviation 43.5 fL (36.4-46.3); Red Blood Count 4.52 M/uL (4.20-5.40); White Blood Count 7.26 K/ul (4.8-10.8)
[2024-01-04 07:30] LABS: BUN Creatinine Ratio 16.9 (10-20); Calcium 9.1 mg/dl (8.6-10.3); Creatinine Clr Calc Pharmacy 50.6 ml/min; Est GFR (African American) 76.1 ml/min; Est GFR (Non-African American) 65.7 ml/min; Potassium 3.8 mmol/L (3.5-5.1)
[2024-01-04 08:12] VITALS: BP 145/76
[2024-01-04 08:30] VITALS: PULSE 70; RESP 16; O2SAT 86
--- NOTE | 2024-01-04 11:10 | Hospitalist Progress Note ---
Date of Service January 04, 2024 Assessment & Plan (1) Hypoxia: (2) Atrial fibrillation: (3) Pulmonary embolism: (4) Mitral valve regurgitation: (5) Pulmonary hypertension: (6) Cardiac pacemaker in situ: (7) Post-surgical hypothyroidism: (8) IBS (irritable bowel syndrome): (9) Esophageal reflux: Plan Hypoxia Likely secondary to pulmonary hypertension, CHF could be contributing as well Atelectasis Mediastinal lymphadenopathy--incidental finding on CT Pulmonary hypertension Positive nocturnal oximetry test as outpatient, previous patient refusal of supplemental O2 Possible left upper lobe pulmonary nodule H/O COVID --CT chest:No consolidation to suggest pneumonia. Subpleural opacities suggestive of atelectasis. Moderate cardiomegaly and mild dilatation of the central pulmonary arteries. Stable mildly enlarged mediastinal lymph nodes which are likely benign. The possible left upper lobe nodule and chest radiograph from earlier today was artifactual. --Echo in September 2023 reviewed: Moderate MR, severe TR, severe pulmonary hypertension, normal LVEF -- Biofire negative Check procalcitonin Patient had PFTs in November 2023 Currently willing to use supplemental oxygen Will order nocturnal oximetry study Follows with [facility] pulmonology as outpatient--already scheduled to follow-up Will need to step prior to discharge Hold sedative meds as able Add incentive spirometry Advised to get sleep study as outpatient Needs further evaluation of mediastinal lymphadenopathy as outpatient 2 step: Needs 2 L at rest and 3 L with activity to maintain saturations Nocturnal oximetry: Qualifies for supplemental oxygen at bedtime Plan to discharge home today Nausea, vomiting, diarrhea, abdominal pain Likely due to irritable bowel disease H/O lactose intolerance as per patient --CT ABD: No acute abnormalities to explain nausea, vomiting, and diarrhea. Nodules are stable Heterogeneous appearance of the liver as above. Cardiomegaly is again seen. Stable left ovarian cyst. -- Will obtain stool studies if recurrence of diarrhea -- Tolerating lactose intolerant diet Resolved Left adrenal nodules Left ovarian cyst Stable when compared to prior imaging Follow-up as outpatient Other chronic conditions: Systolic CHF: Continue home diuretics, metoprolol, losartan, monitor volume status Chronic A-fib: Continue metoprolol, on Eliquis for anticoagulation H/O DVT/PE on Eliquis HTN: Continue metoprolol, losartan HLD: Continue pravastatin Cardiac pacemaker in situ History of Graves' disease Postsurgical hypothyroidism Continue levothyroxine DVT Px: Eliquis CODE STATUS: DNR/DNI Disposition Home Admission and Anticipated Discharge Date Admission Date: January 02, 2024 Subjective Patient is seen and examined at bedside States feeling well today No recurrence of nausea, vomiting, abdominal pain, diarrhea Denies any cough today Eager to get discharged Denies any chest pain, dyspnea, dizziness Had 2 step earlier today Review of Systems Review of Systems: All systems reviewed & are unremarkable except as noted in Subjective Physical Exam Physical Exam: Physical Exam: Vitals signs as noted above General Appearance:Moderately built and nourished, no apparent distress Head: normocephalic, Atraumatic Eyes: normal inspection, EOMI Neck: supple, Trachea midline Respiratory/Chest: Normal breath sounds, CTA, No accessory muscle use Cardiovascular: S1, S2, + murmur Abdomen/GI:Soft, Non tender, Bowel sounds present Extremities/Musculoskeletal:normal inspection, 1+ pedal edema Neurologic/Psych:AAOX3, grossly no focal neurological deficits Skin: normal color, warm Results & Data Results & Data Vital Signs (Past 12 Hours) Vital Signs Temp Pulse Pulse Pulse Pulse Pulse Pulse 01/04/24 08:17 89 88 71 70 01/04/24 07:36 36.8 C 93 H 01/04/24 07:30 01/04/24 02:45 70 01/04/24 00:13 69 Resp Resp Resp Resp Resp BP Pulse Ox 01/04/24 08:17 18 18 16 16 01/04/24 07:36 18 145/76 H 94 01/04/24 07:30 01/04/24 02:45 01/04/24 00:13 Pulse Ox Pulse Ox Pulse Ox Pulse Ox Pulse Ox O2 Del Method O2 Del Method 01/04/24 08:17 91 87 L 91 86 L 01/04/24 07:36 Nasal Cannula 01/04/24 07:30 Nasal Cannula 01/04/24 02:45 97 Nasal Cannula 01/04/24 00:13 98 Nasal Cannula O2 Flow Rate O2 Flow Rate O2 Flow Rate O2 Flow Rate O2 Flow Rate 01/04/24 08:17 3 2 2 01/04/24 07:36 2 01/04/24 07:30 2.5 01/04/24 02:45 2 01/04/24 00:13 2 Laboratory Results Short CBC 01/04/24 Range/Units 05:49 WBC 7.26 (4.8-10.8) K/ul Hgb 11.1 L (12.0-16.0) g/dl Hct 35.6 L (37.0-47.0) % Plt Count 332 (130-400) K/uL [facility] 01/04/24 05:49 Sodium 139 Potassium 3.8 Chloride 104 Carbon Dioxide 27 BUN 14 Creatinine 0.83 Glucose 79 Calcium 9.1
--- NOTE | 2024-01-04 11:23 | Discharge Summary ---
Date of Service January 04, 2024 Admission HPI Per Admitting Provider This is an 83 yo F with PMHx of Chronic systolic CHF, PSVT, history of PE on Eliquis, A-fib, severe pulmonary hypertension, severe TR, moderate MR, on most recent echo in September 2023, HTN, HLD, RBBB, CKD stage III, irritable bowel syndrome, GERD, Graves' disease, who presents the hospital with multiple complaints including abdominal pain, nausea, diarrhea and cough. Patient is found to be hypoxic today with O2 sats of 82 to 85% on room air at rest. Upon review of her outpatient epic chart she has complained of similar things 1 month ago, but pt states she had food poisoning at that time. Pt has had diarrhea mul tiple times daily and nausea with vomiting x 4 episodes yesterday, but this morning is much improved. She denies recent illnessess in the house, lives with her son who is at bedside. Denies recent antibiotic use. Patient has been compliant with her home medications including Eliquis and has not missed a dose of it. Patient has been followed by Dr. Chapa with pulmonary medicine in October for pu lmonary hypertension. She had history of COVID viral illness with residual dry cough reported, was not on any bronchodilator therapy. Had PFTs completed on 12/25/2023 where exercise oximetry was performed on room air for 6 minutes, patient ambulated 1080 feet, to rest periods required for 27 seconds, lowest SpO2 on room air with 90% at that time. Patient underwent nocturnal pulse ox on 12/20/2023 showing positive for nocturnal hypoxia, 2L NC oxygen was ordered and recommended to be worn at night. The patient was seen and examined this morning. Patient refused order for oxygen at night so it was canceled and not sent to her home. Admission Exam Per Admitting Provider General: awake, alert, no apparent distress, white female, BMI 31.6 Head: Normocephalic, atraumatic ENT: PERRL, EOMI, no pharyngeal exudate, mucous membranes moist Chest: Clear to auscultation, on 2 L via NC with o2 sats 94%,, no adventitious b reath sounds Cardiac: Regular rate and rhythm, ventricularly paced, + systolic murmur, no JVD, normal peripheral pulses, good capillary refill Abdominal: NABS x 4 quadrants, soft, nondistended, nontender to palpation, no rebound or guarding Extremities: Normal inspection, no peripheral edema or erythema, calfs nontender to palpation Psych: Normal mood and affect Neuro: AAO x 3, strength intact bilaterally and rated 5/5, no motor deficits, speech is clear, no peripheral sensory deficits Principal Diagnosis Pulmonary hypertension Atelectasis Mediastinal lymphadenopathy Hypoxia Chronic systolic CHF Left adrenal nodules--chronic Left ovarian cyst--chronic Discharge Data Allergies Allergy/AdvReac Type Severity Reaction Status Date / Time atorvastatin AdvReac Intermediate "legs Verified 01/02/24 14:11 don't want to move." Consultations 01/02/24 13:30 ED Decision to Admit Stat Procedures Performed Laboratory Results WBC 7.26 K/ul (4.8-10.8) 01/04/24 05:49 RBC 4.52 M/uL (4.20-5.40) 01/04/24 05:49 Hgb 11.1 g/dl (12.0-16.0) L 01/04/24 05:49 Hct 35.6 % (37.0-47.0) L 01/04/24 05:49 MCV 78.8 fL (80.0-100.0) L 01/04/24 05:49 MCH 24.6 pg (25.0-34.0) L 01/04/24 05:49 MCHC 31.2 g/dL (32.0-36.0) L 01/04/24 05:49 RDW Std Deviation 43.5 fL (36.4-46.3) 01/04/24 05:49 RDW Coeff of Yadira 15.3 % (11.5-14.5) H 01/04/24 05:49 Plt Count 332 K/uL (130-400) 01/04/24 05:49 MPV 9.4 fL (9.4-12.4) 01/04/24 05:49 Immature Gran % (Auto) 0.3 % 01/02/24 11:00 Neut % (Auto) 78.7 % 01/02/24 11:00 Lymph % (Auto) 15.0 % 01/02/24 11:00 Amador % (Auto) 5.5 % 01/02/24 11:00 Eos % (Auto) 0.1 % 01/02/24 11:00 Baso % (Auto) 0.4 % 01/02/24 11:00 Neut # (Auto) 7.10 K/uL (1.40-6.50) H 01/02/24 11:00 Lymph # (Auto) 1.35 K/uL (1.20-3.40) 01/02/24 11:00 Amador # (Auto) 0.50 K/uL (0.11-0.59) 01/02/24 11:00 Eos # (Auto) 0.01 K/uL (0.00-0.50) 01/02/24 11:00 Baso # (Auto) 0.04 K/uL (0.00-0.20) 01/02/24 11:00 Immature Gran # (Auto) 0.03 K/uL (0.01-0.20) 01/02/24 11:00 Sodium 139 mmol/L (136-145) 01/04/24 05:49 Potassium 3.8 mmol/L (3.5-5.1) 01/04/24 05:49 Chloride 104 mmol/L (98-107) 01/04/24 05:49 Carbon Dioxide 27 mmol/L (21-32) 01/04/24 05:49 Anion Gap 8 (3-11) 01/04/24 05:49 BUN 14 mg/dl (6-23) 01/04/24 05:49 Creatinine 0.83 mg/dl (0.6-1.2) 01/04/24 05:49 Est Cr Clr Drug Dosing 50.6 ml/min 01/04/24 05:49 Est GFR ( Amer) 76.1 ml/min 01/04/24 05:49 Est GFR (Non-Af Amer) 65.7 ml/min 01/04/24 05:49 BUN/Creatinine Ratio 16.9 (10-20) 01/04/24 05:49 Glucose 79 mg/dl (70-99(Fasting)) 01/04/24 05:49 Calcium 9.1 mg/dl (8.6-10.3) 01/04/24 05:49 Total Bilirubin 1.0 mg/dl (0.2-1.0) 01/02/24 11:00 AST 24 U/L (13-39) 01/02/24 11:00 ALT 11 U/L (7-52) 01/02/24 11:00 Alkaline Phosphatase 94 U/L (34-104) 01/02/24 11:00 Troponin I High Sens 11.6 pg/ml (0-14) 01/02/24 11:00 B-Natriuretic Peptide 484 pg/ml (0-100) H 01/02/24 11:00 Total Protein 7.9 gm/dl (6.0-8.3) 01/02/24 11:00 Albumin 4.5 gm/dl (3.4-5.0) 01/02/24 11:00 Globulin 3.4 gm/dl (2.5-4.0) 01/02/24 11:00 Albumin/Globulin Ratio 1.3 (0.9-2) 01/02/24 11:00 Lipase 35 U/L (11-82) 01/02/24 11:00 Procalcitonin < 0.02 ng/ml (0-0.5) 01/04/24 05:49 Urine Color Dark Yellow 01/02/24 Unknown Urine Appearance Clear (Clear) 01/02/24 Unknown Urine pH 6.5 (4.5-7.5) 01/02/24 Unknown Ur Specific [place] 1.026 (1.000-1.030) 01/02/24 Unknown Urine Protein 1+ (Negative) H 01/02/24 Unknown Urine Glucose (UA) Negative (Negative) 01/02/24 Unknown Urine Ketones 1+ (Negative) H 01/02/24 Unknown Urine Blood Negative (Negative) 01/02/24 Unknown Urine Nitrite Negative (Negative) 01/02/24 Unknown Urine Bilirubin Negative (Negative) 01/02/24 Unknown Urine Urobilinogen Negative (Negative) 01/02/24 Unknown Ur Leukocyte Esterase Negative (Negative) 01/02/24 Unknown Urine WBC (Auto) 0-5 /hpf (0-5) 01/02/24 Unknown Urine RBC (Auto) 0-2 /hpf (0-2) 01/02/24 Unknown U Hyaline Cast (Auto) 0-2 /lpf (0-2) 01/02/24 Unknown U Epithel Cells (Auto) 0-2 /hpf (0-2) 01/02/24 Unknown Urine Bacteria (Auto) None Seen (None Seen) 01/02/24 Unknown Adenovirus (PCR) Not Detected (NotDetected) 01/02/24 15:19 B. pertussis DNA (PCR) Not Detected (NotDetected) 01/02/24 15:19 B.parapertussis DNA PCR Not Detected (NotDetected) 01/02/24 15:19 C. pneumoniae DNA (PCR) Not Detected (NotDetected) 01/02/24 15:19 Coronavirus OC43 (PCR) Not Detected (NotDetected) 01/02/24 15:19 Coronavirus HKU1 (PCR) Not Detected (NotDetected) 01/02/24 15:19 Coronavirus 229E (PCR) Not Detected (NotDetected) 01/02/24 15:19 SARS-CoV-2 (PCR) Not Detected (NotDetected) 01/02/24 15:19 Coronavirus NL63 (PCR) Not Detected (NotDetected) 01/02/24 15:19 Human Metapneumovir PCR Not Detected (NotDetected) 01/02/24 15:19 Influenza Type A (PCR) Not Detected (NotDetected) 01/02/24 15:19 Influenza Type B (PCR) Not Detected (NotDetected) 01/02/24 15:19 M. pneumoniae (PCR) Not Detected (NotDetected) 01/02/24 15:19 Parainfluenza 1 (PCR) Not Detected (NotDetected) 01/02/24 15:19 Parainfluenza 2 (PCR) Not Detected (NotDetected) 01/02/24 15:19 Parainfluenza 3 (PCR) Not Detected (NotDetected) 01/02/24 15:19 Parainfluenza 4 (PCR) Not Detected (NotDetected) 01/02/24 15:19 RSV (PCR) Not Detected (NotDetected) 01/02/24 15:19 Entero/Rhino (PCR) Not Detected (NotDetected) 01/02/24 15:19 Impressions Chest X-Ray 01/02/24 10:56 XR chest 1V portable CLINICAL HISTORY: Chest pain, nonspecific COMPARISON STUDY: Chest CT December 26, 2021. Chest radiograph January 01, 2022. FINDINGS: There is no pneumothorax or pleural effusion. Left subclavian pacer is in place. There is stable cardiomegaly. There is no radiographic evidence for pulmonary edema. There is no consolidation to suggest pneumonia. There is a possible 8 mm left upper lobe pulmonary nodule. IMPRESSION: 1. No acute cardiopulmonary findings. 2. Possible 8 mm left upper lobe nodule. Nonemergent chest CT is recommended for further evaluation. ACT 112: Negative or not required by law. Electronically signed by: Sim Lopez M.D. 01/02/2024 12:42 PM Abdomen/Pelvis CT 01/02/24 11:02 CT abd pelvis IV con only CLINICAL HISTORY: n/v/d TECHNIQUE: Helical axial images of the abdomen and pelvis were obtained and displayed. Automated dose lowering techniques and/or adjustment according to patient size were utilized for this exam. This exam was performed with intravenous contrast. CT DOSE: 1184.97 mGy.cm COMPARISON: Comparison is made to CT abdomen pelvis 12/26/2021 FINDINGS: Lower chest: Cardiomegaly is seen. Bibasilar scarring is seen. Liver: Heterogeneous enhancement of the liver is again seen. Gallbladder and biliary tree: No calcified gallstones. Normal caliber wall. No intra- or extrahepatic biliary ductal dilation. Pancreas: Unremarkable, no focal lesions. Spleen: Unremarkable. Adrenals: Stable left adrenal nodules measuring up to 1 cm. Kidneys and ureters: Unremarkable. Bladder: Limited evaluation due to underdistention. Reproductive organs: Stable left ovarian cyst. Bowel: Unremarkable. Lymph nodes Retroperitoneal: Unremarkable. Pelvic: Unremarkable. Mesenteric: Unremarkable. Peritoneum: Normal. Vessels: Atherosclerotic calcifications are seen. Abdominal wall: Unremarkable. Bones: Degenerative changes in the visualized spine. IMPRESSION: 1. No acute abnormalities to explain nausea, vomiting, and diarrhea. 2. Nodules are stable Heterogeneous appearance of the liver as above. 3. Cardiomegaly is again seen. 4. Stable left ovarian cyst. ACT 112: Negative or not required by law. Electronically signed by: Arias Carbone M.D. 01/02/2024 12:[address] 01/02/24 14:08 CT OF THE CHEST WITHOUT IV CONTRAST CLINICAL HISTORY: possible aspiration pna, hypoxia COMPARISON STUDY: Chest CT December 26, 2021. Chest radiograph performed earlier today. CT DOSE: 421.73 mGy.cm TECHNIQUE: Axial images of the chest were obtained without IV contrast. Images were reviewed in the axial, sagittal, and coronal planes. IV contrast was not administered for this examination. Automated exposure control was utilized for the study. A dose lowering technique was utilized adhering to the principles of ALARA. FINDINGS: A left subclavian pacer is in place. There is moderate cardiomegaly. There is no pericardial effusion. Mild dilatation of the central pulmonary arteries. No pneumothorax or pleural effusion is present. Lungs are suboptimally assessed due to respiratory motion. Mildly enlarged mediastinal lymph nodes are similar to CT of December 26, 2021. Suspected exophytic thyroid nodule extending into the anterior mediastinum is unchanged, measuring 2.4 cm. Subpleural opacities within the lungs favor atelectasis. There is no consolidation to suggest pneumonia. The possible left upper lobe nodule on chest radiograph performed earlier today was artifactual. Old T4 compression fracture is unchanged in appearance. There are no suspicious pulmonary nodules. IMPRESSION: 1. No consolidation to suggest pneumonia. Subpleural opacities suggestive of atelectasis. 2. Moderate cardiomegaly and mild dilatation of the central pulmonary arteries. 3. Stable mildly enlarged mediastinal lymph nodes which are likely benign. 4. The possible left upper lobe nodule and chest radiograph from earlier today was artifactual. ACT 112: Negative or not required by law. Electronically signed by: Sim Lopez M.D. 01/02/2024 3:51 PM Ordered Studies 01/02/24 11:02 CT abd pelvis IV con only Stat 01/02/24 14:08 CT chest diagnostic wo con Stat Hospital Course (1) Hypoxia: (2) Atrial fibrillation: (3) Pulmonary embolism: (4) Mitral valve regurgitation: (5) Pulmonary hypertension: (6) Cardiac pacemaker in situ: (7) Post-surgical hypothyroidism: (8) IBS (irritable bowel syndrome): (9) Esophageal reflux: Plan Hypoxia Likely secondary to pulmonary hypertension, CHF could be contributing as well Atelectasis Mediastinal lymphadenopathy--incidental finding on CT Pulmonary hypertension Positive nocturnal oximetry test as outpatient, previous patient refusal of supplemental O2 Possible left upper lobe pulmonary nodule H/O COVID --CT chest:No consolidation to suggest pneumonia. Subpleural opacities suggestive of atelectasis. Moderate cardiomegaly and mild dilatation of the central pulmonary arteries. Stable mildly enlarged mediastinal lymph nodes which are likely benign. The possible left upper lobe nodule and chest radiograph from earlier today was artifactual. --Echo in September 2023 reviewed: Moderate MR, severe TR, severe pulmonary hypertension, normal LVEF -- Biofire negative --Normal procalcitonin Patient had PFTs in November 2023 Currently willing to use supplemental oxygen Will order nocturnal oximetry study Follows with [facility] pulmonology as outpatient--already scheduled to follow-up Will need to step prior to discharge Hold sedative meds as able Add incentive spirometry Advised to get sleep study as outpatient Needs further evaluation of mediastinal lymphadenopathy as outpatient 2 step: Needs 2 L at rest and 3 L with activity to maintain saturations Nocturnal oximetry: Qualifies for supplemental oxygen at bedtime Plan to discharge home today Nausea, vomiting, diarrhea, abdominal pain Likely due to irritable bowel disease H/O lactose intolerance as per patient --CT ABD: No acute abnormalities to explain nausea, vomiting, and diarrhea. Nodules are stable Heterogeneous appearance of the liver as above. Cardiomegaly is again seen. Stable left ovarian cyst. -- Will obtain stool studies if recurrence of diarrhea -- Tolerating lactose intolerant diet Resolved Left adrenal nodules Left ovarian cyst Stable when compared to prior imaging Follow-up as outpatient Other chronic conditions: Systolic CHF: Continue home diuretics, metoprolol, losartan, monitor volume status Chronic A-fib: Continue metoprolol, on Eliquis for anticoagulation H/O DVT/PE on Eliquis HTN: Continue metoprolol, losartan HLD: Continue pravastatin Cardiac pacemaker in situ History of Graves' disease Postsurgical hypothyroidism Continue levothyroxine DVT Px: Eliquis CODE STATUS: DNR/DNI Disposition Home Total Time Total Time Spent Total Time Spent (In Minutes): 52 minutes Discharge Plan Discharge Items Patient Disposition: Home - Home Health Services Reason For Visit: HYPOXIA Discharge Diagnosis: Pulmonary hypertension Atelectasis Mediastinal lymphadenopathy Hypoxia Chronic systolic CHF Left adrenal nodules--chronic Left ovarian cyst--chronic Activity: Per Instructions section Exercise/Sports: Wait until after follow-up appointment Non-emergency contact: Primary Care Provider, Life Cycle Assessment Analyst and Roll Picker Call non-emergency contact if: you have any medication questions, your symptoms worsen, your pain is concerning for you and you have a fever Follow-up/Referrals: Marcell Landry, [Primary Care Provider] - Diet: Heart Healthy and Lactose Intolerant Addtl Attending Provider Instructions: Follow-up with your primary care physician Dr. Landry in 1 week Follow-up with your director of search engine marketing next week as scheduled Follow-up with your heating and ventilating worker as recommended --Use supplemental oxygen via nasal cannula 2 L at rest and 3 L with activity as advised --Consider obtaining sleep study as outpatient - Continue incentive spirometry to help with breathing as recommended -- Discuss with your director of search engine marketing regarding pulmonary hypertension and further evaluation of mediastinal lymphadenopathy and lymph nodes as advised --You were noted to have left adrenal nodules and left ovarian cyst which were also noted on prior imaging studies. Discuss with your primary care physician for further evaluation Seek immediate medical attention if your symptoms reoccur or worsen Please take all medications as instructed on discharge list below. Please call if you have any questions or problems. You can reach a [facility] hospitalist on duty at [facility] 24 hours a day by calling [phone] Pending Studies at Discharge: No Stand-Alone Forms: [facility], Smoking Cessation Medications and DC Order Prescriptions: Continued levothyroxine 25 mcg tablet 25 mcg PO DAILY lorazepam 0.5 mg Tablet 0.5 mg PO HS PRN (Reason: Insomnia) spironolactone 25 mg Tablet 12.5 mg PO QAM Qty: 0 0RF travoprost [Travatan Z] 0.004 % Drops 1 drp OPHTHALMIC (EYE) PM aspirin 81 mg Tablet,Delayed Release (Dr/Ec) 81 mg PO QAM pravastatin 20 mg Tablet 20 mg PO QPM escitalopram oxalate 5 mg Tablet 5 mg PO QDL calcium carbonate-vitamin D3 [Calcium 500 + D] 500 mg(1,250mg) -200 unit Tablet 1 tab PO QDL losartan 25 mg tablet 25 mg PO DAILY metoprolol succinate 25 mg Tablet Extended Release 24 Hr 75 mg PO BID Qty: 60 0RF Eliquis 5 mg Tablet 5 mg PO BID Qty: 60 0RF multivitamin Tablet 1 tab PO DAILY furosemide [Lasix] 20 mg tablet 20 mg PO [id number] Rx Instructions: Mon/Wed/Fri Discharge Orders: Discharge Order (Routine); Ordered 01/04/24 Ordered By: Syed Segundo Admission Data Admit Date/Time: 01/02/24 14:08 Attending Provider: Syed Segundo Admit Provider: Richard Howell Primary Care Provider: Marcell Landry Other Providers: Richard Howell; [facility]
== END 2024-01-04 13:10 | disposition home health service (06) | DRG 315 ==
LOC: ED 10:46 → 3W 14:08 → SUATTDRO 14:08 → 3W 17:43

== ENCOUNTER 2024-04-28 08:52 | Observation (INO) ==
--- NOTE | 2024-04-28 09:42 | Emergency Department Note ---
Impression & Plan Syncope, Left scapula fracture, Acute UTI, Cardiac pacemaker in situ ED Provider Note NAME: SHARIF QUACH AGE: 84 SEX: F : 1940 ARRIVES VIA: Walk-In INFORMANT: Patient ED PROVIDER(S): Filipe Boss MD CHIEF COMPLAINT: Left shoulder pain, fall PLAN: Disposition: Admit MEDICAL DECISION MAKING: The patient is a pleasant 84-year-old woman with a past medical history of CKD, tachybradycardia syndrome status post PPM, atrial fibrillation on Eliquis, IBS, GERD, PE, hypertension, hyperlipidemia, hypothyroidism who presents to the emergency department via walk-in for evaluation of left shoulder pain and bruising that has been ongoing since having a fall Saturday evening when she reports having come out of having a bad and walking to her bedroom where she fell to the ground. She reports she is unsure of what happened and cannot exclude having fainted but also wonders if she tripped. She reports her son lives with her and was able to assist her right away. He was able to get up and ambulate without difficulty. She wanted to give it time to see if her shoulder pain would improve given the persistence of pain presents today. She reports she may have bumped her head but not in any significant way. She denies any headache or dizziness. She denies any recent illness including fevers, chills, cough congestion, GI symptoms. She wonders if she may have a urinary infection however. On evaluation the patient is no distress, afebrile with blood pressure 150s/70s and vital signs otherwise stable. She appears euvolemic. She has hematoma of the left scapular region with surrounding ecchymosis. She has limited range of motion secondary to pain of the left upper extremity. There is a small left posterior scalp contusion without overt hematoma. She has no focal neurologic deficits. EKG is paced without overt acute ischemia. Interrogation of the patient's device was unremarkable and over the device is working normally without high risk arrhythmia detected related to patient's syncope. WBC, H/H and platelet within normal limits. Chemistry without metabolic acidosis. Electrolytes LFTs unremarkable. High-sensitivity troponin 13.5, within normal limits. UA is suspicious for infection. Treatment with initiated with IV ceftriaxone. CT of the head was negative for ICH or skull fracture. CT of the cervical spine negative for acute abnormalities. Plain films of the left shoulder were negative for fracture or dislocation. However scapular fracture is characterized on CT of the chest with underlying hematoma. Findings reviewed the patient and her son at the bedside. Given possibility of syncope and impaired ability to perform ADLs given her scapular fracture she does agree with plan for admission for further management. Case was discussed with Dr. Estrella, [facility], who will evaluate the patient for admission. On-call orthopedic surgery is aware. Further management per admitting team. Triage Nursing notes reviewed and agree them. Prior/external medical records reviewed Vital Signs: reviewed Differential diagnosis: Vasovagal event, dehydration, infection, hypoglycemia, electrolyte abnormalities, cardiac sources, intracerebral event, pulmonary embolism, seizure, toxicologic, neurologic, as well as other pathologies. ER treatment provided: See below. Diagnostics interpreted by me: ECG: Ventricular paced rhythm, 71 bpm, no ectopy, no overt acute ischemia. Cardiac Monitoring: An order for continuous cardiac monitoring was placed and demonstrated Ventricular paced rhythm, 71 bpm, no ectopy. Laboratory studies: See below Imaging studies: See below Consultation(s): Dr. Estrella, [facility] HPI: The patient is a pleasant 84-year-old woman with a past medical history of CKD, tachybradycardia syndrome status post PPM, atrial fibrillation on Eliquis, IBS, GERD, PE, hypertension, hyperlipidemia, hypothyroidism who presents to the emergency department via walk-in for evaluation of left shoulder pain and bruising that has been ongoing since having a fall Saturday evening when she reports having come out of having a bad and walking to her bedroom where she fell to the ground. She reports she is unsure of what happened and cannot exclude having fainted but also wonders if she tripped. She reports her son lives with her and was able to assist her right away. He was able to get up and ambulate without difficulty. She wanted to give it time to see if her shoulder pain would improve given the persistence of pain presents today. She reports she may have bumped her head but not in any significant way. She denies any headache or dizziness. She denies any recent illness including fevers, chills, cough congestion, GI symptoms. She wonders if she may have a urinary infection however. ROS: See above HPI for pertinent positives & negatives. A total of 10 systems reviewed and were otherwise negative. VITALS:See Below PHYSICAL EXAMINATION: GENERAL: Awake, alert, well-appearing, in no distress HENT: Normocephalic. Mild left posterior scalp contusion. Oropharynx unremarkable. EYES: Normal conjunctiva. Sclera non-icteric. NECK: Supple. No nuchal rigidity. FROM. No JVD. No midline tenderness to palpation or step-offs. RESPIRATORY: Clear to auscultation. CARDIAC: Regular rate, normal rhythm. Extremities warm and well perfused. Pulses equal. ABDOMEN: Soft, non-distended. No tenderness to palpation. No rebound or guarding. No masses. MUSCULOSKELETAL: Chest examination reveals no tenderness. Hematoma of the left scapular region with surrounding ecchymosis. She has limited range of motion secondary to pain of the left upper extremity. No midline tenderness to palpation or step-offs of the CTL spine. LOWER EXTREMITIES: Calves are equal size bilaterally and non-tender. No edema. No discoloration. NEURO: Normal sensorium. No sensory or motor deficits noted. SKIN: No rash or jaundice noted. Filipe Boss MD Past Med/Surg History Problem List (Updated 04/28/24 @ 20:01 by Filipe Boss MD) Cardiac pacemaker in situ (Acute) Acute UTI (Acute) Left scapula fracture (Acute) Acute cystitis Hypertension, accelerated Hypothyroidism (acquired) Status post biventricular pacemaker Chronic systolic CHF (congestive heart failure) Syncope (Acute) Abdominal pain (Acute) Diarrhea (Acute) Hypoxia (Acute) Cardiac pacemaker in situ Pulmonary hypertension Hypoxia Left knee DJD Chronic atrial fibrillation Acute respiratory failure with hypoxia Acute HFrEF (heart failure with reduced ejection fraction) Osteoarthritis of right knee DJD (degenerative joint disease), lumbar Tachy-hari syndrome CKD (chronic kidney disease), stage III Post-surgical hypothyroidism Graves disease Diastolic dysfunction Sick sinus syndrome (Acute) Hari-tachy syndrome (Acute) Symptomatic bradycardia Recommend dual chamber pacemaker; discussed the procedure and potential risks with the patient today; she expressed an understanding is agreed to the procedure; NPO after midnight with hopefully procedure tomorrow afternoon as long as INR is low 2 range Hold coreg and sotalol Paroxysmal atrial fibrillation Pt with pAF on low dose sotalol due to bradycardia; hold coumadin; reverse the INR slightly today give Vitamin K 2.5mg IV now, have pt eat broccoli or spinach today for lunch and breakfast to try and ensure INR is in low 2 range for tomorrows potential pacemaker Encounter for pre-operative examination Myalgia (Chronic) Headache (Acute) Calf pain (Acute) HTN (hypertension) Nausea & vomiting (Acute) Pulmonary embolism, bilateral (Acute) HTN (hypertension) (Chronic) Hyperlipidemia (Chronic) Glaucoma (Chronic) Migraine (Chronic) OCAS MIGRAINES IBS (irritable bowel syndrome) (Chronic) Goiter (Chronic) THYROID GOITER AND WATCING Osteoporosis (Chronic) Mitral valve regurgitation (Chronic) FOLLOW WITH DR. ARMIJO Esophageal reflux (Chronic) Depression (Chronic) OCAS Arthritis (Chronic) Pulmonary embolism (Acute) DX 2015 TAKES WARFARIN Atrial fibrillation with rapid ventricular response FOLLOW WITH DR ARMIJO Medical History (Updated 04/28/24 @ 20:01 by Filipe Boss MD) History of cardioversion Hypothyroidism Surgical History (Updated 04/28/24 @ 14:17 by Guerda Estrella MD) Hx of arthroscopic knee surgery RIGHT Hx of laminectomy LUMBAR Family History Father Coronary heart disease Brother Diabetes Sister Thyroid cancer Social History Smoking Status: Never smoker Second Hand Exposure: No; Do You Dip or Chew Tobacco: No; Hx Alcohol Use: No Hx Substance Use: No Preferred Language: Maltese Communication Ability: Effective Visual Impairment: No Limitations Hearing Ability: Normal Health Policy Analyst Required: No Beliefs That Will Affect Care: None and Yarsani marital status: Current Living Situation: Family Current Living Situation Comment: Lives with son current occupational status: retired How many Children do You have: 3 Other Information That Helps Us Care for You: No Feels Safe at Home: No Is there a partner from a previous relationship who is making you feel unsafe now?: No Any Concerns about Your Family Situation: No Would You Like to Speak to Someone About Your Situation: No Safety Concerns: Feels Safe At This Time Assistive Devices: Glasses Allergies Allergies Allergy/AdvReac Type Severity Reaction Status Date / Time atorvastatin AdvReac Intermediate "legs Verified 04/28/24 13:16 don't want to move." Home Meds Home Medications Medication Instructions Recorded Confirmed aspirin 81 mg tablet,delayed 81 mg PO QAM 05/11/19 04/28/24 release calcium 500 mg (as 1 tab PO QDL 05/11/19 04/28/24 carbonate)-vitamin D3 5 mcg (200 unit) tablet (Calcium 500 + D) escitalopram oxalate 5 mg tablet 5 mg PO QDL 05/11/19 04/28/24 pravastatin 20 mg tablet 20 mg PO QPM 05/11/19 04/28/24 travoprost 0.004 % eye drops 1 drp ophthalmic (eye) PM 05/11/19 04/28/24 (Travatan Z) levothyroxine 25 mcg tablet 12.5 mcg PO DAILY 05/12/19 04/28/24 lorazepam 0.5 mg tablet 0.5 mg PO HS PRN Insomnia 05/12/19 04/28/24 losartan 25 mg tablet 25 mg PO DAILY 12/26/21 04/28/24 multivitamin 1 tab PO DAILY 11/10/22 04/28/24 furosemide 20 mg tablet (Lasix) 20 mg PO 3XWK 01/02/24 04/28/24 meclizine 25 mg tablet 25 mg PO DAILY PRN Dizziness or 04/28/24 04/28/24 Nausea Previous Rx's Medication Instructions Recorded spironolactone 25 mg tablet 12.5 mg (1/2 x 25 mg) PO QAM #0 05/15/19 tabs apixaban 5 mg tablet (Eliquis) 5 mg PO BID #60 tabs 01/02/22 metoprolol succinate 25 mg 75 mg (3 x 25 mg) PO BID #60 tabs 01/02/22 tablet,extended release 24 hr Results & Data (ED) Vital Signs Vital Signs - 24 hr 04/28/24 08:59 04/28/24 09:43 04/28/24 09:45 Temperature 36.5 C Temperature Source Temporal Artery Scan Pulse Rate 64 71 71 Pulse Rate [Apical] Pulse Rate from SpO2 Sensor 70 Respiratory Rate 20 22 Respiratory Effort / Characteristics Non-Labored Spontaneous Respiratory Depth Normal Respiratory Pattern Blood Pressure 150/75 H Blood Pressure [Right Arm] Blood Pressure Mean 100 Blood Pressure Mean [Right Arm] Pulse Oximetry 98 93 Oxygen Delivery Method Room Air Room Air Sepsis Recent Fever Within 48 Hours No Sepsis New/Unexplained Change in Mental Status N/A Sepsis Action Taken by Nursing No Action Required 04/28/24 10:15 04/28/24 10:21 04/28/24 11:02 Temperature Temperature Source Pulse Rate 70 76 Pulse Rate [Apical] Pulse Rate from SpO2 Sensor 70 68 Respiratory Rate 22 20 Respiratory Effort / Characteristics Respiratory Depth Respiratory Pattern Blood Pressure 164/89 H Blood Pressure [Right Arm] Blood Pressure Mean 122 Blood Pressure Mean [Right Arm] Pulse Oximetry 96 95 Oxygen Delivery Method Room Air Room Air Sepsis Recent Fever Within 48 Hours Sepsis New/Unexplained Change in Mental Status Sepsis Action Taken by Nursing 04/28/24 11:04 04/28/24 11:30 04/28/24 11:33 Temperature Temperature Source Pulse Rate 72 Pulse Rate [Apical] 71 Pulse Rate from SpO2 Sensor 69 Respiratory Rate 18 16 Respiratory Effort / Characteristics Non-Labored Spontaneous Respiratory Depth Normal Respiratory Pattern Regular Blood Pressure 152/84 H Blood Pressure [Right Arm] 164/89 H Blood Pressure Mean 115 Blood Pressure Mean [Right Arm] 114 Pulse Oximetry 94 93 Oxygen Delivery Method Room Air Room Air Sepsis Recent Fever Within 48 Hours Sepsis New/Unexplained Change in Mental Status Sepsis Action Taken by Nursing 04/28/24 12:00 04/28/24 12:00 04/28/24 12:27 Temperature Temperature Source Pulse Rate 70 70 Pulse Rate [Apical] Pulse Rate from SpO2 Sensor 70 70 Respiratory Rate 16 14 Respiratory Effort / Characteristics Respiratory Depth Respiratory Pattern Blood Pressure 155/82 H Blood Pressure [Right Arm] Blood Pressure Mean 112 Blood Pressure Mean [Right Arm] Pulse Oximetry 93 95 Oxygen Delivery Method Room Air Room Air Sepsis Recent Fever Within 48 Hours Sepsis New/Unexplained Change in Mental Status Sepsis Action Taken by Nursing 04/28/24 12:30 04/28/24 12:36 04/28/24 12:57 Temperature Temperature Source Pulse Rate 70 70 Pulse Rate [Apical] Pulse Rate from SpO2 Sensor 70 70 Respiratory Rate 28 H 21 Respiratory Effort / Characteristics Respiratory Depth Respiratory Pattern Blood Pressure 165/95 H Blood Pressure [Right Arm] Blood Pressure Mean 138 Blood Pressure Mean [Right Arm] Pulse Oximetry 95 94 Oxygen Delivery Method Room Air Room Air Sepsis Recent Fever Within 48 Hours Sepsis New/Unexplained Change in Mental Status Sepsis Action Taken by Nursing 04/28/24 13:00 04/28/24 13:03 04/28/24 13:42 Temperature Temperature Source Pulse Rate 70 75 Pulse Rate [Apical] Pulse Rate from SpO2 Sensor 70 67 Respiratory Rate 18 19 Respiratory Effort / Characteristics Respiratory Depth Respiratory Pattern Blood Pressure 178/93 H Blood Pressure [Right Arm] Blood Pressure Mean 138 Blood Pressure Mean [Right Arm] Pulse Oximetry 94 96 Oxygen Delivery Method Room Air Room Air Sepsis Recent Fever Within 48 Hours Sepsis New/Unexplained Change in Mental Status Sepsis Action Taken by Nursing 04/28/24 13:49 04/28/24 13:51 04/28/24 14:00 Temperature Temperature Source Pulse Rate 75 73 Pulse Rate [Apical] Pulse Rate from SpO2 Sensor 68 Respiratory Rate 28 H Respiratory Effort / Characteristics Respiratory Depth Respiratory Pattern Blood Pressure 180/95 H Blood Pressure [Right Arm] Blood Pressure Mean 122 Blood Pressure Mean [Right Arm] Pulse Oximetry 95 Oxygen Delivery Method Room Air Sepsis Recent Fever Within 48 Hours Sepsis New/Unexplained Change in Mental Status Sepsis Action Taken by Nursing 04/28/24 14:06 Temperature Temperature Source Pulse Rate 70 Pulse Rate [Apical] Pulse Rate from SpO2 Sensor 70 Respiratory Rate 19 Respiratory Effort / Characteristics Respiratory Depth Respiratory Pattern Blood Pressure Blood Pressure [Right Arm] Blood Pressure Mean Blood Pressure Mean [Right Arm] Pulse Oximetry 96 Oxygen Delivery Method Room Air Sepsis Recent Fever Within 48 Hours Sepsis New/Unexplained Change in Mental Status Sepsis Action Taken by Nursing Laboratory Data 04/28/24 09:17 04/28/24 09:17 Lab Results 04/28/24 04/28/24 Range/Units 09:17 10:50 WBC 9.07 (4.8-10.8) K/ul RBC 5.17 (4.20-5.40) M/uL Hgb 12.8 (12.0-16.0) g/dl Hct 41.6 (37.0-47.0) % MCV 80.5 (80.0-100.0) fL MCH 24.8 L (25.0-34.0) pg MCHC 30.8 L (32.0-36.0) g/dL RDW Std Deviation 47.6 H (36.4-46.3) fL RDW Coeff of Yadira 16.3 H (11.5-14.5) % Plt Count 357 (130-400) K/uL MPV 8.7 L (9.4-12.4) fL Immature Gran % (Auto) 0.4 % Neut % (Auto) 78.1 % Lymph % (Auto) 13.1 % Young % (Auto) 7.9 % Eos % (Auto) 0.2 % Baso % (Auto) 0.3 % Neut # (Auto) 7.07 H (1.40-6.50) K/uL Lymph # (Auto) 1.19 L (1.20-3.40) K/uL Young # (Auto) 0.72 H (0.11-0.59) K/uL Eos # (Auto) 0.02 (0.00-0.50) K/uL Baso # (Auto) 0.03 (0.00-0.20) K/uL Immature Gran # (Auto) 0.04 (0.01-0.20) K/uL PT 11.8 (9.0-12.0) Seconds INR 1.1 (0.9-1.1) Sodium 140 (136-145) mmol/L Potassium 3.6 (3.5-5.1) mmol/L Chloride 104 (98-107) mmol/L Carbon Dioxide 27 (21-32) mmol/L Anion Gap 9 (3-11) BUN 18 (6-23) mg/dl Creatinine 1.20 (0.6-1.2) mg/dl Est Cr Clr Drug Dosing 34.9 ml/min eGFR 44.91 BUN/Creatinine Ratio 15.0 (10-20) Glucose 91 (70-99(Fasting)) mg/dl Calcium 9.7 (8.6-10.3) mg/dl Phosphorus 3.1 (2.5-4.9) mg/dl Magnesium 2.1 (1.7-2.4) mg/dl Total Bilirubin 1.0 (0.2-1.0) mg/dl AST 25 (13-39) U/L ALT 13 (7-52) U/L Alkaline Phosphatase 81 (34-104) U/L Troponin I High Sens 13.5 (0-14) pg/ml Total Protein 7.6 (6.0-8.3) gm/dl Albumin 4.2 (3.4-5.0) gm/dl Globulin 3.4 (2.5-4.0) gm/dl Albumin/Globulin Ratio 1.2 (0.9-2) Lipase 52 (11-82) U/L Urine Color Dark Yellow Urine Appearance Clear (Clear) Urine pH 5.5 (4.5-7.5) Ur Specific Barnhart > 1.045 H (1.000-1.030) Urine Protein Trace H (Negative) Urine Glucose (UA) Negative (Negative) Urine Ketones 1+ H (Negative) Urine Blood Negative (Negative) Urine Nitrite Negative (Negative) Urine Bilirubin Negative (Negative) Urine Urobilinogen Negative (Negative) Ur Leukocyte Esterase Trace H (Negative) Urine WBC (Auto) 11-20 H (0-5) /hpf Urine RBC (Auto) 3-5 H (0-2) /hpf U Hyaline Cast (Auto) 3-5 H (0-2) /lpf U Epithel Cells (Auto) 3-5 H (0-2) /hpf Urine Bacteria (Auto) 3+ H (None Seen) Administered Medications Losartan Potassium (Losartan Potassium 25 Mg Tab) 25 mg PO DAILY ANGELA Stop: 05/28/24 15:59 Last Admin: 04/28/24 16:45 Dose: 25 mg Documented By: MELY Spironolactone (Spironolactone 12.5 Mg Tab) 12.5 mg PO QAM ANGELA Stop: 05/28/24 15:59 Last Admin: 04/28/24 16:45 Dose: 12.5 mg Documented By: MELY Discontinued Medications Acetaminophen (Ofirmev) 1,000 mg in 100 mls @ 400 mls/hr IV NOW STA Stop: 04/28/24 09:55 Last Admin: 04/28/24 10:14 Dose: Not Given Documented By: KARINE Ceftriaxone Sodium (Rocephin) 2,000 mg in 50 mls @ 100 mls/hr IV NOW STA Stop: 04/28/24 13:16 Last Infusion: 04/28/24 14:13 Dose: Infused Documented By: Admin: 04/28/24 13:09 Dose: 100 mls/hr Documented By: BINA Ioversol (Optiray 320 100ml) 94 ml IV ONCE ONE Stop: 04/28/24 10:42 Last Admin: 04/28/24 10:42 Dose: 94 ml Documented By: PLW Imaging Data Radiologist's Impression: Chest X-Ray 04/28/24 09:35 XR chest 1V portable HISTORY: 84 years-old Female syncope fall acute pain of the chest and left shoulder status post fall COMPARISON: Left shoulder radiographs of same day, chest radiograph January 02, 2024 TECHNIQUE: AP view of the chest FINDINGS: Cardiac silhouette is enlarged. Dual lead left subclavian pacer again noted. No pneumothorax, pleural effusion or airspace consolidation. Bones of the chest appear grossly intact with degenerative changes of the shoulders and spine. IMPRESSION: Cardiomegaly without acute process of the chest. ACT 112: Negative or not required by law. The above report was generated using voice recognition software. It may contain grammatical, syntax or spelling errors. Electronically signed by: Cj Lowery M.D. 04/28/2024 10:[address] 04/28/24 09:39 CT OF THE CERVICAL SPINE WITHOUT CONTRAST CLINICAL HISTORY: pain fall COMPARISON STUDY: Cervical spine CT December 26, 2021. TECHNIQUE: Helical axial images of the cervical spine were obtained without IV contrast. Sagittal and coronal reconstructions were viewed. Automated exposure control was utilized for the study. A dose lowering technique was utilized adhering to the principles of ALARA. FINDINGS: Alignment of the cervical spine is anatomic. Vertebral body heights are maintained. No acute cervical spine fracture or subluxation is present. There is no prevertebral edema. Facet joints are intact. Moderate multilevel disc space narrowing, endplate osteophytosis and facet arthrosis within the cervical spine is present. IMPRESSION: No acute cervical spine fracture or subluxation. ACT 112: Negative or not required by law. Electronically signed by: Sim Lopez M.D. 04/28/2024 11:[address] 04/28/24 09:[address] WITH CONTRAST CT DOSE: 1658.58 mGy.cm HISTORY: Acute chest and left-sided shoulder pain status post fall left shoulder/chest pain fall TECHNIQUE: Multiaxial CT images of the chest were performed following the IV administration of 94 cc of Optiray. A dose lowering technique was utilized adhering to the principles of ALARA. COMPARISON: Chest CT 01/02/2024, December 26, 2021. FINDINGS: A left subclavian pacer is in place. There is moderate cardiomegaly. There is no pericardial effusion. Mild dilatation of the central pulmonary arteries again noted with the main pulmonary artery measuring 3.3 cm transversely. No pulmonary emboli identified. No pneumothorax or pleural effusion is present. Mild subsegmental bibasilar consolidation is most pronounced in the dependent right lower lobe which is similar to prior suggestive of atelectasis/scarring. Lungs are suboptimally assessed due to respiratory motion. Mildly enlarged mediastinal and hilar lymph nodes are similar to CT of December 26, 2021. Suspected exophytic thyroid nodule extending into the anterior mediastinum is unchanged, measuring 2.4 cm. Old T4 compression fracture is unchanged in appearance. There are no suspicious pulmonary nodules. Mild nonspecific distal esophageal wall thickening. Hypodense left adrenal nodules are again noted suggestive of adenomata measuring up to 8 mm. Ill-defined intramuscular hematoma noted within the superior fibers of the left trapezius and supraspinatus muscles with adjacent subcutaneous contusion. Acute comminuted minimally displaced left scapular fractures are noted involving the superior scapular body on image 83 and sagittal images adjacent to the supraspinatus.. There is a few millimeters of displacement and angulation. No additional acute fracture identified. The vertebral bodies and ribs appear intact. IMPRESSION: 1. Acute comminuted slightly angulated and minimally displaced left scapular fractures with small intramuscular and subcutaneous contusions. 2. No acute displaced rib fracture or pneumothorax. 3. Cardiomegaly with evidence of pulmonary arterial hypertension. 4. Mild subsegmental bibasilar atelectasis versus scarring. 5. Additional chronic findings as above. ACT 112: Negative or not required by law. Electronically signed by: Cj Lowery M.D. 04/28/2024 11:[address] 04/28/24 09:39 CT OF THE HEAD WITHOUT CONTRAST CLINICAL HISTORY: Pain following fall. COMPARISON STUDY: MRI of the brain April 06, 2008. Head CT December 26, 2021. TECHNIQUE: Helical axial images of the head were obtained without IV contrast. Automated exposure control was utilized for the study. A dose lowering technique was utilized adhering to the principles of ALARA. FINDINGS: No acute intracranial hemorrhage, midline shift or mass effect is present. The ventricular system is unremarkable. White matter hypodensities are similar to prior exam and favor small vessel disease. The basal cisterns are patent. No extra-axial collections are present. There are no findings to suggest acute dural sinus thrombosis or acute territorial infarct. No significant calvarial abnormalities are present. A small left posterior scalp contusion is present. There are no calvarial fractures. IMPRESSION: 1. No acute intracranial findings. 2. Small left posterior scalp contusion. No calvarial fractures. ACT 112: Negative or not required by law. Electronically signed by: Sim Lopez M.D. 04/28/2024 11:11 AM Shoulder X-Ray 04/28/24 09:39 XR shoulder LT min 2V routine CLINICAL HISTORY: Left shoulder pain following fall. COMPARISON: Left shoulder radiographs February 13, 2017. FINDINGS: Alignment of the left shoulder is anatomic. No acute fracture. Mild degenerative changes within the acromioclavicular joint are present. Left subclavian pacer is partially imaged. IMPRESSION: No fracture or dislocation within the left shoulder. ACT 112: Negative or not required by law. Electronically signed by: Sim Lopez M.D. 04/28/2024 10:25 AM Discharge Plan Visit Data Chief Complaint: Shoulder Pain Stated Complaint: FELL/SATURDAY, LT SHOULDER PAIN ED Provider: Filipe Boss Discharge Problem: Syncope, Left scapula fracture, Acute UTI, Cardiac pacemaker in situ Patient Disposition: Admitted As Inpatient Discharge Instructions Interventions: ED Discharge Assessment Last Done: 04/28/24 15:21 Discharge Problem: Syncope Qualifiers: Syncope type: unspecified Qualified Code(s): R55 - Syncope and collapse Left scapula fracture Qualifiers: Encounter type: initial encounter Scapula location: body Fracture type: closed Fracture alignment: displaced Qualified Code(s): S42.112A - Displaced fracture of body of scapula, left shoulder, initial encounter for closed fracture
[2024-04-28 09:56] LABS: Basophils # (auto) 0.03 K/uL (0.00-0.20); Basophils % (auto) 0.3 %; Eosinophils # (auto) 0.02 K/uL (0.00-0.50); Eosinophils % (auto) 0.2 %; Hematocrit (blood only) 41.6 % (37.0-47.0); Hemoglobin 12.8 g/dl (12.0-16.0); Immature Granulocytes # (auto) 0.04 K/uL (0.01-0.20); Immature Granulocytes % (auto) 0.4 %; Lymphocytes # (auto) 1.19 K/uL (1.20-3.40); Lymphocytes % (auto) 13.1 %; Mean Corpuscular Hemoglobin 24.8 pg (25.0-34.0); Mean Corpuscular Hgb Conc 30.8 g/dL (32.0-36.0); Mean Corpuscular Volume 80.5 fL (80.0-100.0); Mean Platelet Volume 8.7 fL (9.4-12.4); Monocytes # (auto) 0.72 K/uL (0.11-0.59); Monocytes % (auto) 7.9 %; Neutrophils # (auto) 7.07 K/uL (1.40-6.50); Neutrophils % (auto) 78.1 %; Platelet Count 357 K/uL (130-400); RDW Coefficient of Variation 16.3 % (11.5-14.5); RDW Standard Deviation 47.6 fL (36.4-46.3); Red Blood Count 5.17 M/uL (4.20-5.40); White Blood Count 9.07 K/ul (4.8-10.8)
--- NOTE | 2024-04-28 10:12 | XRay Report ---
XR chest 1V portable HISTORY: 84 years-old Female syncope fall acute pain of the chest and left shoulder status post fall COMPARISON: Left shoulder radiographs of same day, chest radiograph January 02, 2024 TECHNIQUE: AP view of the chest FINDINGS: Cardiac silhouette is enlarged. Dual lead left subclavian pacer again noted. No pneumothorax, pleural effusion or airspace consolidation. Bones of the chest appear grossly intact with degenerative redman es of the shoulders and spine. IMPRESSION: Cardiomegaly without acute process of the chest. ACT 112: Negative or not required by law. The above report was generated using voice recognition software. It may contain grammatical, syntax o r spelling errors. Electronically signed by: Cj Lowery M.D. 04/28/2024 10:11 AM
[2024-04-28 10:14] LABS: Albumin Globulin Ratio 1.2 (0.9-2); Albumin Level 4.2 gm/dl (3.4-5.0); Calcium 9.7 mg/dl (8.6-10.3); Creatinine Clr Calc Pharmacy 34.9 ml/min; Globulin 3.4 gm/dl (2.5-4.0); Magnesium 2.1 mg/dl (1.7-2.4); Phosphorus 3.1 mg/dl (2.5-4.9); Potassium 3.6 mmol/L (3.5-5.1); Total Protein 7.6 gm/dl (6.0-8.3)
[2024-04-28] MEDS: ACETAMINOPHEN 1,000 MG/100 ML VIAL IV STA (10:14)
[2024-04-28 10:18] LABS: INR 1.1 (0.9-1.1); Prothrombin Time 11.8 Seconds (9.0-12.0)
[2024-04-28 10:19] LABS: Troponin I High Sensitivity 13.5 pg/ml (0-14)
--- NOTE | 2024-04-28 10:27 | XRay Report ---
XR shoulder LT min 2V routine CLINICAL HISTORY: Left shoulder pain following fall. COMPARISON: Left shoulder radiographs February 13, 2017. FINDINGS: Alignment of the left shoulder is anatomic. No acute fracture. Mild degenerative changes w ithin the acromioclavicular joint are present. Left subclavian pacer is partially imaged. IMPRESSION: No fracture or dislocation within the left shoulder. ACT 112: Negative or not required by law. Electronically signed by: Sim Lopez M.D. 04/28/2024 10:25 AM
[2024-04-28] MEDS: OPTIRAY 320 100ml IV ONE (10:42)
--- NOTE | 2024-04-28 11:13 | CT Scan Report ---
CHEST CT WITH CONTRAST CT DOSE: 1658.58 mGy.cm HISTORY: Acute chest and left-sided shoulder pain status post fall left shoulder/chest pain fall TECHNIQUE: Multiaxial CT images of the chest were performed following the IV administration of 94 cc of Optiray. A dose lowering technique was utilized adhering to the principles of ALARA. COMPARISON: Chest CT 01/02/2024, December 26, 2021. FINDINGS: A left subclavian pacer is in place. There is moderate cardiomegaly. There is no pericardia l effusion. Mild dilatation of the central pulmonary arteries again noted with the main pulmonary art kylah measuring 3.3 cm transversely. No pulmonary emboli identified. No pneumothorax or pleural effusion is present. Mild subsegmental bibasilar consolidation is most pro nounced in the dependent right lower lobe which is similar to prior suggestive of atelectasis/scarrin g. Lungs are suboptimally assessed due to respiratory motion. Mildly enlarged mediastinal and hilar l ymph nodes are similar to CT of December 26, 2021. Suspected exophytic thyroid nodule extending into the anterior mediastinum is unchanged, measuring 2.4 cm. Old T4 compression fracture is unchanged in meño earance. There are no suspicious pulmonary nodules. Mild nonspecific distal esophageal wall thickenin g. Hypodense left adrenal nodules are again noted suggestive of adenomata measuring up to 8 mm. Ill-d efined intramuscular hematoma noted within the superior fibers of the left trapezius and supraspinatu s muscles with adjacent subcutaneous contusion. Acute comminuted minimally displaced left scapular fr actures are noted involving the superior scapular body on image 83 and sagittal images adjacent to th e supraspinatus.. There is a few millimeters of displacement and angulation. No additional acute frac ture identified. The vertebral bodies and ribs appear intact. IMPRESSION: 1. Acute comminuted slightly angulated and minimally displaced left scapular fractures with small int ramuscular and subcutaneous contusions. 2. No acute displaced rib fracture or pneumothorax. 3. Cardiomegaly with evidence of pulmonary arterial hypertension. 4. Mild subsegmental bibasilar atelectasis versus scarring. 5. Additional chronic findings as above. ACT 112: Negative or not required by law. Electronically signed by: Cj Lowery M.D. 04/28/2024 11:12 AM
--- NOTE | 2024-04-28 11:13 | CT Scan Report ---
CT OF THE HEAD WITHOUT CONTRAST CLINICAL HISTORY: Pain following fall. COMPARISON STUDY: MRI of the brain April 06, 2008. Head CT December 26, 2021. TECHNIQUE: Helical axial images of the head were obtained without IV contrast. Automated exposure con trol was utilized for the study. A dose lowering technique was utilized adhering to the principles o f ALARA. FINDINGS: No acute intracranial hemorrhage, midline shift or mass effect is present. The ventricular system is unremarkable. White matter hypodensities are similar to prior exam and favor small vessel d isease. The basal cisterns are patent. No extra-axial collections are present. There are no findings to suggest acute dural sinus thrombosis or acute territorial infarct. No significant calvarial abnorm alities are present. A small left posterior scalp contusion is present. There are no calvarial fractu res. IMPRESSION: 1. No acute intracranial findings. 2. Small left posterior scalp contusion. No calvarial fractures. ACT 112: Negative or not required by law. Electronically signed by: Sim Lopez M.D. 04/28/2024 11:11 AM
[2024-04-28 11:15] LABS: Appearance Urine Clear (Clear); Bacteria Urine Automated 3+ (None Seen); Bilirubin Urine Negative (Negative); Blood Urine Negative (Negative); Color Urine Dark Yellow; Glucose Urine UA Negative (Negative); Ketones Urine 1+ (Negative); Leukocyte Esterase Urine Trace (Negative); Nitrite Urine Negative (Negative); Protein Urine Trace (Negative); Specific Gravity Urine > 1.045 (1.000-1.030); Urobilinogen Urine Negative (Negative); pH Urine 5.5 (4.5-7.5)
--- NOTE | 2024-04-28 11:20 | CT Scan Report ---
CT OF THE CERVICAL SPINE WITHOUT CONTRAST CLINICAL HISTORY: pain fall COMPARISON STUDY: Cervical spine CT December 26, 2021. TECHNIQUE: Helical axial images of the cervical spine were obtained without IV contrast. Sagittal a nd coronal reconstructions were viewed. Automated exposure control was utilized for the study. A do se lowering technique was utilized adhering to the principles of ALARA. FINDINGS: Alignment of the cervical spine is anatomic. Vertebral body heights are maintained. No acut e cervical spine fracture or subluxation is present. There is no prevertebral edema. Facet joints are intact. Moderate multilevel disc space narrowing, endplate osteophytosis and facet arthrosis within the cervical spine is present. IMPRESSION: No acute cervical spine fracture or subluxation. ACT 112: Negative or not required by law. Electronically signed by: Sim Lopez M.D. 04/28/2024 11:18 AM
[2024-04-28] MEDS: cefTRIAXone SODIUM 2,000 MG/50 ML BAG IV STA (13:09)
--- NOTE | 2024-04-28 14:13 | History & Physical Report ---
Date of Service April 28, 2024 Assessment & Plan (1) Syncope: Plan: Patient will be placed in observation, will provide telemetry, echocardiogram transthoracic to monitor and evaluate LV function as the last one was done 2 years ago. Pacemaker was interrogated apparently and the report that I saw showed that it was functioning well without any issue. (2) Acute cystitis: Plan: Will empirically continue ceftriaxone which was initiated in the ER, follow-up with result of culture. The result of urinalysis was reviewed by myself (3) Chronic systolic CHF (congestive heart failure): Plan: Patient has chronic systolic CHF with baseline traction fraction of 40 to 45%, will repeat echocardiogram, in the meantime we will continue with home medications of Lasix, losartan 25 mg daily and metoprolol succinate 75 mg p.o. twice daily and Pravachol 20 mg daily and Aldactone 12.5 mg daily. (4) Status post biventricular pacemaker: Plan: This was apparently for underlying atrial fibrillation, patient has history of cardioversion and currently doing well, status post dual chamber pacemaker on Eliquis which will be continued. Pacemaker was interrogated today and it was normally functioning. (5) Hypothyroidism (acquired): Plan: Continue with home dose of Synthroid at home which is 12.5 mg daily. (6) Hypertension, accelerated: Plan: Patient has blood pressure of around 160 mmhg, will continue monitoring blood pressure while on the floor, resume home medications of Toprol-XL as well as losartan, may require adjusting medication depending on her course. Plan Patient will be placed in observation, on telemetry, will follow with results of echocardiogram, monitor blood pressure and adjust treatment. Continue with empirical antibiotic for urinary tract infection, PT and OT upon discharge to make sure patient is stable. History of Present Illness Primary Care Provider: Marcell Landry DO Patient is an 84-year-old female with prior history of congestive heart failure with baseline ejection fraction of 40 to 45% as of 2021, status post dual-chamber pacemaker because of tachyarrhythmia/atrial fibrillation status post cardioversion, history of pulmonary artery hypertension, hypothyroidism and hypertension, who is currently anticoagulated on Eliquis, patient was brought in because yesterday after coming from bathroom, she suddenly lost her consciousness of short period of time although she does not know the exact duration that she was out. She was found by her son who lives with her. She did not have any fogginess or confusion right off, did not recall having had any chest pain or shortness of breath or nausea or vomiting or palpitation prior to the event. This has not happened before. She does not know what happened however she tells me that right after the event her blood pressure was found to be around 200 mmHg and this has been on and off happening as she is known to have labile blood pressure. She hit her head as a result of a fall but did not sustain injury, she also think that she hit her dresser with her shoulder and she had some discomfort so she came to the emergency room Workup here revealed that the patient was having stable rhythm with occasional activity of pacemaker, her pacemaker was interrogated and it was functioning normally. She was found to have questionable urinary tract infection which c orroborates with her history of having dysuria.Patient will be placed in observation to treat empirically with antibiotic and to obtain echocardiogram. Allergies Allergy/AdvReac Type Severity Reaction Status Date / Time atorvastatin AdvReac Intermediate "legs Verified 04/28/24 13:16 don't want to move." Home Medications Medication Instructions Recorded Confirmed Type aspirin 81 mg tablet,delayed 81 mg PO QAM 05/11/19 04/28/24 History release calcium 500 mg (as 1 tab PO QDL 05/11/19 04/28/24 History carbonate)-vitamin D3 5 mcg (200 unit) tablet (Calcium 500 + D) escitalopram oxalate 5 mg tablet 5 mg PO QDL 05/11/19 04/28/24 History pravastatin 20 mg tablet 20 mg PO QPM 05/11/19 04/28/24 History travoprost 0.004 % eye drops 1 drp ophthalmic (eye) PM 05/11/19 04/28/24 History (Travatan Z) levothyroxine 25 mcg tablet 12.5 mcg PO DAILY 05/12/19 04/28/24 History lorazepam 0.5 mg tablet 0.5 mg PO HS PRN Insomnia 05/12/19 04/28/24 History spironolactone 25 mg tablet 12.5 mg (1/2 x 25 mg) PO QAM #0 05/15/19 04/28/24 Rx tabs losartan 25 mg tablet 25 mg PO DAILY 12/26/21 04/28/24 History apixaban 5 mg tablet (Eliquis) 5 mg PO BID #60 tabs 01/02/22 04/28/24 Rx metoprolol succinate 25 mg 75 mg (3 x 25 mg) PO BID #60 tabs 01/02/22 04/28/24 Rx tablet,extended release 24 hr multivitamin 1 tab PO DAILY 11/10/22 04/28/24 History furosemide 20 mg tablet (Lasix) 20 mg PO 3XWK 01/02/24 04/28/24 History meclizine 25 mg tablet 25 mg PO DAILY PRN Dizziness or 04/28/24 04/28/24 History Nausea Past Med/Surg History Problem List (Updated 04/28/24 @ 14:22 by Guerda Estrella MD) Acute cystitis Hypertension, accelerated Hypothyroidism (acquired) Status post biventricular pacemaker Chronic systolic CHF (congestive heart failure) Syncope Abdominal pain (Acute) Diarrhea (Acute) Hypoxia (Acute) Cardiac pacemaker in situ Pulmonary hypertension Hypoxia Left knee DJD Chronic atrial fibrillation Acute respiratory failure with hypoxia Acute HFrEF (heart failure with reduced ejection fraction) Osteoarthritis of right knee DJD (degenerative joint disease), lumbar Tachy-hari syndrome CKD (chronic kidney disease), stage III Post-surgical hypothyroidism Graves disease Diastolic dysfunction Sick sinus syndrome (Acute) Hari-tachy syndrome (Acute) Symptomatic bradycardia Recommend dual chamber pacemaker; discussed the procedure and potential risks with the patient today; she expressed an understanding is agreed to the procedure; NPO after midnight with hopefully procedure tomorrow afternoon as long as INR is low 2 range Hold coreg and sotalol Paroxysmal atrial fibrillation Pt with pAF on low dose sotalol due to bradycardia; hold coumadin; reverse the INR slightly today give Vitamin K 2.5mg IV now, have pt eat broccoli or spinach today for lunch and breakfast to try and ensure INR is in low 2 range for tomorrows potential pacemaker Encounter for pre-operative examination Myalgia (Chronic) Headache (Acute) Calf pain (Acute) HTN (hypertension) Nausea & vomiting (Acute) Pulmonary embolism, bilateral (Acute) HTN (hypertension) (Chronic) Hyperlipidemia (Chronic) Glaucoma (Chronic) Migraine (Chronic) OCAS MIGRAINES IBS (irritable bowel syndrome) (Chronic) Goiter (Chronic) THYROID GOITER AND WATCING Osteoporosis (Chronic) Mitral valve regurgitation (Chronic) FOLLOW WITH DR. ARMIJO Esophageal reflux (Chronic) Depression (Chronic) OCAS Arthritis (Chronic) Pulmonary embolism (Acute) DX 2015 [employer]ES [employer] Atrial fibrillation with rapid ventricular response FOLLOW WITH DR ARMIJO Medical History (Updated 04/28/24 @ 14:22 by Guerda Estrella MD) History of cardioversion Hypothyroidism Surgical History (Updated 04/28/24 @ 14:17 by Guerda Estrella MD) Hx of arthroscopic knee surgery RIGHT Hx of laminectomy LUMBAR Family History Father Coronary heart disease Brother Diabetes Sister Thyroid cancer Social History Smoking Status: Never smoker Second Hand Exposure: No; Do You Dip or Chew Tobacco: No; Hx Alcohol Use: No Hx Substance Use: No Preferred Language: Maori Communication Ability: Effective Visual Impairment: No Limitations Hearing Ability: Normal Softwood Faller Required: No Beliefs That Will Affect Care: None marital status: Current Living Situation: Family Current Living Situation Comment: Lives with son current occupational status: retired How many Children do You have: 3 Feels Safe at Home: Yes Assistive Devices: Cane, Raised Toilet Seat, Stair Lift and Walker Review of Systems Review of Systems: Constitutional: No Weight Change, No Fever, No Chills, No Night Sweats, No Fatigue, No Malaise ENT/Mouth: No Hearing Changes, No Ear Pain, No Nasal Congestion, No Sinus Pa in, No Hoarseness, No sore throat, No Rhinorrhea, No Swallowing Difficulty Eyes: No Eye Pain, No Swelling, No Redness, No Foreign Body, No Discharge, No Vision Changes Cardiovascular: No Chest Pain, No SOB, No PND, No Dyspnea on Exertion, No Orthopnea, No Claudication, No Edema, No Palpitations Respiratory: No Cough, No Sputum, No Wheezing, No Smoke Exposure, No Dyspnea Gastrointestinal: No Nausea, No Vomiting, No Diarrhea, No Constipation, No Pain, No Heartburn, No Anorexia, No Dysphagia, No Hematochezia, No Melena, No Flatulence, No Jaundice Genitourinary: No Dysmenorrhea, No DUB, No Dyspareunia, positive for dysuria, No Urinary Frequency, No Hematuria, No Urinary Incontinence, No Urgency, No Flank Pain, No Urinary Flow Changes, No Hesitancy Musculoskeletal: No Arthralgias, No Myalgias, No Joint Swelling, No Joint Stiffness, No Back Pain, No Neck Pain, No Injury History Skin: No Skin Lesions, No Pruritis, No Hair Changes, No Breast/Skin Changes, No Nipple Discharge Neuro: No Weakness, No Numbness, No Paresthesias, No Loss of Consciousness, positive for syncope, No Dizziness, No Headache, No Coordination Changes, No Recent Falls Psych: No Anxiety/Panic, No Depression, No Insomnia, No Personality Changes, No Delusions, No Rumination, No SI/HI/AH/VH, No Social Issues, No Memory Changes, No Violence/Abuse Hx., No Eating Concerns Heme/Lymph: No Bruising, No Bleeding, No Transfusions History, No Lymphadenopathy Endocrine: No Polyuria, No Polydipsia, No Temperature Intolerance Physical Exam Physical Exam: VITALS: Reviewed. WEIGHT/BMI reviewed. GEN: Healthy appearing, well-developed, NAD. PSYCH: Good Judgment. AOx3. Normal memory, mood, and affect. HEENT -Head: NC/AT; -Eyes: PERRL, EOMI. No discharge or redn ess; -Ears: External ears are normal. Normal TMs. -Nose: Normal nares. -Mouth and throat: MMM. Normal gums, muc poonam, palate,. Good dentition. NECK: Supple, with no masses. CV: RRR, no m/r/g. LUNGS: CTAB, no w/r/c. ABD: Soft, NT/ND, NBS, no masses or organomegaly. : N/A SKIN: Warm, well perfused. No skin rashes or abnormal lesions. MSK: No deformities, Normal gait. EXT: No clubbing, cyanosis, or edema. NEURO: Ambulating with no limitations. Normal muscle strength and tone. No focal deficits. Results & Data Results & Data Vital Signs (Past 12 Hours) Vital Signs Temp Pulse Pulse Resp BP BP Pulse Ox 04/28/24 13:49 75 04/28/24 11:04 71 18 164/89 H 94 04/28/24 09:43 71 04/28/24 08:59 36.5 C 64 20 150/75 H 98 O2 Del Method 04/28/24 13:49 04/28/24 11:04 Room Air 04/28/24 09:43 04/28/24 08:59 Room Air Laboratory Results Laboratory Results - last 24 hr 04/28/24 04/28/24 09:17 10:50 WBC 9.07 RBC 5.17 Hgb 12.8 Hct 41.6 MCV 80.5 MCH 24.8 L MCHC 30.8 L RDW Std Deviation 47.6 H RDW Coeff of Yadira 16.3 H Plt Count 357 MPV 8.7 L Immature Gran % (Auto) 0.4 Neut % (Auto) 78.1 Lymph % (Auto) 13.1 Canadian % (Auto) 7.9 Eos % (Auto) 0.2 Baso % (Auto) 0.3 Neut # (Auto) 7.07 H Lymph # (Auto) 1.19 L Canadian # (Auto) 0.72 H Eos # (Auto) 0.02 Baso # (Auto) 0.03 Immature Gran # (Auto) 0.04 PT 11.8 INR 1.1 Sodium 140 Potassium 3.6 Chloride 104 Carbon Dioxide 27 Anion Gap 9 BUN 18 Creatinine 1.20 Est Cr Clr Drug Dosing 34.9 eGFR 44.91 BUN/Creatinine Ratio 15.0 Glucose 91 Calcium 9.7 Phosphorus 3.1 Magnesium 2.1 Total Bilirubin 1.0 AST 25 ALT 13 Alkaline Phosphatase 81 Troponin I High Sens 13.5 Total Protein 7.6 Albumin 4.2 Globulin 3.4 Albumin/Globulin Ratio 1.2 Lipase 52 Urine Color Dark Yellow Urine Appearance Clear Urine pH 5.5 Ur Specific Max > 1.045 H Urine Protein Trace H Urine Glucose (UA) Negative Urine Ketones 1+ H Urine Blood Negative Urine Nitrite Negative Urine Bilirubin Negative Urine Urobilinogen Negative Ur Leukocyte Esterase Trace H Urine WBC (Auto) 11-20 H Urine RBC (Auto) 3-5 H U Hyaline Cast (Auto) 3-5 H U Epithel Cells (Auto) 3-5 H Urine Bacteria (Auto) 3+ H Diagnostic Findings Chest X-Ray 04/28/24 09:35 XR chest 1V portable HISTORY: 84 years-old Female syncope fall acute pain of the chest and left shoulder status post fall COMPARISON: Left shoulder radiographs of same day, chest radiograph January 02, 2024 TECHNIQUE: AP view of the chest FINDINGS: Cardiac silhouette is enlarged. Dual lead left subclavian pacer again noted. No pneumothorax, pleural effusion or airspace consolidation. Bones of the chest appear grossly intact with degenerative changes of the shoulders and spine. IMPRESSION: Cardiomegaly without acute process of the chest. ACT 112: Negative or not required by law. The above report was generated using voice recognition software. It may contain grammatical, syntax or spelling errors. Electronically signed by: Cj Lowery M.D. 04/28/2024 10:[address] 04/28/24 09:39 CT OF THE CERVICAL SPINE WITHOUT CONTRAST CLINICAL HISTORY: pain fall COMPARISON STUDY: Cervical spine CT December 26, 2021. TECHNIQUE: Helical axial images of the cervical spine were obtained without IV contrast. Sagittal and coronal reconstructions were viewed. Automated exposure control was utilized for the study. A dose lowering technique was utilized adhering to the principles of ALARA. FINDINGS: Alignment of the cervical spine is anatomic. Vertebral body heights are maintained. No acute cervical spine fracture or subluxation is present. There is no prevertebral edema. Facet joints are intact. Moderate multilevel disc space narrowing, endplate osteophytosis and facet arthrosis within the cervical spine is present. IMPRESSION: No acute cervical spine fracture or subluxation. ACT 112: Negative or not required by law. Electronically signed by: Sim Lopez M.D. 04/28/2024 11:[address] 04/28/24 09:[address] WITH CONTRAST CT DOSE: 1658.58 mGy.cm HISTORY: Acute chest and left-sided shoulder pain status post fall left shoulder/chest pain fall TECHNIQUE: Multiaxial CT images of the chest were performed following the IV administration of 94 cc of Optiray. A dose lowering technique was utilized adhering to the principles of ALARA. COMPARISON: Chest CT 01/02/2024, December 26, 2021. FINDINGS: A left subclavian pacer is in place. There is moderate cardiomegaly. There is no pericardial effusion. Mild dilatation of the central pulmonary arteries again noted with the main pulmonary artery measuring 3.3 cm transversely. No pulmonary emboli identified. No pneumothorax or pleural effusion is present. Mild subsegmental bibasilar consolidation is most pronounced in the dependent right lower lobe which is similar to prior suggestive of atelectasis/scarring. Lungs are suboptimally assessed due to respiratory motion. Mildly enlarged mediastinal and hilar lymph nodes are similar to CT of December 26, 2021. Suspected exophytic thyroid nodule extending into the anterior mediastinum is unchanged, measuring 2.4 cm. Old T4 compression fracture is unchanged in appearance. There are no suspicious pulmonary nodules. Mild nonspecific distal esophageal wall thickening. Hypodense left adrenal nodules are again noted suggestive of adenomata measuring up to 8 mm. Ill-defined intramuscular hematoma noted within the superior fibers of the left trapezius and supraspinatus muscles with adjacent subcutaneous contusion. Acute comminuted minimally displaced left scapular fractures are noted involving the superior scapular body on image 83 and sagittal images adjacent to the supraspinatus.. There is a few millimeters of displacement and angulation. No additional acute fracture identified. The vertebral bodies and ribs appear intact. IMPRESSION: 1. Acute comminuted slightly angulated and minimally displaced left scapular fractures with small intramuscular and subcutaneous contusions. 2. No acute displaced rib fracture or pneumothorax. 3. Cardiomegaly with evidence of pulmonary arterial hypertension. 4. Mild subsegmental bibasilar atelectasis versus scarring. 5. Additional chronic findings as above. ACT 112: Negative or not required by law. Electronically signed by: Cj Lowery M.D. 04/28/2024 11:[address] 04/28/24 09:39 CT OF THE HEAD WITHOUT CONTRAST CLINICAL HISTORY: Pain following fall. COMPARISON STUDY: MRI of the brain April 06, 2008. Head CT December 26, 2021. TECHNIQUE: Helical axial images of the head were obtained without IV contrast. Automated exposure control was utilized for the study. A dose lowering technique was utilized adhering to the principles of ALARA. FINDINGS: No acute intracranial hemorrhage, midline shift or mass effect is present. The ventricular system is unremarkable. White matter hypodensities are similar to prior exam and favor small vessel disease. The basal cisterns are patent. No extra-axial collections are present. There are no findings to suggest acute dural sinus thrombosis or acute territorial infarct. No significant calvarial abnormalities are present. A small left posterior scalp contusion is present. There are no calvarial fractures. IMPRESSION: 1. No acute intracranial findings. 2. Small left posterior scalp contusion. No calvarial fractures. ACT 112: Negative or not required by law. Electronically signed by: Sim Lopez M.D. 04/28/2024 11:11 AM Shoulder X-Ray 04/28/24 09:39 XR shoulder LT min 2V routine CLINICAL HISTORY: Left shoulder pain following fall. COMPARISON: Left shoulder radiographs February 13, 2017. FINDINGS: Alignment of the left shoulder is anatomic. No acute fracture. Mild degenerative changes within the acromioclavicular joint are present. Left subclavian pacer is partially imaged. IMPRESSION: No fracture or dislocation within the left shoulder. ACT 112: Negative or not required by law. Electronically signed by: Sim Lopez M.D. 04/28/2024 10:25 AM Code Status & VTE Plan Code Status Full code VTE Prophylaxis Plan VTE Prophylaxis will be ordered: No Reason for no VTE drug order: Contraindicated and Treatment not indicated
--- NOTE | 2024-04-28 14:17 | Electrocardiogram Report ---
Test Reason : Blood Pressure : */* mmHG Vent. Rate : 71 BPM Atrial Rate : 72 BPM P-R Int : * ms QRS Dur : 162 ms QT Int : 442 ms P-R-T Axes : 21 -28 133 degrees QTcB Int : 480 ms Ventricular-paced rhythm Abnormal ECG When compared with ECG of 02-Jan-2024 11:03, No significant change was found Confirmed by Fabio Powell ([id number]) on 04/28/2024 2:17:28 PM Referred By: REFERRED SELF Confirmed By: Fabio Powell
[2024-04-28] MEDS ORDERED: ONDANSETRON INJ 2 MG/ML 2 ML VIAL IV PRN (15:46)
[2024-04-28] MEDS ORDERED: MECLIZINE HCL 25 MG TAB PO PRN (15:46)
[2024-04-28] MEDS: LOSARTAN POTASSIUM 25 MG TAB PO SCH (16:45)
[2024-04-28] MEDS: SPIRONOLACTONE 12.5 MG TAB PO SCH (16:45)
--- NOTE | 2024-04-28 20:11 | Communication Note ---
Date of Service: April 28, 2024
[2024-04-28] MEDS: TRAVOPROST Z 0.004% OPH SOLN 2.5 ML BTL OPB SCH (20:13)
[2024-04-28] MEDS: PRAVASTATIN SOD 20 MG TAB PO SCH (20:14)
[2024-04-28] MEDS: METOPROLOL SUCC 25MG EXT REL TAB PO SCH (20:15)
[2024-04-28] MEDS: APIXABAN 5 MG TABLET PO SCH (20:15)
[2024-04-28] MEDS ORDERED: DICLOFENAC SODIUM 75 MG TABCR PO SCH (21:00)
[2024-04-28] MEDS: LORazepam 0.5 MG TAB PO PRN (21:26)
[2024-04-29] MEDS: ACETAMINOPHEN 325 MG TAB PO PRN (06:03)
[2024-04-29] MEDS: LEVOTHYROXINE SODIUM 25 MCG TABLET PO SCH (06:03)
[2024-04-29] MEDS: MULTIVITAMIN TAB PO SCH (07:45)
[2024-04-29] MEDS: FUROSEMIDE 20 MG TAB PO SCH (07:45)
[2024-04-29] MEDS: ESCITALOPRAM OXALATE 10 MG TAB PO SCH (07:46)
[2024-04-29] MEDS: CALCIUM 600MG + VIT D 400 IU TAB PO SCH (07:47)
[2024-04-29 08:08] LABS: Hematocrit (blood only) 35.9 % (37.0-47.0); Hemoglobin 11.4 g/dl (12.0-16.0); Mean Corpuscular Hemoglobin 25.1 pg (25.0-34.0); Mean Corpuscular Hgb Conc 31.8 g/dL (32.0-36.0); Mean Corpuscular Volume 79.1 fL (80.0-100.0); Mean Platelet Volume 8.6 fL (9.4-12.4); Platelet Count 300 K/uL (130-400); RDW Coefficient of Variation 16.4 % (11.5-14.5); RDW Standard Deviation 47.1 fL (36.4-46.3); Red Blood Count 4.54 M/uL (4.20-5.40); White Blood Count 6.37 K/ul (4.8-10.8)
[2024-04-29 08:25] LABS: BUN Creatinine Ratio 16.1 (10-20); Creatinine Clr Calc Pharmacy 43.7 ml/min; Potassium 4.1 mmol/L (3.5-5.1)
--- NOTE | 2024-04-29 08:55 | Hospitalist Progress Note ---
Date of Service April 29, 2024 Assessment & Plan (1) Syncope: Plan: Patient remained clinically stable, no telemetry events overnight, echocardiogram was reviewed which was simply unchanged from previous findings. May discontinue telemetry at this point and transfer patient out to medical surgical unit. Continue with current medications. (2) Acute cystitis: Plan: Urinalysis was reviewed, urine culture is pending, continue with ceftriaxone, patient remained afebrile overnight. (3) Chronic systolic CHF (congestive heart failure): Plan: Patient has chronic systolic CHF with baseline traction fraction of 40 to 45%, repeat echocardiogram showed no change with the same findings. Her blood pressure remained stable, continue with home regimen of Lasix, losartan 25 mg daily and metoprolol succinate 75 mg p.o. twice daily and Pravachol 20 mg daily and Aldactone 12.5 mg daily. (4) Status post biventricular pacemaker: Plan: Continue with Eliquis, patient has underlying atrial fibrillation, pacemaker was interrogated in the emergency room yesterday the result is pending . (5) Hypothyroidism (acquired): Plan: Continue with home dose of Synthroid at home which is 12.5 mg daily. (6) Hypertension, accelerated: Plan: Her blood pressure however remained much better since yesterday, continue with home medications for now with Toprol-XL as well as losartan, may require adjusting medication depending on her course. Plan Will convert to inpatient as her urine culture is still pending, transfer out to medical surgical bed. I believe probably over the next 24 hours once we have the result of urine culture we might be able to come up with a regimen of antibiotic for UTI and discharged home. In the meantime we will follow on the result of pacemaker interrogation. Admission and Anticipated Discharge Date Admission Date: April 30, 2024 Subjective Patient was seen and examined, clinically stable, her telemetry was reviewed overnight which did not show any abnormal rhythm. Echocardiogram was reviewed which showed persistent previous finding of EF of 40 to 45% with increase in the size of left atrium, severe tricuspid regurgitation and severe pulmonary hypertension. Urine culture still pending. Urinalysis showed some evidence of UTI. Her blood pressure remained stable overnight. Physical Exam Physical Exam: VITALS: Reviewed. WEIGHT/BMI reviewed. GEN: Healthy appearing, well-developed, NAD. PSYCH: Good Judgment. AOx3. Normal memory, mood, and affect. HEENT -Head: NC/AT; -Eyes: PERRL, EOMI. No discharge or redn ess; -Ears: External ears are normal. Normal TMs. -Nose: Normal nares. -Mouth and throat: MMM. Normal gums, muc poonam, palate,. Good dentition. NECK: Supple, with no masses. CV: RRR, no m/r/g. LUNGS: CTAB, no w/r/c. ABD: Soft, NT/ND, NBS, no masses or organomegaly. : N/A SKIN: Warm, well perfused. No skin rashes or abnormal lesions. Results & Data Results & Data Vital Signs (Past 12 Hours) Vital Signs Temp Pulse Pulse Resp BP Pulse Ox O2 Del Method 04/29/24 07:26 36.5 C 69 18 132/69 93 Room Air 04/29/24 03:12 36.3 C L 70 20 133/76 92 Room Air 04/28/24 23:06 36.5 C 70 18 113/68 92 Room Air 04/28/24 22:50 70 Laboratory Results Laboratory Results - last 24 hr 04/28/24 04/28/24 04/29/24 09:17 10:50 07:34 WBC 9.07 6.37 RBC 5.17 4.54 Hgb 12.8 11.4 L Hct 41.6 35.9 L MCV 80.5 79.1 L MCH 24.8 L 25.1 MCHC 30.8 L 31.8 L RDW Std Deviation 47.6 H 47.1 H RDW Coeff of Yadira 16.3 H 16.4 H Plt Count 357 300 MPV 8.7 L 8.6 L Immature Gran % (Auto) 0.4 Neut % (Auto) 78.1 Lymph % (Auto) 13.1 [place] % (Auto) 7.9 Eos % (Auto) 0.2 Baso % (Auto) 0.3 Neut # (Auto) 7.07 H Lymph # (Auto) 1.19 L [place] # (Auto) 0.72 H Eos # (Auto) 0.02 Baso # (Auto) 0.03 Immature Gran # (Auto) 0.04 PT 11.8 INR 1.1 Sodium 140 139 Potassium 3.6 4.1 Chloride 104 107 Carbon Dioxide 27 24 Anion Gap 9 8 BUN 18 15 Creatinine 1.20 0.93 Est Cr Clr Drug Dosing 34.9 43.7 eGFR 44.91 60.98 BUN/Creatinine Ratio 15.0 16.1 Glucose 91 95 Calcium 9.7 9.0 Phosphorus 3.1 Magnesium 2.1 Total Bilirubin 1.0 AST 25 ALT 13 Alkaline Phosphatase 81 Troponin I High Sens 13.5 Total Protein 7.6 Albumin 4.2 Globulin 3.4 Albumin/Globulin Ratio 1.2 Lipase 52 Urine Color Dark Yellow Urine Appearance Clear Urine pH 5.5 Ur Specific [place] > 1.045 H Urine Protein Trace H Urine Glucose (UA) Negative Urine Ketones 1+ H Urine Blood Negative Urine Nitrite Negative Urine Bilirubin Negative Urine Urobilinogen Negative Ur Leukocyte Esterase Trace H Urine WBC (Auto) 11-20 H Urine RBC (Auto) 3-5 H U Hyaline Cast (Auto) 3-5 H U Epithel Cells (Auto) 3-5 H Urine Bacteria (Auto) 3+ H Diagnostic Findings Chest X-Ray 04/28/24 09:35 XR chest 1V portable HISTORY: 84 years-old Female syncope fall acute pain of the chest and left shoulder status post fall COMPARISON: Left shoulder radiographs of same day, chest radiograph January 02, 2024 TECHNIQUE: AP view of the chest FINDINGS: Cardiac silhouette is enlarged. Dual lead left subclavian pacer again noted. No pneumothorax, pleural effusion or airspace consolidation. Bones of the chest appear grossly intact with degenerative changes of the shoulders and spine. IMPRESSION: Cardiomegaly without acute process of the chest. ACT 112: Negative or not required by law. The above report was generated using voice recognition software. It may contain grammatical, syntax or spelling errors. Electronically signed by: Cj Lowery M.D. 04/28/2024 10:[address] 04/28/24 09:39 CT OF THE CERVICAL SPINE WITHOUT CONTRAST CLINICAL HISTORY: pain fall COMPARISON STUDY: Cervical spine CT December 26, 2021. TECHNIQUE: Helical axial images of the cervical spine were obtained without IV contrast. Sagittal and coronal reconstructions were viewed. Automated exposure control was utilized for the study. A dose lowering technique was utilized adhering to the principles of ALARA. FINDINGS: Alignment of the cervical spine is anatomic. Vertebral body heights are maintained. No acute cervical spine fracture or subluxation is present. There is no prevertebral edema. Facet joints are intact. Moderate multilevel disc space narrowing, endplate osteophytosis and facet arthrosis within the cer vical spine is present. IMPRESSION: No acute cervical spine fracture or subluxation. ACT 112: Negative or not required by law. Electronically signed by: Sim Lopez M.D. 04/28/2024 11:[address] 04/28/24 09:[address] WITH CONTRAST CT DOSE: 1658.58 mGy.cm HISTORY: Acute chest and left-sided shoulder pain status post fall left shoulder/chest pain fall TECHNIQUE: Multiaxial CT images of the chest were performed following the IV administration of 94 cc of Optiray. A dose lowering technique was utilized adhering to the principles of ALARA. COMPARISON: Chest CT 01/02/2024, December 26, 2021. FINDINGS: A left subclavian pacer is in place. There is moderate cardiomegaly. There is no pericardial effusion. Mild dilatation of the central pulmonary arteries again noted with the main pulmonary artery measuring 3.3 cm transversely. No pulmonary emboli identified. No pneumothorax or pleural effusion is present. Mild subsegmental bibasilar consolidation is most pronounced in the dependent right lower lobe which is similar to prior suggestive of atelectasis/scarring. Lungs are suboptimally assessed due to respiratory motion. Mildly enlarged mediastinal and hilar lymph nodes are similar to CT of December 26, 2021. Suspected exophytic thyroid nodule extending into the anterior mediastinum is unchanged, measuring 2.4 cm. Old T4 compression fracture is unchanged in appearance. There are no suspicious pulmonary nodules. Mild nonspecific distal esophageal wall thickening. Hypodense left adrenal nodules are again noted suggestive of adenomata measuring up to 8 mm. Ill-defined intramuscular hematoma noted within the superior fibers of the left trapezius and supraspinatus muscles with adjacent subcutaneous contusion. Acute comminuted minimally displaced left scapular fractures are noted involving the superior scapular body on image 83 and sagittal images adjacent to the supraspinatus.. There is a few millimeters of displacement and angulation. No additional acute fracture identified. The vertebral bodies and ribs appear intact. IMPRESSION: 1. Acute comminuted slightly angulated and minimally displaced left scapular fractures with small intramuscular and subcutaneous contusions. 2. No acute displaced rib fracture or pneumothorax. 3. Cardiomegaly with evidence of pulmonary arterial hypertension. 4. Mild subsegmental bibasilar atelectasis versus scarring. 5. Additional chronic findings as above. ACT 112: Negative or not required by law. Electronically signed by: Cj Lowery M.D. 04/28/2024 11:[address] 04/28/24 09:39 CT OF THE HEAD WITHOUT CONTRAST CLINICAL HISTORY: Pain following fall. COMPARISON STUDY: MRI of the brain April 06, 2008. Head CT December 26, 2021. TECHNIQUE: Helical axial images of the head were obtained without IV contrast. Automated exposure control was utilized for the study. A dose lowering technique was utilized adhering to the principles of ALARA. FINDINGS: No acute intracranial hemorrhage, midline shift or mass effect is present. The ventricular system is unremarkable. White matter hypodensities are similar to prior exam and favor small vessel disease. The basal cisterns are patent. No extra-axial collections are present. There are no findings to suggest acute dural sinus thrombosis or acute territorial infarct. No significant calvarial abnormalities are present. A small left posterior scalp contusion is present. There are no calvarial fractures. IMPRESSION: 1. No acute intracranial findings. 2. Small left posterior scalp contusion. No calvarial fractures. ACT 112: Negative or not required by law. Electronically signed by: Sim Lopez M.D. 04/28/2024 11:11 AM Shoulder X-Ray 04/28/24 09:39 XR shoulder LT min 2V routine CLINICAL HISTORY: Left shoulder pain following fall. COMPARISON: Left shoulder radiographs February 13, 2017. FINDINGS: Alignment of the left shoulder is anatomic. No acute fracture. Mild degenerative changes within the acromioclavicular joint are present. Left subclavian pacer is partially imaged. IMPRESSION: No fracture or dislocation within the left shoulder. ACT 112: Negative or not required by law. Electronically signed by: Sim Lopez M.D. 04/28/2024 10:25 AM (1) Syncope Syncope type: unspecified Qualified Code(s): R55 - Syncope and collapse (2) Acute cystitis Hematuria presence: without hematuria Qualified Code(s): N30.00 - Acute cystitis without hematuria
--- OUTSIDE RECORDS SUMMARY | 2024-04-29 10:03 | External Medical Summary | Summary of Care ---
Author Name Unknown Organization [facility] [address] [address] Phone [phone] Care Team Providers Care Surgical Instrument Technician Name Role Phone Marecll Landry DO Primary Care Provider Encounter Details Date Type Department Care Team (Late st Contact Info) Description 04/21/2024 Orders Only Family Practice [facility] [place] [address] [place] [phone] Marcell Landry DO [address] [place] [id number] Allergies Active Allergy Reactions Criticality Noted Date Comments Atorvastatin Calcium 02/04/2007 Muscle aches, confusion documented as of this encounter (statuses as of 04/21/2024) Medications famotidine (PEPCID) 20 MG TabletIndication s:Gastroesophage al reflux disease, esophagitis presence not specified Take 1 Tablet by mouth 2 times a day as needed for Heartburn. 60 Tab 5 7 Active dicyclomine (BENTYL) 20 MG Tablet Take 1 Tablet by mouth every 4 hours as needed. Active PreserVision AREDS Oral Capsule Take 1 Capsule by mouth in the morning. Active Travoprost (STEFFEN Free) 0.004 % Ophthalmic Solution (Travatan Z) Instill into both eyes at bedtime. 2.5 mL 6 4 Active Losartan Potassium 25 MG Oral Tablet (Cozaar)Indicati ons:Hypertension goal BP (blood pressure) < 140/80 TAKE 1 TABLET BY MOUTH EVERY DAY IN THE MORNING 90 Tablet 3 4 Active Escitalopram Oxalate 5 MG Oral Tablet (Lexapro)Indicat ions:Recurrent major depressive disorder, remission status unspecified (HCC) TAKE 1 TABLET BY MOUTH EVERY DAY IN THE MORNING 90 Tablet 3 4 Active Eliquis 5 MG Oral Tablet (Apixaban)Indica tions:Persistent atrial fibrillation (HCC) TAKE 1 TABLET BY MOUTH EVERY DAY IN THE MORNING AND AT BEDTIME 180 Tablet 3 4 Active Multi-Vitamins Oral Tablet Take 1 Tablet by mouth in the morning. Active Meclizine HCl 25 MG Oral Tablet (Antivert)Indica tions:Vertigo Take 1 Tablet by mouth daily as needed for Dizziness or Nausea. 30 Tablet 3 4 Active hydrOXYzine HCl 10 MG Oral Tablet (Atarax)Indicati ons:Chronic pruritus Take 1 Tablet by mouth every 6 hours as needed for Itching. 40 Tablet 2 4 Active Ondansetron HCl 4 MG Oral Tablet (Zofran)Indicati ons:Nausea Take 1 Tablet by mouth every 8 hours as needed for Nausea. 10 Tablet 4 Active oxygen IN GAS Administer 2 L/min(Oxygen) into nostril. Active Ventolin HFA 108 (90 Base) MCG/ACT Inhalation Aerosol Solution Inhale 2 Puffs by mouth every 4 hours as needed for Dyspnea or Wheezing. 18 g 3 4 05/03/20 24 Active Additional Information Patient not taking.Reported on 03/19/2024 Metoprolol Succinate ER 25 MG Oral Tablet Extended Release 24 Hour (toPROL XL) TAKE 3 TABLETS BY MOUTH IN THE MORNING AND 3 TABLETS BEFORE BEDTIME. 540 Tablet 3 4 Active Pravastatin Sodium 20 MG Oral Tablet (Pravachol)Indic ations:Dyslipide sarai, goal to be determined TAKE 1 TABLET BY MOUTH EVERY DAY IN THE EVENING 90 Tablet 3 4 Active Spironolactone 25 MG Oral Tablet (Aldactone)Indic ations:HTN, goal below 140/90 TAKE 1/2 TABLET BY MOUTH EVERY MORNING 45 Tablet 2 4 Active Levothyroxine Sodium 25 MCG Oral Tablet (Levoxyl)Indicat ions:Hypothyroid ism, postablative TAKE 1/2 TABLET BY MOUTH DAILY. (AT LEAST 30 MIN PRIOR TO BREAKFAST OR OTHER MEDS) 45 Tablet 3 4 Active Furosemide 20 MG Oral Tablet (Lasix)Indicatio ns:HTN, goal below 140/90 TAKE 1 TAB BY MOUTH ONCE A DAY ON SATURDAY, SATURDAY, AND SATURDAY ONLY. 36 Tablet 2 4 Active LORazepam 0.5 MG Oral Tablet (Ativan)Indicati ons:Primary insomnia TAKE 1 TABLET BY MOUTH AT BEDTIME NEEDED FOR INSOMNIA 90 Tablet 1 4 Active documented as of this encounter (statuses as of 04/21/2024) Active Problems Problem Noted Date Diagnosed Date Chronic heart failure with preserved ejection fr action 03/26/2024 Pulmonary hypertension 03/26/2024 Heart failure with reduced left ventricular func tion 10/17/2021 Persistent atrial fibrillation 08/14/2021 Cardiac pacemaker in situ 08/14/2021 Stage 3a chronic kidney disease 04/04/2020 Overview: Per CKD protocol - Per CKD protocol Major depressive disorder, recurrent, unspecifie d 03/18/2019 MAHNAZ (generalized anxiety disorder) 12/18/2017 Multinodular goiter 10/04/2016 PSVT (paroxysmal supraventricular tachycardia) 0 2016 History of thrombosis of leg 12/05/2015 History of colon polyps 10/31/2015 Overview (11/22/2015): 10/26/2015: tubular adenoma, 2 mm prox descending colon repeat 5 years History of pulmonary embolus (PE) 09/28/2015 GERD (gastroesophageal reflux disease) 4 Dyslipidemia, goal LDL below 100 09/15/2013 H/O Graves' disease 08/12/2013 Hypothyroidism, 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 Overview (02/28/2013): 01/30/12: Treated with [id number] mCi [facility] Right bundle branch block 06/28/2009 Mitral valve regurgitation 03/02/2009 Overview (03/06/2009): mild to mod pulmonary hypertension on echo Trigeminal neuralgia 05/27/2006 Irritable bowel syndrome 05/08/2005 HTN, goal below 140/90 02/12/2005 Lichenification 09/03/2002 Other specified glaucoma 08/12/2002 documented as of this encounter (statuses as of 04/21/2024) Resolved Problems Problem Noted Date Diagnosed Date Resolved Date Permanent atrial fibrillation 06/17/2023 12/31/2023 Polyneuropathy in other dise ases classified elsewhere 03/23/2020 12/31/2023 Other pulmonary embolism wit hout acute cor pulmonale 03/23/2020 12/31/2023 Kidney disease, chronic, sta ge III (GFR 30-59 ml/min) 11/03/2018 04/07/2020 Overview: Per CKD protocol Oth athscl [place] arteries o f extremities, bilateral legs 09/10/2018 12/31/2023 Intractable migraine with au ra without status migrainosus 08/23/2017 09/10/2018 Right bundle branch block (RBBB) 02/28/2015 10/02/2016 Paroxysmal atrial fibrillation 09/20/2014 01/30/2022 Pulmonary embolism 09/14/2014 8 Overview (06/03/2015): 09/14/2014: PE bilateral, associated with right heart strain, recent right knee surgery, anticoagulate for 12 months Atrial fibrillation 09/14/2014 09/21/19 15 Venous thrombosis 09/14/2014 12/05/2015 Overview (12/05/2015): Right calf after right knee surgery Warfarin anticoagulation 09/14/2014 Overview (06/03/2015): 09/14/2014: PE bilateral, associated with right heart [...] 06/28/2009 07/23/2017 Benign neoplasm of colon 12/31/2008 Overview (11/22/2015): 11/14/2015: tubular adenoma, 2 mm prox descending colon repeat 5 years 12/31/2008: adenomatous/repeat colonoscopy in 5 yrs Osteoporosis 02/29/2008 04/06/2016 Goiter 01/09/2008 09/10/2018 Dyslipidemia, goal to be determined 09/03/2006 12/31/2023 No advance directive on file 01/22/2005 09/10/2018 Overview (01/22/2005): No, Advance Directive brochure given to patient. Major depressive disorder 01/12/2003 Overview (03/19/2017): ICD-10 update of inactive term CLASSICAL MIGRAINE WITH INTR ACTABLE MIGRAINE, SO STATED 08/23/2017 Toxic nodular goiter 015 Overview (02/26/2008): suppressed TSH, toxic nodule noted documented as of this encounter (statuses as of 04/21/2024) Immunizations Name Administration Dates Next Due COVID-19 mRNA, LNP-s, No Pre serve, 2-Dose Series ([email or web address]) 05/02/2021,08/13/2020,07/23/2020 COVID-19, LNP-s, No Preserve , Kishor-sucrose, Ages 12+ ([email or web address]) 10/31/2021 Covid-19, Mrna, Lnp-s, Pf, B ivalent, 30 Mcg, IM, 12 yrs and above ([email or web address]) 04/23/2022 Pneumococcal Conjugate Vacc, 13 Valent (Prevnar) 07/28/2014 Pneumococcal Polysaccharide PPV23 (Pneumovax) 02/27/2006 Seasonal Influenza Vac., MDV , IM, 0.5 mL (Fluzone) 02/03/2015,03/02/2014,03/14/2013,11/0 05/2011,03/29/2011,03/07/2010,02/19/20 09,03/30/2008,03/31/2007,04/09/2006 03/29/2012 Seasonal Influenza, High Dos e, Trivalent, PF, IM (Fluzone HD) 02/03/2024 Seasonal Influenza, PF, 6 M & above, IM , (FluLaval or Fluzone) 02/09/2020,03/12/2018,02/18/2017 Seasonal Influenza, Quadriva lent Hd (Fluzone Hd) 01/30/2023,03/03/2022,03/11/2021 Seasonal Influenza, Quadriva lent, No Preserve, IM 04/06/2016 Seasonal Influenza, Trivalen t, Adjuvanted, 65+ YRS, PF, (Fluad) 03/18/2019 TD - Tetanus/Diptheria (ADULT) 12/29/2000 TDAP [...] in the Last Year Never true 01/12/2019 Comments No Sex and Gender Information Value Date Recorded Sex Assigned at Female 09/10/2018 8:13 AM EDT Legal Sex Female 4:57 AM EST Gender Identity Female 09/10/2018 8:13 AM EDT Sexual Orientation Straight 09/10/2018 8: 13 AM EDT Occupation Industry Job Start Date Job End Date retired- 2001 Not on file Not on file Not on file Not on file Not on file Not on file Not on file documented as of this encounter Plan of Treatment Upcoming Encounters Date Type Department Care Team (Late st Contact Info) Description 07/28/2024 9:20 AM EST Office Visit Family Practice [facility] [place] [address] [place] [phone] Marecll Landry, DO [address] [place] [address] 08/03/2024 10:00 AM EDT Office Visit Pulmonary Medicine, [facility] [address] [place] [address] Armando Chapa MD [address] [place] [address] 09/28/2024 9:30 AM EDT Office Visit Cardiology, [facility] [address] [place] [address] Radha Venegas, RANDEE [address] [place] [phone] 03/29/2025 9:30 AM EST Office Visit Cardiology, [facility] [address] [place] [address] Harry Ames, [address] [place] [address] Health Maintenance Due Date Last Done Comments Adult Wellness Visit 2007 DTap/Tdap Vaccines (2 - Td or Tdap) 11/24/2022 11/24/2012, 12/29/2000, 12/29/2000 Depression Monitoring 05/07/2023 05/07/2022 DXA Scan 10/10/2023 10/09/2016, 02/25, 03/22/2014, Additional history exists CKD HGB USE SMARTSET 99930 11/06/202311/05, 09/07/2021, 08/31/2020, Additional history exists CKD PHOS USE SMARTSET 19859 11/06/202310/25, 04/17/2021, 03/20/2019, Additional history exists COVID-19 Vaccine ( season) 2024 03/09/2023, 04/23/2022, 10/31/2021, Additional history exists GFR 04/25/2024 10/25/2023, 05/28, 11/05/2022, Additional history exists TSH 06/17/2024 06/17/2023, 10/25, 09/07/2021, Additional history exists Albumin/Creatinine Ratio 03/03/2025 024, 11/05/2022, 01/18/2022 Pneumococcal Vaccine: 65+ Years Completed 07/28/2014, 02/27/2006 RETIRED - COLONOSCOPY-EVERY 5 YRS AGES 18-100 Discontinued 10/26/2015, 10/26/2015, 12/31/2008, Additional history exists Zoster Vaccines Completed 07/15/2019, 04/27, 12/11/2018 Influenza Vaccine (FLU shot) Completed 02/03/2024, 01/30/2023, 03/03/2022, Additional history exists HPV (Gardasil) Vaccine Aged Out No lo [...] Procedure Name Priority Date/Time Associated Diagnosis Comments MAMMOGRAM SCREENING BILATERAL Routine 04/20/2024 documented in this encounter Results * MAMMOGRAM SCREENING BILATERAL (04/20/2024) Anatomical Region Laterality Modality Breast Bilateral Other 04/20/2024 us Marcell Landry DO RAD MAMMOGRAPHY Final Resul t documented in this encounter Care Teams Surgical Instrument Technician Relationship Specialty Start Date End Date Marcell Landry DO [address] [facility] [place] [address] PCP - General Family Medicine 11/07/16 documented as of this encounter
[2024-04-29 15:28] VITALS: TEMP 97.9
[2024-04-29] MEDS: LOPERAMIDE HCL 2 MG CAP PO PRN (20:20)
[2024-04-30 08:21] VITALS: BP 139/82; PULSE 70; RESP 20; O2SAT 97
--- NOTE | 2024-04-30 09:46 | Orthopedic Consultation ---
Date of Consultation April 30, 2024 Assessment & Plan (1) Left scapula fracture: (2) Hypertension, accelerated: (3) Status post biventricular pacemaker: (4) Chronic systolic CHF (congestive heart failure): (5) Cardiac pacemaker in situ: (6) Syncope: Plan This is an 84-year-old female who was admitted for syncope workup after a fall that occurred at home. During her workup, CT scan of the chest did demonstrate a minimally displaced, comminuted fracture of the left scapular body. Orthopedics was consulted for this. On my evaluation, the patient has no open wounds. She does have tenderness palpation in this area, and she does have some ecchymosis noted. I had a long discussion the patient regarding the nature of this injury. We discussed in great detail the pathoanatomy, pathophysiology, treatment options. Considering this patient's age, physiologic demand, and the fact that the fracture is extra-articular, my recommendation for her is nonoperative management. I expressed to her that she can use the sling as needed for comfort, but I would not use it longer than about 2 weeks and even while she is in the sling, I encouraged her to practice elbow and shoulder and wrist range of motion so as to prevent stiffness. We will have the physical therapist show her how to do this today and she will follow-up with me in 2 weeks with new x-rays. the patient can bear weight on the left upper extremity as tolerated History of Present Illness Reason for Consultation: Left scapular body fracture Attending Physician: Guerda Estrella MD History of Present Illness Patient is an 84-year-old female with prior history of CHF with pacemaker because of tachyarrhythmia/atrial fibrillation status post cardioversion, history of pulmonary artery hypertension, hypothyroidism and hypertension, who is currently anticoagulated on Eliquis, patient was brought in because due to syncope with LOC. She had been admitted for workup for this and on imaging of the chest on CT scan, a scapular body fracture was noted on the left. The patient also noted significant bruising in that area. She is in place into a sling. Orthopedics was consulted for this condition. On my evaluation today, the patient notes that she does not feel lightheaded. She notes that she has mild pain in her shoulder with direct palpation, but resting in her sling she does not have any pain. She denies numbness or tingling in the upper extremity.. Allergies Allergy/AdvReac Type Severity Reaction Status Date / Time atorvastatin AdvReac Intermediate "legs Verified 04/28/24 13:16 don't want to move." Home Medications Medication Instructions Recorded Confirmed Type aspirin 81 mg tablet,delayed 81 mg PO QAM 05/11/19 04/28/24 History release calcium 500 mg (as 1 tab PO QDL 05/11/19 04/28/24 History carbonate)-vitamin D3 5 mcg (200 unit) tablet (Calcium 500 + D) escitalopram oxalate 5 mg tablet 5 mg PO QDL 05/11/19 04/28/24 History pravastatin 20 mg tablet 20 mg PO QPM 05/11/19 04/28/24 History travoprost 0.004 % eye drops 1 drp ophthalmic (eye) PM 05/11/19 04/28/24 History (Travatan Z) levothyroxine 25 mcg tablet 12.5 mcg PO DAILY 05/12/19 04/28/24 History lorazepam 0.5 mg tablet 0.5 mg PO HS PRN Insomnia 05/12/19 04/28/24 History spironolactone 25 mg tablet 12.5 mg (1/2 x 25 mg) PO QAM #0 05/15/19 04/28/24 Rx tabs losartan 25 mg tablet 25 mg PO DAILY 12/26/21 04/28/24 History apixaban 5 mg tablet (Eliquis) 5 mg PO BID #60 tabs 01/02/22 04/28/24 Rx metoprolol succinate 25 mg 75 mg (3 x 25 mg) PO BID #60 tabs 01/02/22 04/28/24 Rx tablet,extended release 24 hr multivitamin 1 tab PO DAILY 11/10/22 04/28/24 History furosemide 20 mg tablet (Lasix) 20 mg PO 3XWK 01/02/24 04/28/24 History meclizine 25 mg tablet 25 mg PO DAILY PRN Dizziness or 04/28/24 04/28/24 History Nausea nitrofurantoin 100 mg PO BID 5 days #10 caps 04/30/24 Rx monohydrate/macrocrystals 100 mg capsule Patient History Medical History (Updated 04/29/24 @ 08:53 by Guerda Estrella MD) History of cardioversion Hypothyroidism Surgical History (Updated 04/28/24 @ 14:17 by Guerda Estrella MD) Hx of arthroscopic knee surgery RIGHT Hx of laminectomy LUMBAR Family History Father Coronary heart disease Brother Diabetes Sister Thyroid cancer Social History Smoking Status: Never smoker Second Hand Exposure: No; Do You Dip or Chew Tobacco: No; Hx Alcohol Use: No Hx Substance Use: No Preferred Language: Telugu Communication Ability: Effective Visual Impairment: No Limitations Hearing Ability: Normal Extension Course Counselor Required: No Beliefs That Will Affect Care: None and Church marital status: Current Living Situation: Family Current Living Situation Comment: Lives with son current occupational status: retired How many Children do You have: 3 Other Information That Helps Us Care for You: No Feels Safe at Home: No Is there a partner from a previous relationship who is making you feel unsafe now?: No Any Concerns about Your Family Situation: No Would You Like to Speak to Someone About Your Situation: No Safety Concerns: Feels Safe At This Time Assistive Devices: Cane, Raised Toilet Seat and Stair Lift Review of Systems Review of Systems: All systems reviewed & are unremarkable except as noted in HPI & below Physical Exam Physical Exam: Left upper extremity: Ecchymosis without open wound to the left scapula region on her upper back. She is tender to palpation in this area. Nontender over the proximal humerus. Demonstrates active painless range of motion of the wrist, elbow. She demonstrates some limited shoulder motion, but extreme motions are somewhat painful. AIN, PIN, radial, median, ulnar motor intact. +2 radial pulse Results & Data Vital Signs (Past 12 Hours) Vital Signs Temp Pulse Resp BP Pulse Ox O2 Del Method 04/30/24 08:20 36.6 C 70 20 139/82 97 Room Air 04/29/24 22:34 36.6 C 69 18 120/67 91 Room Air Diagnostic Findings Left shoulder XR and CT chest were personally interpreted and reviewed. The x- ray does not demonstrate any acute osseous abnormality, however the CT scan of the chest does demonstrate an extra-articular minimally displaced comminuted fracture of the left scapular body. (1) Left scapula fracture Encounter type: initial encounter Fracture alignment: displaced Fracture type: closed Scapula location: body Qualified Code(s): S42.112A - Displaced fracture of body of scapula, left shoulder, initial encounter for closed fracture (6) Syncope Syncope type: unspecified Qualified Code(s): R55 - Syncope and collapse
--- NOTE | 2024-04-30 09:53 | Discharge Summary ---
Discharge Summary Date of Service April 30, 2024 Principal Dx & Hospital Course #1 = Principal Diagnosis (1) Syncope: (2) Acute cystitis: (3) Chronic systolic CHF (congestive heart failure): (4) Status post biventricular pacemaker: (5) Hypothyroidism (acquired): (6) Hypertension, accelerated: Notes For Next Care Provider Medication Changes From Visit Nitrofurantoin 100 mg twice daily for 5 days Admission HPI Per Admitting Provider Patient is an 84-year-old female with prior history of congestive heart failure with baseline ejection fraction of 40 to 45% as of 2021, status post dual-chamber pacemaker because of tachyarrhythmia/atrial fibrillation status post cardioversion, history of pulmonary artery hypertension, hypothyroidism and hypertension, who is currently anticoagulated on Eliquis, patient was brought in because yesterday after coming from bathroom, she suddenly lost her consciousness of short period of time although she does not know the exact duration that she was out. She was found by her son who lives with her. She did not have any fogginess or confusion right off, did not recall having had any chest pain or shortness of breath or nausea or vomiting or palpitation prior to the event. This has not happened before. She does not know what happened however she tells me that right after the event her blood pressure was found to be around 200 mmHg and this has been on and off happening as she is known to have labile blood pressure. She hit her head as a result of a fall but did not sustain injury, she also think that she hit her dresser with her shoulder and she had some discomfort so she came to the emergency room, patient was found to have a fracture of community top over the left scapula, orthopedic surgery was consulted and immobilization was not suggested. Patient was found to have urinary tract infection, urine culture eventually came out contaminated but because of symptoms, decided to treat this with 5 days of nitrofurantoin, patient was seen and examined, in regard to her fall, I think this was syncopal but it was likely vasovagal, patient was given education on how to prevent this in the future, after the consultation by orthopedics, patient can be discharged home. Discharge Exam VITALS: Reviewed. WEIGHT/BMI reviewed. GEN: Healthy appearing, well-developed, NAD. CV: RRR, no m/r/g. LUNGS: CTAB, no w/r/c. ABD: Soft, NT/ND, NBS, no masses or organomegaly. : N/A Extremity: Status post sling over the left upper extremity Updated Medication List Medication Instructions Recorded Confirmed Type aspirin 81 mg tablet,delayed 81 mg PO QAM 05/11/19 04/28/24 History release calcium 500 mg (as 1 tab PO QDL 05/11/19 04/28/24 History carbonate)-vitamin D3 5 mcg (200 unit) tablet (Calcium 500 + D) escitalopram oxalate 5 mg tablet 5 mg PO QDL 05/11/19 04/28/24 History pravastatin 20 mg tablet 20 mg PO QPM 05/11/19 04/28/24 History travoprost 0.004 % eye drops 1 drp ophthalmic (eye) PM 05/11/19 04/28/24 History (Travatan Z) levothyroxine 25 mcg tablet 12.5 mcg PO DAILY 05/12/19 04/28/24 History lorazepam 0.5 mg tablet 0.5 mg PO HS PRN Insomnia 05/12/19 04/28/24 History spironolactone 25 mg tablet 12.5 mg (1/2 x 25 mg) PO QAM #0 05/15/19 04/28/24 Rx tabs losartan 25 mg tablet 25 mg PO DAILY 12/26/21 04/28/24 History apixaban 5 mg tablet (Eliquis) 5 mg PO BID #60 tabs 01/02/22 04/28/24 Rx metoprolol succinate 25 mg 75 mg (3 x 25 mg) PO BID #60 tabs 01/02/22 04/28/24 Rx tablet,extended release 24 hr multivitamin 1 tab PO DAILY 11/10/22 04/28/24 History furosemide 20 mg tablet (Lasix) 20 mg PO 3XWK 01/02/24 04/28/24 History meclizine 25 mg tablet 25 mg PO DAILY PRN Dizziness or 04/28/24 04/28/24 History Nausea nitrofurantoin 100 mg PO BID 5 days #10 caps 04/30/24 Rx monohydrate/macrocrystals 100 mg capsule Hospital Stay Data Consultations 04/28/24 13:57 ED Decision to Admit Stat Diagnostic Imagining Performed 04/28/24 09:39 CT cervical spine wo con Stat CT chest diagnostic w con Stat CT head/brain wo con Stat Pending Results Patient Have Any Pending Studies at Discharge: No Discharge Instructions Given to Patient (Per Discharging Provider) No further instruction Total Time Total Time Spent Total Time Spent (In Minutes): More than 40-minute
== END 2024-04-30 15:21 | disposition home health service (06) | DRG 312 ==
LOC: 2E 08:52 → ED 08:52 → 2E 15:21

== ENCOUNTER 2024-12-17 09:45 | Observation (INO) ==
--- NOTE | 2024-12-17 10:24 | Emergency Department Note ---
Impression & Plan Vomiting and diarrhea, Acute UTI, Weakness ED Provider Note NAME: SHARIF QUACH AGE: 84 SEX: F : 1940 ARRIVES VIA: Walk-In INFORMANT: Patient ED PROVIDER(S): Manish Conway DO CHIEF COMPLAINT: Nausea, vomiting and diarrhea HPI: Patient is an 84-year-old female with a past medical history of hypertension, cystitis, syncope, chronic A-fib, tachybradycardia syndrome and hypertension who presents to the ER for nausea, vomiting, and diarrhea. Symptoms started late Saturday into Saturday. It has been persistent. She denies any headache or change in vision. No chest pain or shortness of breath. Denies any belly pain. No dysuria, urgency, or frequency. No other exacerbating or remitting factors. ADDITIONAL HISTORY OBTAINED: Per HPI Chronic Medical/Social Conditions Affecting Care: Per HPI PAST MEDICAL HISTORY:See Below PAST SURGICAL HISTORY:See Below FAMILY HISTORY:See Below SOCIAL HISTORY:See Below HOME MEDICATIONS:See Below ALLERGIES:See Below VITALS:See Below PHYSICAL EXAMINATION: GENERAL: Sitting up in bed, alert, well appearing, well nourished, no distress, non-toxic EYE EXAM: normal conjunctiva. PERRL and EOM's grossly intact. OROPHARYNX: no exudate, no erythema, lips, buccal mucosa, and tongue normal and mucous membranes are moist NECK: supple, no nuchal rigidity, no adenopathy, non-tender LUNGS: Clear to auscultation. Normal chest wall mechanics HEART: no murmurs, S1 normal and S2 normal ABDOMEN: abdomen soft, non-tender, normo-active bowel sounds, no masses, no rebound or guarding. UPPER EXTREMITIES: upper extremities are grossly normal. LOWER EXTREMITIES: No pitting edema. NEURO EXAM: Normal sensorium, cranial nerves II-XII grossly intact, normal speech, no gross weakness of arms, no gross weakness of legs. MEDICAL DECISION MAKING: Patient is an 84-year-old female who presents ER for the above-stated complaint. IV was established blood work was obtained. Labs showed no significant leukocytosis and a mild anemia at 11.1. BMP with LFTs bilirubin troponin was negative. Lipase was normal. UA does suggest a UTI. Patient was given 2 g Rocephin. She was given IV fluids and 2 doses of Zofran for the nausea. CT abdomen pelvis showed no acute pathology. Patient was updated at bedside discussed with the hospitalist for further evaluation and management treatment. Patient was intermittently hypoxic. Does have a history of PEs and A-fib. He is on Eliquis. She has not missed any doses. Will not explore PE any further. Will defer to the hospitalist for further evaluation management treatment. Consults/Care Managements Discussions: Per MDM Triage Nursing notes reviewed. Limited review of prior medical records performed Vital Signs: reviewed and remarkable for HTN Differential diagnosis: Differential diagnoses includes but is not limited to gastritis, peptic ulcer disease, GERD, gallbladder disease, pancreatitis, small bowel obstruction, appendicitis, diverticulitis, hernia, urinary tract infection, torsion, perforation, trauma, infectious. ER treatment provided: See below Diagnostics interpreted by me include EKG and cardiac monitoring as listed below: -Cardiac Monitoring: An order was placed for continuous cardiac monitoring. The monitor shows a rate of 70 with sinus rhythm. -ECG: Paced rhythm rate of 70 Left axis No PVCs QTc 507 -Laboratory studies:Interpreted by me as stated above in MDM and shown below. Imaging studies: Xrays: As interpreted by me: Portable AP upright 1 view of the chest shows no focal infiltrate CTs show: CT abdomen pelvis per radiologist described above Procedures:none Critical Care: None Past Med/Surg History Problem List (Updated 12/17/24 @ 13:50 by Manish Conway DO) Weakness (Acute) Acute UTI (Acute) Vomiting and diarrhea (Acute) Cardiac pacemaker in situ (Acute) Acute UTI (Acute) Left scapula fracture (Acute) Acute cystitis Hypertension, accelerated Hypothyroidism (acquired) Status post biventricular pacemaker Chronic systolic CHF (congestive heart failure) Syncope (Acute) Abdominal pain (Acute) Diarrhea (Acute) Hypoxia (Acute) Cardiac pacemaker in situ Pulmonary hypertension Hypoxia Left knee DJD Chronic atrial fibrillation Acute respiratory failure with hypoxia Acute HFrEF (heart failure with reduced ejection fraction) Osteoarthritis of right knee DJD (degenerative joint disease), lumbar Tachy-hari syndrome CKD (chronic kidney disease), stage III Post-surgical hypothyroidism Graves disease Diastolic dysfunction Sick sinus syndrome (Acute) Hari-tachy syndrome (Acute) Symptomatic bradycardia Recommend dual chamber pacemaker; discussed the procedure and potential risks with the patient today; she expressed an understanding is agreed to the procedure; NPO after midnight with hopefully procedure tomorrow afternoon as long as INR is low 2 range Hold coreg and sotalol Paroxysmal atrial fibrillation Pt with pAF on low dose sotalol due to bradycardia; hold coumadin; reverse the INR slightly today give Vitamin K 2.5mg IV now, have pt eat broccoli or spinach today for lunch and breakfast to try and ensure INR is in low 2 range for tomorrows potential pacemaker Encounter for pre-operative examination Myalgia (Chronic) Headache (Acute) Calf pain (Acute) HTN (hypertension) Nausea & vomiting (Acute) Pulmonary embolism, bilateral (Acute) HTN (hypertension) (Chronic) Hyperlipidemia (Chronic) Glaucoma (Chronic) Migraine (Chronic) OCAS MIGRAINES IBS (irritable bowel syndrome) (Chronic) Goiter (Chronic) THYROID GOITER AND WATCING Osteoporosis (Chronic) Mitral valve regurgitation (Chronic) FOLLOW WITH DR. ARMIJO Esophageal reflux (Chronic) Depression (Chronic) OCAS Arthritis (Chronic) Pulmonary embolism (Acute) DX 2015 TAKES WARFARIN Atrial fibrillation with rapid ventricular response FOLLOW WITH DR ARMIJO Medical History (Updated 12/17/24 @ 13:50 by Manish Conway DO) History of cardioversion Hypothyroidism Surgical History Hx of arthroscopic knee surgery RIGHT Hx of laminectomy LUMBAR Family History Father Coronary heart disease Brother Diabetes Sister Thyroid cancer Social History Smoking Status: Never smoker Second Hand Exposure: No; Do You Dip or Chew Tobacco: No; Hx Alcohol Use: No Hx Substance Use: No Preferred Language: Emirati Communication Ability: Effective Visual Impairment: No Limitations Hearing Ability: Normal Rn Cardiology Required: No Beliefs That Will Affect Care: None and Restorationist marital status: Current Living Situation: Family Current Living Situation Comment: Lives with son current occupational status: retired How many Children do You have: 3 Feels Safe at Home: Yes Assistive Devices: Cane, Raised Toilet Seat and Stair Lift Allergies Allergies Allergy/AdvReac Type Severity Reaction Status Date / Time atorvastatin AdvReac Intermediate "legs Verified 04/28/24 13:16 don't want to move." Home Meds Home Medications Medication Instructions Recorded Confirmed aspirin 81 mg tablet,delayed 81 mg PO QAM 05/11/19 12/17/24 release calcium 500 mg (as 1 tab PO QDL 05/11/19 12/17/24 carbonate)-vitamin D3 5 mcg (200 unit) tablet (Calcium 500 + D) escitalopram oxalate 5 mg tablet 5 mg PO QDL 05/11/19 12/17/24 pravastatin 20 mg tablet 20 mg PO QPM 05/11/19 12/17/24 travoprost 0.004 % eye drops 1 drp ophthalmic (eye) PM 05/11/19 12/17/24 (Travatan Z) levothyroxine 25 mcg tablet 12.5 mcg PO DAILY 05/12/19 12/17/24 lorazepam 0.5 mg tablet 0.5 mg PO HS PRN Insomnia 05/12/19 12/17/24 losartan 25 mg tablet 25 mg PO DAILY 12/26/21 12/17/24 multivitamin 1 tab PO DAILY 11/10/22 12/17/24 furosemide 20 mg tablet (Lasix) 20 mg PO 3XWK 01/02/24 12/17/24 meclizine 25 mg tablet 25 mg PO DAILY PRN Dizziness or 04/28/24 12/17/24 Nausea Previous Rx's Medication Instructions Recorded spironolactone 25 mg tablet 12.5 mg (1/2 x 25 mg) PO QAM #0 05/15/19 tabs apixaban 5 mg tablet (Eliquis) 5 mg PO BID #60 tabs 01/02/22 metoprolol succinate 25 mg 75 mg (3 x 25 mg) PO BID #60 tabs 01/02/22 tablet,extended release 24 hr Results & Data (ED) Vital Signs Vital Signs - 24 hr 12/17/24 09:46 12/17/24 09:46 12/17/24 10:08 Temperature 36.6 C Temperature Source Temporal Artery Scan Pulse Rate 68 Respiratory Rate 18 16 Blood Pressure 151/76 H Blood Pressure Mean 101 Pulse Oximetry 93 97 Oxygen Delivery Method Room Air Sepsis Recent Fever Within 48 Hours No Sepsis New/Unexplained Change in Mental Status N/A Sepsis Action Taken by Nursing No Action Required 12/17/24 10:22 Temperature Temperature Source Pulse Rate 69 Respiratory Rate Blood Pressure Blood Pressure Mean Pulse Oximetry Oxygen Delivery Method Sepsis Recent Fever Within 48 Hours Sepsis New/Unexplained Change in Mental Status Sepsis Action Taken by Nursing Laboratory Data 12/17/24 10:07 12/17/24 10:07 Lab Results 12/17/24 12/17/24 Range/Units 10:07 11:18 WBC 10.36 (4.8-10.8) K/ul RBC 4.48 (4.20-5.40) M/uL Hgb 11.1 L (12.0-16.0) g/dl Hct 35.4 L (37.0-47.0) % MCV 79.0 L (80.0-100.0) fL MCH 24.8 L (25.0-34.0) pg MCHC 31.4 L (32.0-36.0) g/dL RDW Std Deviation 44.9 (36.4-46.3) fL RDW Coeff of Yadira 15.9 H (11.5-14.5) % Plt Count 396 (130-400) K/uL MPV 9.2 L (9.4-12.4) fL Immature Gran % (Auto) 0.6 % Neut % (Auto) 81.6 % Lymph % (Auto) 10.7 % [place] % (Auto) 6.5 % Eos % (Auto) 0.3 % Baso % (Auto) 0.3 % Neut # (Auto) 8.46 H (1.40-6.50) K/uL Lymph # (Auto) 1.11 L (1.20-3.40) K/uL [place] # (Auto) 0.67 H (0.11-0.59) K/uL Eos # (Auto) 0.03 (0.00-0.50) K/uL Baso # (Auto) 0.03 (0.00-0.20) K/uL Immature Gran # (Auto) 0.06 (0.01-0.20) K/uL Sodium 137 (136-145) mmol/L Potassium 3.8 (3.5-5.1) mmol/L Chloride 103 (98-107) mmol/L Carbon Dioxide 23 (21-32) mmol/L Anion Gap 11 (3-11) BUN 16 (6-23) mg/dl Creatinine 1.05 (0.6-1.2) mg/dl Est Cr Clr Drug Dosing 41.1 ml/min eGFR 52.72 BUN/Creatinine Ratio 15.2 (10-20) Glucose 120 H (70-99(Fasting)) mg/dl Calcium 9.3 (8.6-10.3) mg/dl Total Bilirubin 0.9 (0.2-1.0) mg/dl AST 24 (13-39) U/L ALT 10 (7-52) U/L Alkaline Phosphatase 85 (34-104) U/L Troponin I High Sens 12.1 (0-14) pg/ml Total Protein 7.7 (6.0-8.3) gm/dl Albumin 3.9 (3.4-5.0) gm/dl Globulin 3.8 (2.5-4.0) gm/dl Albumin/Globulin Ratio 1.0 (0.9-2) Lipase 43 (11-82) U/L Urine Color Dark Yellow Urine Appearance Clear (Clear) Urine pH 5.5 (4.5-7.5) Ur Specific [place] 1.023 (1.000-1.030) Urine Protein 1+ H (Negative) Urine Glucose (UA) Negative (Negative) Urine Ketones 1+ H (Negative) Urine Blood 1+ H (Negative) Urine Nitrite Negative (Negative) Urine Bilirubin 1+ H (Negative) Urine Urobilinogen Negative (Negative) Ur Leukocyte Esterase 2+ H (Negative) Urine WBC (Auto) 6-10 H (0-5) /hpf Urine RBC (Auto) >20 H (0-2) /hpf U Hyaline Cast (Auto) 0-2 (0-2) /lpf U Epithel Cells (Auto) 3-5 H (0-2) /hpf Urine Bacteria (Auto) None Seen (None Seen) Urine Comment Administered Medications Discontinued Medications Sodium Chloride (Nss) 1,000 mls @ 999 mls/hr IV .Q1H1M ONE Stop: 12/17/24 11:14 Last Admin: 12/17/24 10:27 Dose: 999 mls/hr Documented By: ANGLE Ceftriaxone Sodium (Rocephin) 2,000 mg in 50 mls @ 100 mls/hr IV NOW STA Stop: 12/17/24 12:46 Last Admin: 12/17/24 12:35 Dose: 100 mls/hr Documented By: BIN Ioversol (Optiray 320 100ml) 94 ml IV ONCE ONE Stop: 12/17/24 11:05 Last Admin: 12/17/24 11:04 Dose: 94 ml Documented By: VIRGILIO Ondansetron HCl (Ondansetron Inj 2 Mg/Ml 2 Ml Vial) 4 mg IV NOW STA Stop: 12/17/24 12:24 Last Admin: 12/17/24 12:35 Dose: 4 mg Documented By: BIN Imaging Data Radiologist's Impression: Abdomen/Pelvis CT 12/17/24 10:[address] WITH IV CONTRAST CT DOSE: 1336.7 mGy.cm HISTORY: Acute nausea and vomiting with generalized abdominal pain n/v TECHNIQUE: Multiaxial CT images of the abdomen and pelvis were performed following the IV administration of 94 cc of Optiray, A dose lowering technique was utilized adhering to the principles of ALARA. COMPARISON STUDY: January 02, 2024 FINDINGS: Trace pleural effusions with dependent subsegmental densities favoring atelectasis/scarring. Cardiomegaly with partially imaged pacer leads and coronary artery calcifications. No pneumatosis or pneumoperitoneum. The unenhanced spleen, pancreas and right adrenal gland are unremarkable. Unchanged small left adrenal nodules measuring up to 10 mm suggestive of adenomata. Gallbladder and liver are within normal limits. Possible layering gallbladder sludge. Mild cortical thinning of the kidneys. No renal or ureteral calculi or hydronephrosis. Decompressed urinary bladder. Hysterectomy. 2.8 cm left adnexal cystic focus on image 258 is unchanged and favored to be benign. Atherosclerosis of the aorta. No lymphadenopathy. Small fundal diverticulum of the stomach. Small duodenal diverticula. No bowel obstruction or bowel wall thickening. No CT evidence of acute appendicitis. Unremarkable soft tissues. No acute fracture. IMPRESSION: 1. No acute intra-abdominal or intrapelvic abnormality. 2. No bowel obstruction or bowel wall thickening. 3. Colonic diverticulosis without acute diverticulitis. ACT 112: Negative or not required by law. The above report was generated using voice recognition software. It may contain grammatical, syntax or spelling errors. Electronically signed by: Cj Lowery M.D. 12/17/2024 11:38 AM Chest X-Ray 12/17/24 10:14 XR chest 1V portable CLINICAL HISTORY: Hypoxia. COMPARISON STUDY: Chest CT April 28, 2024. Chest radiograph December 02, 2024. FINDINGS: A left subclavian pacer is in is in place. Cardiomegaly is again noted. There is no evidence for pulmonary edema. No pneumothorax or pleural effusion is present. There is no consolidation to suggest pneumonia. IMPRESSION: No acute cardiopulmonary findings. ACT 112: Negative or not required by law. Electronically signed by: Sim Lopez M.D. 12/17/2024 10:47 AM Discharge Plan Visit Data Chief Complaint: Vomiting Stated Complaint: THROWING UP,DIARRHEA ED Provider: Manish Conway Discharge Problem: Vomiting and diarrhea, Acute UTI, Weakness Condition: Fair Forms Stand Alone Forms: [facility] ivWatch Prescriptions Prescriptions: No Action levothyroxine 25 mcg tablet 12.5 mcg PO DAILY lorazepam 0.5 mg Tablet 0.5 mg PO HS PRN (Reason: Insomnia) spironolactone 25 mg Tablet 12.5 mg PO QAM Qty: 0 0RF travoprost [Travatan Z] 0.004 % Drops 1 drp OPHTHALMIC (EYE) PM Patient Comments: Last filled 02/2024 x90 day supply aspirin 81 mg Tablet,Delayed Release (Dr/Ec) 81 mg PO QAM Patient Comments: Unable to verify OTC meds at this date/time. Rx Instructions: Unable to verify OTC meds at this date/time. pravastatin 20 mg Tablet 20 mg PO QPM escitalopram oxalate 5 mg Tablet 5 mg PO QDL calcium carbonate-vitamin D3 [Calcium 500 + D] 500 mg(1,250mg) -200 unit Tablet 1 tab PO QDL Patient Comments: Unable to verify OTC meds at this date/time. Rx Instructions: Unable to verify OTC meds at this date/time. losartan 25 mg tablet 25 mg PO DAILY metoprolol succinate 25 mg Tablet Extended Release 24 Hr 75 mg PO BID Qty: 60 0RF Eliquis 5 mg Tablet 5 mg PO BID Qty: 60 0RF multivitamin Tablet 1 tab PO DAILY Patient Comments: Unable to verify OTC meds at this date/time. Rx Instructions: Unable to verify OTC meds at this date/time. meclizine 25 mg tablet 25 mg PO DAILY PRN (Reason: Dizziness or Nausea) furosemide [Lasix] 20 mg tablet 20 mg PO 3XWK Rx Instructions: Mon/Wed/Fri Referrals Referrals: Marcell Landry, [Primary Care Provider] -
[2024-12-17] MEDS: SODIUM CHLORIDE 0.9% 1,000 ML IV ONE (10:27)
--- NOTE | 2024-12-17 10:48 | XRay Report ---
XR chest 1V portable CLINICAL HISTORY: Hypoxia. COMPARISON STUDY: Chest CT April 28, 2024. Chest radiograph December 02, 2024. FINDINGS: A left subclavian pacer is in is in place. Cardiomegaly is again noted. There is no evidenc e for pulmonary edema. No pneumothorax or pleural effusion is present. There is no consolidation to s uggest pneumonia. IMPRESSION: No acute cardiopulmonary findings. ACT 112: Negative or not required by law. Electronically signed by: Sim Lopez M.D. 12/17/2024 10:47 AM
[2024-12-17 10:49] LABS: Alanine Aminotransferase 10.0 U/L (7-52); Albumin Globulin Ratio 1.0 (0.9-2); Alkaline Phosphatase 85.0 U/L (34-104); Anion Gap 11.0 (3-11); Bilirubin,Total 0.9 mg/dl (0.2-1.0); Blood Urea Nitrogen 16.0 mg/dl (6-23); Calcium 9.3 mg/dl (8.6-10.3); Carbon Dioxide 23.0 mmol/L (21-32); Chloride 103.0 mmol/L (98-107); Creatinine Clr Calc Pharmacy 41.1 ml/min; Globulin 3.8 gm/dl (2.5-4.0); Glucose 120.0 mg/dl (70-99(Fasting)); Lipase 43.0 U/L (11-82); Potassium 3.8 mmol/L (3.5-5.1); Sodium 137.0 mmol/L (136-145); Total Protein 7.7 gm/dl (6.0-8.3)
[2024-12-17 11:03] LABS: Hematocrit (blood only) 35.4 % (37.0-47.0); Hemoglobin 11.1 g/dl (12.0-16.0); Immature Granulocytes # (auto) 0.06 K/uL (0.01-0.20); Immature Granulocytes % (auto) 0.6 %; Mean Corpuscular Hemoglobin 24.8 pg (25.0-34.0); Mean Corpuscular Volume 79.0 fL (80.0-100.0); Platelet Count 396 K/uL (130-400); RDW Standard Deviation 44.9 fL (36.4-46.3); Red Blood Count 4.48 M/uL (4.20-5.40); White Blood Count 10.36 K/ul (4.8-10.8)
[2024-12-17] MEDS: OPTIRAY 320 100ml IV ONE (11:04)
--- NOTE | 2024-12-17 11:39 | CT Scan Report ---
ABDOMEN AND PELVIS CT WITH IV CONTRAST CT DOSE: 1336.7 mGy.cm HISTORY: Acute nausea and vomiting with generalized abdominal pain n/v TECHNIQUE: Multiaxial CT images of the abdomen and pelvis were performed following the IV administrat ion of 94 cc of Optiray, A dose lowering technique was utilized adhering to the principles of ALARA. COMPARISON STUDY: January 02, 2024 FINDINGS: Trace pleural effusions with dependent subsegmental densities favoring atelectasis/scarring . Cardiomegaly with partially imaged pacer leads and coronary artery calcifications. No pneumatosis o r pneumoperitoneum. The unenhanced spleen, pancreas and right adrenal gland are unremarkable. Unchanged small left adrena l nodules measuring up to 10 mm suggestive of adenomata. Gallbladder and liver are within normal limi ts. Possible layering gallbladder sludge. Mild cortical thinning of the kidneys. No renal or ureteral calculi or hydronephrosis. Decompressed urinary bladder. Hysterectomy. 2.8 cm left adnexal cystic fo cus on image 258 is unchanged and favored to be benign. Atherosclerosis of the aorta. No lymphadenopa thy. Small fundal diverticulum of the stomach. Small duodenal diverticula. No bowel obstruction or bowel w all thickening. No CT evidence of acute appendicitis. Unremarkable soft tissues. No acute fracture. IMPRESSION: 1. No acute intra-abdominal or intrapelvic abnormality. 2. No bowel obstruction or bowel wall thickening. 3. Colonic diverticulosis without acute diverticulitis. ACT 112: Negative or not required by law. The above report was generated using voice recognition software. It may contain grammatical, syntax o r spelling errors. Electronically signed by: Cj Lowery M.D. 12/17/2024 11:38 AM
[2024-12-17 11:44] LABS: Appearance Urine Clear (Clear); Bacteria Urine Automated None Seen (None Seen); Cast Urine Automated 0-2 /lpf (0-2); Glucose Urine UA Negative (Negative); RBC Urine Automated >20 /hpf (0-2)
[2024-12-17] MEDS: cefTRIAXone SODIUM 2,000 MG/50 ML BAG IV STA (12:35)
[2024-12-17] MEDS: ONDANSETRON INJ 2 MG/ML 2 ML VIAL IV STA (12:35)
--- NOTE | 2024-12-17 14:08 | History & Physical Report ---
Date of Service December 17, 2024 Assessment & Plan (1) Hypothyroidism: (2) Acute UTI: (3) Chronic systolic CHF (congestive heart failure): (4) Pulmonary hypertension: (5) Graves disease: (6) Paroxysmal atrial fibrillation: (7) HTN (hypertension): (8) Hyperlipidemia: (9) Mitral valve regurgitation: (10) Depression: (11) Esophageal reflux: (12) Pulmonary embolism: Plan The patient is a 84-year-old female who presented to the ED on 12/13/2024 with complaints of nausea/vomiting/diarrhea x 4 days and inability to tolerate oral intake. Gastroenteritis, likely viral: Check stool studies, clear liquid diet, would like to avoid IV fluids with CHF history CT A/P negative for bowel obstruction, empiric coverage with IV ceftriaxone Zofran as needed, advance diet as tolerated Intermittent hypoxia: Unclear etiology, patient does have underlying pulmonary hypertension and CHF Will need ambulatory pulse ox prior to DC, check D-dimer/BNP, chest x-ray negative Could consider chest CTA, however, has been compliant with Eliquis and has a history of CKD Acute UTI: Await urine culture, IV Rocephin will cover Hx AF/PE: Continue metoprolol/Eliquis, telemetry monitoring Hx systolic CHF/HTN/HLD: Continue furosemide/Aldactone/statin/losartan Hx hypothyroidism: Continue Synthroid A total of 60 minutes were spent on chart review/reviewing diagnostic data/results and plan of care/discussion with consultants Full code DVT prophylaxis: Eliquis History of Present Illness Chief Complaint: Nausea/vomiting/diarrhea Primary Care Provider: Marcell Landry DO The patient is an 84-year-old male with a past medical history of chronic systolic CHF, SVT, PE on Eliquis, A-fib, severe pulmonary hypertension, severe TR, moderate MR, HTN, HLD, RBBB, CKD stage III, IBS, GERD, Graves' disease who presents to the ER on 12/13/2024 with complaints of nausea/vomiting/diarrhea that started about 4 days ago. Patient denies any associated abdominal pain. She denies any sick contacts. She denies any recent travel. She denies any recent fever/chills. Denies any chest pain/shortness of breath. Denies any blood in her stool. Reports consistent nausea and being unable to tolerate oral intake. On arrival to the ED, ER physician reports intermittent hypoxia in the 80s. She was placed on 2 L of oxygen with improvement. She denies any shortness of breath at this time. On arrival to the ED, labs remarkable for hemoglobin 11.1, glucose 120 Urinalysis positive Abdominal/pelvis CT negative for bowel obstruction Chest x-ray negative The patient will be admitted for further management of nausea/vomiting, inability to tolerate oral intake Allergies Allergy/AdvReac Type Severity Reaction Status Date / Time atorvastatin AdvReac Intermediate "legs Verified 04/28/24 13:16 don't want to move." Home Medications Medication Instructions Recorded Confirmed Type aspirin 81 mg tablet,delayed 81 mg PO QAM 05/11/19 12/17/24 History release calcium 500 mg (as 1 tab PO QDL 05/11/19 12/17/24 History carbonate)-vitamin D3 5 mcg (200 unit) tablet (Calcium 500 + D) escitalopram oxalate 5 mg tablet 5 mg PO QDL 05/11/19 12/17/24 History pravastatin 20 mg tablet 20 mg PO QPM 05/11/19 12/17/24 History travoprost 0.004 % eye drops 1 drp ophthalmic (eye) PM 05/11/19 12/17/24 History (Travatan Z) levothyroxine 25 mcg tablet 12.5 mcg PO DAILY 05/12/19 12/17/24 History lorazepam 0.5 mg tablet 0.5 mg PO HS PRN Insomnia 05/12/19 12/17/24 History spironolactone 25 mg tablet 12.5 mg (1/2 x 25 mg) PO QAM #0 05/15/19 12/17/24 Rx tabs losartan 25 mg tablet 25 mg PO DAILY 12/26/21 12/17/24 History apixaban 5 mg tablet (Eliquis) 5 mg PO BID #60 tabs 01/02/22 12/17/24 Rx metoprolol succinate 25 mg 75 mg (3 x 25 mg) PO BID #60 tabs 01/02/22 12/17/24 Rx tablet,extended release 24 hr multivitamin 1 tab PO DAILY 11/10/22 12/17/24 History furosemide 20 mg tablet (Lasix) 20 mg PO 3XWK 01/02/24 12/17/24 History meclizine 25 mg tablet 25 mg PO DAILY PRN Dizziness or 04/28/24 12/17/24 History Nausea Past Med/Surg History Problem List (Updated 12/17/24 @ 13:50 by Manish Conway DO) Weakness (Acute) Acute UTI (Acute) Vomiting and diarrhea (Acute) Cardiac pacemaker in situ (Acute) Acute UTI (Acute) Left scapula fracture (Acute) Acute cystitis Hypertension, accelerated Hypothyroidism (acquired) Status post biventricular pacemaker Chronic systolic CHF (congestive heart failure) Syncope (Acute) Abdominal pain (Acute) Diarrhea (Acute) Hypoxia (Acute) Cardiac pacemaker in situ Pulmonary hypertension Hypoxia Left knee DJD Chronic atrial fibrillation Acute respiratory failure with hypoxia Acute HFrEF (heart failure with reduced ejection fraction) Osteoarthritis of right knee DJD (degenerative joint disease), lumbar Tachy-hari syndrome CKD (chronic kidney disease), stage III Post-surgical hypothyroidism Graves disease Diastolic dysfunction Sick sinus syndrome (Acute) Hari-tachy syndrome (Acute) Symptomatic bradycardia Recommend dual chamber pacemaker; discussed the procedure and potential risks with the patient today; she expressed an understanding is agreed to the procedure; NPO after midnight with hopefully procedure tomorrow afternoon as long as INR is low 2 range Hold coreg and sotalol Paroxysmal atrial fibrillation Pt with pAF on low dose sotalol due to bradycardia; hold coumadin; reverse the INR slightly today give Vitamin K 2.5mg IV now, have pt eat broccoli or spinach today for lunch and breakfast to try and ensure INR is in low 2 range for tomorrows potential pacemaker Encounter for pre-operative examination Myalgia (Chronic) Headache (Acute) Calf pain (Acute) HTN (hypertension) Nausea & vomiting (Acute) Pulmonary embolism, bilateral (Acute) HTN (hypertension) (Chronic) Hyperlipidemia (Chronic) Glaucoma (Chronic) Migraine (Chronic) OCAS MIGRAINES IBS (irritable bowel syndrome) (Chronic) Goiter (Chronic) THYROID GOITER AND WATCING Osteoporosis (Chronic) Mitral valve regurgitation (Chronic) FOLLOW WITH DR. ARMIJO Esophageal reflux (Chronic) Depression (Chronic) OCAS Arthritis (Chronic) Pulmonary embolism (Acute) DX 2014 TAKES WARFARIN Atrial fibrillation with rapid ventricular response FOLLOW WITH DR ARMIJO Medical History (Updated 12/17/24 @ 13:50 by Manish Conway DO) History of cardioversion Hypothyroidism Surgical History Hx of arthroscopic knee surgery RIGHT Hx of laminectomy LUMBAR Family History Father Coronary heart disease Brother Diabetes Sister Thyroid cancer Social History Smoking Status: Never smoker Second Hand Exposure: No; Do You Dip or Chew Tobacco: No; Hx Alcohol Use: No Hx Substance Use: No Preferred Language: Maltese Communication Ability: Effective Visual Impairment: No Limitations Hearing Ability: Normal 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: No Beliefs That Will Affect Care: None and Moravian marital status: Current Living Situation: Family Current Living Situation Comment: Lives with son current occupational status: retired How many Children do You have: 3 Feels Safe at Home: Yes Assistive Devices: Cane, Raised Toilet Seat and Stair Lift Review of Systems Review of Systems: All systems reviewed & are unremarkable except as noted in HPI & below Physical Exam Constitutional: WD/WN, vitals as above Eyes: PERRL, conjunctivae normal, anicteric sclerae ENMT: external ear and nose normal, oropharynx normal Neck: trachea midline, no thyromegaly Respiratory: normal respiratory effort, lungs clear to auscultation Cardiovascular: RRR, no murmur, no edema Gastrointestinal (Abdomen): normal bowel sounds, soft, nontender, no hepatosplenomegaly Musculoskeletal: no cyanosis or clubbing, extremities motor strength 5/5 Skin: no rashes, warm and dry Neurologic: PERRL, EOMI, accommodation nl, no face palsy, no dysarthria Psychiatric: A+Ox3, euthymic affect Lymphatic: no cervical or axillary lymphadenopathy Results & Data Results & Data Vital Signs (Past 12 Hours) Vital Signs Temp Pulse Resp BP Pulse Ox O2 Del Method O2 Flow Rate 12/17/24 13:30 72 18 145/74 H 97 12/17/24 12:30 70 21 153/77 H 92 12/17/24 12:00 70 19 147/79 H 94 Nasal Cannula 2 12/17/24 11:54 70 19 89 L 12/17/24 11:48 70 20 167/88 H 91 12/17/24 10:22 69 12/17/24 10:08 97 Room Air 12/17/24 09:46 16 12/17/24 09:46 36.6 C 68 18 151/76 H 93 Diagnostic Findings Laboratory Results WBC 10.36 K/ul (4.8-10.8) 12/17/24 10:07 RBC 4.48 M/uL (4.20-5.40) 12/17/24 10:07 Hgb 11.1 g/dl (12.0-16.0) L 12/17/24 10:07 Hct 35.4 % (37.0-47.0) L 12/17/24 10:07 MCV 79.0 fL (80.0-100.0) L 12/17/24 10:07 MCH 24.8 pg (25.0-34.0) L 12/17/24 10:07 MCHC 31.4 g/dL (32.0-36.0) L 12/17/24 10:07 RDW Std Deviation 44.9 fL (36.4-46.3) 12/17/24 10:07 RDW Coeff of Yadira 15.9 % (11.5-14.5) H 12/17/24 10:07 Plt Count 396 K/uL (130-400) 12/17/24 10:07 MPV 9.2 fL (9.4-12.4) L 12/17/24 10:07 Immature Gran % (Auto) 0.6 % 12/17/24 10:07 Neut % (Auto) 81.6 % 12/17/24 10:07 Lymph % (Auto) 10.7 % 12/17/24 10:07 [place] % (Auto) 6.5 % 12/17/24 10:07 Eos % (Auto) 0.3 % 12/17/24 10:07 Baso % (Auto) 0.3 % 12/17/24 10:07 Neut # (Auto) 8.46 K/uL (1.40-6.50) H 12/17/24 10:07 Lymph # (Auto) 1.11 K/uL (1.20-3.40) L 12/17/24 10:07 [place] # (Auto) 0.67 K/uL (0.11-0.59) H 12/17/24 10:07 Eos # (Auto) 0.03 K/uL (0.00-0.50) 12/17/24 10:07 Baso # (Auto) 0.03 K/uL (0.00-0.20) 12/17/24 10:07 Immature Gran # (Auto) 0.06 K/uL (0.01-0.20) 12/17/24 10:07 Sodium 137 mmol/L (136-145) 12/17/24 10:07 Potassium 3.8 mmol/L (3.5-5.1) 12/17/24 10:07 Chloride 103 mmol/L (98-107) 12/17/24 10:07 Carbon Dioxide 23 mmol/L (21-32) 12/17/24 10:07 Anion Gap 11 (3-11) 12/17/24 10:07 BUN 16 mg/dl (6-23) 12/17/24 10:07 Creatinine 1.05 mg/dl (0.6-1.2) 12/17/24 10:07 Est Cr Clr Drug Dosing 41.1 ml/min 12/17/24 10:07 eGFR 52.72 12/17/24 10:07 BUN/Creatinine Ratio 15.2 (10-20) 12/17/24 10:07 Glucose 120 mg/dl (70-99(Fasting)) H 12/17/24 10:07 Calcium 9.3 mg/dl (8.6-10.3) 12/17/24 10:07 Total Bilirubin 0.9 mg/dl (0.2-1.0) 12/17/24 10:07 AST 24 U/L (13-39) 12/17/24 10:07 ALT 10 U/L (7-52) 12/17/24 10:07 Alkaline Phosphatase 85 U/L (34-104) 12/17/24 10:07 Troponin I High Sens 12.1 pg/ml (0-14) 12/17/24 10:07 Total Protein 7.7 gm/dl (6.0-8.3) 12/17/24 10:07 Albumin 3.9 gm/dl (3.4-5.0) 12/17/24 10:07 Globulin 3.8 gm/dl (2.5-4.0) 12/17/24 10:07 Albumin/Globulin Ratio 1.0 (0.9-2) 12/17/24 10:07 Lipase 43 U/L (11-82) 12/17/24 10:07 Urine Color Dark Yellow 12/17/24 11:18 Urine Appearance Clear (Clear) 12/17/24 11:18 Urine pH 5.5 (4.5-7.5) 12/17/24 11:18 Ur Specific [place] 1.023 (1.000-1.030) 12/17/24 11:18 Urine Protein 1+ (Negative) H 12/17/24 11:18 Urine Glucose (UA) Negative (Negative) 12/17/24 11:18 Urine Ketones 1+ (Negative) H 12/17/24 11:18 Urine Blood 1+ (Negative) H 12/17/24 11:18 Urine Nitrite Negative (Negative) 12/17/24 11:18 Urine Bilirubin 1+ (Negative) H 12/17/24 11:18 Urine Urobilinogen Negative (Negative) 12/17/24 11:18 Ur Leukocyte Esterase 2+ (Negative) H 12/17/24 11:18 Urine WBC (Auto) 6-10 /hpf (0-5) H 12/17/24 11:18 Urine RBC (Auto) >20 /hpf (0-2) H 12/17/24 11:18 U Hyaline Cast (Auto) 0-2 /lpf (0-2) 12/17/24 11:18 U Epithel Cells (Auto) 3-5 /hpf (0-2) H 12/17/24 11:18 Urine Bacteria (Auto) None Seen (None Seen) 12/17/24 11:18 Urine Comment 12/17/24 11:18 Impressions Abdomen/Pelvis CT 12/17/24 10:[address] WITH IV CONTRAST CT DOSE: 1336.7 mGy.cm HISTORY: Acute nausea and vomiting with generalized abdominal pain n/v TECHNIQUE: Multiaxial CT images of the abdomen and pelvis were performed following the IV administration of 94 cc of Optiray, A dose lowering technique was utilized adhering to the principles of ALARA. COMPARISON STUDY: January 02, 2024 FINDINGS: Trace pleural effusions with dependent subsegmental densities favoring atelectasis/scarring. Cardiomegaly with partially imaged pacer leads and coronary artery calcifications. No pneumatosis or pneumoperitoneum. The unenhanced spleen, pancreas and right adrenal gland are unremarkable. Unchanged small left adrenal nodules measuring up to 10 mm suggestive of adenomata. Gallbladder and liver are within normal limits. Possible layering gallbladder sludge. Mild cortical thinning of the kidneys. No renal or ureteral calculi or hydronephrosis. Decompressed urinary bladder. Hysterectomy. 2.8 cm left adnexal cystic focus on image 258 is unchanged and favored to be benign. Atherosclerosis of the aorta. No lymphadenopathy. Small fundal diverticulum of the stomach. Small duodenal diverticula. No bowel obstruction or bowel wall thickening. No CT evidence of acute appendicitis. Unremarkable soft tissues. No acute fracture. IMPRESSION: 1. No acute intra-abdominal or intrapelvic abnormality. 2. No bowel obstruction or bowel wall thickening. 3. Colonic diverticulosis without acute diverticulitis. ACT 112: Negative or not required by law. The above report was generated using voice recognition software. It may contain grammatical, syntax or spelling errors. Electronically signed by: Cj Lowery M.D. 12/17/2024 11:38 AM Chest X-Ray 12/17/24 10:14 XR chest 1V portable CLINICAL HISTORY: Hypoxia. COMPARISON STUDY: Chest CT April 28, 2024. Chest radiograph December 02, 2024. FINDINGS: A left subclavian pacer is in is in place. Cardiomegaly is again noted. There is no evidence for pulmonary edema. No pneumothorax or pleural effusion is present. There is no consolidation to suggest pneumonia. IMPRESSION: No acute cardiopulmonary findings. ACT 112: Negative or not required by law. Electronically signed by: Sim Lopez M.D. 12/17/2024 10:47 AM
--- NOTE | 2024-12-17 14:32 | Communication Note ---
Date of Service: December 17, 2024 Attending Addendum: Case reviewed with the advanced practitioner. I have personally performed a history and physical examination on the patient. I have reviewed the advanced practitioner's documentation on the date of service referenced in note, and I agree with, and take responsibility for the plan of care. please refer to her notes for full details patient seen and examined, records reviewed by myself as well on exam, patient seen resting in bed, comfortable on 2 L nasal cannula states she feels ok overall, having >5x episodes of loose non bloody BM since 2 days ago, with nausea, intermittent vomiting no abdominal pain, (+) chills had chicken barbecue with coleslaw last Saturday, started to feel off Saturday has episodes of dyspnea at home, no cough/chest pain no other symptoms VS noted and reviewed oriented x3, not in distress, speaks in sentences with no effort nor accessory muscle use normal rate, regular rhythm, no murmurs clear breath sounds bilaterally (+) hyperactive bowel sounds, non distended, soft, nontender no bipedal edema, erythema, warmth no neuro deficits all labs, imaging noted and reviewed ASSESSMENT AND PLAN> GASTROENTERITIS, VIRAL VS BACTERIAL diarrhea > 5x since Saturday CT abd/pelvis: unrevealing check stool PCR pane, C diff, Covid screen empiric IV Ceftriaxone given severity of illness, advanced age HYPOXIA mid 80s while at the ER asymptomatic lungs clear CXR no pneumonia, pulmonary edema requested RN to check patient's o2 sats on room air, via forehead pulse ox to confirm other diagnoses and plan of care as per advanced practitioner's notes I spent a total of 40 minutes coordinating, documenting, and providing care for this patient, excluding time spent in the performance of separately billed services or time spent by another provider/QHP. Richard Howell MD
[2024-12-17] MEDS ORDERED: cefTRIAXone SODIUM 1,000 MG/50 ML BAG IV SCH (17:23)
[2024-12-17] MEDS: APIXABAN 5 MG TABLET PO SCH (20:07)
[2024-12-17] MEDS: PRAVASTATIN SOD 20 MG TAB PO SCH (20:07)
[2024-12-17] MEDS: TRAVOPROST Z 0.004% OPH SOLN 2.5 ML BTL OP SCH (20:07)
[2024-12-17] MEDS: METOPROLOL SUCC 25MG EXT REL TAB PO SCH (20:07)
[2024-12-17 20:36] LABS: Influenza A virus by PCR Negative (Neg); Influenza B virus by PCR Negative (Neg); SARS CoV2 RNA(COVID-19) Ceph NEGATIVE (Negative)
[2024-12-17] MEDS: ONDANSETRON INJ 2 MG/ML 2 ML VIAL IV PRN (21:12)
[2024-12-18] MEDS: ACETAMINOPHEN 325 MG TAB PO PRN (01:05)
[2024-12-18] MEDS: LORazepam 0.5 MG TAB PO PRN (01:06)
[2024-12-18 02:46] VITALS: TEMP 97.9
[2024-12-18] MEDS: LEVOTHYROXINE SODIUM 25 MCG TABLET PO SCH (06:25)
[2024-12-18 06:39] LABS: Hematocrit (blood only) 32.5 % (37.0-47.0); Hemoglobin 10.0 g/dl (12.0-16.0); Immature Granulocytes # (auto) 0.02 K/uL (0.01-0.20); Immature Granulocytes % (auto) 0.2 %; Mean Corpuscular Hemoglobin 24.7 pg (25.0-34.0); Mean Corpuscular Volume 80.2 fL (80.0-100.0); Platelet Count 334 K/uL (130-400); RDW Standard Deviation 45.8 fL (36.4-46.3); Red Blood Count 4.05 M/uL (4.20-5.40); White Blood Count 8.09 K/ul (4.8-10.8)
[2024-12-18 07:02] LABS: Alanine Aminotransferase 8.0 U/L (7-52); Albumin Globulin Ratio 1.3 (0.9-2); Alkaline Phosphatase 65.0 U/L (34-104); Anion Gap 7.0 (3-11); Bilirubin,Total 0.6 mg/dl (0.2-1.0); Blood Urea Nitrogen 13.0 mg/dl (6-23); Calcium 8.7 mg/dl (8.6-10.3); Carbon Dioxide 23.0 mmol/L (21-32); Chloride 108.0 mmol/L (98-107); Creatinine Clr Calc Pharmacy 47.8 ml/min; Globulin 2.8 gm/dl (2.5-4.0); Glucose 92.0 mg/dl (70-99(Fasting)); Potassium 4.2 mmol/L (3.5-5.1); Sodium 138.0 mmol/L (136-145); Total Protein 6.4 gm/dl (6.0-8.3)
[2024-12-18 08:06] VITALS: RESP 17
[2024-12-18] MEDS: LOSARTAN POTASSIUM 25 MG TAB PO SCH (08:26)
[2024-12-18] MEDS ORDERED: SPIRONOLACTONE 12.5 MG TAB PO SCH (09:00)
[2024-12-18] MEDS ORDERED: FUROSEMIDE 20 MG TAB PO SCH (09:00)
[2024-12-18] MEDS: ASPIRIN 81 MG ECTAB PO SCH (09:29)
[2024-12-18] MEDS: ESCITALOPRAM OXALATE 10 MG TAB PO SCH (12:46)
[2024-12-18] MEDS: cefTRIAXone SODIUM 2,000 MG/50 ML BAG IV SCH (12:46)
--- NOTE | 2024-12-18 13:52 | Discharge Summary ---
Discharge Summary Date of Service December 18, 2024 Principal Dx & Hospital Course #1 = Principal Diagnosis (1) Acute infective gastroenteritis: (2) Pulmonary hypertension: (3) Hypothyroidism: (4) Chronic systolic CHF (congestive heart failure): (5) Graves disease: (6) Paroxysmal atrial fibrillation: (7) HTN (hypertension): (8) Hyperlipidemia: (9) Mitral valve regurgitation: (10) Depression: (11) Esophageal reflux: (12) Pulmonary embolism: History of Plan Patient 84-year-old female presented to the emergency room with nausea vomiting and diarrhea that had started the beginning of the week. She had really been unable to eat or drink much at all. In the emergency room she was also noted to be hypoxic which improved with oxygen via nasal cannula. She was referred for further evaluation. Patient was given some IV hydration. She was also empirically started on some antibiotics for gastroenteritis and possible urinary tract infection. By the following day she was feeling significantly improved. She had no nausea, no vomiting and no diarrhea during her time here in the hospital. Her diet was advanced and she tolerated well. However patient continued to require oxygen supplementation. Two-step testing revealed that she required 2 L of oxygen at all times. Patient has a previous history of requiring home oxygen. Echocardiogram performed here this hospitalization showed severe pulmonary hypertension. This is what is causing her to require oxygen and is appropriate treatment for the pulmonary hypertension. Case management was involved and help coordinate home oxygen. Her urine analysis did not have any bacteria seen. Urine culture is pending. She does not have any urinary complaints. Low suspicion for urinary tract infection at this time. Also low suspicion for bacterial gastroenteritis. I suspect that she has now recovered from the gastroenteritis that she has had all week. Symptomatically is improved with some hydration. Should be discharged home to continue her usual home medications. She is to be on oxygen 2 L nasal cannula at all times and follow-up with her PCP Notes For Next Care Provider Continue to assess oxygen needs Medication Changes From Visit Oxygen 2 L nasal cannula at all times Admission HPI Per Admitting Provider The patient is an 84-year-old male with a past medical history of chronic systolic CHF, SVT, PE on Eliquis, A-fib, severe pulmonary hypertension, severe TR, moderate MR, HTN, HLD, RBBB, CKD stage III, IBS, GERD, Graves' disease who presents to the ER on 12/13/2024 with complaints of nausea/vomiting/diarrhea that started about 4 days ago. Patient denies any associated abdominal pain. She denies any sick contacts. She denies any recent travel. She denies any recent fever/chills. Denies any chest pain/shortness of breath. Denies any blood in her stool. Reports consistent nausea and being unable to tolerate oral intake. On arrival to the ED, ER physician reports intermittent hypoxia in the 80s. She was placed on 2 L of oxygen with improvement. She denies any shortness of breath at this time. On arrival to the ED, labs remarkable for hemoglobin 11.1, glucose 120 Urinalysis positive Abdominal/pelvis CT negative for bowel obstruction Chest x-ray negative The patient will be admitted for further management of nausea/vomiting, inability to tolerate oral intake Admission Exam Per Admitting Provider See H&P Discharge Exam Constitutional: Alert, nontoxic, no respiratory distress HEENT: Mucous membranes moist. Lungs: Clear to auscultation, decreased, no wheezes rales or rhonchi CV: S1-S2, regular Abdomen: Soft, nontender, nondistended Extremities: No significant edema Neuro: No focal deficits Psych: Cooperative, normal mood Updated Medication List Medication Instructions Recorded Confirmed Type aspirin 81 mg tablet,delayed 81 mg PO QAM 05/11/19 12/17/24 History release calcium 500 mg (as 1 tab PO QDL 05/11/19 12/17/24 History carbonate)-vitamin D3 5 mcg (200 unit) tablet (Calcium 500 + D) escitalopram oxalate 5 mg tablet 5 mg PO QDL 05/11/19 12/17/24 History pravastatin 20 mg tablet 20 mg PO QPM 05/11/19 12/17/24 History travoprost 0.004 % eye drops 1 drp ophthalmic (eye) PM 05/11/19 12/17/24 History (Travatan Z) levothyroxine 25 mcg tablet 12.5 mcg PO DAILY 05/12/19 12/17/24 History lorazepam 0.5 mg tablet 0.5 mg PO HS PRN Insomnia 05/12/19 12/17/24 History spironolactone 25 mg tablet 12.5 mg (1/2 x 25 mg) PO QAM #0 05/15/19 12/17/24 Rx tabs losartan 25 mg tablet 25 mg PO DAILY 12/26/21 12/17/24 History apixaban 5 mg tablet (Eliquis) 5 mg PO BID #60 tabs 01/02/22 12/17/24 Rx metoprolol succinate 25 mg 75 mg (3 x 25 mg) PO BID #60 tabs 01/02/22 12/17/24 Rx tablet,extended release 24 hr multivitamin 1 tab PO DAILY 11/10/22 12/17/24 History furosemide 20 mg tablet (Lasix) 20 mg PO 3XWK 01/02/24 12/17/24 History meclizine 25 mg tablet 25 mg PO DAILY PRN Dizziness or 04/28/24 12/17/24 History Nausea Hospital Stay Data Consultations 12/17/24 12:24 ED Decision to Admit Stat Diagnostic Imagining Performed 12/17/24 10:14 CT abd pelvis IV con only Stat Reviewed imaging, laboratory and diagnostic studies. Pertinent findings as below. WBCs 8.09 Hemoglobin 10.0 Platelets of 334 Electrolytes within normal ranges Creatinine 0.91 Glucose 92 Urinalysis negative nitrate 2+ leukocyte esterase no bacteria seen, 6-10 WBCs COVID, RSV and influenza testing negative Pending Results Patient Have Any Pending Studies at Discharge: Yes Discharge Instructions Given to Patient (Per Discharging Provider) Suspect you had a gastroenteritis that has now run its course and you have improved. It was noted that your oxygen levels were low here in the hospital. This is most likely due to your pulmonary hypertension. We have coordinated for you to have home oxygen that should be worn at all times. Continue to follow with your providers to assess your ongoing needs for oxygen Total Time Total Time Spent Total Time Spent (In Minutes): 40
[2024-12-18 15:09] VITALS: BP 106/63; PULSE 67; O2SAT 93
--- NOTE | 2024-12-19 05:36 | Electrocardiogram Report ---
Test Reason : Blood Pressure : */* mmHG Vent. Rate : 70 BPM Atrial Rate : 71 BPM P-R Int : * ms QRS Dur : 156 ms QT Int : 470 ms P-R-T Axes : * -35 146 degrees QTcB Int : 507 ms Ventricular-paced rhythm Underlying atrial fibrillation Abnormal ECG When compared with ECG of 02-Dec-2024 11:22, No significant change was found Confirmed by Jay Henao ([id number]) on 12/19/2024 5:36:26 AM Referred By: REFERRED SELF Confirmed By: Jay Henao
== END 2024-12-18 15:50 | disposition home or self-care (01) | DRG 392 ==
LOC: ED 09:45 → 2W 12:55 → INTOOBSV 12:55 → SUATTDRO 12:55 → 2W 15:50 → 2N 23:19